=== PATIENT | male | born 1960 | race Caucasian/White ===

== ENCOUNTER 2019-03-12 14:16 | Emergency (ER) | payer OTHER ==
[2019-03-12 14:54] LABS: Absolute Lymphocytes (CBC) 1.3 K/uL (0.7-4.9); Basophils % 0.9 % (0-1.3); Hematocrit 41.1 % (39.6-49.0); Lymphocytes % 24.6 % (15.3-44.8); MPV 9.6 fL (7.6-11.3); RBC Red Blood Cell Count 4.04 M/uL (4.33-5.43)
[2019-03-12 14:55] LABS: Protime INR 0.93
[2019-03-12] MEDS ORDERED: NA CHLORIDE 0.9% 2,000 ML ONE (15:13)
[2019-03-12 15:14] LABS: ALT/SGPT 95 U/L (12-78); AST/SGOT 155 U/L (15-37); Albumin 3.5 g/dL (3.4-5.0); Alkaline Phosphatase 119 U/L (45-117); BUN Blood Urea Nitrogen 7 mg/dL (7-18); Bicarbonate 27 mmol/L (21-32); Bilirubin Direct 0.4 mg/dL (0-0.2); Bilirubin Total 0.8 mg/dL (0.2-1.0); Glucose Level 144 mg/dL (74-106); Magnesium 2.1 mg/dL (1.8-2.4); NT PRO-BNP 13 pg/mL (<125); Potassium 4.1 mmol/L (3.5-5.1); Protein, Total 6.7 g/dL (6.4-8.2); Sodium Level 138 mmol/L (136-145); Troponin (Emerg Dept Use Only) < 0.02 ng/mL (0.0-0.045)
--- NOTE | 2019-03-12 15:19 | RAD REPORT ---
EXAM DESCRIPTION: RAD - Chest Single View - 03/12/2019 2:57 pm CLINICAL HISTORY: PALPITATIONS Chest pain. COMPARISON: No comparisons FINDINGS: Portable technique limits examination quality. The lungs are grossly clear. The heart is normal in size. No displaced fractures. IMPRESSION: No acute intrathoracic process suspected.
[2019-03-12] MEDS ORDERED: NA CHLORIDE 0.9% 1,000 ML ONE (16:35)
--- NOTE | 2019-03-12 16:46 | EDPHYS ---
Physician Documentation [facility] Name: Adi Bennett Age: 58 yrs Sex: Male : 1960 Arrival Date: 03/12/2019 Time: 14:17 Bed 24 Private MD: ED Physician Jose Cormier HPI: 03/12 15:05 This 58 yrs old Male presents to ER via Wheelchair with complaints of jmm Palpitations. 15:05 The patient presents with a history of heart racing. Onset: The symptoms/episode jmm began/occurred gradually, 2 day(s) ago. Duration: The patient or guardian reports multiple episodes. Modifying factors: The symptoms are aggravated by nothing. The symptoms are alleviated by nothing. This is a 58 year old male with no known chronic medical conditions that presents to the ED with complaints of palpitations and elevated heart rate over the past 2 days. Patient recently recovered from flu b 3 days ago. Denies vomiting, denies abdominal pain, denies chest pain. . Historical: - Allergies: 14:31 No Known Allergies; iw - PMHx: 14:31 None; iw - PSHx: 14:31 None; iw - Immunization history:: Adult Immunizations up to date. - Social history:: Smoking status: . - Ebola Screening: : Patient negative for fever greater than or equal to 101.5 degrees Fahrenheit, and additional compatible Ebola Virus Disease symptoms Patient denies exposure to infectious person Patient denies travel to an Ebola-affected area in the 21 days before illness onset No symptoms or risks identified at this time. ROS: 15:05 Constitutional: Negative for fever, chills, and weight loss. jmm 15:05 Abdomen/GI: Negative for abdominal pain, nausea, vomiting, diarrhea, and constipation, Back: Negative for injury and pain. 15:05 Cardiovascular: Positive for palpitations. 15:05 Neuro: Positive for headache. 15:05 All other systems are negative. Exam: 15:05 Constitutional: This is a well developed, well nourished patient who is awake, alert, jmm and in no acute distress. Head/Face: atraumatic. Eyes: EOMI, no conjunctival erythema appreciated ENT: Moist Mucus Membranes Neck: Trachea midline, Supple Chest/axilla: Normal chest wall appearance and motion. 15:05 Abdomen/GI: Non distended, soft Back: Normal ROM Skin: General appearance color normal MS/ Extremity: Moves all extremities, no obvious deformities appreciated, no edema noted to the lower extremities Neuro: Awake and alert, normal gait Psych: Behavior is normal, Mood is normal, Patient is cooperative and pleasant 15:05 Cardiovascular: Rate: tachycardic, Rhythm: regular, Pulses: no pulse deficits are appreciated. 15:05 Respiratory: the patient does not display signs of respiratory distress, Respirations: normal, Breath sounds: are clear throughout. Vital Signs: 14:30 BP 140 / 90 LA (auto/reg); Pulse 130; Resp 14; Temp 98.4; Pulse Ox 98% on R/A; Weight iw 65.77 kg; Height 5 ft. 7 in. (170.18 cm); 14:46 BP 137 / 88; Pulse 118; Resp 19; Pulse Ox 96% on R/A; ca1 15:36 BP 148 / 89; Pulse 107; Resp 19 S; Pulse Ox 98% on R/A; ca1 16:54 BP 149 / 83; Pulse 115; Resp 18 S; Pulse Ox 99% on R/A; ca1 14:30 Body Mass Index 22.71 (65.77 kg, 170.18 cm) iw MDM: 15:05 Patient medically screened. thania 16:44 Data reviewed: vital signs, nurses notes. Counseling: I had a detailed discussion with darell the patient and/or guardian regarding: the historical points, exam findings, and any diagnostic results supporting the discharge/admit diagnosis, lab results, radiology results, the need for outpatient follow up, to return to the emergency department if symptoms worsen or persist or if there are any questions or concerns that arise at home. ED course: Patient states that he feels much better. tachycardia most likely due to viral illness. patient is advised to follow up with pcp for reevaluation and otherwise given strict return precautions. . 03/12 14:39 Order name: Basic Metabolic Panel; Complete Time: 15:15 ca1 03/12 14:39 Order name: CBC with Diff; Complete Time: 14:56 03/12 14:39 Order name: LFT's; Complete Time: 15:15 ca1 03/12 14:39 Order name: Magnesium; Complete Time: 15:15 03/12 14:39 Order name: NT PRO-BNP; Complete Time: 15:15 03/12 14:39 Order name: PT-INR; Complete Time: 15:15 ca1 03/12 14:39 Order name: Troponin (emerg Dept Use Only); Complete Time: 15:15 ca1 03/12 14:39 Order name: XRAY Chest (1 view); Complete Time: 15:41 03/12 14:39 Order name: EKG; Complete Time: 14:40 03/12 14:39 Order name: Cardiac monitoring; Complete Time: 14:39 03/12 14:39 Order name: EKG - Nurse/Tech; Complete Time: 14:40 03/12 14:39 Order name: IV Saline Lock; Complete Time: 14:40 ca1 03/12 14:39 Order name: Labs collected and sent; Complete Time: 14:40 ca1 03/12 14:39 Order name: O2 Per Protocol; Complete Time: 14:40 03/12 14:39 Order name: O2 Sat Monitoring; Complete Time: 14:40 ca1 Administered Medications: 15:12 Drug: NS 0.9% 1000 ml Route: IV; Rate: 1000 ml; Site: right antecubital; ca1 16:00 Follow up: Urine output 600 ml; Response: No adverse reaction; IV Status: Completed ca1 infusion 16:01 Drug: NS 0.9% 1000 ml Route: IV; Rate: 1000 ml; Site: right antecubital; ca1 17:00 Follow up: Response: No adverse reaction; IV Status: Completed infusion ca1 16:40 Not Given (Patient Refused): NS 0.9% 1000 ml IV at 1 bolus Per protocol; 1000 mL bolus ca1 Disposition: 03/12/19 16:45 Discharged to Home. Impression: Tachycardia, unspecified. - Condition is Stable. - Discharge Instructions: Sinus Tachycardia. - Medication Reconciliation Form, Thank You Letter, Antibiotic Education, Prescription Opioid Use form. - Follow up: Private Physician; When: 2 - 3 days; Reason: Recheck today's complaints, Continuance of care, Re-evaluation by your physician. Addendum: 03/14/2019 19:42 Co-signature as Attending Physician, Jose Cormier MD. r n Signatures: Dispatcher [employer] EDTiti Morse PA PA jmm Williams, Irene, RN RN iw Nieto, Roman, MD MD rn AcobPam RN RN ca1 Corrections: (The following items were deleted from the chart) 03/12 16:56 16:45 03/12/2019 16:45 Discharged to Home. Impression: Tachycardia, unspecified. ca1 Condition is Stable. Forms are Medication Reconciliation Form, Thank You Letter, Antibiotic Education, Prescription Opioid Use. Follow up: Private Physician; When: 2 - 3 days; Reason: Recheck today's complaints, Continuance of care, Re-evaluation by your physician. darell
--- NOTE | 2019-03-12 16:46 | ER ---
Nurse's Notes [facility] Name: Adi Bennett Age: 58 yrs Sex: Male : 1960 Arrival Date: 03/12/2019 Time: 14:17 Bed 24 Private MD: Diagnosis: Tachycardia, unspecified Presentation: 03/12 14:27 Presenting complaint: Patient states: palpitations X 5 days , recently recovered from iw Flu B 2 days ago. Transition of care: patient was not received from another setting of care. Onset of symptoms was March 08, 2019. Risk Assessment: Do you want to hurt yourself or someone else? Patient reports no desire to harm self or others. Initial Sepsis Screen: Does the patient meet any 2 criteria? No. Patient's initial sepsis screen is negative. Does the patient have a suspected source of infection? No. Patient's initial sepsis screen is negative. Care prior to arrival: None. 14:27 Method Of Arrival: Wheelchair iw 14:27 Acuity: RODERICK 2 iw Historical: - Allergies: 14:31 No Known Allergies; iw - PMHx: 14:31 None; iw - PSHx: 14:31 None; iw - Immunization history:: Adult Immunizations up to date. - Social history:: Smoking status: . - Ebola Screening: : Patient negative for fever greater than or equal to 101.5 degrees Fahrenheit, and additional compatible Ebola Virus Disease symptoms Patient denies exposure to infectious person Patient denies travel to an Ebola-affected area in the 21 days before illness onset No symptoms or risks identified at this time. Screenin:40 Abuse screen: Denies threats or abuse. Denies injuries from another. Nutritional ca1 screening: No deficits noted. Tuberculosis screening: No symptoms or risk factors identified. Fall Risk IV access (20 points). Assessment: 14:40 General: Appears in no apparent distress. comfortable, Behavior is cooperative, ca1 appropriate for age, anxious. Pain: Denies pain. Neuro: Level of Consciousness is awake, alert, obeys commands, Oriented to person, place, time, situation, Appropriate for age. Cardiovascular: Heart tones S1 S2 present Capillary refill < 3 seconds Patient's skin is warm and dry. Rhythm is sinus tachycardia. Respiratory: Airway is patent Respiratory effort is even, unlabored, Respiratory pattern is regular, symmetrical, Breath sounds are clear bilaterally. GI: Abdomen is flat, non-distended, Bowel sounds present X 4 quads. Abd is soft and non tender X 4 quads. : No deficits noted. No signs and/or symptoms were reported regarding the genitourinary system. EENT: No deficits noted. No signs and/or symptoms were reported regarding the EENT system. Derm: Skin is intact, is healthy with good turgor, Skin is pink, warm \T\ dry. Musculoskeletal: Circulation, motion, and sensation intact. Capillary refill < 3 seconds. 15:36 Reassessment: Patient appears in no apparent distress at this time. Patient and/or ca1 family updated on plan of care and expected duration. Pain level reassessed. Patient is alert, oriented x 3, equal unlabored respirations, skin warm/dry/pink. 16:54 Reassessment: Patient appears in no apparent distress at this time. Patient is alert, ca1 oriented x 3, equal unlabored respirations, skin warm/dry/pink. Vital Signs: 14:30 BP 140 / 90 LA (auto/reg); Pulse 130; Resp 14; Temp 98.4; Pulse Ox 98% on R/A; Weight iw 65.77 kg; Height 5 ft. 7 in. (170.18 cm); 14:46 BP 137 / 88; Pulse 118; Resp 19; Pulse Ox 96% on R/A; ca1 15:36 BP 148 / 89; Pulse 107; Resp 19 S; Pulse Ox 98% on R/A; ca1 16:54 BP 149 / 83; Pulse 115; Resp 18 S; Pulse Ox 99% on R/A; ca1 14:30 Body Mass Index 22.71 (65.77 kg, 170.18 cm) iw ED Course: 14:17 Patient arrived in ED. rg4 14:25 Pam Kaiser, RN is Primary Nurse. ca1 14:30 Patient has correct armband on for positive identification. Placed in gown. Bed in low jp3 position. Call light in reach. Side rails up X 1. Warm blanket given. Verbal reassurance given. playground monitor on. Pulse ox on. NIBP on. 14:30 Patient maintains SpO2 saturation greater than 95% on room air. jp3 14:30 EKG done, by microwave technician. jp3 14:31 Triage completed. iw 14:38 No provider procedures requiring assistance completed. Initial lab(s) drawn, by ar, ca1 sent to lab. Inserted saline lock: 20 gauge in right antecubital area, using aseptic technique. Blood collected. 14:46 Arm band placed on. ca1 14:50 Titi Stevenson PA is PHCP. [facility] 14:50 Jose Cormier MD is Attending Physician. m 14:57 XRAY Chest (1 view) In Process Unspecified. EDMS 16:54 IV discontinued, intact, bleeding controlled, No redness/swelling at site. Pressure ca1 dressing applied. Administered Medications: 15:12 Drug: NS 0.9% 1000 ml Route: IV; Rate: 1000 ml; Site: right antecubital; ca1 16:00 Follow up: Urine output 600 ml; Response: No adverse reaction; IV Status: Completed ca1 infusion 16:01 Drug: NS 0.9% 1000 ml Route: IV; Rate: 1000 ml; Site: right antecubital; ca1 17:00 Follow up: Response: No adverse reaction; IV Status: Completed infusion ca1 16:40 Not Given (Patient Refused): NS 0.9% 1000 ml IV at 1 bolus Per protocol; 1000 mL bolus ca1 Output: 16:00 Urine: 600ml; Total: 600ml. ca1 Outcome: 16:45 Discharge ordered by MD. [facility] 16:54 Discharged to home ambulatory. ca1 16:54 Condition: stable 16:54 Discharge instructions given to patient, Instructed on discharge instructions, follow up and referral plans. Demonstrated understanding of instructions, follow-up care. 16:56 Patient left the ED. ca1 Signatures: Dispatcher [employer] EDMS Titi Stevenson PA PA jmm Williams, Irene, ADEEL RN Lois Kramer rg4 Rafael Hilton jp3 Pam Kaiser RN RN ca1 Corrections: (The following items were deleted from the chart) 14:32 14:30 BP 140 / 90 Auto L Arm Regular; Pulse 130bpm; Resp 14bpm; Pulse Ox 98% RA; Temp iw 98.4F; jp3 14:32 14:27 Presenting complaint: Patient states: palpitations X 5 days iw iw
[2019-03-12 17:02] VITALS: TEMP 98.4
[2019-03-12 17:06] VITALS: BP 149/83; O2SAT 99
--- NOTE | 2019-03-13 08:36 | EKG ---
Test Date: 2019-03-12 Test Time: 14:33:10 Juice Scaleman: [facility]MI MEASUREMENT RESULTS: Intervals: Rate: 121 AL: 130 QRSD: 82 QT: 312 QTc: 443 Leland: P: 68 AL: 130 QRS: 78 T: 67 INTERPRETIVE STATEMENTS: Sinus tachycardia Otherwise normal ECG No previous ECG available for comparison Electronically Signed On 03-13-19 08:35:22 [employer]IVING TEACHER by Cisco Escobar
== END 2019-03-12 16:56 | disposition home or self-care (01) ==
LOC: ER 14:16
DX: R00.0 Tachycardia, unspecified (principal)
CPT/HCPCS: 96361; 93005; 85025; 80048; 36415; 83735; 85610; 80076; 84484; 83880; 71045; 96360; 99285; J7030 ×2

== ENCOUNTER 2019-08-02 13:25 | Inpatient (IN) | payer OTHER, SELFPAY ==
--- OUTSIDE RECORDS SUMMARY | 2019-08-02 13:27 | XMS REPORT | Continuity of Care Document ---
:1960 Author Organization [facility] t Address [address] [place] [address] Care Team Providers Name Role Phone Unavailable Unavailable Unavailable Payers Payer Name Policy Type Policy Number Effective Date Expiration Date S ource Problems Condition Condition Condition Status Onset Resolution Last Treating Co mments Source Name Details Category Date Date Treatment Clinician Date Irritable Irritable Diagnosis Active [facility] bowel bowel [facility] - syndrome, syndrome, Gideon rajwinder unspecifie unspecifie l d type [facility] Alcoholism Alcoholism Problem Active [facility] Alcoholic Alcoholic Problem Active [facility] hepatitis hepatitis [facility] - without without Memoria ascites ascites l [facility] Alcoholism Alcoholism Problem Active [facility] in in [facility] - remission remission Gideon rajwinder l [facility] Allergies, Adverse Reactions, Alerts Allergy Allergy Status Severity Reaction(s) Onset Inactive Treating Comm ents Source Name Type Date Date Clinician No Known DA Active U 2017-02 [facility] Allergie 2-10 Clear s 00:00: [facility] 00 [facility] Medications Ordered Filled Start Stop Current Ordering Indication Dosage Frequency Signature Comments Components Source Medication Medication Date Date Medication? Clinician (SIG) Name Name PredniSONE PredniSONE 0 2020- Yes Janina [address] [facility] 3-18 03-23 [place] [facility] - 00:00: 00:00 Memoria 00 :00 l [facility] Procedures This patient has no known procedures. Encounters Start End Encounter Admission Attending Care Care Encounter Source Date/Time Date/Time Type Type Clinicians Facility Department ID 2019-05-06 2019-05-06 [facility] [id number] [facility] 15:20:00 15:20:00 [facility] Medicine Outpati ent Clinics 2018-08-19 2018-08-19 [facility] [id number] [facility] 09:15:00 09:15:00 [facility] Outpat[facility] ent Clinics 2018-02-20 2018-02-20 [facility] [id number] [facility] 08:30:00 08:30:00 [facility] Outpat[facility] Clinics 2017-09-12 2017-09-12 [facility] [id number] [facility] 08:45:00 08:45:00 [facility] Outpati ent Clinics 2017-08-23 2017-08-23 [facility] [id number] [facility] 08:15:00 08:15:00 [facility] Outpat[facility] Clinics 2017-08-22 2017-08-22 [facility] [id number] [facility] 15:15:00 15:15:00 [facility] Outpat[facility] ent Clinics Results This patient has no known results.
--- OUTSIDE RECORDS SUMMARY | 2019-08-02 13:27 | XMS REPORT ---
:1960 Author Organization [employer] Care Team Providers Name Role Phone Janina Gabriel Provider Role Unavailable Allergies, Adverse Reactions, Alerts Substance Reaction Event Type N.K.D.A. 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
[2019-08-02] MEDS ORDERED: NA CHLORIDE 0.9% 1,000 ML ONE ×2 (14:32→14:49)
[2019-08-02] MEDS ORDERED: ONDANSETRON 4 MG/2 ML VIAL ONE ×2 (14:32→16:18)
[2019-08-02] MEDS ORDERED: MORPHINE 2 MG/ML SYR ONE ×2 (14:32→16:18)
[2019-08-02] MEDS ORDERED: FAMOTIDINE 20 MG/2 ML VIAL IV ONE (14:49)
[2019-08-02 15:08] LABS: Absolute Lymphocytes (CBC) 0.2 K/uL (0.7-4.9); Basophils % 0.1 % (0-1.3); Hematocrit 45.1 % (39.6-49.0); Lymphocytes % 1.7 % (15.3-44.8); MPV 10.4 fL (7.6-11.3); RBC Red Blood Cell Count 4.35 M/uL (4.33-5.43)
[2019-08-02 15:30] LABS: ALT/SGPT 156 U/L (12-78); AST/SGOT 223 U/L (15-37); Albumin 4.1 g/dL (3.4-5.0); Alkaline Phosphatase 160 U/L (45-117); BUN Blood Urea Nitrogen 9 mg/dL (7-18); Bicarbonate 23 mmol/L (21-32); Bilirubin Direct 0.9 mg/dL (0-0.2); Bilirubin Total 3.4 mg/dL (0.2-1.0); Glucose Level 199 mg/dL (74-106); Lipase 662 U/L (73-393); Magnesium 2.3 mg/dL (1.8-2.4); NT PRO-BNP 454 pg/mL (<125); Potassium 3.5 mmol/L (3.5-5.1); Sodium Level 137 mmol/L (136-145); Troponin (Emerg Dept Use Only) < 0.02 ng/mL (0.0-0.045)
--- NOTE | 2019-08-02 15:35 | RAD REPORT ---
EXAM DESCRIPTION: RAD - Chest Single View - 08/02/2019 2:40 pm CLINICAL HISTORY: Chest pain;Abdominal distention COMPARISON: February 2019 TECHNIQUE: AP portable chest image was obtained 08/02/2019 2:40 pm . FINDINGS: Lungs are clear. Heart and vasculature are normal. No measurable pleural effusion and no p neumothorax. No acute bony abnormality seen. No acute aortic findings suspected. IMPRESSION: No acute cardiopulmonary process. No significant interval change
--- NOTE | 2019-08-02 16:03 | RAD REPORT ---
EXAM DESCRIPTION: CT - Abdomen Pelvis W Contrast - 08/02/2019 3:49 pm CLINICAL HISTORY: ABD PAIN COMPARISON: No comparisons TECHNIQUE: Biphasic, helical CT imaging of the abdomen and pelvis was performed following 100 ml non -ionic IV contrast. No oral contrast administered. All CT scans are performed using dose optimization technique as appropriate and may include automated exposure control or mA/KV adjustment according to patient size. FINDINGS: No suspicious findings in the lung bases. Liver shows a very pronounced fatty infiltration pattern. No focal liver lesion. No portal vein abnor mality. Spleen shows no suspicious finding. Gallbladder and biliary tree are also without suspicious finding. No focal mass seen in the pancreatic parenchyma. There is mild congestion or edema in the peripancrea tic fat. A few punctate centimeter sized reactive lymph nodes are seen. No suspicious lymphadenopathy . Symmetric renal function is seen with no hydronephrosis or suspicious renal mass. No pyelonephritis o r acute parenchymal process. No bladder abnormalities. No adrenal abnormalities. No dilated bowel loops or bowel wall thickening. Very minimal hiatal hernia present. No free air or p neumatosis. No abnormal free fluid collection. No hernia, mass or bulky lymphadenopathy. No suspicious bony findings. IMPRESSION: Mild pancreatitis. No abscess, pseudocyst or emergent complicating factor. Very pronounced fatty infiltration of the liver.
--- NOTE | 2019-08-02 16:11 | EDPHYS ---
Physician Documentation [facility] Name: Adi Bennett Age: 58 yrs Sex: Male : 1960 Arrival Date: 08/02/2019 Time: 13:29 Bed 4 Private MD: WILLIS Physician Mohan Arnold HPI: 08/01 14:25 This 58 yrs old Male presents to ER via Ambulatory with complaints of angel Abdominal Pain, Nausea/Vomiting. 14:25 The patient presents to the emergency department with nausea, vomiting, abdominal pain, angel of the epigastric area, right upper quadrant and left upper quadrant. Onset: The symptoms/episode began/occurred 3 day(s) ago. Possible causes: unknown. The symptoms are aggravated by nothing. food , The symptoms are alleviated by nothing. remaining still. Associated signs and symptoms: Pertinent positives: abdominal pain. Severity of symptoms: At their worst the symptoms were moderate in the emergency department the symptoms are unchanged. The patient has experienced similar episodes in the past, multiple times. Historical: - Allergies: 14:00 No Known Allergies; iw - Home Meds: 14:00 dicyclomine 10 mg Oral cap daily [Active]; buspirone 10 mg Oral tab 1 tab daily iw [Active]; - PMHx: 14:00 Pancreatitis; IBS; iw - PSHx: 14:00 None; iw - Immunization history:: Adult Immunizations up to date. - Social history:: Smoking status: Patient reports the use of cigarette tobacco products, 3 packs per week. ROS: 14:26 Constitutional: Negative for fever, chills, and weight loss, Eyes: Negative for injury, angel pain, redness, and discharge, ENT: Negative for injury, pain, and discharge, Neck: Negative for injury, pain, and swelling, Cardiovascular: Negative for chest pain, palpitations, and edema, Respiratory: Negative for shortness of breath, cough, wheezing, and pleuritic chest pain, Back: Negative for injury and pain, : Negative for injury, bleeding, discharge, and swelling, MS/Extremity: Negative for injury and deformity, Skin: Negative for injury, rash, and discoloration, Neuro: Negative for headache, weakness, numbness, tingling, and seizure, Psych: Negative for depression, anxiety, suicide ideation, homicidal ideation, and hallucinations, Allergy/Immunology: Negative for hives, rash, and allergies, Endocrine: Negative for neck swelling, polydipsia, polyuria, polyphagia, and marked weight changes, Hematologic/Lymphatic: Negative for swollen nodes, abnormal bleeding, and unusual bruising. 14:26 Abdomen/GI: Positive for abdominal pain, nausea and vomiting. Exam: 14:26 Constitutional: This is a well developed, well nourished patient who is awake, alert, angel and in no acute distress. Head/Face: Normocephalic, atraumatic. Eyes: Pupils equal round and reactive to light, extra-ocular motions intact. Lids and lashes normal. Conjunctiva and sclera are non-icteric and not injected. Cornea within normal limits. Periorbital areas with no swelling, redness, or edema. ENT: Nares patent. No nasal discharge, no septal abnormalities noted. Tympanic membranes are normal and external auditory canals are clear. Oropharynx with no redness, swelling, or masses, exudates, or evidence of obstruction, uvula midline. Mucous membranes moist. Neck: Trachea midline, no thyromegaly or masses palpated, and no cervical lymphadenopathy. Supple, full range of motion without nuchal rigidity, or vertebral point tenderness. No Meningismus. Chest/axilla: Normal chest wall appearance and motion. Nontender with no deformity. No lesions are appreciated. Respiratory: Lungs have equal breath sounds bilaterally, clear to auscultation and percussion. No rales, rhonchi or wheezes noted. No increased work of breathing, no retractions or nasal flaring. Back: No spinal tenderness. No costovertebral tenderness. Full range of motion. Male : Normal genitalia with no discharge or lesions. Skin: Warm, dry with normal turgor. Normal color with no rashes, no lesions, and no evidence of cellulitis. MS/ Extremity: Pulses equal, no cyanosis. Neurovascular intact. Full, normal range of motion. Neuro: Awake and alert, GCS 15, oriented to person, place, time, and situation. Cranial nerves II-XII grossly intact. Motor strength 5/5 in all extremities. Sensory grossly intact. Cerebellar exam normal. Normal gait. Psych: Awake, alert, with orientation to person, place and time. Behavior, mood, and affect are within normal limits. 14:26 Cardiovascular: Rate: normal, Rhythm: regular, Pulses: Pulses are 4+ in bilateral radial, brachial, femoral, popliteal, posterior tibial and and dorsalis pedis arteries.. Heart sounds: normal, Edema: is not appreciated, JVD: is not appreciated. 14:26 Abdomen/GI: Inspection: abdomen appears normal, Bowel sounds: normal, Palpation: mild abdominal tenderness, in the epigastric area, right upper quadrant and left upper quadrant, Liver: no appreciated palpable abnormalities, Hernia: not appreciated. 15:06 ECG was reviewed by the Attending Physician. [facility] Vital Signs: 13:56 BP 173 / 95; Pulse 102; Resp 16; Pulse Ox 100% on R/A; Weight 54.43 kg; Height 5 ft. 7 iw in. (170.18 cm); Pain 10/10; 14:54 BP 153 / 86; Pulse 90; Resp 16; Pulse Ox 100% ; bp 16:05 BP 154 / 84; Pulse 90; Resp 20; Pulse Ox 100% ; bp 17:00 BP 153 / 86; Pulse 89; Resp 16; Pulse Ox 100% ; bp 18:08 BP 151 / 84; Pulse 84; Resp 18; Pulse Ox 98% ; jl7 13:56 Body Mass Index 18.79 (54.43 kg, 170.18 cm) iw MDM: 13:47 Patient medically screened. [facility] 14:28 Data reviewed: vital signs, nurses notes, lab test result(s), EKG, radiologic studies, [facility] CT scan, plain films. 14:29 Differential diagnosis: Nonspecific abd pain, gastritis, cholecystitis, pancreatitis, angel viral gastroenteritis, gastroenteritis, acute coronary syndrome, bowel obstruction, cholecystitis, Cholelithiasis, gastritis, gastroesophageal reflux disease, GI Bleed, Irritable bowel syndrome, non-specific abd pain, Peptic Ulcer Disease, Perf. Duodenal Ulcer, Perf. Gastric Ulcer. 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 Test interpretation: by ED physician or midlevel provider: ECG, plain radiologic studies. Counseling: I had a detailed discussion with the patient and/or guardian regarding: the historical points, exam findings, and any diagnostic results supporting the discharge/admit diagnosis, lab results, radiology results. Medication response: Zofran partially relieved the patient's nausea. 08/01 14:25 Order name: Basic Metabolic Panel; Complete Time: 15:50 [facility] 08/01 14:25 Order name: CBC with Diff; Complete Time: 15:20 [facility] 08/01 14:25 Order name: LFT's; Complete Time: 15:50 [facility] 08/01 14:25 Order name: Magnesium; Complete Time: 15:50 [facility] 08/01 14:25 Order name: NT PRO-BNP; Complete Time: 15:50 [facility] 08/01 14:25 Order name: Troponin (emerg Dept Use Only); Complete Time: 15:50 [facility] 08/01 14:25 Order name: XRAY Chest (1 view); Complete Time: 15:50 [facility] 08/01 14:25 Order name: Lipase; Complete Time: 15:50 [facility] 08/01 14:25 Order name: CT Abd/Pelvis - PO and IV Contrast [facility] 08/01 15:37 Order name: CREATININE WHOLE BLOOD; Complete Time: 15:50 EDA[facility] 08/01 16:07 Order name: AMMONIA [facility] 08/01 16:07 Order name: PT-INR [facility] 08/01 16:08 Order name: Urine Dipstick--Ancillary (enter results) 08/01 16:15 Order name: Abdomen Exam Complete EDAZ 08/01 14:25 Order name: EKG; Complete Time: 14:26 [facility] 08/01 14:25 Order name: Cardiac monitoring; Complete Time: 14:37 [facility] 08/01 14:25 Order name: EKG - Nurse/Tech; Complete Time: 14:55 [facility] 08/01 14:25 Order name: IV Saline Lock; Complete Time: 14:37 [facility] 08/01 14:25 Order name: Labs collected and sent; Complete Time: 14:37 [facility] 08/01 14:25 Order name: O2 Per Protocol; Complete Time: 14:36 [facility] 08/01 14:25 Order name: O2 Sat Monitoring; Complete Time: 14:36 [facility] 08/01 14:25 Order name: Urine Dipstick-Ancillary (obtain specimen); Complete Time: 16:13 [facility] EC:06 Rate is 92 beats/min. Rhythm is regular. QRS [place] is Normal. OR interval is normal. QRS angel interval is normal. QT interval is prolonged at 390 msec. T waves are Normal. No ST changes noted. Clinical impression: Abnormal EKG without significant change and No evidence of ischemia. Interpreted by me. Reviewed by me. Administered Medications: 14:35 Drug: NS 0.9% 1000 ml Route: IV; Rate: 1 bolus; Site: right forearm; bp 15:35 Follow up: IV Status: Completed infusion; IV Intake: 1000ml jl7 14:35 Drug: NS 0.9% 1000 ml Route: IV; Rate: 1 bolus; Site: right forearm; bp 16:00 Follow up: Response: No adverse reaction; IV Status: Completed infusion; IV Intake: jl7 1000ml 14:35 Drug: Pepcid 20 mg Route: IVP; Site: right forearm; bp 18:10 Follow up: Response: No adverse reaction jl7 14:35 Drug: morphine 2 mg Route: IVP; Site: right forearm; bp 14:35 Drug: Zofran (Ondansetron) 4 mg Route: IVP; Site: right forearm; bp 17:47 Follow up: Response: Nausea is decreased bp 16:10 Drug: Zofran (Ondansetron) 4 mg Route: IVP; Site: right forearm; bp 17:47 Follow up: Response: Nausea is decreased bp 16:13 Drug: morphine 2 mg Route: IVP; Site: right forearm; bp 17:47 Follow up: Response: Pain is decreased bp 16:15 Not Given (Duplicate Order): Zofran (Ondansetron) 4 mg IVP once; over 2 minutes bp Disposition: 08/02/19 16:11 Hospitalization ordered by Flaco Moya for Inpatient Admission. Preliminary diagnosis are Abdominal tenderness, Acute pancreatitis, Vomiting, Volume depletion. - Bed requested for Telemetry/MedSurg (Inpatient). - Status is Inpatient Admission. bp - Condition is Fair. - Problem is new. - Symptoms have improved. Signatures: Dispatcher [employer] EDAZ Mohan Arnold MD MD cha Williams, Irene, RN ADEEL Pavel Castillo RN RN Margaret Vogel Jahala RN jl7 Corrections: (The following items were deleted from the chart) 17:21 16:11 Hospitalization Ordered by Flaco Moya MD for Inpatient Admission. Preliminary eb diagnosis is Abdominal tenderness; Acute pancreatitis; Vomiting; Volume depletion. Bed requested for Telemetry/MedSurg (Inpatient). Status is Inpatient Admission. Condition is Fair. Problem is new. Symptoms have improved. angel 18:21 17:21 08/02/2019 16:11 Hospitalization Ordered by Flaco Moya MD for Inpatient bp Admission. Preliminary diagnosis is Abdominal tenderness; Acute pancreatitis; Vomiting; Volume depletion. Bed requested for Telemetry/MedSurg (Inpatient). Status is Inpatient Admission. Condition is Fair. Problem is new. Symptoms have improved. eb
--- NOTE | 2019-08-02 16:11 | ER ---
Nurse's Notes [facility] Name: Adi Bennett Age: 58 yrs Sex: Male : 1960 Arrival Date: 08/02/2019 Time: 13:29 Bed 4 Private MD: Diagnosis: Abdominal tenderness;Acute pancreatitis;Vomiting;Volume depletion Presentation: 08/01 13:56 Chief complaint: Patient states: hx of pancreatitis and IBS, started having upper abd iw pain X 3 days ago, vomiting X 2 days, now not tolerating fluids. Coronavirus screen: Proceed with normal triage. Patient denies a cough. Patient denies shortness of breath or difficulty breathing. Patient denies measured and/or subjective temperature greater than 100.4F prior to today's visit. Patient denies travel on a cruise ship or to a country the [facility] currently lists as an affected area. Patient denies contact with known and/or suspected case of COVID-19. Ebola Screen: Patient negative for fever greater than or equal to 101.5 degrees Fahrenheit, and additional compatible Ebola Virus Disease symptoms Patient denies exposure to infectious person. Patient denies travel to an Ebola-affected area in the 21 days before illness onset. No symptoms or risks identified at this time. Initial Sepsis Screen: Does the patient meet any 2 criteria? No. Patient's initial sepsis screen is negative. Does the patient have a suspected source of infection? No. Patient's initial sepsis screen is negative. Risk Assessment: Do you want to hurt yourself or someone else? Patient reports no desire to harm self or others. Onset of symptoms was July 30, 2019. 13:56 Method Of Arrival: Ambulatory iw 13:56 Acuity: RODERICK 3 iw Triage Assessment: 14:00 General: Appears in no apparent distress. uncomfortable, slender, Behavior is bp cooperative, appropriate for age, anxious. Pain: Complains of pain in abdomen. EENT: No deficits noted. Neuro: No deficits noted. Cardiovascular: Rhythm is sinus tachycardia. Respiratory: No deficits noted. GI: Reports intolerance of fluids, nausea, vomiting. : No signs and/or symptoms were reported regarding the genitourinary system. Derm: No deficits noted. Musculoskeletal: No deficits noted. Historical: - Allergies: 14:00 No Known Allergies; iw - Home Meds: 14:00 dicyclomine 10 mg Oral cap daily [Active]; buspirone 10 mg Oral tab 1 tab daily iw [Active]; - PMHx: 14:00 Pancreatitis; IBS; iw - PSHx: 14:00 None; iw - Immunization history:: Adult Immunizations up to date. - Social history:: Smoking status: Patient reports the use of cigarette tobacco products, 3 packs per week. Screenin:05 Abuse screen: Denies threats or abuse. Denies injuries from another. Nutritional bp screening: No deficits noted. Tuberculosis screening: No symptoms or risk factors identified. Fall Risk None identified. Assessment: 14:00 General: SEE TRIAGE NOTE. bp 14:55 Reassessment: PT NOT TOLERATING PO CONTRAST, NOTIFIED. bp 16:06 Reassessment: PT RETURNED FROM CT. ALL CURRENT ORDERS COMPLETED. bp 17:00 Reassessment: ADMIT IN PROCESS. NO FURTHER NAUSEA/VOMITING, IVF INFUSING. bp 18:10 Reassessment: ADMIT COMPLETE, PT JOHANNA WITH PCT. bp Vital Signs: 13:56 BP 173 / 95; Pulse 102; Resp 16; Pulse Ox 100% on R/A; Weight 54.43 kg; Height 5 ft. 7 iw in. (170.18 cm); Pain 10/10; 14:54 BP 153 / 86; Pulse 90; Resp 16; Pulse Ox 100% ; bp 16:05 BP 154 / 84; Pulse 90; Resp 20; Pulse Ox 100% ; bp 17:00 BP 153 / 86; Pulse 89; Resp 16; Pulse Ox 100% ; bp 18:08 BP 151 / 84; Pulse 84; Resp 18; Pulse Ox 98% ; jl7 13:56 Body Mass Index 18.79 (54.43 kg, 170.18 cm) iw ED Course: 13:29 Patient arrived in ED. ag5 13:47 Mohan Arnold MD is Attending Physician. angel 13:50 Pavel Castillo, ADEEL is Primary Nurse. bp 13:59 Triage completed. iw 14:00 Arm band placed on. iw 14:05 Patient has correct armband on for positive identification. Bed in low position. Call bp light in reach. Side rails up X2. 14:35 Inserted saline lock: 20 gauge in right forearm, using aseptic technique. Blood bp collected. 14:40 XRAY Chest (1 view) In Process Unspecified. EDMS 15:22 EKG done, by ED staff, reviewed by Mohan Arnold MD. mh5 15:50 CT Abd/Pelvis - PO and IV Contrast In Process Unspecified. EDMS 15:51 CT completed. Patient tolerated procedure well. Patient moved back from CT. bq 16:10 Flaco Moya MD is Hospitalizing Provider. angel 18:08 No provider procedures requiring assistance completed. Patient admitted, IV remains in jl7 place. intact, No redness/swelling at site. Administered Medications: 14:35 Drug: NS 0.9% 1000 ml Route: IV; Rate: 1 bolus; Site: right forearm; bp 15:35 Follow up: IV Status: Completed infusion; IV Intake: 1000ml jl7 14:35 Drug: NS 0.9% 1000 ml Route: IV; Rate: 1 bolus; Site: right forearm; bp 16:00 Follow up: Response: No adverse reaction; IV Status: Completed infusion; IV Intake: jl7 1000ml 14:35 Drug: Pepcid 20 mg Route: IVP; Site: right forearm; bp 18:10 Follow up: Response: No adverse reaction jl7 14:35 Drug: morphine 2 mg Route: IVP; Site: right forearm; bp 14:35 Drug: Zofran (Ondansetron) 4 mg Route: IVP; Site: right forearm; bp 17:47 Follow up: Response: Nausea is decreased bp 16:10 Drug: Zofran (Ondansetron) 4 mg Route: IVP; Site: right forearm; bp 17:47 Follow up: Response: Nausea is decreased bp 16:13 Drug: morphine 2 mg Route: IVP; Site: right forearm; bp 17:47 Follow up: Response: Pain is decreased bp 16:15 Not Given (Duplicate Order): Zofran (Ondansetron) 4 mg IVP once; over 2 minutes bp Intake: 15:35 IV: 1000ml; Total: 1000ml. jl7 16:00 IV: 1000ml; Total: 2000ml. jl7 Outcome: 16:11 Decision to Hospitalize by Provider. angel 18:08 Admitted to Med/surg accompanied by tech, via wheelchair, room 222, with chart, Report jl7 called to ADEEL Sierra 18:08 Condition: stable 18:08 Discharge instructions given to patient, family, Instructed on the need for admit, Demonstrated understanding of instructions. 18:21 Patient left the ED. bp Signatures: Dispatcher [employer] Mohan Cantor MD MD cha Quilty, Betty bq Williams, Irene, RN Virginia Couch [facility] Ani Ni RN RN jl7 Pavel Castillo RN RN Jose Esteves 5
[2019-08-02 16:36] LABS: Protime INR 1.01
[2019-08-02 16:37] LABS: Urine Blood 1+ (NEG); Urine Glucose NEGATIVE (NEG); Urine Protein 2+ (NEG)
[2019-08-02] MEDS ORDERED: ACETAMINOPHEN 500 MG TAB PO PRN (18:26)
[2019-08-02] MEDS: HYDROMORPHONE HCL 1 MG/ML INJ IV PRN ×2 (18:51→23:13)
[2019-08-02] MEDS: ONDANSETRON 4 MG/2 ML VIAL IV PRN ×2 (18:51→23:14)
[2019-08-02] MEDS: D5.45NS W/KCL 20MEQ 1,000 ML IV SCH (18:51)
--- NOTE | 2019-08-02 18:55 | RAD REPORT ---
EXAM DESCRIPTION: US - Abdomen Exam Complete - 08/02/2019 5:32 pm CLINICAL HISTORY: pancreatitis, high T-Bili, r/o CBD dilatation COMPARISON: Abdomen Pelvis W Contrast dated 08/02/2019 FINDINGS: Gallbladder size is normal. Small echogenic nonshadowing foci are present along the gallbl adder wall. These could be small polyps or adherent stones. No gallbladder wall thickening or edema. No pericholecystic fluid. No worrisome mass. Common bile duct is normal with no common duct stone gita ntified. Diffuse fatty infiltration pattern seen in the liver. No focal liver lesion. No splenic abnormality i dentified. The pancreas is too obscured by bowel gas for assessment. CT study of same date showed pancreatitis f indings. No hydronephrosis or suspicious mass in either kidney. Aorta and IVC show no significant finding. No ascites or bulky lymphadenopathy. IMPRESSION: Small polyps versus adherent gallstones within a normal-sized gallbladder. No acute gall bladder finding evident. Pancreas is too obscured by bowel gas for assessment. No biliary tree dilatation. Diffuse fatty infiltration of the liver.
[2019-08-02 20:07] VITALS: BMI 18.8
--- NOTE | 2019-08-02 22:03 | HP ---
Date of Admission: 08/02/2019 Chief Complaint: Abdominal pain, nausea, and vomiting. Primary Care Physician: None. History Of Present Illness: Patient is a 58-year-old male with past medical history of irritable bowel syndrome and previous history of pancreatitis, who was in his usual state of health until 3 days prior to admission when the patient had sudden onset of abdominal pain which is epigastric, nausea, vomiting which was nonbloody and inability to keep down any p.o. intake. Patient denies any fevers or chills. His pain is constant, moderate, progressively worsening, radiates towards the back in between his shoulder blades, worse with any food. No alleviating factors. Patient has had symptoms such as these previously with his last bout of pancreatitis. Patient came into the ER for further evaluation of his symptoms. In the ER, he was found to be hypertensive, tachycardic, and multiple episodes of emesis in the ER. Workup revealed normal WBC count. His lipase level was 662. Liver enzymes are elevated. Direct bilirubin was only 0.9, however, total bilirubin is elevated. CT scan showed mild pancreatitis. There is no abscess, pseudocyst, or emergent complicating factors. There was fatty infiltration of the liver. The gallbladder and biliary tree did not show any suspicious findings. Ultrasound of the abdomen is pending at this time. Chest x-ray was clear. Patient was then referred for admission. When seen in the ER, he was awake, alert, and oriented x3, in some moderate distress. Past Medical History: Irritable bowel syndrome, history of previous pancreatitis. Surgical History: None. Allergies: NO KNOWN DRUG ALLERGIES. Medications: The patient takes prednisone as needed for his IBS and dicyclomine. Patient was on Chantix, but no longer taking it. Social History: Patient smokes about 3 packs per week. Has been smoking since the 80s. Denies any significant alcohol use. Last drink was November of 2017. Family History: Positive for irritable bowel syndrome in both parents. Review of Systems: Ten-point system reviewed, negative except as per HPI. Physical Examination: Vital Signs: Blood pressure 173/95, pulse 102, respirations 16, O2 100% on room air. BMI 18. General: Awake, alert, oriented x3, in some mild distress due to pain, ill- appearing male, cachectic. BMI 18. HEENT: Normocephalic, atraumatic. PERRLA, EOMI. Dry mucous membranes. Oropharynx is clear. Normal dentition. Neck: Supple. No JVD. Trachea midline. CV: S1, S2. Sinus tachycardia. Peripheral pulses present. Respiratory: Moving air well bilaterally. No wheezing or stridor. No use of accessory muscles. Gastrointestinal: Abdomen is soft. Tenderness to palpation in the epigastric region. No rebound or guarding. Positive bowel sounds. Extremities: No clubbing, cyanosis, or edema. No calf tenderness. Neuro: Cranial nerves 2 through 12 intact grossly. No focal neurological deficits. Speech is normal. Strength is symmetric, bilateral upper and lower extremities. Skin: No rashes. Normal skin turgor. Psych: Mood is okay. Affect is full. Insight and judgment are good. Laboratory Data: Sodium 137, potassium 3.5, chloride 97, CO2 of 23, BUN 9, creatinine 1.16, glucose 199, calcium 9.5, magnesium 2.3, total bilirubin 3.4, direct bilirubin 0.9, AST 223, ALT 156, alkaline phosphatase 160, ammonia 23. Troponin less than 0.02. Lipase is 662. INR 1.101. WBC 10.2, H and H 15.2 and 45.1, platelets 101, neutrophils 87%. UA; 4+ ketones, 1+ blood, negative nitrite, negative leukocyte esterase, 2+ protein. Imaging Studies: Chest x-ray shows no acute cardiopulmonary process. CT scan shows mild pancreatitis. No abscess, pseudocyst, or emergent complicating factor, very pronounced fatty infiltration of the liver. Gallbladder and biliary tree are also without suspicious finding. Assessment/plan: A 58-year-old male with: 1. Acute pancreatitis, unclear etiology. Patient does not drink alcohol. Direct bilirubin is only 0.9. No gallstones seen on CT scan. Biliary tree is normal. Ultrasound of the abdomen is pending. No GI on-call today. Patient has followed up with Dr. Taylor and Dr. Perez in the past. Dr. Taylor is on- call in a.m. We will consult GI at that time. We will start on IV fluids with D5 half NS with 20 of K. Pain control. The patient states morphine did not work for him, requesting Dilaudid. Has had previous bout of pancreatitis and Dilaudid work for him best. Continue with antiemetics. We will keep n.p.o. for now. We will start on early re-feeding with clear liquids in a.m. We will trend lipase levels. 2. Diffuse fatty infiltration of the liver, likely explains the elevated LFTs and elevated indirect bilirubin. The patient will need to follow up with GI and to continue serial imaging studies of the liver. Patient has risk for progression to cirrhosis due to nonalcoholic fatty liver disease. 3. Irritable bowel syndrome, stable. 4. Nicotine dependence with cigarette smoking. Counseled for less than 3 minutes. Patient not receptive at this time to quit. He recently got off [employer], did not work for him. Plan: Admit patient to Med-Surg, place as inpatient. Length of stay greater than 2 midnights. YANNA Voice ID: [id number] MTDD
[2019-08-03] MEDS: D5.45NS W/KCL 20MEQ 1,000 ML IV SCH ×4 (01:06→22:23)
[2019-08-03] MEDS: ONDANSETRON 4 MG/2 ML VIAL IV PRN ×5 (04:03→20:21)
[2019-08-03] MEDS: HYDROMORPHONE HCL 1 MG/ML INJ IV PRN ×5 (04:05→20:21)
[2019-08-03 05:28] LABS: Absolute Lymphocytes (CBC) 0.7 K/uL (0.7-4.9); Basophils % 0.2 % (0-1.3); Hematocrit 38.9 % (39.6-49.0); Lymphocytes % 7.1 % (15.3-44.8); MPV 10.2 fL (7.6-11.3); RBC Red Blood Cell Count 3.69 M/uL (4.33-5.43)
[2019-08-03 05:49] LABS: Albumin 3.3 g/dL (3.4-5.0); Bilirubin Total 1.8 mg/dL (0.2-1.0); Phosphorus 1.8 mg/dL (2.5-4.9); Potassium 3.9 mmol/L (3.5-5.1); Protein, Total 6.4 g/dL (6.4-8.2)
[2019-08-03 07:39] LABS: Anisocytosis 1+; Blood Morphology Comment NOTED (NOT SEEN); Macrocytosis 1+; Platelet Estimate DECR; Toxic Granulation 1+; Urine White Blood Cell Casts OK
[2019-08-03] MEDS ORDERED: POTASSIUM CL SA 10 MEQ TAB PO ONE (07:48)
[2019-08-03] MEDS: ENOXAPARIN 40 MG/0.4 ML SQ SCH (08:16)
[2019-08-03 08:32] LABS: Protime INR 0.92
--- NOTE | 2019-08-03 17:11 | P.PN ---
Subjective Date of Service: 08/03/19 Primary Care Provider: Dr. Echols Chief Complaint: abdominal pain Subjective: Improving, Doing well Physical Examination - Vital Signs Temperature: 98.3 F Blood Pressure: 131/67 Pulse: 93 Respirations: 18 Pulse Ox (%): 96 - Physical Exam General: Alert, In no apparent distress, Oriented x3, Cooperative HEENT: Atraumatic Neck: Supple Respiratory: Clear to auscultation bilaterally Cardiovascular: Normal pulses, Regular rate/rhythm Gastrointestinal: Normal bowel sounds, Non-distended, No tenderness Neurological: Normal speech, Normal strength at 5/5 x4 extr, Normal tone, Normal affect - Studies Medications List Reviewed: Yes Assessment & Plan Discharge Plan: Home Plan to discharge in: 24 Hours Physician Review Additional Text: Impression: Abdominal pain secondary to Acute pancreatitis, etiology is unknown Cholelithiasis without cholecystitis vs gallbladder polyp Irritable bowel syndrome Fatty liver with elevated liver function Thrombocytopenia Plan: Patient is doing better. Continue with ambulation. Will monitor closely. Will trial with clear liquids. If better will advance diet. Will monitor platelet count. Anticipate improvement over the next 24 hours. Will discuss further with his GI specialist. Time Spent Managing Pts Care (In Minutes): 55
[2019-08-03] MEDS: ENSURE HIGH PROTEIN 237 ML CAN PO SCH (20:25)
[2019-08-04] MEDS: ONDANSETRON 4 MG/2 ML VIAL IV PRN ×6 (00:17→21:30)
[2019-08-04] MEDS: HYDROMORPHONE HCL 1 MG/ML INJ IV PRN ×6 (00:18→21:29)
[2019-08-04] MEDS ORDERED: METOPROLOL TARTRATE 5 MG/5 ML INJ IV STA ×2 (02:03→03:24)
[2019-08-04] MEDS ORDERED: METHYLPREDNISOLONE 125 MG INJ IV ONE (03:27)
[2019-08-04] MEDS: D5.45NS W/KCL 20MEQ 1,000 ML IV SCH ×2 (05:36→10:26)
[2019-08-04 05:37] LABS: Potassium 4.5 mmol/L (3.5-5.1)
[2019-08-04] MEDS: chlordiazePOXIDE HCl 5 MG CAP PO SCH ×4 (06:18→23:42)
[2019-08-04] MEDS ORDERED: METOPROLOL TAR 25 MG TAB PO ONE (06:26)
[2019-08-04] MEDS: ENSURE HIGH PROTEIN 237 ML CAN PO SCH ×2 (08:44→21:16)
[2019-08-04] MEDS: ENOXAPARIN 40 MG/0.4 ML SQ SCH (08:44)
[2019-08-04] MEDS: predniSONE 10 MG TAB PO SCH ×2 (08:54→21:14)
[2019-08-04] MEDS: DICYCLOMINE HCL 10 MG CAP PO SCH ×2 (08:54→21:14)
[2019-08-04] MEDS ORDERED: BUSPIRONE HCL 5 MG TABLET PO SCH (09:00)
[2019-08-04] MEDS ORDERED: DICYCLOMINE HCL 10 MG CAP PO SCH (09:00)
[2019-08-04] MEDS ORDERED: MORPHINE 2 MG/ML SYR IV PRN (12:52)
[2019-08-04] MEDS ORDERED: HYDROCODONE/APAP 7.5/325 MG TAB PO PRN (14:23)
[2019-08-04] MEDS ORDERED: TRAMADOL HCL 50 MG TAB PO PRN (14:23)
--- NOTE | 2019-08-04 14:27 | P.PN ---
Subjective Date of Service: 08/04/19 Primary Care Provider: Dr. Echols Chief Complaint: abdominal pain Subjective: Other (Patient reported cramping to the abdomen last night. Patient Portal Concierge gave patient Solu-Medrol as the patient has a history of irritable bowel. Some nausea this morning.) Physical Examination - Vital Signs Temperature: 98.1 F Blood Pressure: 107/55 Pulse: 87 Respirations: 18 Pulse Ox (%): 96 - Physical Exam General: Alert, Oriented x3, Cooperative HEENT: Atraumatic Neck: Supple Respiratory: Clear to auscultation bilaterally, Normal air movement Cardiovascular: Normal pulses, Regular rate/rhythm Gastrointestinal: Normal bowel sounds, Soft and benign, Non-distended, Tenderness (Mild pain to the lower quadrant) Integumentary: No tenderness/swelling, No erythema, No warmth, No cyanosis Neurological: Normal speech, Normal strength at 5/5 x4 extr, Normal tone, Normal affect, Other (Mild agitation suspect from alcohol withdrawal.) - Studies Medications List Reviewed: Yes Assessment & Plan Discharge Plan: Home Plan to discharge in: 24 Hours Physician Review Additional Text: Impression: Abdominal pain secondary to Acute pancreatitis, likely alcoholic related Cholelithiasis without cholecystitis vs gallbladder polyp Irritable bowel syndrome Fatty liver with elevated liver function Thrombocytopenia Alcohol abuse with suspected Alcohol withdrawal Plan: Patient continues to do slightly better. Some agitation noted Overnite. Patient Portal Concierge started Librium scheduled. Patient with history of alcohol abuse. Will monitor for alcohol withdrawal. Patient also given IV Solu-Medrol for possible irritable bowel syndrome. Will continue with prednisone. Will start Bentyl. Will check platelet count. Patient with noted fatty liver and elevated liver function. Will send lab for hepatitis panel and HIV. Continue to advance diet. Once ambulating and tolerating diet will consider discharge. Patient will need close follow up with GI as an outpatient. Patient will also need to be further evaluated by surgery in the future due to gallbladder polyp. Continue to reassess. Anticipate improvement over the next 24 hr. Time Spent Managing Pts Care (In Minutes): 55
[2019-08-04 14:47] LABS: RBC Red Blood Cell Count 3.59 M/uL (4.33-5.43)
[2019-08-04 14:48] LABS: Absolute Lymphocytes (CBC) 0.1 K/uL (0.7-4.9); Basophils % 0.1 % (0-1.3); Hematocrit 38.2 % (39.6-49.0); Lymphocytes % 4.4 % (15.3-44.8); MPV 11.7 fL (7.6-11.3)
[2019-08-04] MEDS: NA CHLORIDE 0.9% 1,000 ML IV SCH (15:14)
[2019-08-04 15:34] LABS: Blood Morphology Comment NOTED (NOT SEEN); Platelet Estimate DECR; Platelets, Giant PRESENT; Urine White Blood Cell Casts OK
[2019-08-04 15:35] LABS: Macrocytosis 1+
[2019-08-04] MEDS: METOPROLOL TAR 25 MG TAB PO SCH (16:52)
[2019-08-04] MEDS ORDERED: METOPROLOL TAR 25 MG TAB PO SCH (18:00)
[2019-08-05] MEDS: NA CHLORIDE 0.9% 1,000 ML IV SCH (01:26)
[2019-08-05] MEDS: ONDANSETRON 4 MG/2 ML VIAL IV PRN ×2 (01:27→05:23)
[2019-08-05] MEDS: HYDROMORPHONE HCL 1 MG/ML INJ IV PRN ×2 (01:27→05:23)
[2019-08-05] MEDS: METOPROLOL TAR 25 MG TAB PO SCH (05:05)
[2019-08-05] MEDS: chlordiazePOXIDE HCl 5 MG CAP PO SCH (05:22)
[2019-08-05 05:44] LABS: Absolute Lymphocytes (CBC) 0.5 K/uL (0.7-4.9); Basophils % 0.2 % (0-1.3); MPV 11.3 fL (7.6-11.3); RBC Red Blood Cell Count 3.69 M/uL (4.33-5.43)
[2019-08-05 05:47] LABS: BUN Blood Urea Nitrogen 14 mg/dL (7-18); Bicarbonate 27 mmol/L (21-32); Glucose Level 96 mg/dL (74-106); Magnesium 2.2 mg/dL (1.8-2.4); Potassium 4.1 mmol/L (3.5-5.1); Sodium Level 134 mmol/L (136-145)
[2019-08-05 06:42] LABS: Blood Morphology Comment NOTED (NOT SEEN); Platelet Estimate DECR; Platelets, Giant PRESENT
[2019-08-05 06:43] LABS: Macrocytosis 1+
[2019-08-05 08:58] VITALS: O2SAT 98
[2019-08-05] MEDS ORDERED: LACTOBACILLUS/ACIDOPHILUS TAB PO SCH (09:00)
[2019-08-05] MEDS: ENSURE HIGH PROTEIN 237 ML CAN PO SCH (09:00)
[2019-08-05] MEDS: ENOXAPARIN 40 MG/0.4 ML SQ SCH (09:00)
[2019-08-05] MEDS: predniSONE 10 MG TAB PO SCH (09:02)
[2019-08-05 09:03] VITALS: BP 98/54; TEMP 97.1
--- NOTE | 2019-08-05 09:17 | P.DS ---
Admission Date: 08/02/19 Discharge Date: 08/05/19 Primary Care Provider: Dr. Echols Disposition: ROUTINE DISCHARGE Discharge Condition: GOOD Reason for Admission: abdominal pain Consultations: None Procedures: CT Scan: FINDINGS: No suspicious findings in the lung bases. Liver shows a very pronounced fatty infiltration pattern. No focal liver lesion. No portal vein abnormality. Spleen shows no suspicious finding. Gallbladder and biliary tree are also without suspicious finding. No focal mass seen in the pancreatic parenchyma. There is mild congestion or edema in the peripancreatic fat. A few punctate centimeter sized reactive lymph nodes are seen. No suspicious lymphadenopathy. Symmetric renal function is seen with no hydronephrosis or suspicious renal mass. No pyelonephritis or acute parenchymal process. No bladder abnormalities. No adrenal abnormalities. No dilated bowel loops or bowel wall thickening. Very minimal hiatal hernia present. No free air or pneumatosis. No abnormal free fluid collection. No hernia, mass or bulky lymphadenopathy. No suspicious bony findings. IMPRESSION: Mild pancreatitis. No abscess, pseudocyst or emergent complicating factor. Very pronounced fatty infiltration of the liver. ABUS: FINDINGS: Gallbladder size is normal. Small echogenic nonshadowing foci are present along the gallbladder wall. These could be small polyps or adherent stones. No gallbladder wall thickening or edema. No pericholecystic fluid. No worrisome mass. Common bile duct is normal with no common duct stone identified. Diffuse fatty infiltration pattern seen in the liver. No focal liver lesion. No splenic abnormality identified. The pancreas is too obscured by bowel gas for assessment. CT study of same date showed pancreatitis findings. No hydronephrosis or suspicious mass in either kidney. Aorta and IVC show no significant finding. No ascites or bulky lymphadenopathy. IMPRESSION: Small polyps versus adherent gallstones within a normal-sized gallbladder. No acute gallbladder finding evident. Pancreas is too obscured by bowel gas for assessment. No biliary tree dilatation. Diffuse fatty infiltration of the liver. Peripheral blood smear: Thrombocytopenia, mild macrocytic anemia Medical problem list: Abdominal pain secondary to Acute mild pancreatitis, likely alcoholic related complicated with irritable bowel syndrome flare Cholelithiasis without cholecystitis vs gallbladder polyp Fatty liver with elevated liver function Thrombocytopenia likely related to above Alcohol abuse with suspected Alcohol withdrawal Tobacco abuse Brief History of Present Illness: 58-year-old male with history of irritable bowel and prior alcoholic pancreatitis. Patient reported increasing epigastric abdominal pain with nausea and vomiting. Patient was evaluated the emergency room. CT scan showed mild pancreatitis. Fatty liver also identified. Patient admitted for further evaluation and treatment. Hospital Course: Patient presented with abdominal pain, nausea and vomiting. CT scan revealed acute mild pancreatitis. Patient was admitted for further evaluation and treatment. His condition improved. When his pancreatitis resolved patient had symptoms of irritable bowel flareup. Patient with history of irritable bowel. Patient was given prednisone with improvement. At discharge he is without significant abdominal pain, nausea vomiting. Patient able the tolerate diet. Pancreatitis related to alcohol. At discharge recommend to discontinue alcohol. This was discussed in detail. Patient plans to quit. Patient understands the risks of continued alcohol use. At discharge patient will continue with prednisone 10 mg once daily for 5 more days for his irritable bowel. Patient will be provided a limited supply of tramadol 50 mg 1 pill 3 times a day as needed for pain. Recommend to continue with lactobacillus 3 times a day. Recommend follow up with GI as an outpatient to further monitor and address. Patient will require EGD/colonoscopy to further evaluate in the future. Education on pancreatitis and irritable bowel will be provided. CT scan also revealed cholelithiasis without cholecystitis. There was also some question of a gallbladder polyp. Recommendation is for the patient to follow up with surgery as an outpatient to further evaluate and address. Patient will likely require laparoscopic outpatient cholecystectomy in the future. Patient with noted fatty liver with elevated liver function. Liver function improved with IV fluid hydration. At discharge hepatitis panel in HIV panel pending. Recommend follow up with GI as an outpatient to further monitor and address. Recommend to recheck-CMP in 2-4 weeks to monitor resolution. education on fatty liver provided. Patient also had thrombocytopenia likely related to above. This improved. Recommendation is to recheck CBC in 2 weeks to monitor resolution. If this persists will recommend Hematology evaluation as an outpatient to further address. As mentioned above patient with history of alcohol abuse and tobacco abuse. Patient did have some agitation and required Librium. Education on alcohol withdrawal addressed in detail. Patient plans to quit. Patient understands the risks of continued alcohol use including severe pancreatitis. Patient will be provided a limited supply of Librium 5 mg 3 times a day as needed for agitation. Patient will also be provided Nicoderm patch for tobacco cessation. Vital Signs/Physical Exam: Temp Pulse Resp BP Pulse Ox 97.1 F 83 18 98/54 L 96 08/05/19 08:00 08/05/19 08:00 08/05/19 08:00 08/05/19 08:00 08/05/19 08:00 General: Alert, In no apparent distress, Oriented x3, Cooperative HEENT: Atraumatic Neck: Supple Respiratory: Clear to auscultation bilaterally, Normal air movement Cardiovascular: Normal pulses, Regular rate/rhythm Gastrointestinal: Normal bowel sounds, Soft and benign, Non-distended, No tenderness, No masses, No rebound, No guarding Musculoskeletal: No erythema, No tenderness, No warmth Integumentary: No tenderness/swelling, No erythema, No warmth, No cyanosis Neurological: Normal speech, Normal strength at 5/5 x4 extr, Normal tone, Normal affect Laboratory Data at Discharge: WBC 3.0 K/uL (4.3-10.9) L 08/05/19 05:17 Hgb 12.9 g/dL (13.6-17.9) L 08/05/19 05:17 Hct 39.0 % (39.6-49.0) L 08/05/19 05:17 Plt Count 85 K/uL (152-406) L 08/05/19 05:17 PT 10.9 SECONDS (9.5-12.5) 08/03/19 08:14 INR 0.92 08/03/19 08:14 APTT 28.2 SECONDS (24.3-36.9) 08/03/19 08:14 Sodium 134 mmol/L (136-145) L 08/05/19 05:17 Potassium 4.1 mmol/L (3.5-5.1) 08/05/19 05:17 BUN 14 mg/dL (7-18) 08/05/19 05:17 Creatinine 0.77 mg/dL (0.55-1.3) 08/05/19 05:17 Glucose 96 mg/dL (74-106) 08/05/19 05:17 Phosphorus 1.8 mg/dL (2.5-4.9) L 08/03/19 05:01 Magnesium 2.2 mg/dL (1.8-2.4) 08/05/19 05:17 Total Bilirubin 1.8 mg/dL (0.2-1.0) H 08/03/19 05:01 AST 109 U/L (15-37) H D 08/03/19 05:01 ALT 102 U/L (12-78) H 08/03/19 05:01 Alkaline Phosphatase 122 U/L (45-117) H 08/03/19 05:01 Triglycerides 84 mg/dL (<150) 08/03/19 08:14 Lipase 270 U/L (73-393) 08/03/19 05:01 Home Medications: Lactobacillus Acidophilus [Acidophilus Lactobacilli] 1 each PO TID #90 capsule 08/05/19 Nicotine [Nicoderm] 1 patch TD DAILY #30 patch.td24 08/05/19 chlordiazePOXIDE HCl [Librium] 5 mg PO TID PRN #15 cap 08/05/19 predniSONE [Deltasone*] 10 mg PO DAILY #5 tab 08/05/19 traMADol HCL [Ultram*] 50 mg PO TID PRN #15 tab 08/05/19 New Medications: Lactobacillus Acidophilus [Acidophilus Lactobacilli] 1 each PO TID #90 capsule predniSONE [Deltasone*] 10 mg PO DAILY #5 tab chlordiazePOXIDE HCl [Librium] 5 mg PO TID PRN #15 cap PRN Reason: Agitation Nicotine [Nicoderm] 1 patch TD DAILY #30 patch.td24 traMADol HCL [Ultram*] 50 mg PO TID PRN #15 tab PRN Reason: Pain Patient Discharge Instructions: 1. Recommend follow up with PCP in 1 week to follow up this hospitalization. 2. Patient presented with abdominal pain, nausea and vomiting. CT scan revealed acute mild pancreatitis. Patient was admitted for further evaluation and treatment. His condition improved. When his pancreatitis resolved patient had symptoms of irritable bowel flareup. Patient with history of irritable bowel. Patient was given prednisone with improvement. At discharge he is without significant abdominal pain, nausea vomiting. Patient able the tolerate diet. Pancreatitis related to alcohol. At discharge recommend to discontinue alcohol. This was discussed in detail. Patient plans to quit. Patient understands the risks of continued alcohol use. At discharge patient will continue with prednisone 10 mg once daily for 5 more days for his irritable bowel. Patient will be provided a limited supply of tramadol 50 mg 1 pill 3 times a day as needed for pain. Recommend to continue with lactobacillus 3 times a day. Recommend follow up with GI as an outpatient to further monitor and address. Patient will require EGD/colonoscopy to further evaluate in the future. Education on pancreatitis and irritable bowel will be provided. 3. CT scan also revealed cholelithiasis without cholecystitis. There was also some question of a gallbladder polyp. Recommendation is for the patient to follow up with surgery as an outpatient to further evaluate and address. Patient will likely require laparoscopic outpatient cholecystectomy in the future. 4. Patient with noted fatty liver with elevated liver function. Liver function improved with IV fluid hydration. At discharge hepatitis panel in HIV panel pending. Recommend follow up with GI as an outpatient to further monitor and address. Recommend to recheck-CMP in 2-4 weeks to monitor resolution. education on fatty liver provided. 5. Patient also had thrombocytopenia likely related to above. This improved. Recommendation is to recheck CBC in 2 weeks to monitor resolution. If this persists will recommend Hematology evaluation as an outpatient to further address. 6. As mentioned above patient with history of alcohol abuse and tobacco abuse. Patient did have some agitation and required Librium. Education on alcohol withdrawal addressed in detail. Patient plans to quit. Patient understands the risks of continued alcohol use including severe pancreatitis. Patient will be provided a limited supply of Librium 5 mg 3 times a day as needed for agitation. Patient will also be provided Nicoderm patch for tobacco cessation. Diet: GI soft diet then advance to regular Activity: Ad renan Time spent managing pt's care (in minutes): 55
[2019-08-06 15:10] LABS: HIV AG/AB 4TH GEN Non-reactive (Non-reactive)
[2019-08-06 18:28] LABS: HBsAG Nonreactive (Nonreactive)
== END 2019-08-05 10:15 | disposition home or self-care (01) | DRG 439 ==
LOC: ER 13:25 → ERHOLD 16:50 → 2ND 18:08
PROVIDERS: ADMIT Family Medicine; ATTEND Family Medicine
DX: K85.20 Alcohol induced acute pancreatitis without necrosis or infection (principal); R64 Cachexia; Z68.1 Body mass index [BMI] 19.9 or less, adult; F10.239 Alcohol dependence with withdrawal, unspecified; K80.20 Calculus of gallbladder without cholecystitis without obstruction; K58.9 Irritable bowel syndrome, unspecified; K70.0 Alcoholic fatty liver; R79.89 Other specified abnormal findings of blood chemistry; F17.210 Nicotine dependence, cigarettes, uncomplicated; D69.6 Thrombocytopenia, unspecified; Z79.52 Long term (current) use of systemic steroids; Z79.899 Other long term (current) drug therapy; Z20.828 Contact with and (suspected) exposure to other viral communicable diseases
CPT/HCPCS: 36415; 71045; 74177; 76700; 80048; 80053; 80074; 80076; 81003; 82140; 82565; 83010; 83615; 83690; 83735; 83880; 84100; 84478; 84484; 85025; 85610; 85730; 87389; 93005; 94760; 96361; 96374; 96375; 99285; J1170; J1650; J2270; J2405; J2930; J7030; J7512; Q9967; U0002

== ENCOUNTER 2021-03-31 08:24 | Emergency (ER) | payer OTHER ==
--- OUTSIDE RECORDS SUMMARY | 2021-03-31 08:29 | XMS REPORT | Continuity of Care Document ---
:1960 Author Organization [facility] t Address [address] [place] [address] Care Team Providers Name Role Phone Harvey Attending Clinician Unavailable ASHTYN MENDOZA Attending Clinician Unavailable Payers Payer Name Policy Type Policy Number Effective Date Expiration Date S ource [employer] [id number] 2019 00:00:00 OPTIONS RIZO RULE OPEN [id number] 2019 00:00:00 CHOICE Problems This patient has no known problems. Allergies, Adverse Reactions, Alerts Allergy Allergy Status Severity Reaction(s) Onset Inactive Treating Comm ents Source Name Type Date Date Clinician No Known DA Active U 2017-02 [facility]10 Clear s 00:00: Lopez [address] [place] [address] NO KNOWN Allergy Active [facility] Medications Ordered Filled Start Stop Current Ordering Indication Dosage Frequency Signature Comments Components Source Medication Medication Date Date Medication? Clinician (SIG) Name Name PredniSONE PredniSONE 2019- No Janina [address] [facility] 3-18 05-[address] [facility] - 00:00: 00:00 [facility] Vital Signs Vital Name Observation Time Observation Value Comments Source HEIGHT 2019-12-09 13:28:00 170.2 cm WEIGHT 2019-12-09 13:28:00 54.658 kg HEIGHT 2019-12-09 13:28:00 170.2 cm WEIGHT 2019-12-09 13:28:00 54.658 kg Procedures This patient has no known procedures. Encounters Start End Encounter Admission Attending Care Care Encounter Source Date/Time Date/Time Type Type Clinicians Facility Department ID 2021-03-[address] [facility] [id number] [facility] 11:51:14 Janina [id number] [facility] 2021-03-15 Outpatient [facility] [id number] [facility] 11:14:35 Janina [id number] [facility] 2020-03-16 2020-03-16 Outpatient [facility] [id number] 00:[facility]:00 PRASUN 2019-12-18 2019-12-18 Outpatient [facility] [id number] [facility] 2019-12-09 2019-12-09 Outpatient [facility]END[facility] [id number] [facility] 00:00:00 00:00:00 PRASUN 2019-11-24 2019-11-24 Outpatient [facility] [id number] [facility] 2019-11-19 2019-11-19 Out[facility] [id number] [facility] 2019-05-06 2019-05-06 [facility] [id number] [facility] 15:20:00 15:20:00 [facility] 2018-08-19 2018-08-19 [facility] [id number] [facility] 09:15:00 09:15:00 [facility] 2018-02-20 2018-02-20 Outpatient Marline Potts [id number] [facility] 08:30:00 08:30:00 [facility] 2017-09-12 2017-09-12 Outpatient Marline Potts [id number] 08:45:00 08:45:00 [facility] 2017-08-23 2017-08-23 Outpatient Marline Potts [id number] 08:15:00 08:15:00 [facility] 2017-08-22 2017-08-22 Outpatient Marline Potts [id number] 15:15:00 15:15:00 [facility] Results Test Description Test Time Test Comments Results Result Comments Source ANTI-NUCLEAR ANTIBODY (JAIME) 2019-12-10 10:07:00 Test Item Value Reference Range Interpretation Comme nts ANTI-NUCLEAR ANTIBODY (JAIME) (BEAKER) (test code = 418) Negative Negative Test performed by IFA method.Test performed by IFA method.ALPHA FETOPROTEIN (AFP), TUMOR [id number] 20:44:00 Test Item Value Reference Range Interpretation Comments ALPHA-FETOPROTEIN (BEAKER) (test code < ng/mL <10.0 = 1094) Offender Employment Specialist ID - BSHEPATITIS A ANTIBODY, [id number] 20:42:00 Test Item Value Reference Range Interpretation Comments HEPATITIS A IGM ANTIBODY (BEAKER) Nonreactive Nonreactive (test code = 498) Offender Employment Specialist ID - BSHEPATITIS B CORE ANTIBODY, [id number] 20:42:00 Test Item Value Reference Range Interpretation Comments HEPATITIS B CORE TOTAL ANTIBODY Nonreactive Nonreactive (BEAKER) (test code = 497) Offender Employment Specialist ID - BSHEPATITIS A ANTIBODY, [id number] 20:42:00 Test Item Value Reference Range Interpretation Comments HEPATITIS A IGG ANTIBODY (BEAKER) Nonreactive Nonreactive (test code = 2797) Offender Employment Specialist ID - BSHEPATITIS B SURFACE [id number] 17:52:00 Test Item Value Reference Range Interpretation Comments HEPATITIS B SURFACE ANTIBODY 8.8 mIU/mL <8.0 H (BEAKER) (test code = 647) Offender Employment Specialist ID - BSHEPATITIS B SURFACE [id number] 17:47:00 Test Item Value Reference Range Interpretation Comments HEPATITIS B SURFACE ANTIGEN (2) Nonreactive Nonreactive (BEAKER) (test code = 2585) Specimen is considered negative for HBsAg.HEPATITIS C [id number] 17:47:00 Test Item Value Reference Range Interpretation Comments HEPATITIS C ANTIBODY (BEAKER) Nonreactive Nonreactive (test code = 367) Offender Employment Specialist ID - BSIRON, TIBC, % SAT. (WITHOUT FERRITIN)2019-12-09 17:19:00 Test Item Value Reference Range Interpretation Comments IRON (BEAKER) (test code = 547) 131.0 ug/dL 40.0-160.0 TOTAL IRON BINDING CAPACITY 440 ug/dL 250-450 (BEAKER) (test code = 769) IRON % SATURATION (2) (BEAKER) 30 % 20-55 (test code = 2590) Offender Employment Specialist ID - [id number] 16:55:00 Test Item Value Reference Range Interpretation Comments ALPHA-1 ANTITRYPSIN (BEAKER) 150.60 mg/dL 90.00-200.00 (test code = 502) Offender Employment Specialist ID - [id number] 16:47:00 Test Item Value Reference Range Interpretation Comments FERRITIN (BEAKER) (test code = 187.10 ng/mL 5.00-275.00 361) Offender Employment Specialist ID - BSCOMPREHENSIVE METABOLIC [id number] 16:36:00 Test Item Value Reference Range Interpretation Comments TOTAL PROTEIN 7.6 gm/dL 6.0-8.3 (BEAKER) (test code = 770) ALBUMIN (BEAKER) 4.3 g/dL 3.5-5.0 (test code = 1145) ALKALINE PHOSPHATASE 63 U/L 40-150 (BEAKER) (test code = 346) BILIRUBIN TOTAL 0.8 mg/dL 0.2-1.2 (BEAKER) (test code = 377) SODIUM (BEAKER) (test 143 meq/L 136-145 code = 381) POTASSIUM (BEAKER) 3.6 meq/L 3.5-5.1 (test code = 379) CHLORIDE (BEAKER) 105 meq/L 98-107 (test code = 382) CO2 (BEAKER) (test 30 meq/L 22-29 H code = 355) BLOOD UREA NITROGEN 8 mg/dL 7-21 (BEAKER) (test code = 354) CREATININE (BEAKER) 0.83 mg/dL 0.57-1.25 (test code = 358) GLUCOSE RANDOM 109 mg/dL 70-105 H (BEAKER) (test code = 652) CALCIUM (BEAKER) 9.3 mg/dL 8.4-10.2 (test code = 697) AST (SGOT) (BEAKER) 18 U/L 5-34 (test code = 353) ALT (SGPT) (BEAKER) 18 U/L 6-55 (test code = 347) EGFR (BEAKER) (test 95 mL/min/1.73 ESTIMA JOSIAH GFR IS code = 1092) sq m NOT ACCURATE CREATININE CLEARANCE IN PREDICTING GLOMERULAR FILTRATION RATE . ESTIMATED GFR I S NOT APPLICABLE FOR DIALYSIS PATIEN TS. Offender Employment Specialist ID - BSBILIRUBIN, [id number] 16:36:00 Test Item Value Reference Range Interpretation Comments BILIRUBIN DIRECT (BEAKER) (test 0.4 mg/dL 0.1-0.5 code = 706) Offender Employment Specialist ID - BSPROTHROMBIN [id number] 16:16:00 Test Item Value Reference Range Interpretation Comments PROTIME (BEAKER) (test code = 13.6 seconds 11.9-14.2 759) INR (BEAKER) (test code = 370) 1.07 <=5.90 Effective 07/16/2018: PT Reference Range ChangeNew: 11.9-14.2 Previous: 11.7- 14.7RECOMMENDED COUMADIN/WARFARIN INR THERAPY RANGESSTANDARD DOSE: 2.0-3.0 Includes: PROPHYLAXIS for venous thrombosis, systemic embolization; TREATMENT for venous thrombosis and/or pulmonary embolus.HIGH RISK: Target INR is2.5-3.5 for patients wiht mechanical heart valves.CBC W/PLT COUNT & AUTO [id number] 16:15:00 Test Item Value Reference Range Interpretation Comments WHITE BLOOD CELL COUNT (BEAKER) 9.7 K/ L 3.5-10.5 (test code = 775) RED BLOOD CELL COUNT (BEAKER) 4.48 M/ L 4.63-6.08 L (test code = 761) HEMOGLOBIN (BEAKER) (test code = 14.9 GM/DL 13.7-17.5 410) HEMATOCRIT (BEAKER) (test code = 45.2 % 40.1-51.0 411) MEAN CORPUSCULAR VOLUME (BEAKER) 100.9 fL 79.0-92.2 H (test code = 753) MEAN CORPUSCULAR HEMOGLOBIN 33.3 pg 25.7-32.2 H (BEAKER) (test code = 751) MEAN CORPUSCULAR HEMOGLOBIN CONC 33.0 GM/DL 32.3-36.5 (BEAKER) (test code = 752) RED CELL DISTRIBUTION WIDTH 14.6 % 11.6-14.4 H (BEAKER) (test code = 412) PLATELET COUNT (BEAKER) (test 223 K/CU MM 150-450 code = 756) MEAN PLATELET VOLUME (BEAKER) 11.3 fL 9.4-12.4 (test code = 754) NUCLEATED RED BLOOD CELLS 0 /100 WBC 0-0 (BEAKER) (test code = 413) NEUTROPHILS RELATIVE PERCENT 66 % (BEAKER) (test code = 429) LYMPHOCYTES RELATIVE PERCENT 23 % (BEAKER) (test code = 430) MONOCYTES RELATIVE PERCENT 8 % (BEAKER) (test code = 431) EOSINOPHILS RELATIVE PERCENT 2 % (BEAKER) (test code = 432) BASOPHILS RELATIVE PERCENT 0 % (BEAKER) (test code = 437) NEUTROPHILS ABSOLUTE COUNT 6.45 K/ L 1.78-5.38 H (BEAKER) (test code = 670) LYMPHOCYTES ABSOLUTE COUNT 2.25 K/ L 1.32-3.57 (BEAKER) (test code = 414) MONOCYTES ABSOLUTE COUNT (BEAKER) 0.73 K/ L 0.30-0.82 (test code = 415) EOSINOPHILS ABSOLUTE COUNT 0.22 K/ L 0.04-0.54 (BEAKER) (test code = 416) BASOPHILS ABSOLUTE COUNT (BEAKER) 0.04 K/ L 0.01-0.08 (test code = 417) IMMATURE GRANULOCYTES-RELATIVE 1 % 0-1 PERCENT (BEAKER) (test code = 4733)
[2021-03-31] MEDS ORDERED: FENTANYL CITR 100 MCG/2 ML ONE (10:03)
--- NOTE | 2021-03-31 10:14 | RAD REPORT ---
EXAM DESCRIPTION: US - Extremity Venous Uni Ltd - 03/31/2021 9:59 am CLINICAL HISTORY: Pain;Swelling Leg swelling and edema. COMPARISON: No comparisons FINDINGS: Left lower extremity venous system was interrogated with Doppler technique. The left commo n femoral vein, upper greater saphenous vein and femoral vein shows no thrombus. There is a large obl mary popliteal lesion present containing cystic and solid components. The left popliteal vein is not w ell seen. Distal venous structures in the leg also not seen well. IMPRESSION: No DVT is seen in the left proximal the venous system. Popliteal vein is not visualized and there is an unusual large oblong lesion present in the popliteal fossa with solid and cystic comp onents. Advise correlation with clinical exam findings in this region. Additional imaging could be pe rformed with CT or MR imaging of the knee if clinically indicated.
--- NOTE | 2021-03-31 10:56 | RAD REPORT ---
EXAM DESCRIPTION: CT - Knee Left Wo Con - 03/31/2021 10:43 am CLINICAL HISTORY: leg swelling Pain and swelling COMPARISON: No comparisons FINDINGS: There is a complex fluid density collection seen in the upper calf musculature this measur es approximately 12 cm in length, 4.5 cm in transverse dimension and 3 cm in anterior-posterior dimen alex. Fluid fluid level is noted within the collection. This is a nonspecific intramuscular collectio n may represent a hematoma or myositis/ infection. No fracture is seen. No aggressive marrow lesion. A small joint effusion is present in the knee. IMPRESSION: Large oblong intramuscular fluid collection within the posterior calf musculature superi jacque. This may represent a hematoma or less likely a related to myositis/ infection. All CT scans are performed using dose optimization technique as appropriate and may include automated exposure control or mA/KV adjustment according to patient size.
[2021-03-31 12:09] LABS: Absolute Lymphocytes (CBC) 0.9 K/uL (0.7-4.9); Hematocrit 30.6 % (39.6-49.0); Lymphocytes % 9.2 % (15.3-44.8); MPV 10.8 fL (7.6-11.3); RBC Red Blood Cell Count 2.67 M/uL (4.33-5.43)
[2021-03-31 12:16] LABS: Protime INR 1.8
--- NOTE | 2021-03-31 12:44 | EDPHYS ---
Physician Documentation [facility] Name: Adi Bennett Age: 60 yrs Sex: Male : 1960 Arrival Date: 03/31/2021 Time: 08:30 Bed 24 Private MD: ED Physician Mohan Arnold HPI: 03/31 09:26 This 60 yrs old Male presents to ER via Ambulatory with complaints of Leg Swelling, Leg kb Pain. 09:26 The patient has not experienced similar symptoms in the past. The patient has not kb recently seen a physician. "I came to rule out a blood clot." Jaundice noted, but pt reports that is normal for him. Denies any abd pain, fever, n/v/d or any other symptoms. 09:26 The patient presents with pain, swelling, tenderness. The complaints affect the left kb calf and posterior aspect of left knee. Context: The problem was sustained at home, resulted from an unknown cause, the patient can fully bear weight, the patient is able to ambulate, Problem is a result from a previous injury: Yes. Onset: The symptoms/episode began/occurred 4 day(s) ago. Modifying factors: The symptoms are alleviated by nothing. the symptoms are aggravated by nothing. Associated signs and symptoms: Pertinent positives: calf tenderness, swelling, Pertinent negatives fever, nausea, numbness, rash, tingling, vomiting, warmth, weakness. Treatment prior to arrival includes: no previous treatment. Severity of symptoms: At their worst the symptoms were moderate, in the emergency department the symptoms are unchanged. Historical: - Allergies: 08:41 Morphine; ll1 08:41 Phenergan; ll1 - Home Meds: 09:22 buspirone 10 mg Oral tab 1 tab daily [Active]; dicyclomine 10 mg Oral cap daily eo2 [Active]; - PMHx: 08:41 ibs; Pancreatitis; liver issues; ll1 - Immunization history:: Client reports receiving the 2nd dose of the Covid vaccine. - Social history:: Smoking status: Patient reports the use of cigarette tobacco products, smokes one-half pack cigarettes per day. ROS: 09:25 Constitutional: Negative for fever, chills, and weight loss. kb 09:25 MS/extremity: Positive for pain, swelling, tenderness, of the left calf and posterior aspect of left knee. 09:25 All other systems are negative. Exam: 09:24 Constitutional: This is a well developed, well nourished patient who is awake, alert, kb and in no acute distress. Head/Face: Normocephalic, atraumatic. ENT: Moist Mucous membranes Respiratory: Respirations even and unlabored. No increased work of breathing. Talking in full sentences Skin: Warm, dry with normal turgor. Normal color. Neuro: Awake and alert, GCS 15, oriented to person, place, time, and situation. Moves all extremities. Normal gait. Psych: Awake, alert, with orientation to person, place and time. Behavior, mood, and affect are within normal limits. 09:24 Musculoskeletal/extremity: Extremities: grossly normal except: noted in the posterior aspect of left knee and left calf: pain, swelling, tenderness, ROM: intact in all extremities, Circulation is intact in all extremities. Sensation intact. Weight bearing: able to fully bear weight, DVT Exam: negative Homans' sign noted on exam, no appreciated bluish discoloration, no erythema, no increased warmth, pain, swelling, tenderness. Vital Signs: 08:41 BP 114 / 68; Pulse 88; Resp 18; Temp 98.2; Pulse Ox 100% ; Weight 56.7 kg; Height 5 ft. ll1 7 in. (170.18 cm); Pain 10/10; 09:00 BP 115 / 64; Pulse 79; Resp 15; Pulse Ox 100% ; Pain 3/10; eo2 10:09 BP 106 / 62; Pulse 78; Resp 15; Pulse Ox 97% ; Pain 10/10; eo2 11:00 BP 106 / 60; Pulse 77; Resp 15; Pulse Ox 99% ; Pain 9/10; eo2 11:09 Pain 9/10; eo2 12:00 BP 103 / 56; Pulse 78; Resp 15; Pulse Ox 99% ; Pain 8/10; eo2 13:00 BP 113 / 67; Pulse 93; Resp 15; Pulse Ox 100% ; Pain 8/10; eo2 08:41 Body Mass Index 19.58 (56.70 kg, 170.18 cm) ll1 09:00 pain is 10/10 with movement eo2 MDM: 08:49 Patient medically screened. kb 09:24 Data reviewed: vital signs, nurses notes. Data interpreted: Pulse oximetry: on room air kb is 100 %. Interpretation: normal. 12:36 Counseling: I had a detailed discussion with the patient and/or guardian regarding: the kb historical points, exam findings, and any diagnostic results supporting the discharge/admit diagnosis, lab results, radiology results, the need for outpatient follow up, a family practitioner, to return to the emergency department if symptoms worsen or persist or if there are any questions or concerns that arise at home. 03/31 11:25 Order name: CBC with Diff kb 03/31 11:25 Order name: Basic Metabolic Panel; Complete Time: 12:29 kb 03/31 09:01 Order name: US Extremity Venous Unilateral Ltd; Complete Time: 10:25 kb 03/31 11:25 Order name: CPK; Complete Time: 12:29 kb 03/31 11:25 Order name: PT-INR; Complete Time: 12:28 kb 03/31 11:25 Order name: Ptt, Activated; Complete Time: 12:28 kb 03/31 10:30 Order name: Knee Left Wo Con; Complete Time: 10:57 EDMS 03/31 11:25 Order name: IV Start; Complete Time: 12:00 kb Administered Medications: 10:09 Drug: fentaNYL (PF) 50 mcg Route: IM; Site: right ventrogluteal; eo2 11:09 Follow up: Pain 9/10 Adult; Response: No adverse reaction; Pain is decreased eo2 13:00 Drug: Potassium Chloride 40 mEq Route: PO; eo2 13:14 Follow up: Response: No adverse reaction eo2 Disposition: 13:19 Co-signature as Attending Physician, Mohan Arnold MD I agree with the assessment and angel plan of care. Disposition Summary: 03/31/21 12:43 Discharge Ordered Location: Home kb Condition: Stable kb Diagnosis - Hematoma left calf kb Followup: kb - With: Emergency Department - When: As needed - Reason: Worsening of condition Followup: kb - With: Private Physician - When: 2 - 3 days - Reason: Recheck today's complaints, Continuance of care, Re-evaluation by your physician Discharge Instructions: - Discharge Summary Sheet kb - Hematoma, [id number] kb Forms: - Medication Reconciliation Form kb - Thank You Letter kb - Antibiotic Education kb - Prescription Opioid Use kb Prescriptions: - Tramadol 50 mg Oral Tablet - take 1 tablet by ORAL route every 8 hours as needed; 12 tablet; Refills: 0, kb Product Selection Permitted Signatures: Dispatcher [employer] EDMS Estela Peterson, KOSHER INSPECTOR-C KOSHER INSPECTOR-CkMohan Reyna MD MD cha Lewis, Lynsay RN RN ll1 Trista Sandhu RN RN eo2 Corrections: (The following items were deleted from the chart) : 09:26 "I came to rule out a blood clot.". kb kb :26 "I came to rule out a blood clot." Jaundice noted, but pt reports that is normal kb for him. kb
--- NOTE | 2021-03-31 12:44 | ER ---
Nurse's Notes [facility] Name: Adi Bennett Age: 60 yrs Sex: Male : 1960 Arrival Date: 03/31/2021 Time: 08:30 Bed 24 Private MD: Diagnosis: Hematoma left calf Presentation: 03/31 08:41 Chief complaint: Patient states: LLE pain and swelling for 4 days. Coronavirus screen: ll1 Vaccine status: Patient reports receiving the 2nd dose of the covid vaccine. Client denies travel out of the [place] in the last 14 days. At this time, the client does not indicate any symptoms associated with coronavirus-19. Ebola Screen: Patient denies travel to an Ebola-affected area in the 21 days before illness onset. Initial Sepsis Screen: Does the patient meet any 2 criteria? No. Patient's initial sepsis screen is negative. Does the patient have a suspected source of infection? No. Patient's initial sepsis screen is negative. Risk Assessment: Do you want to hurt yourself or someone else? Patient reports no desire to harm self or others. Onset of symptoms was March 28, 2021. 08:41 Method Of Arrival: Ambulatory ll1 08:41 Acuity: RODERICK 3 ll1 Triage Assessment: 08:42 General: Appears uncomfortable, Behavior is calm, cooperative, appropriate for age. ll1 Pain: Complains of pain in LLE Quality of pain is described as aching. Musculoskeletal: Range of motion: intact in all extremities, Reports pain in left leg. Historical: - Allergies: 08:41 Morphine; ll1 08:41 Phenergan; ll1 - Home Meds: 09:22 buspirone 10 mg Oral tab 1 tab daily [Active]; dicyclomine 10 mg Oral cap daily eo2 [Active]; - PMHx: 08:41 ibs; Pancreatitis; liver issues; ll1 - Immunization history:: Client reports receiving the 2nd dose of the Covid vaccine. - Social history:: Smoking status: Patient reports the use of cigarette tobacco products, smokes one-half pack cigarettes per day. Screenin:00 Abuse screen: Denies threats or abuse. Denies injuries from another. Nutritional eo2 screening: No deficits noted. Tuberculosis screening: No symptoms or risk factors identified. Fall Risk Ambulatory Aid- Crutches/Cane/Walker (15 pts). Assessment: 09:16 General: Appears in no apparent distress. comfortable. Pain: Complains of pain in left eo2 leg. Neuro: No deficits noted. Level of Consciousness is awake, alert, obeys commands, Oriented to person, place, time, situation, Denies dizziness, headache. Cardiovascular: Denies chest pain, shortness of breath, Capillary refill < 3 seconds. Respiratory: Airway is patent Breath sounds are clear bilaterally. Denies cough, shortness of breath. Derm: Skin is jaundiced, baseline per pt. Musculoskeletal: Reports pain in left leg for 4 days, denies any fall/injury, states "I want to rule out blood clot" pain at rest 3/10, with movement 10/10. Vital Signs: 08:41 BP 114 / 68; Pulse 88; Resp 18; Temp 98.2; Pulse Ox 100% ; Weight 56.7 kg; Height 5 ft. ll1 7 in. (170.18 cm); Pain 10/10; 09:00 BP 115 / 64; Pulse 79; Resp 15; Pulse Ox 100% ; Pain 3/10; eo2 10:09 BP 106 / 62; Pulse 78; Resp 15; Pulse Ox 97% ; Pain 10/10; eo2 11:00 BP 106 / 60; Pulse 77; Resp 15; Pulse Ox 99% ; Pain 9/10; eo2 11:09 Pain 9/10; eo2 12:00 BP 103 / 56; Pulse 78; Resp 15; Pulse Ox 99% ; Pain 8/10; eo2 13:00 BP 113 / 67; Pulse 93; Resp 15; Pulse Ox 100% ; Pain 8/10; eo2 08:41 Body Mass Index 19.58 (56.70 kg, 170.18 cm) ll1 09:00 pain is 10/10 with movement eo2 ED Course: 08:30 Patient arrived in ED. mr 08:36 Trista Sandhu, RN is Primary Nurse. eo2 08:41 Arm band placed on Patient placed in an exam room, on a stretcher. ll1 08:42 Triage completed. ll1 08:49 Estela Peterson FNP-C is PHCP. kb 08:49 Mohan Arnold MD is Attending Physician. kb 09:00 Patient has correct armband on for positive identification. Pulse ox on. NIBP on. Door eo2 closed. Noise minimized. Warm blanket given. 09:00 No provider procedures requiring assistance completed. eo2 09:59 US Extremity Venous Unilateral Ltd In Process Unspecified. EDMS 10:43 Knee Left Wo Con In Process Unspecified. EDMS 11:50 Inserted saline lock: 22 gauge in right antecubital area, using aseptic technique. eo2 Blood collected. 12:00 PT-INR Sent. eo2 12:00 Ptt, Activated Sent. eo2 12:00 CPK Sent. eo2 12:00 Basic Metabolic Panel Sent. eo2 12:00 CBC with Diff Sent. eo2 13:14 IV discontinued, intact. eo2 Administered Medications: 10:09 Drug: fentaNYL (PF) 50 mcg Route: IM; Site: right ventrogluteal; eo2 11:09 Follow up: Pain 10/28 Adult; Response: No adverse reaction; Pain is decreased eo2 13:00 Drug: Potassium Chloride 40 mEq Route: PO; eo2 13:14 Follow up: Response: No adverse reaction eo2 Outcome: 12:43 Discharge ordered by . kb 13:14 Discharged to home ambulatory, with family. eo2 13:14 Condition: stable 13:14 Discharge instructions given to patient, Instructed on discharge instructions, follow up and referral plans. medication usage, Demonstrated understanding of instructions, follow-up care, medications, Prescriptions given X 1. 13:15 Patient left the ED. eo2 Signatures: Dispatcher [employer] Estela Serrano, MEERA CHATTERJEEP-Sofia Baer Humble Humphrey RN RN ll1 Trista Sandhu RN RN eo2
[2021-03-31] MEDS ORDERED: POTASSIUM CL SA 10 MEQ TAB PO ONE (13:00)
[2021-03-31 13:22] VITALS: TEMP 98.2
[2021-03-31 13:29] VITALS: BP 113/67; O2SAT 100
[2021-03-31 14:09] LABS: Blood Morphology Comment NOTED (NOT SEEN); Macrocytosis 2+; Platelet Estimate DECR; White Blood Cell Scan OK (OK)
== END 2021-03-31 13:15 | disposition home or self-care (01) ==
LOC: ER 08:24
DX: S80.12XA Contusion of left lower leg, initial encounter (principal); F17.210 Nicotine dependence, cigarettes, uncomplicated
CPT/HCPCS: 85025; 80048; 36415; 82550; 85610; 85730; 73700; 93971; 96372; 99284; J3010

== ENCOUNTER 2021-12-28 15:59 | Emergency (ER) | payer OTHER ==
--- OUTSIDE RECORDS SUMMARY | 2021-12-28 16:05 | XMS REPORT | Continuity of Care Document ---
:1960 Author Organization [facility] t Address [address] [place] [address] Care Team Providers Name Role Phone No, Pcp [facility] Primary Care Physician Unavailable Janina Gabriel Attending Clinician Unavailable CHRISTINE MENDOZA Attending Clinician Unavailable Payers Payer Name Policy Type Policy Number Effective Date Expiration Date S [facility] [id number] 2019 00:00:00 OPTIONS RIZO RULE OPEN [id number] 2019 00:00:00 CHOICE Problems Condition Condition Condition Status Onset Resolution Last Treating Co mments Source Name Details Category Date Date Treatment Clinician Date Alcoholic Alcoholic Disease Active 2019-[address] [facility] hepatitis hepatitis 0-21 Assessmen L ukes without without 00:00: t & Plan: Medic al ascites ascites 00 Formattin Henry gillespie of this note might be different from the original. He had alcoholic hepatitis and pancreati tis in July 2019. Improved since then and has remained abstinent . He has portal hypertens ion with IGV1. Unclear if he has cirrhosis . We will defer liver biopsy for now.Recom mend total abstinenc e from alcohol.W e will send labs to exclude other causes of liver disease and do MRI liver protocol to see liver morpholog y. Portal Portal Disease Active 2019-02 [facility] & Plan[facility] of this note might be different from the original. Alcoholic hepatitis with portal hypertens ion. Need repeat EGD after 1 year. Screening Screening Disease Active 2019-02 [facility] endocrine, endocrine, 00:00: t & Plan: Medical metabolic metabolic 00 Formattin C enter and and g of this immunity immunity note disorder disorder might be different from the original. Serologic al tests will be completed to determine the presence of immunity to hepatitis A and B. If found susceptib le she will be referred to her primary care provider to consider the administr ation of the appropria te vaccines. [id number] H. pylori Problem Active Com mon infection [facility] [id number] Gastritis, Problem Active Com mon unspecifie Spirit d, without - 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, - [facility] unspecifie St d [facility] [id number] Chronic Problem Active Common alcoholism [facility] [id number] Alcoholism Problem Active Co mmon in Spirit remission [facility] Allergies, Adverse Reactions, Alerts Allergy Allergy Status Severity Reaction(s) Onset Inactive Treating Comm ents Source Name Type Date Date Clinician No Known DA Active U 2017-02 [facility] Allergie 2-10 Clear s 00:00: Lopez [address] [place] [address] NO KNOWN Allergy Active [facility] Family History Family Member Diagnosis Comments Start Date Stop Date Source Natural father Diabetes [facility] Natural father Irritable bowel [facility] Natural father Liver disease [facility] Natural mother Hypertension [facility] Natural mother Irritable bowel [facility] Natural mother Osteoporosis [facility] Social History Social Habit Start Date Stop Date Quantity Comments Source History of Tobacco Current Smoker Co mmon Spirit - Use [facility] History SDOH [facility] Alcohol Binge Medical [address] [facility] History SDOH [facility] Alcohol Comment Medical C enter Alcohol intake 2019-12-09 2019-12-09 [facility]00 alcohol (finding) Medical Center History [facility] 2019-12-09 2019-12-[address] [facility] Alcohol Frequency 00:00:00 00:00:00 Medical Center History [facility] 2019-12-09 2019-12-[address] [facility] Alcohol Std Drinks 00:00:00 00:00:00 Medica l Center Tobacco Comment 2019-12-09 2019-12-09 8-[address] [facility] 00:00:00 00:00:00 PER DAY Medical Center Sex Assigned At [address] [facility] Elena kes 00:00:00 00:00:00 Medical Center Smoking Status Start Date Stop Date Source Current Smoker 2021-06-12 00:00:00 Common Spiri t - [facility] Medications Ordered Filled Start Stop Current Ordering Indication Dosage Frequency Signature Comments Components Source Medication Medication Date Date Medication? Clinician (SIG) Name Name amoxicillin 2019-02 Yes TK [address] (AMOXIL) 0-06 BID FOR 14 [facility] 500 MG 00:00: DAYS Medical capsule 00 Center clarithromy 2019-02 Yes TK [address] natalie 0-06 BID FOR 14 [facility] (BIAXIN) 00:00: DAYS Medical 500 MG 00 Center tablet lansoprazol 2019-02 Yes TK ONE C [facility] e 0-06 PO BID FOR [facility] (PREVACID) 00:00: 14 DAYS Medi louise 30 MG 00 Center capsule traMADoL 2019-02 Yes TK [address] (ULTRAM) 50 0-01 BID FOR 12 Rosa Elena kes mg tablet 00:00: DAYS PRN Medi louise 00 Center predniSONE 2019-02 Yes TK [address] (DELTASONE) 0-01 QD PRF ABD Rosa Elena kes 20 MG 00:00: PAIN Medical tablet 00 [place] pantoprazol Yes TK [address] [facility] 9-27 D 1/2 HOUR [facility] (PROTONIX) 00:00: BEFORE Medic al 40 MG 00 BREAKFAST Center tablet OR FIRST MEAL PredniSONE PredniSONE 2020- No Janina 1 tablet Common 3-18 03-23 [facility] 00:00: 00:00 - [facility] 00 [facility]00 [facility] Omeprazole Omeprazole No QD Omeprazole Magnesium Magnesium Magnesium 20 MG 20 MG 20 MG Protonix 40 Protonix 40 No 1{table QD Protonix MG MG t} 40 MG oxyCODONE oxyCODONE No 1{table QID oxyCODONE HCl 5 MG HCl 5 MG t_as_ne HCl 5 MG eded} Omeprazole Omeprazole No QD Omeprazole Magnesium Magnesium Magnesium 20 MG 20 MG 20 MG Protonix 40 Protonix 40 No 1{table QD Protonix MG MG t} 40 MG oxyCODONE oxyCODONE No 1{table QID oxyCODONE HCl 5 MG HCl 5 MG t_as_ne HCl 5 MG eded} Omeprazole Omeprazole No QD Omeprazole Magnesium Magnesium Magnesium 20 MG 20 MG 20 MG Protonix 40 Protonix 40 No 1{table QD Protonix MG MG t} 40 MG oxyCODONE oxyCODONE No 1{table QID oxyCODONE HCl 5 MG HCl 5 MG t_as_ne HCl 5 MG eded} Vital Signs Vital Name Observation Time Observation Value Comments Source temperature 2021-06-13 09:00:00 97.2 [degF] [facility] bmi 2021-06-13 09:00:00 19.21 kg/m2 [facility] oximetry 2021-06-13 09:00:00 100 % [facility] respiratory rate 2021-06-13 09:00:00 18 /min Comm on [facility] blood pressure 2021-06-13 09:00:00 116 mm[Hg] [facility] - systolic [facility] blood pressure 2021-06-13 09:00:00 58 mm[Hg] [facility] - diastolic [facility] height 2021-06-13 09:00:00 66 [in_i] [facility] weight 2021-06-13 09:00:00 119 [lb_av] [facility] HEIGHT 2019-12-09 13:28:00 170.2 cm WEIGHT 2019-12-09 13:28:00 54.658 kg HEIGHT 2019-12-09 13:28:00 170.2 cm WEIGHT 2019-12-09 13:28:00 54.658 kg Procedures This patient has no known procedures. Plan of Care Planned Activity Planned Date Details Comments Source Future Scheduled 2021-10-19 INFLUENZA VACCINE (#1) [facility] 00:00:00 [code = INFLUENZA Medical Ce nter VACCINE (#1)] Future Scheduled 2021-02-[address] [facility] Test 00:00:00 (12+) [code = Medical Center DEPRESSION SCREENING (12+)] Future Scheduled 2012 SHINGLES VACCINES ([address] [facility] Test 00:00:00 2) [code = SHINGLES Medical Center VACCINES (1 of 2)] Future Scheduled 1997 Lipid panel (procedure) [facility] Test 00:00:00 [code = 53471901] Medical Ce nter Future Scheduled 1981 DTAP/TDAP/TD VACCINES [facility] Test 00:00:00 (1 - Tdap) [code = Medical C enter DTAP/TDAP/TD VACCINES (1 - Tdap)] Future Scheduled [address] [facility] Test 00:00:00 0-64 YRS (1 - PCV) Medical C enter [code = PNEUMOCOCCAL VACCINE 0-64 YRS (1 - PCV)] Future Scheduled 1963-02-06 COVID-19 VACCINE (#1) [facility] Test 00:00:00 [code = COVID-[address] VACCINE (#1)] Future Scheduled 1962 CT Colonography (combo) [facility] Test 00:00:00 [code = CT Colonography [facility] (combo)] Future Scheduled 1962 Screening for malignant [facility] Test 00:00:00 neoplasm of colon Medical Ce nter (procedure) [code = 067700449] Future Scheduled 1962 Screening for malignant [facility] Test 00:00:00 neoplasm of colon Medical Ce nter (procedure) [code = 120413752] Future Scheduled 1962 Screening for malignant [facility] Test 00:00:00 neoplasm of colon Medical Ce nter (procedure) [code = 708363610] Future Scheduled 1962 Screening for malignant [facility] Test 00:00:00 neoplasm of colon Medical Ce nter (procedure) [code = 247894269] Future Scheduled 1960 Sigmoidoscopy [code = [facility] I [facility] Test 00:00:00 Sigmoidoscopy] Medical Cente r Encounters Start End Encounter Admission Attending Care Care Encounter Source Date/Time Date/Time Type Type Clinicians Facility Department ID 2021-03-15 Outpatient Harvey STALIS STLMLC [id number] Common 11:51:14 Janina [id number] [facility] 2021-03-15 Outpatient Harvey STALIS STLC [id number] Common 11:14:35 Janina [id number] [facility] 2021-06-23 2021-06-23 (TEL) STLMLC STLMLC [id number] Co mmon 00:00:00 00:00:00 [facility] 2021-06-13 2021-06-13 OFFICE STLMLC STLMLC [id number] Co mmon 00:00:00 00:00:00 VISIT [facility] [address] [facility] 2021-06-13 2021-06-13 (TEL) STLMLC STLMLC [id number] Co mmon 00:00:00 00:00:00 [facility] 2020-03-16 2020-03-16 Outpatient J[facility]ANITA [facility] [id number] [facility] 00:00:00 00:00:00 PRASUN 2019-12-18 2019-12-18 Outpatient STLMLC STLMLC [id number] Common 00:00:00 00:00:00 [facility] 2019-12-09 2019-12-09 Outpatient JUANITA [facility] [id number] [facility] 00:00:00 00:00:00 PRASUN 2019-11-24 2019-11-24 Outpatient STLMLC STLMLC [id number] Common 00:00:00 00:00:00 [facility] 2019-11-19 2019-11-19 Outpatient STLMLC STLMLC [id number] Common 00:00:00 00:00:00 [facility] 2019-05-06 2019-05-06 [id number] Common 15:20:00 15:20:[address] [facility] 2018-08-19 2018-08-19 Outpatient [place] [facility] [id number] Common 09:15:00 09:15:[address] [facility] 2018-02-20 2018-02-20 Outpatient Marline [facility]and[facility] [id number] Common 08:30:00 08:30:[address] [facility] 2017-09-12 2017-09-12 Outpatient [place] [facility] [id number] Common 08:45:00 08:45:[address] [facility] [address] [facility] 2017-08-23 2017-08-23 Outpatient Marline Mirandarafiat [id number] Common 08:15:00 08:15:[address] [facility] [address] [facility] 2017-08-22 2017-08-22 Outpatient Marline Marlinet [id number] Common 15:15:00 15:15:[address] [facility] [address] [facility] Results Test Description Test Time Test Comments Results Result Comments Source ANTI-NUCLEAR ANTIBODY (JAIME) 2019-12-10 10:07:00 Test Item Value Reference Range Interpretation Comme nts ANTI-NUCLEAR ANTIBODY (JAIME) (BEAKER) (test code = 418) Negative Negative Test performed by IFA method.Test performed by IFA method.ALPHA FETOPROTEIN (AFP), TUMOR [id number] 20:44:00 Test Item Value Reference Range Interpretation Comments ALPHA-FETOPROTEIN (BEAKER) (test code < ng/mL <10.0 = 1094) Metal Bonder ID - BSHEPATITIS A ANTIBODY, [id number] 20:42:00 Test Item Value Reference Range Interpretation Comments HEPATITIS A IGM ANTIBODY (BEAKER) Nonreactive Nonreactive (test code = 498) Metal Bonder ID - BSHEPATITIS B CORE ANTIBODY, [id number] 20:42:00 Test Item Value Reference Range Interpretation Comments HEPATITIS B CORE TOTAL ANTIBODY Nonreactive Nonreactive (BEAKER) (test code = 497) Metal Bonder ID - BSHEPATITIS A ANTIBODY, [id number] 20:42:00 Test Item Value Reference Range Interpretation Comments HEPATITIS A IGG ANTIBODY (BEAKER) Nonreactive Nonreactive (test code = 2797) Metal Bonder ID - BSHEPATITIS B SURFACE [id number] 17:52:00 Test Item Value Reference Range Interpretation Comments HEPATITIS B SURFACE ANTIBODY 8.8 mIU/mL <8.0 H (BEAKER) (test code = 647) Metal Bonder ID - BSHEPATITIS B SURFACE [id number] 17:47:00 Test Item Value Reference Range Interpretation Comments HEPATITIS B SURFACE ANTIGEN (2) Nonreactive Nonreactive (BEAKER) (test code = 2585) Specimen is considered negative for HBsAg.HEPATITIS C [id number] 17:47:00 Test Item Value Reference Range Interpretation Comments HEPATITIS C ANTIBODY (BEAKER) Nonreactive Nonreactive (test code = 367) Metal Bonder ID - BSIRON, TIBC, % SAT. (WITHOUT FERRITIN)2019-12-09 17:19:00 Test Item Value Reference Range Interpretation Comments IRON (BEAKER) (test code = 547) 131.0 ug/dL 40.0-160.0 TOTAL IRON BINDING CAPACITY 440 ug/dL 250-450 (BEAKER) (test code = 769) IRON % SATURATION (2) (BEAKER) 30 % 20-55 (test code = 2590) Metal Bonder ID - [id number] 16:55:00 Test Item Value Reference Range Interpretation Comments ALPHA-1 ANTITRYPSIN (BEAKER) 150.60 mg/dL 90.00-200.00 (test code = 502) Metal Bonder ID - [id number] 16:47:00 Test Item Value Reference Range Interpretation Comments FERRITIN (BEAKER) (test code = 187.10 ng/mL 5.00-275.00 361) Metal Bonder ID - BSCOMPREHENSIVE METABOLIC [id number] 16:36:00 Test Item Value Reference Range Interpretation [...] S NOT APPLICABLE FOR DIALYSIS PATIEN TS. Metal Bonder ID - BSBILIRUBIN, [id number] 16:36:00 Test Item Value Reference Range Interpretation Comments BILIRUBIN DIRECT (BEAKER) (test 0.4 mg/dL 0.1-0.5 code = 706) Metal Bonder ID - BSPROTHROMBIN [id number] 16:16:00 Test Item Value Reference Range Interpretation Comments PROTIME (BEAKER) (test code = 13.6 seconds 11.9-14.2 759) INR (BEAKER) (test code = 370) 1.07 <=5.90 Effective 07/16/2018: PT Reference Range ChangeNew: 11.9-14.2 Previous: 11.7- 14.7RECOMMENDED COUMADIN/WARFARIN INR THERAPY RANGESSTANDARD DOSE: 2.0-3.0 Includes: PROPHYLAXIS for venous thrombosis, systemic embolization; TREATMENT for venous thrombosis and/or pulmonary embolus.HIGH RISK: Target INR is 2.5-3.5 for patients wiht mechanical heart valves.CBC W/PLT COUNT & AUTO [id number] 16:15:00 Test Item Value Reference Range Interpretation [...] 417) IMMATURE GRANULOCYTES-RELATIVE 1 % 0-1 PERCENT (KIEL) (test code = 2801)
[2021-12-28 17:00] LABS: Absolute Lymphocytes (CBC) 1.3 K/uL (0.7-4.9); Hematocrit 32.4 % (39.6-49.0); Lymphocytes % 13.1 % (15.3-44.8); MCV 86.1 fL (80-100); RBC Red Blood Cell Count 3.76 M/uL (4.33-5.43)
[2021-12-28 17:13] LABS: Protime INR 1.18
[2021-12-28 17:27] LABS: ALT/SGPT 36 U/L (12-78); AST/SGOT 25 U/L (15-37); Albumin 3.6 g/dL (3.4-5.0); Alkaline Phosphatase 238 U/L (45-117); BUN Blood Urea Nitrogen 9 mg/dL (7-18); Bicarbonate 25 mmol/L (21-32); Bilirubin Total 1.9 mg/dL (0.2-1.0); Glomerular Filtration Rate 60 ml/min (=/>90); Lipase 972 U/L (73-393); Potassium 3.9 mmol/L (3.5-5.1); Protein, Total 8.1 g/dL (6.4-8.2); Sodium Level 128 mmol/L (136-145)
[2021-12-28 17:28] LABS: Glucose Level 579 mg/dL (74-106)
[2021-12-28] MEDS ORDERED: INSULIN -REGULAR HUMAN 50 UNIT/0.5 ML ML ONE ×3 (17:56→21:32)
[2021-12-28] MEDS ORDERED: NA CHLORIDE 0.9% 1,000 ML ONE ×2 (17:57→19:19)
[2021-12-28 18:21] LABS: SARS-CoV-2 Antigen Rapid Res Negative (Negative)
[2021-12-28 18:54] LABS: Urine Crystals Unidentified Few /HPF (None Seen)
[2021-12-28 19:04] LABS: Urine Blood 2+ (Negative); Urine Glucose 3+ (Negative); Urine Protein Trace (Negative); Urine pH 5.5 (5.0-7.0)
--- NOTE | 2021-12-28 19:09 | RAD REPORT ---
EXAM DESCRIPTION: CTAbdomen W Contrast - 12/28/2021 6:57 pm CLINICAL HISTORY: pancreatitis COMPARISON: Abdomen Pelvis W Contrast dated 08/02/2019 TECHNIQUE: CT of the abdomen was performed with IV contrast. All CT scans are performed using dose optimization technique as appropriate and may include automated exposure control or mA/KV adjustment according to patient size. FINDINGS: Lower chest: No acute abnormality. Paraesophageal varices. Liver: Mildly nodular liver contour. Biliary: Cholelithiasis. Possible choledocholithiasis versus downstream pancreatic duct calcification s. Stomach: No significant focal abnormality. Duodenum: No significant focal abnormality. Pancreas: Diffuse peripancreatic stranding. Pancreatic atrophy at the body and tail. Pancreatic ducta l dilatation is noted. Small cystic collection at the pancreatic neck measuring 15 millimeters may re present a small pseudocyst. Spleen: No significant abnormality. Adrenal: No suspicious lesions. Kidney/ureter: No hydronephrosis. No renal calculi. Retroperitoneum: No retroperitoneal adenopathy. Vascular: No aneurysm. Atherosclerosis. Bowel: No significant focal abnormality. Peritoneum: No ascites or free air. Bones: No acute fracture. Other: n/a IMPRESSION: Findings consistent with acute pancreatitis. Calcifications of the pancreatic head may b e within the downstream pancreatic duct as would be seen with chronic pancreatitis versus in the dist al common bile duct (choledocholithiasis).
[2021-12-28] MEDS ORDERED: Ringers Lactate 1,000 ML IV ONE (19:18)
[2021-12-28 21:12] LABS: Potassium 3.6 mmol/L (3.5-5.1)
--- NOTE | 2021-12-28 21:28 | ER ---
Nurse's Notes [facility] Name: Adi Bennett Age: 61 yrs Sex: Male : 1960 Arrival Date: 12/28/2021 Time: 16:04 Bed 26 Private MD: Diagnosis: Calculus of gallbladder and bile duct with acute cholecystitis with obstruction;Biliary acute pancreatitis;Epigastric abdominal tenderness Presentation: 12/28 16:09 Chief complaint: Patient states: for the past 4 weeks; things dont seem right but now jh5 the last 4 days yonny been super super thirsty and cant get enough water. 2 hours ago my glucometer it showed 519 and then 560 and i started throwing up today. Coronavirus screen: Vaccine status: Patient reports receiving the 2nd dose of the covid vaccine. Client denies travel out of the [place] in the last 14 days. Ebola Screen: Patient negative for fever greater than or equal to 101.5 degrees Fahrenheit, and additional compatible Ebola Virus Disease symptoms Patient denies exposure to infectious person. Patient denies travel to an Ebola-affected area in the 21 days before illness onset. Initial Sepsis Screen: Does the patient meet any 2 criteria? No. Patient's initial sepsis screen is negative. Does the patient have a suspected source of infection? No. Patient's initial sepsis screen is negative. Risk Assessment: Do you want to hurt yourself or someone else? Patient reports no desire to harm self or others. 16:09 Method Of Arrival: Ambulatory [facility] 16:09 Acuity: RODERICK 3 jh5 23:18 Onset of symptoms was December 28, 2021. 3 Triage Assessment: 16:12 General: Appears uncomfortable, slender, Behavior is calm, cooperative, appropriate for [facility] age. Pain: Complains of pain in abdomen. Historical: - Allergies: 16:12 Morphine; 5 16:12 Phenergan; jh5 - PMHx: 16:12 ibs; Liver Issues; Pancreatitis; jh5 - Immunization history:: Adult Immunizations up to date. - Social history:: Smoking status: Patient reports the use of cigarette tobacco products, smokes one-half pack cigarettes per day. Screenin:30 Abuse screen: Denies threats or abuse. Denies injuries from another. Nutritional 3 screening: No deficits noted. Tuberculosis screening: No symptoms or risk factors identified. Fall Risk None identified. Assessment: 16:30 General: Appears in no apparent distress. uncomfortable, Behavior is calm, cooperative, eh3 appropriate for age. Pain: Denies pain. Neuro: Level of Consciousness is awake, alert, obeys commands, Oriented to person, place, time, situation. Cardiovascular: Capillary refill < 3 seconds Patient's skin is warm and dry. Respiratory: Airway is patent Respiratory effort is even, unlabored, Respiratory pattern is regular, symmetrical. GI: Abdomen is flat, non-distended, Reports nausea, vomiting. : No signs and/or symptoms were reported regarding the genitourinary system. EENT: No signs and/or symptoms were reported regarding the EENT system. Derm: No signs and/or symptoms reported regarding the dermatologic system. Musculoskeletal: No signs and/or symptoms reported regarding the musculoskeletal system. 17:30 Reassessment: Patient and/or family updated on plan of care and expected duration. Pain kb3 level reassessed. Patient is alert, oriented x 3, equal unlabored respirations, skin warm/dry/pink. 18:30 Reassessment: Patient and/or family updated on plan of care and expected duration. Pain kb3 level reassessed. Patient is alert, oriented x 3, equal unlabored respirations, skin warm/dry/pink. 19:30 Reassessment: Patient and/or family updated on plan of care and expected duration. Pain eh3 level reassessed. Patient is alert, oriented x 3, equal unlabored respirations, skin warm/dry/pink. 20:30 Reassessment: Patient and/or family updated on plan of care and expected duration. Pain eh3 level reassessed. Patient is alert, oriented x 3, equal unlabored respirations, skin warm/dry/pink. 21:30 Reassessment: Patient and/or family updated on plan of care and expected duration. Pain eh3 level reassessed. Patient is alert, oriented x 3, equal unlabored respirations, skin warm/dry/pink. 22:30 Reassessment: Patient and/or family updated on plan of care and expected duration. Pain eh3 level reassessed. Patient is alert, oriented x 3, equal unlabored respirations, skin warm/dry/pink. Vital Signs: 16:12 BP 138 / 70; Pulse 92; Resp 18; Temp 98.6; Pulse Ox 100% ; Weight 54.43 kg; Height 5 [facility] ft. 7 in. (170.18 cm); 16:54 BP 147 / 97; Pulse 82; Resp 18; Temp 98.6(O); Pulse Ox 100% on R/A; kb3 17:30 BP 134 / 74; Pulse 87; Resp 18; Temp 99.1(O); Pulse Ox 100% on R/A; kb3 18:30 BP 139 / 62; Pulse 93; Resp 18; Pulse Ox 100% on R/A; kb3 19:30 BP 136 / 72; Pulse 96; Resp 18; Pulse Ox 100% on R/A; eh3 20:30 BP 128 / 74; Pulse 95; Resp 18; Pulse Ox 100% on R/A; eh3 21:30 BP 126 / 68; Pulse 97; Resp 18; Pulse Ox 100% on R/A; eh3 21:43 BP 126 / 68; Pulse 96; Resp 18; Temp 98.9; Pulse Ox 100% on R/A; mw2 22:30 BP 115 / 63; Pulse 104; Resp 18; Pulse Ox 100% on R/A; eh3 16:12 Body Mass Index 18.79 (54.43 kg, 170.18 cm) [facility] ED Course: 16:04 Patient arrived in ED. rg4 16:12 Angelica Pompa FNP-C is [facility]. snw 16:12 Jose Cormier MD is Attending Physician. snw 16:12 Triage completed. [facility] 16:12 Arm band placed on right wrist. [facility] 16:30 Patient has correct armband on for positive identification. Bed in low position. Call 3 light in reach. Side rails up X2. Adult w/ patient. Client placed on continuous cardiac and pulse oximetry monitoring. NIBP monitoring applied. Door closed. Noise minimized. Warm blanket given. Pillow given. 16:54 Aziza Burgos, RN is Primary Nurse. kb3 18:58 CT Abdomen - IV Contrast Only In Process Unspecified. EDMS 19:31 initiated a transfer with Aria from [facility]. mw2 19:38 Chem 7 Sent. eh3 20:08 connected Angelica Pompa CONTACT AGENT with the Doctor from [facility]. mw2 21:25 Attending Physician role handed off by Jose Cormier MD [facility] 21:25 Mohan Arnold MD is Attending Physician. [facility] 21:29 contacted [facility] spoke to Tadeo to give him update lab results. [facility] 21:[address] Arnold with Dr. Aragon from [facility]. 2 22:09 administrative approval given by Aria Zacarias /patient has been accepted to [address] bed 6CB 23/ Dr. Aragon accepted the patient in transfer/report to be called to [phone]. 23:18 No provider procedures requiring assistance completed. Patient transferred, IV remains [facility] in place. Administered Medications: 18:19 Drug: NS 0.9% 1000 ml Route: IV; Rate: 1 bolus; Site: left antecubital; [facility] 19:30 Follow up: IV Status: Completed infusion; IV Intake: 1000ml [facility] 18:19 Drug: Insulin Regular Human 5 units {Co-Signature: ph (Hamida Quinones RN).} Route: IVP; [facility] Site: right antecubital; 19:37 Follow up: Response: Blood sugar is lowered [facility] 19:30 Drug: NS 0.9% 1000 ml Route: IV; Rate: 1000 ml; Site: left antecubital; [facility] 21:00 Follow up: IV Status: Completed infusion; IV Intake: 1000ml [facility] 19:30 Drug: Lactated Ringers Solution 1000 ml Route: IV; Rate: 150 ml/hr; Site: left [facility] antecubital; 12/29 00:22 Follow up: IV Status: Infusion continued upon transfer; IV Intake: 525ml [facility] 12/28 19:58 Drug: Insulin Regular Human 5 units {Co-Signature: ld1 (Courtney Medrano RN).} Route: [facility] IVP; Site: left antecubital; 22:00 Follow up: Response: Blood sugar is lowered [facility] 21:30 Drug: Insulin Regular Human 5 units {Co-Signature: tw5 (Maia Landon).} Route: IVP; [facility] Site: left antecubital; 12/29 00:40 Follow up: Response: No adverse reaction [facility] 12/28 21:30 Drug: Zosyn (piperacillin-tazobactam) 3.375 grams Route: IVPB; Infused Over: 60 mins; eh3 Site: left antecubital; 22:00 Follow up: IV Status: Completed infusion; IV Intake: 100ml [facility] 21:40 CANCELLED (Duplicate Order): NS 0.9% 1000 ml IV at 1 bolus Per protocol; 1000 mL bolus [facility] 12/29 00:41 Not Given (Pt transferred before givenn): NS 0.9% 1000 ml IV at 125 ml/hr continuous [facility] Medication: 12/28 23:18 VIS not applicable for this client. 3 Intake: 19:30 IV: 1000ml; Total: 1000ml. 3 21:00 IV: 1000ml; Total: 2000ml. eh3 22:00 IV: 100ml; Total: 2100ml. 3 12/29 00:22 IV: 525ml; Total: 2625ml. [facility] Outcome: 12/28 21:28 ER care complete, transfer ordered by . [facility] 23:18 Transferred by ground EMS to [facility], Transfer form completed. [facility] 23:18 Condition: stable 23:18 Instructed on the need for transfer. 23:19 Patient left the ED. [facility] Signatures: Dispatcher [employer] EDMS Mohan Arnold MD MD cha Waters, Shelly, CAFETERIA WORKER-C CAFETERIA WORKER-CsnLois Guo rg4 Kacey Joe mw2 Isabel Diallo, RN RN jh5 Sara Quinones, RN RN 3 Aziza Burgos, RN RN kb3 Hamida Quinones RN ph Courtney Medrano RN ld1 Maia Landon tw5 Corrections: (The following items were deleted from the chart) 21:01 19:38 LACTATE+C.LAB.BRZ drawn and sent. [facility] EDIA 22:35 19:31 initiated a transfer with Amy from [facility] Transfer Center mw2 mw2
--- NOTE | 2021-12-28 21:29 | EDPHYS ---
Physician Documentation [facility] Name: Adi Bennett Age: 61 yrs Sex: Male : 1960 Arrival Date: 12/28/2021 Time: 16:04 Bed 26 Private MD: ED Physician Mohan Arnold HPI: 12/28 18:43 This 61 yrs old Male presents to ER via Ambulatory with complaints of Blood Sugar snw Problem. 18:43 Pt states he has felt weak and tired x one month. Worse over the last 4 days with snw polydipsia, polyuria. Pt began vomiting today and checked his blood sugar and it was over 500. Onset: The symptoms/episode began/occurred acutely. Severity of symptoms: At their worst the symptoms were moderate severe in the emergency department the symptoms are unchanged. The patient has not experienced similar symptoms in the past. It is unknown whether or not the patient has recently seen a physician. hx of pancreatitis. Historical: - Allergies: 16:12 Morphine; jh5 16:12 Phenergan; jh5 - PMHx: 16:12 ibs; Liver Issues; Pancreatitis; [facility] - Immunization history:: Adult Immunizations up to date. - Social history:: Smoking status: Patient reports the use of cigarette tobacco products, smokes one-half pack cigarettes per day. ROS: 18:41 Eyes: Negative for injury, pain, redness, and discharge, ENT: Negative for injury, snw pain, and discharge, Neck: Negative for injury, pain, and swelling, Cardiovascular: Negative for chest pain, palpitations, and edema. 18:41 Respiratory: Negative for shortness of breath, cough, wheezing, and pleuritic chest pain. 18:41 Back: Negative for injury and pain, : Negative for injury, bleeding, discharge, and swelling, MS/Extremity: Negative for injury and deformity, Skin: Negative for injury, rash, and discoloration. 18:41 Constitutional: Positive for body aches, fatigue, malaise, poor PO intake. 18:41 Abdomen/GI: Positive for nausea and vomiting. 18:41 Neuro: Positive for weakness. Exam: 18:40 Head/Face: Normocephalic, atraumatic. Eyes: Pupils equal round and reactive to light, snw extra-ocular motions intact. Lids and lashes normal. Conjunctiva and sclera are non-icteric and not injected. Cornea within normal limits. Periorbital areas with no swelling, redness, or edema. ENT: Nares patent. No nasal discharge, no septal abnormalities noted. Tympanic membranes are normal and external auditory canals are clear. Oropharynx with no redness, swelling, or masses, exudates, or evidence of obstruction, uvula midline. Mucous membranes moist. Neck: Trachea midline, no thyromegaly or masses palpated, and no cervical lymphadenopathy. Supple, full range of motion without nuchal rigidity, or vertebral point tenderness. No Meningismus. Chest/axilla: Normal chest wall appearance and motion. Nontender with no deformity. No lesions are appreciated. 18:40 Respiratory: Lungs have equal breath sounds bilaterally, clear to auscultation and percussion. No rales, rhonchi or wheezes noted. No increased work of breathing, no retractions or nasal flaring. Back: No spinal tenderness. No costovertebral tenderness. Full range of motion. 18:40 MS/ Extremity: Pulses equal, no cyanosis. Neurovascular intact. Full, normal range of motion. Neuro: Awake and alert, GCS 15, oriented to person, place, time, and situation. Cranial nerves II-XII grossly intact. Motor strength 5/5 in all extremities. Sensory grossly intact. Cerebellar exam normal. Normal gait. 18:40 Constitutional: The patient appears alert, awake, frail, unkempt. 18:40 Cardiovascular: Rate: 18:40 Skin: Appearance: Color: dusky, Temperature: warm, Moisture: dry. Vital Signs: 16:12 BP 138 / 70; Pulse 92; Resp 18; Temp 98.6; Pulse Ox 100% ; Weight 54.43 kg; Height 5 jh5 ft. 7 in. (170.18 cm); 16:54 BP 147 / 97; Pulse 82; Resp 18; Temp 98.6(O); Pulse Ox 100% on R/A; kb3 17:30 BP 134 / 74; Pulse 87; Resp 18; Temp 99.1(O); Pulse Ox 100% on R/A; kb3 18:30 BP 139 / 62; Pulse 93; Resp 18; Pulse Ox 100% on R/A; kb3 19:30 BP 136 / 72; Pulse 96; Resp 18; Pulse Ox 100% on R/A; eh3 20:30 BP 128 / 74; Pulse 95; Resp 18; Pulse Ox 100% on R/A; eh3 21:30 BP 126 / 68; Pulse 97; Resp 18; Pulse Ox 100% on R/A; eh3 21:43 BP 126 / 68; Pulse 96; Resp 18; Temp 98.9; Pulse Ox 100% on R/A; mw2 22:30 BP 115 / 63; Pulse 104; Resp 18; Pulse Ox 100% on R/A; eh3 16:12 Body Mass Index 18.79 (54.43 kg, 170.18 cm) [facility] MDM: 16:16 Patient medically screened. snw 19:29 Data reviewed: vital signs, nurses notes. Data interpreted: Pulse oximetry: on room air snw is 100 %. Interpretation: normal. Counseling: I had a detailed discussion with the patient and/or guardian regarding: the historical points, exam findings, and any diagnostic results supporting the discharge/admit diagnosis, lab results, radiology results, the need to transfer to another facility, for higher level of care, [facility] does not immediately have the required specialist. Physician consultation: Jose Taylor MD was called at 19:00, regarding consult, Dr. Taylor recommends transfer of pt to [facility]. 20:25 Physician consultation: Dr Aragon was contacted at 20:20, would like further tests snw performed, Results of repeat C7 and Lactate. 12/28 16:18 Order name: Blood Culture Adult (2) snw 12/28 16:18 Order name: CBC with Diff; Complete Time: 17:14 snw 12/28 16:18 Order name: CMP; Complete Time: 17:35 snw 12/28 16:18 Order name: Lactate; Complete Time: 17:22 snw 12/28 16:18 Order name: Protime (+inr); Complete Time: 17:14 snw 12/28 16:18 Order name: Ptt, Activated; Complete Time: 17:14 snw 12/28 16:18 Order name: Urine Culture; Complete Time: 08:24 snw 12/28 16:18 Order name: Urine Microscopic Only; Complete Time: 18:55 snw 12/28 16:18 Order name: Hemoglobin A1c snw 12/28 16:18 Order name: Lipase; Complete Time: 17:35 snw 12/28 16:18 Order name: Acetone, Serum; Complete Time: 17:35 snw 12/28 16:18 Order name: TSH; Complete Time: 17:35 snw 12/28 16:21 Order name: SARS RAPID; Complete Time: 18:24 kj1 12/28 16:28 Order name: Glucose, Ancillary Testing; Complete Time: 16:28 EDMS 12/28 17:37 Order name: CT Abdomen - IV Contrast Only; Complete Time: 19:11 snw 12/28 18:28 Order name: Glucose, Ancillary Testing; Complete Time: 18:30 EDMS 12/28 18:48 Order name: Lipid Profile; Complete Time: 19:35 la1 12/28 19:04 Order name: Urine Dipstick-Ancillary; Complete Time: 19:04 EDMS 12/28 19:35 Order name: Chem 7; Complete Time: 21:25 snw 12/28 19:42 Order name: Glucose, Ancillary Testing; Complete Time: 19:44 EDMS 12/28 21:21 Order name: Lactate Sepsis 2 HR Follow-up; Complete Time: 21:25 EDMS 12/28 21:34 Order name: ABG Arterial Blood Gas; Complete Time: 21:37 EDMS 12/28 22:08 Order name: Glucose, Ancillary Testing; Complete Time: 08:24 EDMS 12/28 16:18 Order name: Accucheck; Complete Time: 18:19 snw 12/28 16:18 Order name: Cardiac monitoring; Complete Time: 17:48 snw 12/28 16:18 Order name: EKG - Nurse/Tech; Complete Time: 17:48 snw 12/28 16:18 Order name: IV Saline Lock - Large Bore; Complete Time: 16:54 snw 12/28 16:18 Order name: Labs collected and sent; Complete Time: 16:54 snw 12/28 16:18 Order name: O2 Per Protocol; Complete Time: 16:54 snw 12/28 16:18 Order name: O2 Sat Monitoring; Complete Time: 16:54 snw 12/28 16:18 Order name: Vital Signs; Complete Time: 16:55 snw 12/28 21:41 Order name: Vital Signs; Complete Time: 22:00 angel 12/28 21:43 Order name: Blood Glucose Level; Complete Time: 21:57 [facility] EC:40 Rate is 88 beats/min. Rhythm is regular. MO interval is shortened. Clinical impression: snw NSR w/ Non-specific ST/T Changes. Administered Medications: 18:19 Drug: NS 0.9% 1000 ml Route: IV; Rate: 1 bolus; Site: left antecubital; [facility] 19:30 Follow up: IV Status: Completed infusion; IV Intake: 1000ml [facility] 18:19 Drug: Insulin Regular Human 5 units {Co-Signature: ph (Hamida Quinones RN).} Route: IVP; [facility] Site: right antecubital; 19:37 Follow up: Response: Blood sugar is lowered [facility] 19:30 Drug: NS 0.9% 1000 ml Route: IV; Rate: 1000 ml; Site: left antecubital; [facility] 21:00 Follow up: IV Status: Completed infusion; IV Intake: 1000ml [facility] 19:30 Drug: Lactated Ringers Solution 1000 ml Route: IV; Rate: 150 ml/hr; Site: left [facility]; 12/29 00:22 Follow up: IV Status: Infusion continued upon transfer; IV Intake: 525ml [facility] 12/28 19:58 Drug: Insulin Regular Human 5 units {Co-Signature: ld1 (Courtney Medrano RN).} Route: [facility] IVP; Site: left antecubital; 22:00 Follow up: Response: Blood sugar is lowered [facility] 21:30 Drug: Insulin Regular Human 5 units {Co-Signature: tw5 (Maia Landon).} Route: IVP; [facility] Site: left antecubital; 12/29 00:40 Follow up: Response: No adverse reaction [facility] 12/28 21:30 Drug: Zosyn (piperacillin-tazobactam) 3.375 grams Route: IVPB; Infused Over: 60 mins; [facility]; 22:00 Follow up: IV Status: Completed infusion; IV Intake: 100ml [facility] 21:40 CANCELLED (Duplicate Order): NS 0.9% 1000 ml IV at 1 bolus Per protocol; 1000 mL bolus [facility] 12/29 00:41 Not Given (Pt transferred before givenn): NS 0.9% 1000 ml IV at 125 ml/hr continuous [facility] Disposition Summary: 12/28/21 21:28 Transfer Ordered Transfer Location: [facility] angel Reason: Higher level of care angel Condition: Fair angel Problem: new angel Symptoms: have improved angel Accepting Physician: to belinda aragon(12/28/21 23:19) eh3 Diagnosis - Calculus of gallbladder and bile duct with acute cholecystitis with obstruction angel - Biliary acute pancreatitis angel - Epigastric abdominal tenderness angel Forms: - Medication Reconciliation Form angel - SBAR form angel Addendum: 01/01/2022 09:02 Co-signature as Attending Physician, Jose Cormier MD. r n Signatures: Dispatcher [employer] EDMS Mohan Arnold MD MD cha Waters, Shelly, GUM REMOVER-C GUM REMOVER-Csnw Jose Cormier MD MD rn Donnie Diaz, GUM REMOVER-C GUM REMOVER-Cla1 Isabel Diallo RN RN jh5 Sara Quinones RN RN eh3 Aziza Burgos RN RN kb3 Hamida Quinones RN ph Cuortney Medrano RN ld1 Maia Landon tw5 Corrections: (The following items were deleted from the chart) 12/28 21:01 19:35 LACTATE+C.LAB.BRZ ordered. EDMS EDMS 21:40 21:39 NS 0.9% 1000 ml IV at 1 bolus Per protocol; 1000 mL bolus ordered. angel angel 23:19 21:28 to belinda aragon angel eh3
[2021-12-28 21:34] LABS: Arterial Blood Carboxyhemoglob 1.3 % (0-1.5); Blood Gas Oxyhemoglobin 34.9 % (94-97); Blood O2 Saturation 35.8 % (92-98.5)
[2021-12-28 23:43] VITALS: O2SAT 100
[2021-12-28 23:51] VITALS: TEMP 98.9
[2021-12-28 23:53] VITALS: BP 115/63
--- NOTE | 2021-12-29 15:57 | EKG ---
Test Date: 2021-12-28 Test Time: 17:39:16 Gum Mixer: LUIS MEASUREMENT RESULTS: Intervals: Rate: 88 NM: 84 QRSD: 84 QT: 398 QTc: 481 [place]: P: 54 NM: 84 QRS: 75 T: 64 INTERPRETIVE STATEMENTS: Sinus rhythm with short NM Prolonged QT Abnormal ECG Compared to ECG 08/02/2019 14:55:31 Short NM interval now present Atrial abnormality no longer present Electronically Signed On 12-29-21 15:57:07 BASKETBALL COMMENTATOR by Jose Gilbert
== END 2021-12-28 23:19 | disposition short-term general hospital (02) ==
LOC: ER 15:59
DX: K80.63 Calculus of gallbladder and bile duct with acute cholecystitis with obstruction (principal); K85.10 Biliary acute pancreatitis without necrosis or infection; R10.816 Epigastric abdominal tenderness; F17.210 Nicotine dependence, cigarettes, uncomplicated; Z20.822 Contact with and (suspected) exposure to COVID-19; Z88.5 Allergy status to narcotic agent; Z88.8 Allergy status to other drugs, medicaments and biological substances
CPT/HCPCS: 93005; 87040 ×2; 87088; 85025; 87086; 80048; 36415; 82010; 85610; 80061; 82947 ×4; 83605 ×2; 85730; 84443; 83690; 80053; 74160; 82805; 99285; 87811; Q9967; J1815 ×3; J7120; J7030 ×2; 81003; 81015

== ENCOUNTER 2022-01-03 10:15 | Emergency (ER) | payer OTHER ==
--- OUTSIDE RECORDS SUMMARY | 2022-01-03 10:20 | XMS REPORT | Continuity of Care Document ---
:1960 Author Organization [facility] t Address [address] [place] [address] Care Team Providers Name Role Phone No, Pcp [facility] Primary Care Physician Unavailable Janina Gabriel Attending Clinician Unavailable MARY ELLEN COTTO Attending Clinician Unavailable Ann Marie Aragon MD Attending Clinician [phone] Aman PETERS, Tito Collado Attending Clinician Oscar PETERS, Lazaro Juarez Attending Clinician Corey Funez MD Attending Clinician COREY FUNEZ Attending Clinician Unavailable Nora PETERS, Donald Rodrigez Attending Clinician [phone] Edda PETERS, Luis M Walden Attending Clinician Kirstie Luis Attending Clinician CHRISTINE MENDOZA Attending Clinician Unavailable TITO LOMBARDI Admitting Clinician Unavailable Payers Payer Name Policy Type Policy Number Effective Date Expiration Date Luz [employer] [id number] 2019 INS - MANAGE 00:00:00 HEALTHCARE CHOICE/CHOICE [id number] 2019 PLUS/OPTIONS PPO - 00:00:00 [facility] Problems Condition Condition Condition Status Onset Resolution Last Treating Co mments Source Name Details Category Date Date Treatment Clinician Date Pancreatit Pancreatit Disease Active 2021-[address] is, acute is, acute -11 Luke s 00:00: Medical 00 Center Alcoholic Alcoholic Disease Active 2019-[address] [facility] hepatitis hepatitis 0-21 Assessmen L ukes without without 00:00: t & Plan: Medic al ascites ascites 00 Formattin Cente r g of this note might be different [...] morpholog y. Portal Portal Disease Active 2019-02 [facility] hypertensi hypertensi 0-21 Assessmen Koki on on 00:00: t & Plan: Medical 00 Formattin Center g of this note might be different from the original. Alcoholic hepatitis with portal hypertens ion. Need repeat EGD after 1 year. Screening Screening Disease Active 2019-02 [facility] for for 0-[address] [facility] endocrine, endocrine, 00:00: t & Plan: Medical [...] administr ation of the appropria te vaccines. [id number] H. 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, - [facility] unspecifie [facility] d [facility] [id number] Chronic Problem Active Common alcoholism [facility] - [facility] [id number] Alcoholism Problem Active Co mmon in Spirit remission [facility] Allergies, Adverse Reactions, Alerts Allergy Allergy Status Severity Reaction(s) Onset Inactive Treating Comm ents Source Name Type Date Date Clinician Morphine Propensi Active Nausea And 2021-[address] [facility] to Vomiting 02-28 [facility] adverse 00:00: Medical reaction 00 Center s MORPHINE Allergy Active N\\T\\V 2021-[address] 02-28 [facility] 00:00: Medical 00 Center No Known DA Active U 2017-02 [facility] Allergie 03-30 Clear s 00:00: Lopez 00 [facility] NO KNOWN Allergy Active [facility] S Family History Family Member Diagnosis Comments Start Date Stop Date Source Natural father Diabetes [facility] Natural father Irritable bowel [facility] syndrome [facility] Natural father Liver disease [facility] Natural mother Hypertension [facility] Natural mother Irritable bowel [facility] syndrome [facility] Natural mother Osteoporosis [facility] Social History Social Habit Start Date Stop Date Quantity Comments Source History SDOH [facility] Alcohol Binge Medical [facility] History [facility] Alcohol Comment Medical C enter History of Tobacco Current Smoker Co mmon Spirit - Use [facility] Alcohol intake 2022-01-01 2022-01-01 Current drink[facility] of [facility] 00:00:00 00:00:00 alcohol (finding) Medical Center Exposure to 2021-12-19 2021-12-[address] [facility] SARS-CoV-2 (event) 00:00:00 01:49:00 Medica l Center History [facility] 2021-12-29 2021-12-[address] [facility] Housing Unable to 00:00:00 00:00:00 Medical Center Pay History [facility] 2021-12-29 2021-12-[address] [facility] Housing Places 00:00:00 00:00:00 Medical Ce nter Lived History [facility] 2021-12-29 2021-12-[address] [facility] Housing Homeless 00:00:00 00:00:00 Medical Center Last Year History [facility] 2019-12-09 2019-12-[address] [facility] Alcohol Frequency 00:00:00 00:00:00 Medical Center History [facility] 2019-12-09 2019-12-[address] [facility] Alcohol Std Drinks 00:00:00 00:00:00 Medica l Center Tobacco Comment 2019-12-09 2019-12-09 8-[address] [facility] 00:00:00 00:00:00 PER DAY Medical Center Sex Assigned At [address] [facility] Rosa Elena kes 00:00:00 00:00:00 Medical Center Smoking Status Start Date Stop Date Source Current Smoker 2021-06-12 00:00:00 Common Spiri t - [facility] Medications Ordered Filled Start Stop Current Ordering Indication Dosage Frequency Signature Comments Components Source Medication Medication Date Date Medication? Clinician (SIG) Name Name insulin 2021-[address] syringes, 1-16 [facility] disposable, 00:00: Medica l 1 mL Syrg 00 Center esomeprazol 2021-02 Yes 20mg QD Take [address] e (NexIUM) 1-14 by mouth [facility] 20 MG 09:44: daily. Medical capsule 54 [facility] dicyclomine 2021-02 Yes 10mg Take [address] (BENTYL) 10 1-14 by mouth 2 Rosa Elena kes MG capsule 09:44: (two) Medica l 54 times Center daily before meals. esomeprazol 2021-02 Yes 20mg QD Take [address] e (NexIUM) 1-14 by mouth [facility]ukes 20 MG 09:44: daily. Medical capsule 54 [facility] dicyclomine 2021-02 Yes 10mg Take [address] (BENTYL) 10 1-14 by mouth 2 Rosa Elena kes MG capsule 09:44: (two) Medica l 54 times Center daily before meals. insulin 2021-02 Yes 4 u TID AC [facility] lispro 1-13 plus If BS [facility] (HumaLOG) 00:00: > 150 take Me dical 100 unit/mL 00 1 unit. > Aure[address] ter InPn 200 - 2 units. > 250 - 4 units. > 300 - 6 units. > 350 - 8 units. > 400 take 10 units, and call your PCP. insulin 2021-02 Yes 6U QD Inject [facility] detemir 1-13 0.06 mLs [facility]ukes U-100 00:00: (6 Units Medical (LEVEMIR) 00 total) Center 100 unit/mL subcutaneo (3 mL) InPn usly injection nightly. insulin 2021-02 Yes 4 u TID AC [facility] lispro 1-13 plus If BS [facility] (HumaLOG) 00:00: > 150 take Me dical 100 unit/mL 00 1 unit. > [address] ter InPn 200 - 2 units. > 250 - 4 units. > 300 - 6 units. > 350 - 8 units. > 400 take 10 units, and call your PCP. insulin 2021-02 Yes 6U QD Inject [facility] detemir 1-13 0.06 mLs [facility]ukes U-100 00:00: (6 Units Medical (LEVEMIR) 00 total) Center 100 unit/mL subcutaneo (3 mL) InPn usly injection nightly. blood-gluco 2021-02- Yes Use as [facility] se meter -12-31 instructed Luke s kit 00:00: 23:59 . Medical 00 :00 Center blood-gluco 2021-02- Yes Use as [facility] se meter 03-02 instructed Luke s kit 00:00: 23:59 . Medical 00 :00 Center nystatin 2021-02- Yes [id number] Q.25D Take [address] (MYCOSTATIN 1-13 11-18 (500,000 Connie es ) 100,000 00:00: 23:59 Units Medica l unit/mL 00 :00 total) by Center suspension mouth 4 (four) times daily for 5 days. nystatin 2021-02- Yes [id number] Q.25D Take [address] (MYCOSTATIN 1-13 11-18 (500,000 Connie es ) 100,000 00:00: 23:59 Units Medica l unit/mL 00 :00 total) by Center suspension mouth 4 (four) times daily for 5 days. amoxicillin 2019-02 Yes TK 2 CS PO [...] Medi louise 30 MG 00 Center capsule amoxicillin 2019-02 Yes TK 2 CS PO [...] Medi louise 30 MG 00 Center capsule amoxicillin 2019-02 Yes TK 2 CS PO [...] tablet 00:00: DAYS PRN Medi louise 00 Chapman predniSONE 2019-02 Yes TK [address] (DELTASONE) 0-01 QD PRF ABD Rosa Elena kes 20 MG 00:00: PAIN Medical tablet 00 Center traMADoL 2019-02 Yes TK [address] (ULTRAM) 50 0-01 BID FOR 12 Rosa Elena kes mg tablet 00:00: DAYS PRN Medi louise 00 [facility] predniSONE 2019-02 Yes TK [address] [facility] (DELTASONE) 0-01 QD PRF ABD Rosa Elena kes 20 MG 00:00: PAIN Medical tablet 00 Center traMADoL 2019-02 Yes TK [address] (ULTRAM) 50 0-01 BID FOR 12 Rosa Elena kes mg tablet 00:00: DAYS PRN Medi louise 00 Center predniSONE 2019-02 Yes TK [address] [facility] (DELTASONE) 0-01 QD PRF ABD Rosa Elena kes 20 MG 00:00: PAIN Medical tablet 00 Center pantoprazol 0 Yes TK [address] [facility] 9-27 D 1/2 HOUR [facility] (PROTONIX) 00:00: BEFORE Medic al 40 MG 00 BREAKFAST Center tablet OR FIRST MEAL pantoprazol 2020-0 Yes TK [address] [facility] 9-27 D 1/2 HOUR [facility] (PROTONIX) 00:00: BEFORE Medic al 40 MG 00 BREAKFAST Center tablet OR FIRST MEAL pantoprazol 2020-0 Yes TK [address] [facility] e 9-27 D 1/2 HOUR [facility] (PROTONIX) 00:00: BEFORE Medic al 40 MG 00 BREAKFAST Center tablet OR FIRST MEAL PredniSONE PredniSONE 2020-0 2020- No Janina 1 tablet Common 05-05 [facility] 00:00: 00:00 - [facility]I 00 :00 [facility] Omeprazole Omeprazole No QD Omeprazole Magnesium Magnesium [...] Name Observation Time Observation Value Comments Source WEIGHT 2021-12-29 05:00:00 54.1 kg HEIGHT 2021-12-29 00:07:00 170.2 cm WEIGHT 2021-12-29 00:07:00 53.3 kg WEIGHT 2021-12-29 05:00:00 54.1 kg HEIGHT 2021-12-29 00:07:00 170.2 cm WEIGHT 2021-12-29 00:07:00 53.3 kg WEIGHT 2021-12-29 05:00:00 54.1 kg HEIGHT 2021-12-29 00:07:00 170.2 cm WEIGHT 2021-12-29 00:07:00 53.3 kg height 2021-06-13 09:00:00 66 [in_i] [facility] weight 2021-06-13 09:00:00 119 [lb_av] [facility] temperature 2021-06-13 09:00:00 97.2 [degF] [facility] bmi 2021-06-13 09:00:00 19.21 kg/m2 [facility] oximetry 2021-06-13 09:00:00 100 % [facility] respiratory rate 2021-06-13 09:00:00 18 /min Comm on [facility] blood pressure 2021-06-13 09:00:00 116 mm[Hg] [facility] - systolic [facility] blood pressure 2021-06-13 09:00:00 58 mm[Hg] [facility] - diastolic [facility] HEIGHT 2019-12-09 13:28:00 170.2 cm WEIGHT 2019-12-09 13:28:00 54.658 kg HEIGHT 2019-12-09 13:28:00 170.2 cm WEIGHT 2019-12-09 13:28:00 54.658 kg Systolic blood 2021-12-31 08:31:00 82 mm[Hg] [facility] Diastolic blood 2021-12-31 08:31:00 51 mm[Hg] [facility] Heart rate 2021-12-31 08:31:00 74 /min [facility] Body temperature 2021-12-31 08:31:00 36.56 Bella [facility] Respiratory rate 2021-12-31 08:31:00 17 /min [facility] Oxygen saturation in 2021-12-31 08:31:00 94 /min [facility] Arterial blood by Medical Ce nter Pulse oximetry Body height 2021-12-29 21:22:00 170 cm [facility] Body weight 2021-12-29 21:22:00 56.9 kg [facility] BMI 2021-12-29 21:22:00 19.69 kg/m2 [facility] Procedures Procedure Date / Time Performing Clinician Source Performed HEMOGLOBIN AND HEMATOCRIT 2021-12-31 10:32:00 Terrence Funez [facility] POCT-GLUCOSE METER 2021-12-31 06:48:00 Corey Funez [facility] COMPREHENSIVE METABOLIC 2021-12-31 03:56:[address] [facility] CBC W/PLT COUNT & AUTO 2021-12-31 03:56:00 Corey Funez [facility] CBC W/PLT COUNT & AUTO 2021-12-31 03:56:00 Corey Funez [facility] POCT-GLUCOSE METER 2021-12-30 23:06:00 Corey Funez [facility] POCT-GLUCOSE METER 2021-12-30 18:41:00 Corey Funez [facility] POCT-GLUCOSE METER 2021-12-30 16:40:00 Corey Funez [facility] POCT-GLUCOSE METER 2021-12-30 11:33:00 Corey Funez [facility] BASIC METABOLIC PANEL 2021-12-30 09:13:00 Tito Lombardi [facility] HEPATIC FUNCTION PANEL 2021-12-30 09:13:00 Tito Lombardi [facility] CBC W/PLT COUNT & AUTO 2021-12-30 09:13:00 Tito Lombardi [facility] MAGNESIUM 2021-12-30 09:13:00 Corey Funez [facility] CBC W/PLT COUNT & AUTO 2021-12-30 09:13:00 Tito Lombardi [facility] POCT-GLUCOSE METER 2021-12-30 07:01:00 Lazaro Moore [facility] POCT-GLUCOSE METER 2021-12-29 23:52:00 Oscar [facility] REPORT OF PROCEDURE - 2021-12-29 21:12:32 [facility] REPORT OF PROCEDURE - 2021-12-29 20:55:47 [facility] [place] ERCP 2021-12-29 17:16:00 [facility] TISSUE EXAM 2021-12-29 16:49:00 [facility] ENDOSCOPIC RETROGRADE 2021-12-29 16:00:00 [facility]ANGIOPANCREATOMONTEFIORE [facility], [facility] WITH SPHINCTEROTOMY ULTRASOUND, ENDOSCOPIC, 2021-12-29 16:00:00 [facility] WITH FINE NEEDLE [facility] Center ASPIRATION ENDOSCOPIC RETROGRADE 2021-12-29 16:00:00 [facility] CHOLANGIOPANCREATOMONTEFIORE [facility], [facility] WITH BALLOON SWEEP OF BILE DUCTS PROCEDURE W/ C-ARM 2021-12-29 16:00:00 [facility] POCT-GLUCOSE METER 2021-12-29 11:11:00 [facility] SARS-COV2/RT-PCR ([facility] & 2021-12-29 09:58:00 Jacinta Cowart [facility] REF LABS) [facility] KETONE, BLOOD 2021-12-29 08:01:00 Tito Lombardi [facility] BASIC METABOLIC PANEL 2021-12-29 06:58:00 Tito Lombardi [facility] BLOOD GAS, VENOUS 2021-12-29 06:58:00 Tito Lombardi [facility] POCT-GLUCOSE METER 2021-12-29 04:55:00 Ann Marie Aragon [facility] ABORH, MANUAL 2021-12-29 01:31:00 Mary Nobles [facility] BASIC METABOLIC PANEL 2021-12-29 00:54:00 Tito Lombardi [facility] HEPATIC FUNCTION PANEL 2021-12-29 00:54:00 Tito Lombardi [facility] LACTIC ACID, VENOUS 2021-12-29 00:54:00 Tito Lombardi [facility] CBC W/PLT COUNT & AUTO 2021-12-29 00:54:00 Tito Lombardi [facility] PT/APTT 2021-12-29 00:54:00 [facility], BLOOD 2021-12-29 00:54:00 Tito Lombardi [facility] BLOOD GAS, VENOUS 2021-12-29 00:54:00 Tito Lombardi [facility] HEMOGLOBIN A1C 2021-12-29 00:54:00 [facility] TYPE AND SCREEN, AUTOMATED 2021-12-29 00:54:00 Tito Lombardi [facility] CBC W/PLT COUNT & AUTO 2021-12-29 00:54:00 Tito Lombardi [facility] POCT-GLUCOSE METER 2021-12-29 00:09:00 Ann Marie Aragon [facility] Plan of Care Planned Activity Planned Date Details Comments Source Future Scheduled 2021-10-19 INFLUENZA VACCINE (#1) [facility] 00:00:00 [code = INFLUENZA Medical Ce nter VACCINE (#1)] Future Scheduled 2021-10-19 INFLUENZA VACCINE (#1) [facility] 00:00:00 [code = INFLUENZA Medical Ce nter VACCINE (#1)] Future Scheduled 2021-10-19 INFLUENZA VACCINE (#1) [facility] 00:00:00 [code = INFLUENZA Medical Ce nter VACCINE (#1)] Future Scheduled 2021-02-[address] [facility] Test 00:00:00 (12+) [code = [facility] Center DEPRESSION SCREENING (12+)] Future Scheduled 2021-02-[address] [facility] Test 00:00:00 (12+) [code = Medical Center DEPRESSION SCREENING (12+)] Future Scheduled 2021-02-[address] [facility] Test 00:00:00 (12+) [code = [facility] Center DEPRESSION SCREENING (12+)] Future Scheduled 2012 SHINGLES VACCINES ([address] [facility] Test 00:00:00 2) [code = [facility] VACCINES (1 of 2)] Future Scheduled 2012 SHINGLES VACCINES ([address] [facility] Test 00:00:00 2) [code = [facility] VACCINES (1 of 2)] Future Scheduled 2012 SHINGLES VACCINES ([address] [facility] Test 00:00:00 2) [code = [facility] VACCINES (1 of 2)] Future Scheduled 1997 Lipid panel (procedure) [facility] Test 00:00:00 [code = 58805828] Medical Ce nter Future Scheduled 1997 Lipid panel (procedure) [facility] Test 00:00:00 [code = 66564194] Medical Ce nter Future Scheduled 1997 Lipid panel (procedure) [facility] Test 00:00:00 [code = 23094768] Medical Ce nter Future Scheduled 1981 DTAP/TDAP/TD VACCINES [facility] 00:00:00 (1 - Tdap) [code = Medical C enter DTAP/TDAP/TD VACCINES (1 - Tdap)] Future Scheduled 1981 DTAP/TDAP/TD VACCINES [facility] 00:00:00 (1 - Tdap) [code = Medical C enter DTAP/TDAP/TD VACCINES (1 - Tdap)] Future Scheduled 1981 DTAP/TDAP/TD VACCINES [facility] 00:00:00 (1 - Tdap) [code = Medical C enter DTAP/TDAP/TD VACCINES (1 - Tdap)] Future Scheduled [address] [facility] Test 00:00:00 Counseling and Medical Cente r Screening (12+) [code = Tobacco Cessation Counseling and Screening (12+)] Future Scheduled [address] [facility] Test 00:00:00 Counseling and Medical Cente r Screening (12+) [code = Tobacco Cessation Counseling and Screening (12+)] Future Scheduled [address] [facility] Test 00:00:00 0-64 YRS (1 - PCV) Medical C enter [code = PNEUMOCOCCAL VACCINE 0-64 YRS (1 - PCV)] Future Scheduled [address] [facility] Test 00:00:00 0-64 YRS (1 - PCV) Medical C enter [code = PNEUMOCOCCAL VACCINE 0-64 YRS (1 - PCV)] Future Scheduled [address] [facility] Test 00:00:00 0-64 YRS (1 - PCV) Medical C enter [code = PNEUMOCOCCAL VACCINE 0-64 YRS (1 - PCV)] Future Scheduled 1963-02-06 COVID-19 VACCINE (#1) [facility] 00:00:00 [code = COVID-[address] VACCINE (#1)] Future Scheduled 1961-02-06 COVID-19 VACCINE (#1) [facility] 00:00:00 [code = COVID-[address] VACCINE (#1)] Future Scheduled 1961-02-06 COVID-19 VACCINE (#1) [facility] 00:00:00 [code = COVID-[address] VACCINE (#1)] Future Scheduled 1962 CT Colonography (combo) [facility] 00:00:00 [code = CT Colonography [facility] (combo)] Future Scheduled 1962 Screening for malignant [facility] 00:00:00 neoplasm of colon Medical Ce nter (procedure) [code = 325175878] Future Scheduled 1962 Screening for malignant [facility] Test 00:00:00 neoplasm of colon Medical Ce nter (procedure) [code = 904652085] Future Scheduled 1962 Screening for malignant [facility] Test 00:00:00 neoplasm of colon Medical Ce nter (procedure) [code = 786975653] Future Scheduled 1962 Screening for malignant [facility] Test 00:00:00 neoplasm of colon Medical Ce nter (procedure) [code = 231741882] Future Scheduled 1960 Sigmoidoscopy [code = [facility] 00:00:00 Sigmoidoscopy] Medical Cente r Future Scheduled 1962 CT Colonography (combo) [facility] Test 00:00:00 [code = CT Colonography Medi louise Center (combo)] Future Scheduled 1962 Screening for malignant [facility] Test 00:00:00 neoplasm of colon Medical Ce nter (procedure) [code = 313608307] Future Scheduled 1962 Screening for malignant [facility] Test 00:00:00 neoplasm of colon Medical Ce nter (procedure) [code = 670775427] Future Scheduled 1962 Screening for malignant [facility] Test 00:00:00 neoplasm of colon Medical Ce nter (procedure) [code = 795761588] Future Scheduled 1962 Screening for malignant [facility] Test 00:00:00 neoplasm of colon Medical Ce nter (procedure) [code = 967403539] Future Scheduled 1960 Sigmoidoscopy [code = [facility] 00:00:00 Sigmoidoscopy] Medical Cente r Future Scheduled 1962 CT Colonography (combo) [facility] Test 00:00:00 [code = CT Colonography [facility] (combo)] Future Scheduled 1962 Screening for malignant [facility] Test 00:00:00 neoplasm of colon Medical Ce nter (procedure) [code = 071038973] Future Scheduled 1962 Screening for malignant [facility] Test 00:00:00 neoplasm of colon Medical Ce nter (procedure) [code = 357749941] Future Scheduled 1962 Screening for malignant [facility] Test 00:00:00 neoplasm of colon Medical Ce nter (procedure) [code = 763375849] Future Scheduled 1962 Screening for malignant [facility] Test 00:00:00 neoplasm of colon Medical Ce nter (procedure) [code = 407325265] Future Scheduled 1960 Sigmoidoscopy [code = [facility] 00:00:00 Sigmoidoscopy] Medical Henry r Encounters Start End Encounter Admission Attending Care Care Encounter Source Date/Time Date/Time Type Type Clinicians Facility Department ID 2021-03-15 Outpatient [facility] [id number] Common 11:51:14 Janina [id number] [facility] 2021-03-15 Outpatient Harvey, [facility] [id number] Common 11:14:35 Janina [id number] [facility] 2022-01-17 2022-01-17 Outpatient MARY ELLEN COTTO [facility] [id number] [facility] 00:00:00 00:00:00 Armani Medicin e 2021-12-28 2021-12-31 [facility] [id number] [facility] 23:49:00 12:18:00 Encounter Tito Lombardi Oscar, [facility] 2021-12-28 2021-12-31 [facility] [id number] [facility] 23:49:00 12:18:00 Encounter Tito Lombardi, [facility] 2021-12-28 2021-12-31 Inpatient ER [facility] G[facility] [id number] [facility] 23:49:00 12:18:00 , COREY 2021-12-29 2021-12-29 Anesthesia Donald Melendez [facility] [id number] [facility] 16:10:00 18:17:00 Event Luis M Bañuelos [facility] 2021-12-29 2021-12-29 Anesthesia Donald Melendez [facility] [id number] [facility] 16:10:00 18:17:00 Event AniLuis M [facility] 2021-12-29 2021-12-29 Surgery Toby [facility] [id number] 13:26:00 14:56:00 [facility] 2021-12-29 2021-12-29 Surgery Toby [facility] [id number] 13:26:00 14:56:00 [facility] 2021-12-29 2021-12-[address] [facility] [id number] [facility] 00:[facility]00 00:00:00 [facility] 2021-12-29 2021-12-[address] [facility] [id number] [facility] 00:[facility] 00:00:00 [facility] 2021-06-23 2021-06-23 (TEL) STLMLC STLMLC [id number] Co mmon 00:00:00 00:00:00 [facility] 2021-06-13 2021-06-13 OFFICE STLMLC STLMLC [id number] Co mmon 00:00:00 00:00:00 VISIT [facility] 4 [facility] 2021-06-13 2021-06-13 (TEL) STLMLC STLMLC [id number] Co mmon 00:00:00 00:00:00 [facility] 2020-03-16 2020-03-16 Outpatient JUANITA GALLEGOS [facility] [id number] [facility] 00:00:00 00:00:00 [facility] 2019-12-18 2019-12-18 Outpatient STLMLC STLMLC [id number] Common 00:00:00 00:00:00 [facility] 2019-12-09 2019-12-09 Outpatient JUANITA GALLEGOS [facility] [id number] [facility] 00:00:00 00:00:00 [facility] 2019-11-24 2019-11-24 Outpatient STLMLC STLMLC [id number] Common 00:00:00 00:00:00 [facility] 2019-11-19 2019-11-19 Outpatient STLMLC STLMLC [id number] Common 00:00:00 00:00:00 [facility] 2019-05-06 2019-05-06 [facility] [id number] Common 15:20:00 15:20:00 [facility] 2018-08-19 2018-08-19 [facility] [id number] Common 09:15:00 09:15:00 [facility] 2018-02-20 2018-02-20 [facility] [id number] Common 08:30:00 08:30:00 t [facility] [address] ContinueCare [facility] 2017-09-12 2017-09-12 Outpatient [facility] 14 [id number] Common 08:45:00 08:45:00 t [facility] [address] [facility] 2017-08-23 2017-08-23 Outpatient [facility] 14 [id number] Common 08:15:00 08:15:00 t [facility] [address] [facility] 2017-08-22 2017-08-22 Outpatient [facility] 14 [id number] Common 15:15:00 15:15:00 t [facility] [address] [facility] Results Test Description Test Time Test Comments Results Result Comments Source Tissue Exam 2022-01-02 10:24:23 Test Item Value Reference Range Interpretation Comme nts Case Report (test code = 104) Surgical Pathology Report Case: [id number] Authorizing Provider: Kirstie Luis Collected: 12/29/2021 04:49 PM Ordering Location: [address] Received: 01/01/2022 08:03 AM Cardiovascular Pathologist: Gaby Nation MD Specimen: Pancreas, unicate process mass bx by FNB DIAGNOSIS (test code = 3220) t0supWRjZJZaz4jeDSXinBBwQuFhLbOtKbPvNs pcd [file] hcn19 COMMENT (test code = 3359) d9gwsUCeEGJgxDL3HuMdPKKbf8cwj0EinBOduTVq X KmyhVKuaePint24xZJ3dH88NY6lGQIoLbL4MGEbzc Z8Irk6AGLxLATmbTIuK157u8xxk8pfcfHhfEP3sAt bLWMvfbncPmM5LJqiRLKnoigkOBb6NSkkDQBgyLG0 ESIcpWPaD5NzXWRoZX4uihl5MLH4QXqdVAGwPbY0O IGvmJJxTTSqvArlZUbpk911DJW2RmFkNDMxgxKcuO qytT2oNpItZQOGkZAjNeziePH1WA3mdJMnb5MfWzY kmzLwtgIpWE39LKHywtStf7IkpCzmEWivt8sbql0d qTlfKRDGyXmmcHBfjQTfe7CgLGyxiNnihmQjweQzF ONepG1monHwNH4omOOdqW== CPT Code(s) (test code = 3357) h6riiZXeFUDacUY8YuXyNGCgv5fxd0XrnFRd cGFyX GhhkIEswsLjts64uKS8aK01TV5rAURqIeR6UHQxll B7Nug2PJLwHFZigVFdW179x2raf4pbrkHweMC1vLm dUGQnqtiuVlB1EOxjRJPqkzxbXJd4KOtkMAXwnLY1 SUUxwWIiE9ErQKOfBD7rvmq6HRT2YVqfGWVaUgN8R HKxtFQsAGZwnEdkQWtpu493DSO4PbHgXZNszaCspW uofL2yKzFbLBD7WWJsB0gvZWG9 CLINICAL HISTORY (test code = 3356) r2xfpZAhSOXgoNV0RcBpNVAly6kdu1E sdHBncGFyX NenxWComfWkzf07gKF5jA59RR9sEZVvQpL0JQHuaq P4Uml3NPOmSLPrkGXzK742k1vhr9awyiAghEW8wIe nHMHkdpdsWbL8RLrtKROclyhmNDy1KDdeIBUbsMA6 BZBmqXSgS9AdFBYwCC2xwev4WPI4EZagPZMyEyN4D FXlnDQhBNBjqJdjRLipa317KXR7JdPeCIGurvZzuK kojR4iLcNoUBKBdH1sCADvF6tysLh0dUual0zbNOW 1gcLrfrB9RZYjnf3iLOVhTF9lw6UrtTHbcN== GROSS DESCRIPTION (test code = p5qinXXpUEZbbREGZNKlU2xvwrWwGELqmZRp [facility] [id number]) [file] uAZY8KN5egI6FiM== SPECIAL STUDIES (test code = 3376) q0imgHPhGKMjj1glOFFysTRnHoLjXiJi ZnRuYmpcd [file] 7UzwK9jWieqsYUhwsczLEiggkQjHJztfataWOVgMY wiR9laDaZjXHOlzSnfVMcuz1JkCZYuNSSrLkxktfY rDMe4tcZrENOyglncOIAzrRgdxL9qDjKnVsHnHeda CO5jYDVmZ8bwaJObMAPoOSFaX9kjJuWbpY4xjXkaN ZagQcBiJqXvWyDHr812up4fKIFejOBcgpYQzPHhkJ 0hQZdoEExqYXdcyHSfFHtiv1umAJFtn5p3oXWlHBB ityUyd3kjZIlcnsYdTDKeaEWxhBWmHBIxo22eSLpv pZtblGosUPJxi8SxxVexc9TaTrDbHAgfm8MmP85za SNoqEOnzJgtJAYtvjJgKRNyx71uz0egUDZlFqX1mO QvhLT2cPWpfUSvv2TjtDfbVXJxf4cnCNXdwv2jwtd kvOXax7LdgM5phjesPWooiCOexiJhBUTzj3e4uBVr CBQoOZMiIFpmyGq8RWUwe740ml1eawT3zMJyTSD5O WlsYWJsZSBhcmUgZXZhbHVhdGVkXHBsYWluXGYxXG ZzMjJcbGFuZzEwMzNcaGljaFxmMVxkYmNoXGYxXGx iV8vmGpVeM0FaGJBdRlFfaYAfP0utpSZlAVGlMRlk XGYxXGZzMjJcbGFuZzEwMzNcaGljaFxmMVxkYmNoX NFfKHmlN0pwYuHwT2MkHOKvGlAmTXfcjUSwquikYD iqgeCqWPlpiatpNVZwURuvJ1hkVuHzRFItnHcaUCg un1GrTPTkJTNjVwgyvnZyKMt6szXcFXEvltoyrNFx fvauDLltefUrLTgsfpdhRBKhGRiwD2exMkQgTMZos ZmkAOqpw4TfIEQdJFGqRgadgkYnILvkhGAjm7iyf6 FhN2lfgEuxhGA5YNWeN5dfcHJdwBF8XBT2oV6mAZv ubhIuIYKtu7FsKQIhBZBjDhG9gM5zJSY1BsIPyRuw XHBsYWluXGYxXGZzMjJcbGFuZzEwMzNcaGljaFxmM TgkJxWzHBPhMOvsP5smBuMhS2DeGZNrEeRssPraJJ riTRt1GnknoMQqnfscSNuldbHgITaajklzSRFyNOn uV7yzOgFeISXpjYmiTUztp4SrWOZnSEZpFrykooXn GSDjECByaYOxaTLEZM30XOXwKFKefShqjU7hfFHQP GTkpuP3w5I6WBkeCMQhUOs8SBpbdwBrYIBbyN7aKF FgVO1pBKg6wfYqXUInu8MyJX8rMNChwWRpLDG8ZDF xz0QkS7Eyq7SsQPTcNZRoij8ewdGsOaRCtXZsOPEi sz24XBTqJE5lH8kfMCRpWKJterRczGAwi4SbAPHmo BP5xTMrRO2DIdJRt79hKUUyRJXMwrOwGPIalVfbmL O9cbL0aW2mQgIQjTJfGgZXULgjmtWvMTZjgv5jwrD lPRNnPSMjz8KwvEQafAHureTdQ1Tsq9GuDYKicn04 UAuoqCKbwy15OF7pR2Sws1FyeA1rDArmUPQke2Hxt EAvxDKuTSHha0OkC9aqkoshMZpggPXyxP8fULQvVG g3OCTuc8XtRYDup6OqKxQfxxBeDICoJLZiOYGsxI1 8KGD4oRtlgCdaisMhOJ2xRAGtpwZhKZEwWBGtrD2x PKgzcuSiKYCcloG1t8Q4FCjjNZHfkmAtRheoQFS1l qIbomM9dLQfX2dtddtsAXagQXLjk2BfoX9smYQIwE Kkg6QzpILluIQGbOVkOZ6qifSbBD5nEZD4TEmzENB HOVGpUTxfRRFmIAH4KOccHzvyYKB6bwRvAPXyb4Kw SEahW3vkY10uoFclmIz8mBGavFebnGDbbGQbLBTiz kE5d3R3LCJcw2MikaksILNrDAnuQGSjRYPaTeBuoR JtJeYoUtVytFxxoVfcSfndWfIdDOWdYOqzT8whZmN lPoJyBbguSTO2jC== [id number] 10:24:23 Test Item Value Reference Range Interpretation Comments Case Report (test Surgical Pathology code = 104) Report Case: [id number] Authorizing Provider: Kirstie Luis Collected: 12/29/2021 04:49 PM Ordering Location: [address] Received: 01/01/2022 08:03 AM Cardiovascular Pathologist: Gaby Nation MD Specimen: Pancreas, unicate process mass bx by FNB DIAGNOSIS (test code u4iodNJqGDJhu6jiQOBknWJk = 3220) ZzEwMzNcZnRuYmpcdWMxIHtc cnRmMVxlcGljOTYwMlxhbnNp OYNqnRJmU0XlhyvcGTudGV0d VS8tjXtbkZWcuBZfJHKdWbEq s2pzl434xHQcw5liMWZRwbmg sSq2cYyzO61uh0B1TcrvM95r sFCeEBU9AZIpBQPlyHEaGJVx AES0DKBpjWGaA1joZJXyUC5k ptnhTXvoHSyzVQEjuTU0KCUt uGQuW0MrOZYvXSqrOJNhxof1 GvQcFl3bpLGrqOjlUYwiPFBm FMYoMIkvNFHkQpOdZRFOS2OO QVMsIEZJTkUtTkVFRExFIEJJ M4GYAZesrNrdZBbvnV7sXN3Z miAnhVAoiPGpp9JkEvrhud57 nqU7pJTywGPwID7xSVGmumuy whHaJF8nnxRqwOgzKZMhshWs E6z5wKOynPumLJYzWx5tNAKy OTTkT1Dem3WccMVgnYcgNW3t iFCzneBlHY2nrDIbBMPrjf07 IXW6TxLfu9V0ISC4DPDuMFIe q0myEUJwdFKtBeTzNdPdVgXe RhqutFBrRHNhHuClh4cgm992 rJMtk5huNFZrObS8yRLlDTIf xCCoU289NJXxJJnrf5hji5Ol VSZnjNMdj0N9CAFFhyuvhDk2 wSfyR66hb4U4OlbdM5zpRWUs HBHbG3WkWT0kVXNvWfw7FBW4 NOB1EDEdGVYpZ7AxUD0uEBRk hYZnJMn1u8lgpBpmRQEpCNX9 j7ciYEskqqFwPZ9kcu6fhRl4 b2fflrNmYDKnBUKdyGOEJRAq O1YlnRsgWe2pdHh8qIeeNdfi TDW4Nto8OF9ohe32mhh6mJtc YOFatwjrQtL5BSbqLOMfhydj VIl1KWzhAXCohKY1DUNgySOt T9UzFKDmBT3kpod3SRW3GKtk ICWdArC3IACgdUSrATOxcWul TSmkm895OQC6HaHmBS7qB4Fo r3B1yA0vcOIoKWGbsUByHsOo ACGmrd8psLTzDKjyz5EnLML7 evB1oSJeuCJqRZEhErN7GWne PL0riw85XPFzFXN8zt8ttBEy tVqgqmOhcTYhKHuhR4SpCFIr o123HXMbN2ChFIBob4H6tiMk DeLfQRQhjTH7mhL1TFNxNF1e anhsr1wyVYxaHSweJLFjjrE5 lsU2HNNyqZSyR9ClpN2gHNDz DQ2qaenur8azAMO6UJuiUSUk GSZ6OrIjHOGoc0Riksp7NbXb k1VhxXHkNZzlI71ed028GPAn lnRjF5xhqKNfvgggwTJwggkf DMqsaxW6QXCjPHpxvieqTHGa IRxcA0fnDiYqEUPocJbqBYgb c2MtFETjYEOsEjQgbCOuEBCh Fov9FDQgdKZfPCIbLdHxI2hh ismlNfYWISHcz4bvJ1rllHBD jYAqL8GbKMosukYaUNtuOJii EgAwTJl7AR45FgCeGEQzjo86 COMMENT (test code = v1dkxJVwKCKjeUX6UzHiIFEc 3359) c6srs3EovIEqiCGvGBcczJUg znVora60bJJ3aW76GH7uOXKo EpT8LULsfyK9Kxk6CEJeRJYt rNBpV683t8hsb1evoxMayTH8 wBixIMZrondlXdX0EXulOZXn whobRQz3NYajCWFkeDC3FDDb kUCrV8UjVXLxJV6qybe4OHB2 XJbtJGGyPkF2NSOzhYWwNEQd eLjnGZjta844JQK3DvMzCNKs wgGibTnqdP2aTvUsSJVIsNCn NauxfVF8WZ1bqZQda3MnUxXe mdOchiNaXJ76QGNualYob5Kc yHxgBFagr6fxnn2jdZvvQJZN iEcrbSIwjSFnm4BpHPiqyJdj ejJbpnSdJRJcvT8ofkWsBZ2x cGFyfQ== CPT Code(s) (test s0mtoUJrCEAfqXW8FpXzPBTj code = 3357) i5orw6TqcIMdeULhIEvkqBIv rnUsoo26fXV1gF82VV3aCSJz HsE6IDZnmqV5Tbc6UOBaQDZw lWTyO702o6mwq9qkhdHpiSP5 lVzyKAPvrfnnWbD5YCaqNXBu hczcRNy5AKwiYRSqaJC9LDIs rMDkU3FmPAUfHA0bsln3ZHG4 NUvyTWZrEaZ5PZLhqIMeCKVn kWwpYKsuu542PAE2IzEaRYPj saXwfVfryK4fXcRqJWH8YXBv R1guISY8 CLINICAL HISTORY q4jxpNEjRZCbrNH9PjObNQGp (test code = 3356) k1dic0KssRLstYJnTEbfpFAs cfNyhh41gPC6cU11ZK3lROPs GxW0GMVrhmP6Ibb4VTKyMWLp eVYkC124o2hym8aaciQtvPL8 vIzwCKHozosuIlA8GRmuBTYm cvynCLw0FMbcLRVrnLN9OOXz jAUrI1HgYCTpMT9xkbk2ATC2 ROmhHUCgOfX3CNDtkBGuNNFi vMkeJOqpa990ALI2IzUiHJMf xpZnvMthlA8iZkXuOWNJsV0q TJInW7lblDx4yHogj1skHUU6 ygZgykB4RRFgov2mZGMrZR8l u6OzmYJqvV== GROSS DESCRIPTION a6msoRUsTGLyuZQFBNSqH2xs (test code = igEaRLEzyFErJ7OeqvrcCEhp [id number]) HZ5dKM9vwDgzoICnlVBhYZ1J XGRlZmYxXHBhcGVydzEyMjQw ILAyzGJdwSF8QFMhLE4hxani FJoqPFckSLYyesE9MVIjpFMx Z0HgEISpOS6jzbcwNET5MNge uB3aatDIGzjuMt3qhNYsdGpq ZjFcZmNoYXJzZXQwXGZuaWwg TSAbEAq2vO9SRyzcR80mw0P8 Dkq8GOPkVVFnJ1SuBZ8sSOCd iBAnO31FJmodHPI2LMRXAasf KVEfYA6Cx6erRPMrzMBpXZH2 CXbutNZuVSWhKLYkFSc2GWYo GIbkmYQuIU0fsYqjNezsjDee v9BzdPLtBOowFSUgGQWjTEny QKPkUK4XAoHqQKH2AIJ8UZJu JLo2MLs6TW9GTnYhCXLwENp2 PnRxWTIzDOg6LItfTP4QJKWr IaYqLpwmAkJ5KJUkALLgRNHi MiBcXGYgQXJpYWwgXFxmbCBc VC7oiNzkvQSmruCOHvBQGF8t kfTjhp9etSNaYZ2HLMDknJKJ QWW8QL1nDPRZAmbpbIBaPQAn iNnsPVhwnD9kLR4NFWf1nbYt RZMgZHmxawVfUQDwJ1QsymKa MZuvMGAxcf8yuFbsDBisHgKp LXQox0l2yRG3uXWxcIZ3vDSf sGfiTtSzLV8ebAJyZP7xVAox BDiwatRss8HaDM79fEIufhPa ubMtWHH9VfAqBWfmNKZaUE0a cmVhcyIgaXMgYSAxLjUgeCAx PeGjmJXxQiKgL39oGMbnwdEg MMErNM6vPR60uWBpzLfbQLjs ZGlzw40ljTB8qWBreWJaR67n FRTdMLAxcDnmTCU7pNZgBRWd n62eXGL2Mc0cjIDrEYGimfU7 x3InIEbbWKRvNBDkCnOneQJb PB0FYFBtkwDIUzWbLOrpGDNm C1OouI2nNW8TNungJZDkAJUI M6JtK02WIwjvdFStiwvdoMmi JiTcbXSfGcEzeVkmsY08MCVz oIVqDDO6BE2bEIVzouttOPRq MPJvDVV2GWogsP93fLQuUFTw KVLhwNXpiI1KTZUpCSC6MCoo zP09fJHeTU1TKSVsNMJ1VGAm wHIkQUW9PT1uwK2XnK== SPECIAL STUDIES (test r1iguOWmECIhw1nmASOfxCYe code = 3376) ZzEwMzNcZnRuYmpcdWMxIHtc frJoERdma3YbO8ShOyEhLKvh bnNpXGRlZmxhbmcxMDMzXGZ0 joHpKXRhITloYGPcBKmnHx4f hGBztFjcZqVtGUYnd7bdnsFB pdpvmNc7w1leZYAoBzQ8lQUy IHakY3qdhaOhpZMeD6WgoPCu cZn7n4doMuUxXnJ6eUEfJJvo C2grbvSeuMOgJRBnJBb3cM75 GLCtvZ6wyVIbKYvtizYdQuX2 QNdaYAHaAvX8DYIvdBNtRHVe I2cuIEHwNKubOVFgILrnwBJu XUY7oByjx1B3mKKokRYshUxu XaKqQqFqMpVKg4MtDCh9hFde J1QkSHFnMkB7xWVePFVsWRtx NQJjPOWrxiP0cIlbcyCed67s eHQyXGYwXGZzMjBcbGkwXHJp XTKBu8UlmEbgLBC3jWk2cSwi FlheJDN0Fwc1WY8jei96xbb6 vLenOFVtsdglHnZ6GDfvZXZo ivkyTLq1LXggMKQbbDF0DTYd sTQaX9CpGQEyWJ8vdhk6OLZ0 YOgbHQCkQyV6ULBfzNAjWRMt iUbaYOalh395VCU1XtTsRU3b P3Ehi4F0uM9ouMLmQLQmgMLa BiWoWZKqgt3vqPJvJVske6Wq PMG5xlF7zPPmlMRrQBKjJN22 Akdrg3ByLwjfv2ZxT73rqRW5 ZSjih1spGI3hGtX5hcBuMSbc z8dhrM1qWxW8BTooSS4qQA7t POBkeW2kqzsjNGSoAmBigwhn QARixNwpatOtIy7zlNvcFRP2 TIdjB5mlbL8kBeF5USdaE5de nE9yCDk6PChsqXX3WNIatY2c GV1gbrxju3vnUPakPMwuVFMt rsY5uhO9TMSepWYhD5YtmU0g QQWyPP2rmsign7xlVST3YWcu PUXrAYP4DkZyCOXhr0Xirpu6 HjDsk3WwvECnVInbN86nw923 EIHajsKeU8grfRSqxbcfrRUu hlazMWahpyY0YCGdLWYiHXqb XGYxXGZzMjJcbGFuZzEwMzNc aGljaFxmMVxkYmNoXGYxXGxv O7vlSmVzU2EkGJBqDaCcXPow ZTltwPWshERnyTL9hC7fNT8m NNBulHGaD0YoVCMkwyWkhTWt KOG1sCEhpAUfBN2uSYelcFEa o5ghr2ZeO0btqFumjBO0AQ3o PFYqJPNtZUpom0OroW7zHomv bGFpblxmMVxmczIyXGxhbmcx WDHvOHidR7oiTtPzVXCrzEdh IAwom5ZgQAAtZKNmTozyvuHe SSs5thDsDLVdzrnsURWcdGlx iZ1vInUmHrTbAgltYR4gLEXl A6pptBVsSMDvFTVhG9qbSvCi jF5uwVrxEYfvByXdOcJlRwEK b784bh1eEVLroAOudoDOoXSs vY3nQQacIJfaXSyjdTMlNMvn l9rxYWVib6a3aFLfSGHsfnMb i7xyMEuuyiQwCCRbbQCvuVBl VFEfo94zQMwfrUlzxEtwFHRs y1WlrVwik1SbLoFnAJfvm0Ar S88syAExwBJiyYjyCGBpgfEh BULil10mg1ipAEQqGhH0pGAo wNS8aLGdnZGkp7RrnDowFHBf x9knJMFdin5tgtvbnSHwg9Ls hG7rdeyeVHtqqYIxyfDgBBPj z3q8bTJnGZBgFSDgTGzmsXc9 AUEsq427wg4hqoI7sYQiXNI0 YWlsYWJsZSBhcmUgZXZhbHVh dGVkXHBsYWluXGYxXGZzMjJc bGFuZzEwMzNcaGljaFxmMVxk NnFiSBDlMVyoU7acCmRbQ1Gf ROFaNyApeKOiP0oceMBhIBCm YWluXGYxXGZzMjJcbGFuZzEw MzNcaGljaFxmMVxkYmNoXGYx JQunO1lbKoItM1IbDJNgEtAn IFxwbGFpblxmMVxmczIyXGxh qjxlZQYfQIvyZ1mfFeUsTGAc cReqFJnpx4VqSMQzTCXyKbte anEaATu8qpHtMCUndtuogXRz blxmMVxmczIyXGxhbmcxMDMz ZFcdM8umYjYnBFKppNjeJKtr p2WtIGIvJXSbSrvvtyVrPMgg fSTpo6slp1IiX8vswIuhbQK7 IEGiR6winUMzfSI3DVG2aU2h NYkbjnHiZWPug5CsTCDpRWSb SuR7xN0nXAD1MjAFcGgpDAGq YWluXGYxXGZzMjJcbGFuZzEw MzNcaGljaFxmMVxkYmNoXGYx SSovN2maLjZlM3HzUPPoKoXh vTiyMWhfMKn1FryqqOAmlozy MVxmczIyXGxhbmcxMDMzXGhp X1qaZmIpJDGgxXceYSuze1Lr XGYxXGNmMlxmczIyIHMgTWVk aXImlQJEPP93CXDfDSEmlNzd xT5rzZIAZLYcchI2f4D3RLoz QLKeAKd7ANoeccJkYFJieN4l XAKnYA5cWDk3uaCjZFPgq2Up AE2jBVGawRTwHLL4AKGnl5Dm I2Awn4QfMPVkTDJldn0smyKv LyBRcPLuCZZceb74IJIcGH1a H3ldCYGsOPOeayTamECso0Kh XBHjiAS6aDDiGJ4LBvEFu08n IGFuZCBEcnVnIEFkbWluaXN0 gxY2uZ7qJvCMqPCeMtOFACjv ajOmBGElta4ztgEtMMYgNTMh a5BsnARntDQqipQkU2Iwj7Xa UOSolr54XZzopUUyzb52VH3f N7Gtj5UhxQ9aEDdkOLMhw7Or zWGbfFDcXCYom1IsQ0qtlaio SDhilXMvlV9fRLLsUKh8NDKm y3CaFKCsq1DaGrMhuvGpQTLp YOPoHDWaoG22HKP3hYbezXqt fmNaJG2uCYNnpuEvWIXzRHCw wT8nEXmfphXsPRVrsnH6l0A3 VKwuNQEswtQuYlebLBD2lxCb syT1vAYzK9uinlnfNMmrRTWg q8JcpV2ahRBClTEsq4SamBLv cLNMbYHtMV2tytVzSS0xKNZ7 ODggKENMSUEtODgpIGFzIHF1 CUtnBfgiRVF6gpKsKLWvj2Hg PPycM7ztA90jsXjtbBc4lCUr zQafwGUozNSxLOAsepT6c4K6 TRFyc2SkmigrYFMlPEglWTSq XGZzMjJcbGFuZzEwMzNcaGlj lAffKgalVaSaKXHqWQsiP4nn UmCnVwToHwqyHFD1sW== [facility] [id number] 10:24:23 Test Item Value Reference Range Interpretation Comments Case Report (test Surgical Pathology code = 104) Report Case: [id number] Authorizing Provider: Kirstie Luis Collected: 12/29/2021 04:49 PM Ordering Location: [address] Received: 01/01/2022 08:03 AM Cardiovascular Pathologist: Gaby Nation MD Specimen: Pancreas, unicate process mass bx by FNB DIAGNOSIS (test code n6fnaZUeXWLoa8vjZTZonDAa = 3220) ZzEwMzNcZnRuYmpcdWMxIHtc cnRmMVxlcGljOTYwMlxhbnNp YYKauOBpC6YdfyucZXuxSJ9u US5mdObgwZHlsXQnEVUdIcAq u1rem724eRHck6auIDNYnvxd kZl4nHktS70va2A1DgtzW19v rUSuDNT7RQIfLSDitHBfBKAy KNF7YQApuJYfF5chENFiGT0i hwpjNQrvRBsuGGDhkAR9NXNz zQLjK6XkWJIxNTozBZMguih0 HbEeCk1neCKprTeiUMrwNDBf NVChMOmfCYVbGbMuNWBUA5KQ QVMsIEZJTkUtTkVFRExFIEJJ E3BOVTmsdRzlKZvgnL5nEZ2C rsNyaYGmoRPmb5VgVtcyas08 rrW7oXNbiLDwBD7dMZYomywq zzUlOB4ufjRrfDbeEPYulmCk V6a5dAWkoLtfFQEuQr3aGZYg XCGaF3Apf7GczUKliLtwII2v aUHigcJoHW2cvNBuMMUdwu80 UWO5XjXjk9L6UTZ3CWMrBVWv w7moYSUvpPCkKpFdIuIbXhWm UzqmxLBjSUPcQwWtz2hfg792 gHHmw9bdJNFfGjG3qSJyLZMh yROqQ422GMGrRYtyj8bzy1Tq VGMbhZNjs5E6VTEPoftfjZf3 iHtqB35wz4N2VnjdY1ouNTZn QCLkY7IdFO4uOWHiSds1WKE1 JDY5XPGkHLOkO5MzVT6tEFWn kTWhPAw9m0btzUfrHEWyBOW7 u5xmESmpfkWrUX4pzs7ioJe0 o9qtpwZaMEWoNCGbiWKQFHVf U3EtcWlgEq0ihSn5gRexYjjx BDT2Koe3HF7otn25rdx1iPrv NIJqurzqElE4UWmcWJUrvuxp YUl0KMlsXIOcsYD1CPDedEXx W3JmGURhZO2zvdv3XQV5OZpj VPBqSkG8WWZzkQXpXLMudKjn OMkvj587UDJ7TsAsAA9iE3Uj x8D4xA6pyBQiZDDfeHAfPsZe RVWutt5sqVDlZEoue1PwLUV4 raT1oTVbyKUmWEYkAcG1SCsf ML2xke59KDIiOJR8cf9nmXKe lVvwxlWwhXGyMFbxV3SoNZTr z291WRNlO1GvTFLae8W9ncPr ZxQqAJHrvVD0sdZ8RDNuFC1j xabmq8zmPFffRUfkCQZoonH5 faE3MBXghNAbI6DvtD1yCCDp RC0rkxnxb1hsVCR1PRayGJNa ECL0GjOpBIPtg8Uoqrb5PkBj w8OfnEIsMUciQ94uj379GMIg kiSuW7pkcUKonaojfXIjqbxn NLcaxpO6WAMeJKnyghzuBYQp EJhoP1ziVbDtXROrgVfbNPwp r3OgPKHrBQJrFfWfiWSzVPPc Uhf3QWRoqLAbJPTxGmUlB8jd vfdqMrEAYQIbh3mjY0wsiCVF dSGbL4ErCGuigyMfLDwfQNea GpPjTYs2XS44RnKvKCHrge97 COMMENT (test code = v6ccsSKzJSZlfRJ2CzZlGAOy 3359) u7lay0LgqTNouLHaQJaknRPe zkEnnj82cMP2dN45MQ1mBGTn FgD6BKKocwK8Uft1QTEeJGCq mAZlZ034n6api6mrzaYnbYV6 jPzxVEXirfpwUpE1VWnxJAEo kgsyUCj2DTdqDNInbEP7AVZf jGJgF2WyNWXdNP0oaru7EWL9 BIxnLJPwSbM9VBCpwRSpTKTl eUwbYNspa807PFS3YtTjQATv nhLgbTgsbO6eZcVmZEXMtIFw VbzlwGX8JN9hyBOfl9YyQdAs ctPgkeJfWM47UHRxfaUir4Em mOlmFUlle5paop3mgSvaYXZZ yGanwYDvyQJbw4ZmSReiuBnh xhAsggBpYERdfU4vnbLsDV7e cGFyfQ== CPT Code(s) (test m5utsMKaDTRdsZA2YbCrGSZe code = 3357) h3xlp7HefZGsoIUlCMjmzEUq vyQcqf62qYZ2rC56FI8aRJAw AsR2WKAkldS4Att8JEBlKFMf uIHiN963c8yaa9vfygTdsVH7 rZwvTJQgaagtQyA8FXqfIFTc acqgMXp9AAfkIBXenMP0GAGk fOVnN3UyDGVyIH4gxhm6KJQ7 KRhqKWQlHvP1IUOafMPyQLFw oTniQZtec764QVR5IiCbKMHl doOjxIzkeS8oVtIoIZW6KOAk O3hsZTQ0 CLINICAL HISTORY z9bayRBnPLLkeKE7JaRyFTRv (test code = 3356) v7bqb6TcpKYsjYJbIFqieTOl yjIqdp10hDR1fW30CE2kOTBr RxO0YHDehdK3Lse9ROSvUWKn gBJkP417v7dmt9vhobEwmON4 sSwuPQXrizafFwE7VVmhUPDh oldqPBc9KOjyQRClkHL8MSGa pHCxU7FfGFWqKZ6hqjh7EDR5 LFwoGPTiCtS0AIQgzNBnXCNz qYzdHIzvt980CNP7NgQwEMZr viCsdSuiyF8bBzYjIBTJxQ9y LPQaK9fgbLd6qUezr4jbBAN5 iqKnyzG4BIRxtd9lNLQoOM0w j5HywSAufJ== GROSS DESCRIPTION c8iahNRuROIhrAJQSVAiG4lq (test code = daNqSBJxeKNaB4CtlpaeUVbo [id number]) TS9bTF5maOlybIQqrLXpTK9H XGRlZmYxXHBhcGVydzEyMjQw XEOzlLGubFQ2YIPzYS1qcngu TOyyGGzkHCBgodH4NLMqxQMs T5UiUIAsFX5wzrhnHDW3URbo nA9pzkDGGdmvPa3iqGKamXle ZjFcZmNoYXJzZXQwXGZuaWwg HCSrGWm1yY2LOqkuV72tf5N9 Iax8LWAbINHzF5XlSB5yNXYf sKYiW37ZBedhDOM4SOREUufm CHMsPR2Tw2nhYYUkfECzFSA1 CLovlIIeSVEhAZBeJVr3QNMv IVjedBJzQH4zdVflZnlguMwe s9EmbTLhODvwUGNhKHLdNIvt NYKwLK8XLfXlPQD4DXL6QVVm MYl5WRn9NC9JFvYcQCRyTJa6 NvFdUYDpLFh1MUgeHG0PJJEv PlQuMmhzAbE0EBQsQVVvRUFk MiBcXGYgQXJpYWwgXFxmbCBc ML0baRjvxPCjivFLAvPVEM2x fjBkib8cdFIqWP7NYUIbbVQV VMQ9HL0uTTAERgukbLWkYOOy xOkyZKqafT0jNH8OFLf6tkPt EWBoCCysgdRbQBSpM5KaxfYx KSlfWPBfpz2olAhhAHrcXhBn HELnj1s1lQV1hPSgjIZ9cWGo rGxfPqUlQA0gzMQiWQ6tQYez BSixboOtt3DfFK22qJLgciFp itVpEEH8LfHpTTweVCFeLO4p cmVhcyIgaXMgYSAxLjUgeCAx KtKwqRFsGyOvO59kVMhtrnTg PRWbGX2eMZ45oANctKelYKlz OVsda90fgEP6rOCkkEOmA70o LANjJGZyrQjoDCZ1pCUlBVKl i49pFUS9Wo0trBVzZIRgcnB2 p9OtBCjqBAIvHPNiEtObwKMv AH5XMWTcntETSvXkPNhbKFMd O3PrjF7aMH6KMhpgOSZjGKZY J5JrC15VZxplvLHlqergzPyk QcQffZVuPfLwvOtgrN95EEWc zPOfTVD1NG7nMNXxzxmcLPZt MIJvGXB1SFoizH18xLVnORZz MAAzuVBfeI7SPOFtJPQ6TWmf pL60bVUyVN6JKXGrUBG0LZBz rLFzXLY4XU7smY9QoL== SPECIAL STUDIES (test e8dqpPPvLQPmv2eaIVXwoWWu code = 3376) ZzEwMzNcZnRuYmpcdWMxIHtc ikTvLPvol4UuG5KjBbHmNShw bnNpXGRlZmxhbmcxMDMzXGZ0 qfPmDAPoKNibRSBoZYciIf8b dACpsXknVyOuCXXme6kmgcHJ wosgiCj2l7cdWFFpQwP1dIPq OWtoL8qghpItkUPhM2SknUBg pDd7j8xyBdJvRuV1yAKcSDci E1cgkeFkdPInTDLzWEm2dA87 IUOhpK4ysVTjCPrhjmGsSgE3 BWgaEUZtTaG3WFYaaWViQIAt H6ogVXIkXHwvZCSdGNtdvAYh SKF6lOwkz9N5uRZxxQZzqUpd FyIdYhAxPpPRl1LlKLb2mKbi L0NsVJLxHkI6uFUgZPTbDGdp EYFfTIAyqqE3eLnixpUsn77j eHQyXGYwXGZzMjBcbGkwXHJp DEMTy8BmdMlzTXJ3aMp1oWjq KqwiCZH8Vgv5VX4crq74cde3 nIqhJJQcypyuSsK4ZPmmZVZn ckkvKKu4TXzuKRQqaDZ6MSCp aEWjB7BaYYMqMF5qpgh2FJP4 VZogUEJoVgU2JUEupZLcIRWi wJajSIjus041IPC0ZvWiRS8t G6Cfd4N5sA3myUUdKVMcoZPn ZfLkTGDisj4uwZNsZMjxa3Pd VWO1nwL4kXAyoRJuIEXwTT10 Xlvjp1MnLycjz9LvU58yaKW9 ORvrr7hpQQ1dOcB5tpBsRJlk t6wwbD5fOyC0NZlzHX5eAK7x QWLgaN6uhsokFDCkVfSfqdai TGNjcWfsrcZdZr7rnMomPOU2 OBmrO4srmA6oOzM6RYvyO5qq fO6gSXn6LGrrvGU0PYTplC9f BP6jytybc3ioJEqtOYkpEQMl hnS9ykK5HTXglFVrZ7PwaS0i VGMsOJ4rqfpyi1enOIE5HKxv YMQwTJU8JfJfDXJwk4Kvwnd0 KxJmr1RcyKFgCBoyG95xp655 OLMwgtWnH2gesZJryagmlWSb nchaICjxeqX2DSMiJYGbAUgq XGYxXGZzMjJcbGFuZzEwMzNc aGljaFxmMVxkYmNoXGYxXGxv O4qiHkKvN8XmTVHlVyJtWWtb CQpawKIhcHBnoRI6lA6rSM9i BNAfxRVxS4PzCHYgggEjmFTx QYR0cJZvmUGjDK5rJZgwcPUe f5aeu3EjC7wziMeeqHB1RV5p XJCzLXEkDQasm1NsrP9bOqjf bGFpblxmMVxmczIyXGxhbmcx AWLsEHttA7xiXjQaGYUtqNxn KLtvm6GyEHLqXZKiMktvplHa XDx4jqZoPNKcmkzlKKYsfTkz pZ1bQiShKfOwZuzyJE8yQBJn A1uwsJRkYNAuIDEzY5kpEmJz jV7sbStsAXwsLxGiAcNxZfHX b307li1xTOAmfZFeshDUnMBf pX0bLEoeHXhlJYoxcEYfFWlf v8wnTRTso1l1sWFpMCCjgqGn a1ccAMgjdaHqPJTadNPryYAx CQIei83dVNcikKnpaCjgKBPp d7WqaFatj2AvFlBpCZkbn7Rm U25ofENuqQSheCztZGYpdgOy FHEtm15es3agHBYhZjW0oIAx pDZ9bVRqfMYws1ApePnfTWMn x3lyYLYhvk0suweiqSTzz5Il lD5dzodxMZbpuOIizqKgSNFy f8g8lXAjDPXtFCCnAKwmyVc1 ZCDwr325km2efbZ2uPVkTRH5 YWlsYWJsZSBhcmUgZXZhbHVh dGVkXHBsYWluXGYxXGZzMjJc bGFuZzEwMzNcaGljaFxmMVxk NbSzWSObMMjkN2piOfPbI1Nj DHFtVgZmaOUkG5mvdJYcORYm YWluXGYxXGZzMjJcbGFuZzEw MzNcaGljaFxmMVxkYmNoXGYx NUspW7mfNdOsM9MrEISgHwFw IFxwbGFpblxmMVxmczIyXGxh bnnsCDMiTDyjQ9iaYrYuWHWp vVdwKTnyx9KqHYSeXXGkKglx vnBgIVs2uvPyQQZnxfksqTHf blxmMVxmczIyXGxhbmcxMDMz MGbiV9seYoVqFKNpnPapRBoo e4YxNYGvCFWeKntbjyOcKHzi kJNek8rrh8WfW8gwoNwgeNW8 HLIdR0oxxPElvMZ9XXZ0fC3t RUyoysGdWSLte4JpEMLkRBUv BjC1cZ8pQVO7PzXGbQzbWRSp YWluXGYxXGZzMjJcbGFuZzEw MzNcaGljaFxmMVxkYmNoXGYx GOmkG0pdNeKoN4VbWJAqMfBh tDysUPnrWVj6JwjqtPDdazdl MVxmczIyXGxhbmcxMDMzXGhp R3bxJaScZYXinOubIOmep5Bt XGYxXGNmMlxmczIyIHMgTWVk iMSydJWOIC26HJJaNNPasXyq rY3wiGCPMPCxzxM0t1F0GOis GJTxFFt9ALgtlaJbVOZlzA9r UBDtOM7sEGq5keCiULAys0Bo ZR2zMYGtvGXnSCV6CBVzw2Wc L3Vxl8EqXGBcTSXbyv4qdhCu KpHDoFKeTWYqey33LFRiLD2t J1xfIVMtJVIgnuYbfHOek9Ex KOShvXR0zIAoWL5COjDAx21n IGFuZCBEcnVnIEFkbWluaXN0 kyV3oH8pMmVKfUBwAyRWXAui bmTbQMVnqu4jxrNvUBWeATWf r5QrhSUztJImpjJqI8Toz1Mh YRDurj99HQnshEYkho63RT6i H7Fqy6UgkV3tIDimFZObw2Qt vLVmjASmKPPmo4RiW2xqzhsa PIclpNLfxJ2vFHVdTWb6DKPs m6LiWELqn8GlArBkvaJlZEDv JLYlJRIcrA61OGT8sJwzhGai vmZmJC3rWDIbarLvQLEaUUTs bW6oYAkflrDkEFAffhD9j6O8 QGjnIPNogwUfRtbuBCB8nnLc tiB2nFQjL8blagssSTogVQAy u2HvoN6qyMDNzEJkp0GsfWBr uNQLlKUfUU9bwqEyCI9yOHT2 ODggKENMSUEtODgpIGFzIHF1 DIyvFcfbFZU0kiByOABmw2Qx EBbjW1qjZ84ldGqgoNu2zOUk sEgbdBInrOFsKLSkciL4h7C7 JTYow0TnjeqhATSbVAzuZCTw XGZzMjJcbGFuZzEwMzNcaGlj fKenUfzbXiStFQKjPApmF2dd XeKfMfGsApdrSIT1cH== [id number] 10:24:23Surgical Pathology Report Case: [id number] Authorizing Provider: Kirstie Luis Collected: 12/29/2021 04:49 PM Ordering Location: [address] Received: 01/01/2022 08:03 AM Cardiovascular Pathologist: Gaby Nation MD Specimen: Pancreas, unicate process mass bx by FNB PANCREAS, FINE-NEEDLE BIOPSY:-Fragments of fibrous tissue and benign pancreatic parenchyma-No evidence of malignancyas sampled Signing Pathologist Direct Phone Line: [phone] signed by Gaby Nation MD on 01/02/2022 at 10:24 AMThe biopsy may not be rental sales representative of the lesion.Clinicalcorrelation is recommended.[id number], uncinate process massA. Pancreas.Received in formalin labeled with the patient's name, medical record number and "pancreas" is a 1.5 x 1.0 x 0.1 cm aggregate of multiple moore soft tissue cores admixed with blood submitted in toto in A1-A2. SHAY Teran, ROBIN (ASCP)cmThe interpretation of this case included the use of immunohistochemistry or special stains.Control Slides Examined: In-house known positive controls were evaluated along with the test tissue. These control slides run alongside of the patients sample show appropriate staining. Internal positive and negative controls when available are evaluated Immunohistochemistry technical testing was performed at [facility], Pathology Laboratory where it was developed andits performance characteristics were determined. It has not been cleared or approved by the U.S. Food and Drug Administration. The FDA has determined that such clearance or approval is not necessary. The test is used for clinical purposes. It should not be regarded as investigational or for research. This laboratory is certified under the Clinical Laboratory Improvement Amendments of 1988 (CLIA-88) as qualified to perform high complexity clinical laboratory testing.HEMOGLOBIN AND [id number] 11:17:18 Test Item Value Reference Range Interpretation Comments HEMOGLOBIN (BEAKER) (test code = 7.5 GM/DL 13.7-17.5 L 410) HEMATOCRIT (BEAKER) (test code = 24.6 % 40.1-51.0 L 411) House Admin ID - [id number] [id number] 07:01:20 Test Item Value Reference Range Interpretation Comments POC-Glucose Meter (test 118 mg/dL 70-110 H : TE STED AT [facility] code = 1538) [address] [facility], [address]: House Admin/Techni gus ID = [id number] for Wall, Aure Lab Interpretation (test Abnormal code = 00113-0) [facility] [id number] [facility]:01:20 Test Item Value Reference Range Interpretation Comments POC-Glucose Meter (test 118 mg/dL 70-110 H : TE STED AT [facility] code = 1538) [address] [facility], 770 30: House Admin/Techni gus ID = [id number] for Wall, Aure Lab Interpretation (test Abnormal code = 62963-8) [facility] [id number] 07:01:20 Test Item Value Reference Range Interpretation Comments POC-Glucose Meter (test 118 mg/dL 70-110 H : TE STED AT [facility] code = 1538) [address] [facility], 770 30: House Admin/Techni gus ID = [id number] for Wall, Aure Lab Interpretation (test Abnormal code = 54608-2) [facility] [id number] 07:01:20 Test Item Value Reference Range Interpretation Comments POC-GLUCOSE METER 118 mg/dL 70-110 H : TESTED A T [facility] [address] (BEAKER) (test code = [place], 1538) [address]: House Admin/Techni gus ID = [id number] for Aure [place] COMPREHENSIVE METABOLIC [id number] 05:15:44 Test Item Value Reference Range Interpretation Comments TOTAL PROTEIN 4.7 gm/dL 6.0-8.3 L (BEAKER) (test code = 770) ALBUMIN (BEAKER) 2.3 g/dL 3.5-5.0 L (test code = 1145) ALKALINE 146 U/L 40-150 PHOSPHATASE (BEAKER) (test code = 346) BILIRUBIN TOTAL 1.8 mg/dL 0.2-1.2 H (BEAKER) (test code = 377) SODIUM (BEAKER) 135 meq/L 136-145 L (test code = 381) POTASSIUM (BEAKER) 3.2 meq/L 3.5-5.1 L (test code = 379) CHLORIDE (BEAKER) 109 meq/L 98-107 H (test code = 382) CO2 (BEAKER) (test 21 meq/L 22-29 L code = 355) BLOOD UREA 7 mg/dL 7-21 NITROGEN (BEAKER) (test code = 354) CREATININE 0.77 mg/dL 0.57-1.25 (BEAKER) (test code = 358) GLUCOSE RANDOM 123 mg/dL 70-105 H (BEAKER) (test code = 652) CALCIUM (BEAKER) 7.9 mg/dL 8.4-10.2 L (test code = 697) AST (SGOT) 39 U/L 5-34 H (BEAKER) (test code = 353) ALT (SGPT) 22 U/L 6-55 (BEAKER) (test code = 347) EGFR (BEAKER) 103 Interpretatio n of eGFR (test code = 1092) mL/min/1.[address] age Description sq m Result G1 Karen l or high >=90 G2 Mildly decreased 60-89 G3a Mildl y to moderately 45-5 9 G3b Moderately to s everely 30-44 G4 Severl y decreased 15-29 G5 Kidney failure <15Reported eGF R is based on the CKD-EPI 2020 equation that d oes not use a race coefficientEsti mated GFR is not as accur ate as Creatinine Lisa holland in predicting glom erular filtration rate . Estimated GFR is not appl icable for dialysis patien ts House Admin ID - PIAYA LCBC W/PLT COUNT & AUTO [id number] 04:34:31 Test Item Value Reference Range Interpretation Comments WHITE BLOOD CELL COUNT (BEAKER) 5.4 K/ L 3.5-10.5 (test code = 775) RED BLOOD CELL COUNT (BEAKER) 2.66 M/ L 4.63-6.08 L (test code = 761) HEMOGLOBIN (BEAKER) (test code = 7.0 GM/DL 13.7-17.5 L 410) HEMATOCRIT (BEAKER) (test code = 23.3 % 40.1-51.0 L 411) MEAN CORPUSCULAR VOLUME (BEAKER) 88 fL 79-92 (test code = 753) MEAN CORPUSCULAR HEMOGLOBIN 26.3 pg 25.7-32.2 (BEAKER) (test code = 751) MEAN CORPUSCULAR HEMOGLOBIN CONC 30.0 GM/DL 32.3-36.5 L (BEAKER) (test code = 752) RED CELL DISTRIBUTION WIDTH 16.1 % 11.6-14.4 H (BEAKER) (test code = 412) PLATELET COUNT (BEAKER) (test code 75 K/CU MM 150-450 L = 756) MEAN PLATELET VOLUME (BEAKER) 12.9 fL 9.4-12.4 H (test code = 754) NUCLEATED RED BLOOD CELLS (BEAKER) 0 /100 WBC 0-0 (test code = 413) NEUTROPHILS RELATIVE PERCENT 68 % (BEAKER) (test code = 429) LYMPHOCYTES RELATIVE PERCENT 22 % (BEAKER) (test code = 430) MONOCYTES RELATIVE PERCENT 6 % (BEAKER) (test code = 431) EOSINOPHILS RELATIVE PERCENT 3 % (BEAKER) (test code = 432) BASOPHILS RELATIVE PERCENT 0 % (BEAKER) (test code = 437) NEUTROPHILS ABSOLUTE COUNT 3.63 K/ L 1.78-5.38 (BEAKER) (test code = 670) LYMPHOCYTES ABSOLUTE COUNT 1.20 K/ L 1.32-3.57 L (BEAKER) (test code = 414) MONOCYTES ABSOLUTE COUNT (BEAKER) 0.34 K/ L 0.30-0.82 (test code = 415) EOSINOPHILS ABSOLUTE COUNT 0.14 K/ L 0.04-0.54 (BEAKER) (test code = 416) BASOPHILS ABSOLUTE COUNT (BEAKER) 0.02 K/ L 0.01-0.08 (test code = 417) IMMATURE GRANULOCYTES-RELATIVE 0.40 % 0.00-1.00 PERCENT (BEAKER) (test code = 2801) POCT-GLUCOSE [id number] 23:18:11 Test Item Value Reference Range Interpretation Comments POC-GLUCOSE METER 197 mg/dL 70-110 H : TESTED A T [facility] 6720 (BEAKER) (test code = TALI Lanier [facility], 1538) [address]: House Admin/Techni gus ID = [id number] for Aure Galicia POCT-GLUCOSE [id number] 18:53:07 Test Item Value Reference Range Interpretation Comments POC-GLUCOSE METER 242 mg/dL 70-110 H : Notified RN/MD: TESTED (BEAKER) (test code AT [place] [address] [address] = 1538) [facility], 770 30: House Admin/Techni gus ID = [id number] for Gilb reath (contract), Chad huangika POCT-GLUCOSE [id number] 16:53:02 Test Item Value Reference Range Interpretation Comments POC-GLUCOSE METER 330 mg/dL 70-110 H : Notified RN/MD: TESTED (BEAKER) (test code AT [place] [address] [address] = 1538) [facility], 770 30: House Admin/Techni gus ID = [id number] for Gilb reath (contract), Sha ntika POCT-GLUCOSE [id number] 11:46:10 Test Item Value Reference Range Interpretation Comments POC-GLUCOSE METER 262 mg/dL 70-110 H : Notified RN/MD: TESTED (BEAKER) (test code AT [place] [address] [address] = 1538) [facility], [facility] 30: House Admin/Techni gus ID = [id number] for Gilb reath (contract), Sha ntika BASIC METABOLIC [id number] 09:40:28 Test Item Value Reference Range Interpretation Comments SODIUM (BEAKER) 135 meq/L 136-145 L (test code = 381) POTASSIUM 3.9 meq/L 3.5-5.1 (BEAKER) (test code = 379) CHLORIDE (BEAKER) 105 meq/L 98-107 (test code = 382) CO2 (BEAKER) 19 meq/L 22-29 L (test code = 355) BLOOD UREA 11 mg/dL 7-21 NITROGEN (BEAKER) (test code = 354) CREATININE 0.84 mg/dL 0.57-1.25 (BEAKER) (test code = 358) GLUCOSE RANDOM 253 mg/dL 70-105 H (BEAKER) (test code = 652) CALCIUM (BEAKER) 8.5 mg/dL 8.4-10.2 (test code = 697) EGFR (BEAKER) 101 Interpretatio n of eGFR (test code = mL/min/1.73 values Stage De scription 1092) sq m Result G1 Karen l or high >=90 G2 Mildly decreased 60-89 G3a Mildl y to moderately 45-5 9 G3b Moderately to s everely 30-44 G4 Severl y decreased 15-29 G5 Kidney failure <15Reported eGF R is based on the CKD-EPI 2020 equation that d oes not use a race coefficientEsti mated GFR is not as accur ate as Creatinine Lisa skyler in predicting glom erular filtration rate . Estimated GFR is not appl icable for dialysis patien ts House Admin ID - MITCHHEPATIC FUNCTION [id number] 09:40:28 Test Item Value Reference Range Interpretation Comments TOTAL PROTEIN (BEAKER) (test code = 5.7 gm/dL 6.0-8.3 L 770) ALBUMIN (BEAKER) (test code = 1145) 2.8 g/dL 3.5-5.0 L BILIRUBIN TOTAL (BEAKER) (test code 2.6 mg/dL 0.2-1.2 H = 377) BILIRUBIN DIRECT (BEAKER) (test 1.7 mg/dL 0.1-0.5 H code = 706) ALKALINE PHOSPHATASE (BEAKER) (test 167 U/L 40-150 H code = 346) AST (SGOT) (BEAKER) (test code = 57 U/L 5-34 H 353) ALT (SGPT) (BEAKER) (test code = 28 U/L 6-55 347) House Admin ID - [id number] 09:39:46 Test Item Value Reference Range Interpretation Comments MAGNESIUM (BEAKER) (test code = 1.5 mg/dL 1.6-2.6 L 627) House Admin ID - MITCHCBC W/PLT COUNT & AUTO [id number] 09:31:23 Test Item Value Reference Range Interpretation Comments WHITE BLOOD CELL COUNT (BEAKER) 13.2 K/ L 3.5-10.5 H (test code = 775) RED BLOOD CELL COUNT (BEAKER) 3.24 M/ L 4.63-6.08 L (test code = 761) HEMOGLOBIN (BEAKER) (test code = 8.7 GM/DL 13.7-17.5 L 410) HEMATOCRIT (BEAKER) (test code = 27.9 % 40.1-51.0 L 411) MEAN CORPUSCULAR VOLUME (BEAKER) 86 fL 79-92 (test code = 753) MEAN CORPUSCULAR HEMOGLOBIN 26.9 pg 25.7-32.2 (BEAKER) (test code = 751) MEAN CORPUSCULAR HEMOGLOBIN CONC 31.2 GM/DL 32.3-36.5 L (BEAKER) (test code = 752) RED CELL DISTRIBUTION WIDTH 15.9 % 11.6-14.4 H (BEAKER) (test code = 412) PLATELET COUNT (BEAKER) (test 103 K/CU MM 150-450 L code = 756) MEAN PLATELET VOLUME (BEAKER) 12.2 fL 9.4-12.4 (test code = 754) NUCLEATED RED BLOOD CELLS 0 /100 WBC 0-0 (BEAKER) (test code = 413) NEUTROPHILS RELATIVE PERCENT 92 % (BEAKER) (test code = 429) LYMPHOCYTES RELATIVE PERCENT 4 % (BEAKER) (test code = 430) MONOCYTES RELATIVE PERCENT 4 % (BEAKER) (test code = 431) EOSINOPHILS RELATIVE PERCENT 0 % (BEAKER) (test code = 432) BASOPHILS RELATIVE PERCENT 0 % (BEAKER) (test code = 437) NEUTROPHILS ABSOLUTE COUNT 12.13 K/ L 1.78-5.38 H (BEAKER) (test code = 670) LYMPHOCYTES ABSOLUTE COUNT 0.54 K/ L 1.32-3.57 L (BEAKER) (test code = 414) MONOCYTES ABSOLUTE COUNT (BEAKER) 0.48 K/ L 0.30-0.82 (test code = 415) EOSINOPHILS ABSOLUTE COUNT 0.00 K/ L 0.04-0.54 L (BEAKER) (test code = 416) BASOPHILS ABSOLUTE COUNT (BEAKER) 0.02 K/ L 0.01-0.08 (test code = 417) IMMATURE GRANULOCYTES-RELATIVE 0.50 % 0.00-1.00 PERCENT (BEAKER) (test code = 2801) POCT-GLUCOSE [id number] 07:18:40 Test Item Value Reference Range Interpretation Comments POC-GLUCOSE METER 271 mg/dL 70-110 H : Notified RN/MD: TESTED ([facility]) (test code AT [facility] 67[address] = 1538) [facility], 770 30: House Admin/Techni gsu ID = [id number] for Jennifer loyola (contract)Chad POCT-GLUCOSE [id number] 00:04:16 Test Item Value Reference Range Interpretation Comments POC-GLUCOSE METER 225 mg/dL 70-110 H : TESTED A T [facility] 6720 ([facility]) (test code = NINAAMBREEN R [facility], 1538) [address]: House Admin/Techni gus ID = [id number] for Fabio [place], [id number] 17:16:00Reason for exam:->biliary and pancreatic ductal dilatationWO[facility] : 1960 Sex: MAn imaging unit was utilized for this procedure. No radiologist interpretation was requested. Refer to the EMR for findings. Refer to PACS for any patient radiation dose information.SARS-CoV2/RT-PCR (Asymptomatic ONLY)2021-12-29 11:27:33 Test Item Value Reference Interpretation Comments Range SARS-COV2/RT-PCR Negative Negative The SARS-Co V-2 (test code = target nucleic 96310-1) acids are not detected in thi s specimen. Negat yonny results do not preclude SARS-C oV-2 infection and should not be u sed as the sole bas is for patient management decisions. Nega tive results must be combined with clinical observations, patient history , and epidemiolog ical information. A false negative result may occu r if a specimen is improperly collected, transported or handled. This S ARS CoV-2 test is a rapid, real-pavan e RT-PCR test intended for e qualitative detection of nucleic acid fr om SARS-CoV-2 in a nasopharyngeal swab specimen colle josiah from individual s suspected of COVID-19 by the ir healthcare provider. DEEPTI (test code = This test has been DEEPTI) authorized by FDA under an EUA for use by authorized laboratories. This test is only authorized for the duration of the declaration that circumstances exist justifying the authorization of emergency use of in vitro diagnostic tests for detection and/or diagnosis of COVID-19 under Section 564(b)(1) of the Federal Food, Drug and Cosmetic Act, 21 U.S.C. 360bbb-3(b)(1), unless the authorization is terminated or revoked sooner. Fact Sheet for Healthcare Providers: https://www.[employer]/Documents/Xp ert%20Xpress%20SAR S%20CoV-2/Fact%20S heets/302-3802%20S ARS-COV-2%20HEALTH CARE%20PROVIDERS%2 0FACT%20SHEET.pdf Fact Sheet for Healthcare Patients: https://www.[employer]/Documents/Xp ert%20Xpress%20SAR S%20CoV-2/Fact%20S heets/302-3801%20S ARS-COV-2%20PATIEN T%20FACT%20SHEET.p df Lab Interpretation Normal (test code = 26015-6) [facility]21-[facility]-29 11:27:33 Test Item Value Reference Interpretation Comments Range SARS-COV2/RT-PCR Negative Negative The SARS-Co V-2 (test code = target nucleic 94944-4) acids are not detected in thi s specimen. Negat yonny results do not preclude SARS-C oV-2 infection and should not be u sed as the sole bas is for patient management decisions. Nega tive results must be combined with clinical observations, patient history , and epidemiolog ical information. A false negative result may occu r if a specimen is improperly collected, transported or handled. This S ARS CoV-2 test is a rapid, real-pavan e RT-PCR test intended for th e qualitative detection of nucleic acid fr om SARS-CoV-2 in a nasopharyngeal swab specimen colle josiah from individual s suspected of COVID-19 by the ir healthcare provider. DEEPTI (test code = This test has been DEEPTI) authorized by FDA under an EUA for use by authorized laboratories. This test is only authorized for the duration of the declaration that circumstances exist justifying the authorization of emergency use of in vitro diagnostic tests for detection and/or diagnosis of COVID-19 under Section 564(b)(1) of the Federal Food, Drug and Cosmetic Act, 21 U.S.C. 360bbb-3(b)(1), unless the authorization is terminated or revoked sooner. Fact Sheet for Healthcare Providers: https://www.[employer]/Documents/Xp ert%20Xpress%20SAR S%20CoV-2/Fact%20S heets/302-3802%20S ARS-COV-2%20HEALTH CARE%20PROVIDERS%2 0FACT%20SHEET.pdf Fact Sheet for Healthcare Patients: https://www.[employer]/Documents/Xp ert%20Xpress%20SAR S%20CoV-2/Fact%20S heets/302-3801%20S ARS-COV-2%20PATIEN T%20FACT%20SHEET.p df Lab Interpretation Normal (test code = 38485-8) [facility]2021-12-29 11:27:33 Test Item Value Reference Interpretation Comments Range SARS-COV2/RT-PCR Negative Negative The SARS-Co V-2 (test code = target nucleic 70667-5) acids are not detected in thi s specimen. Negat yonny results do not preclude SARS-C oV-2 infection and should not be u sed as the sole bas is for patient management decisions. Nega tive results must be combined with clinical observations, patient history , and epidemiolog ical information. A false negative result may occu r if a specimen is improperly collected, transported or handled. This S ARS CoV-2 test is a rapid, real-pavan e RT-PCR test intended for th e qualitative detection of nucleic acid fr om SARS-CoV-2 in a nasopharyngeal swab specimen collec josiah from individual s suspected of COVID-19 by the ir healthcare provider. DEEPTI (test code = This test has been DEEPTI) authorized by FDA under an EUA for use by authorized laboratories. This test is only authorized for the duration of the declaration that circumstances exist justifying the authorization of emergency use of in vitro diagnostic tests for detection and/or diagnosis of COVID-19 under Section 564(b)(1) of the Federal Food, Drug and Cosmetic Act, 21 U.S.C. 360bbb-3(b)(1), unless the authorization is terminated or revoked sooner. Fact Sheet for Healthcare Providers: https://www.[employer]/Documents/Xp ert%20Xpress%20SAR S%20CoV-2/Fact%20S heets/302-3802%20S ARS-COV-2%20HEALTH CARE%20PROVIDERS%2 0FACT%20SHEET.pdf Fact Sheet for Healthcare Patients: https://www.[employer]/Documents/Xp ert%20Xpress%20SAR S%20CoV-2/Fact%20S heets/302-3801%20S ARS-COV-2%20PATIEN T%20FACT%20SHEET.p df Lab Interpretation Normal (test code = 65782-7) [facility])2021-12-29 11:27:33 Test Item Value Reference Range Interpretation Comments SARS-COV2/RT-PCR Negative Negative The SARS-Co V-2 target (test code = nucleic acids a re not 8701613) detected in thi s specimen. Negative result s do not preclude SARS-C oV-2 infection and s hould not be used as the connie e basis for patient managem ent decisions. Nega tive results must be combine d with clinical observ ations, patient history , and epidemiological information. A false negativ e result may occur if a spec imen is improperly teresa ected, transported or handled. This SARS CoV-2 test is a rapid, real-time RT-PC R test intended for th e qualitative detection of nu cleic acid from SARS-CoV-2 in a nasopharyngeal swab specimen collected from individuals suspected of CO VID-19 by their healthcar e provider. This test has been authorized by FDA under an EUA for use by authorized laboratories. This test is only authorized for the duration of the declaration that circumstances exist justifying the authorization of emergency use of in vitro diagnostic tests for detection and/or diagnosis of COVID-19 under Section 564(b)(1) of the Federal Food, Drug and Cosmetic Act, 21 U.S.C. 360bbb-3(b)(1), unless the authorization is terminated or revoked sooner. Fact Sheet for Healthcare Providers: https://www.[employer]/Documents/Xpert%20Xpress%20SARS%20CoV-2/Fact%20Sheets/302-3802%94YRLK-NIM-2%20 HEALTHCARE%20PROVIDERS%20FACT%20SHEET.pdf Fact Sheet for Healthcare Patients: https://www.[employer]/Documents/Xpert%20Xp ress%20SARS%20CoV-2/Fact%20Sheets/3023801%86GNGO-UJR-4%20PATIENT%20FACT%20SHEET .pdfPOCT-GLUCOSE [id number] 11:23:38 Test Item Value Reference Range Interpretation Comments POC-GLUCOSE METER 180 mg/dL 70-110 H : TESTED A T [facility] 6720 (Zentric) (test code = TALI Lanier [facility], 1538) [address]: House Admin/Techni gus ID = [id number] for OR JEFF AGUILARA HEMOGLOBIN [id number] 10:59:31 Test Item Value Reference Range Interpretation Comments HEMOGLOBIN A1C 12.4 % See_Comment H [Automated m essage] ELECTROPHORESIS (Zentric) The system which (test code = 3811) generated this result transmitted ref erence range: <=5.6%. The reference range was not used to int erpret this result as normal/abnormal . "The A1c is measured using a NGSP-certified method. HbA1c value equal to or greater than 6.5% as thediagnosis cutoff for diabetes. An HbA1c value of 5.7- 6.4% indicates increased risk for diabetes (prediabetes)."House Admin ID - ADMOperator ID - ADMKETONE, [id number] 08:46:23 Test Item Value Reference Range Interpretation Comments KETONES, BLOOD (BEAKER) (test code 1.9 mmol/L <0.4 H = 1103) BASIC METABOLIC [id number] 08:32:05 Test Item Value Reference Range Interpretation Comments SODIUM (BEAKER) 137 meq/L 136-145 (test code = 381) POTASSIUM 3.4 meq/L 3.5-5.1 L (BEAKER) (test code = 379) CHLORIDE (BEAKER) 105 meq/L 98-107 (test code = 382) CO2 (BEAKER) 22 meq/L 22-29 (test code = 355) BLOOD UREA 7 mg/dL 7-21 NITROGEN (BEAKER) (test code = 354) CREATININE 0.82 mg/dL 0.57-1.25 (BEAKER) (test code = 358) GLUCOSE RANDOM 199 mg/dL 70-105 H (BEAKER) (test code = 652) CALCIUM (BEAKER) 8.2 mg/dL 8.4-10.2 L (test code = 697) EGFR (BEAKER) 102 Interpretatio n of eGFR (test code = mL/min/1.73 values Stage De scription 1092) sq m Result G1 Norm al or high >=90 G2 Mildly decreased 60-89 G3a Mildl y to moderately 45-5 9 G3b Moderately to s everely 30-44 G4 Severl y decreased 15-29 G5 Kidney failure <15Reported eGF R is based on the CKD-EPI 2021 equation that d oes not use a race coefficientEsti mated GFR is not as accur ate as Creatinine Lisa skyler in predicting glom erular filtration rate . Estimated GFR is not appl icable for dialysis patien ts House Admin ID - CHIN LBLOOD GAS, [id number] 08:28:41 Test Item Value Reference Range Interpretation Comments PH VENOUS (BEAKER) (test code = 7.41 7.32-7.42 701) PCO2 VENOUS (BEAKER) (test code = 40 mm Hg 41-51 L 755) PO2 VENOUS (BEAKER) (test code = 128 mm Hg 25-40 H 702) O2 SATURATION VENOUS (BEAKER) 98.6 % 40.0-70.0 H (test code = 703) HCO3 VENOUS (BEAKER) (test code = 25 mmol/L 21-29 705) BASE EXCESS VENOUS (BEAKER) (test 0.0 mmol/L -2.0-3.0 code = 704) PATIENT TEMPERATURE (BEAKER) (test 37.0 code = 1818) FIO2 (BEAKER) (test code = 1819) 21.0 POCT-GLUCOSE [id number] 05:06:43 Test Item Value Reference Range Interpretation Comments POC-GLUCOSE METER 184 mg/dL 70-110 H : TESTED A T [facility] 6720 (BEAKER) (test code = TALI GABRIEL [place], 1538) [address]: House Admin/Techni gus ID = [id number] for ANGEL BISHOP KETONE, [id number] 03:38:18 Test Item Value Reference Range Interpretation Comments KETONES, BLOOD (BEAKER) (test code 3.3 mmol/L <0.4 H = 1103) LACTIC ACID, [id number] 02:33:59 Test Item Value Reference Range Interpretation Comments LACTATE BLOOD VENOUS (2) (BEAKER) 1.31 mmol/L 0.50-2.20 (test code = 2872) House Admin ID - BSHEPATIC FUNCTION [id number] 02:32:23 Test Item Value Reference Range Interpretation Comments TOTAL PROTEIN (BEAKER) 6.8 gm/dL 6.0-8.3 Speci men markedly (test code = 770) hemolyzed ALBUMIN (BEAKER) (test 3.1 g/dL 3.5-5.0 L Speci men markedly code = 1145) hemolyzed BILIRUBIN TOTAL 1.9 mg/dL 0.2-1.2 H Specimen mar kedly (BEAKER) (test code = hemoly zed 377) BILIRUBIN DIRECT 0.7 mg/dL 0.1-0.5 H Specimen ma rkedly (BEAKER) (test code = hemoly zed 706) ALKALINE PHOSPHATASE 184 U/L 40-150 H (BEAKER) (test code = 346) AST (SGOT) (BEAKER) 83 U/L 5-34 H Specimen markedly (test code = 353) hemolyzed ALT (SGPT) (BEAKER) 27 U/L 6-55 Specimen markedly (test code = 347) hemolyzed House Admin ID - BSBASIC METABOLIC [id number] 02:32:22 Test Item Value Reference Range Interpretation Comments SODIUM (BEAKER) 137 meq/L 136-145 (test code = 381) POTASSIUM 3.9 meq/L 3.5-5.1 Specimen marked ly (BEAKER) (test hemolyzed code = 379) CHLORIDE (BEAKER) 105 meq/L 98-107 (test code = 382) CO2 (BEAKER) 17 meq/L 22-29 L (test code = 355) BLOOD UREA 6 mg/dL 7-21 L NITROGEN (BEAKER) (test code = 354) CREATININE 0.85 mg/dL 0.57-1.25 Specimen marked ly (BEAKER) (test hemolyzed code = 358) GLUCOSE RANDOM 133 mg/dL 70-105 H (BEAKER) (test code = 652) CALCIUM (BEAKER) 8.5 mg/dL 8.4-10.2 (test code = 697) EGFR (BEAKER) 101 Interpretatio n of eGFR (test code = mL/min/1.73 values Stage De scription 1092) sq m Result G1 Karen l or high >=90 G2 Mildly decreased 60-89 G3a Mildl y to moderately 45-5 9 G3b Moderately to s everely 30-44 G4 Severl y decreased 15-29 G5 Kidney failure <15Reported eGF R is based on the CKD-EPI 2020 equation that d oes not use a race coefficientEsti mated GFR is not as accur ate as Creatinine Lisa skyler in predicting glom erular filtration rate . Estimated GFR is not appl icable for dialysis patien ts House Admin ID - [id number] 01:55:53 Test Item Value Reference Range Interpretation Comments PROTIME (BEAKER) (test 16.6 seconds 11.9-14.2 H code = 759) INR (BEAKER) (test 1.44 See_Comment [Automat ed code = 370) message] The sy stem which generated this result transmitted reference range : <=5.90. The reference range was not used to interpret this result as normal/abnormal . PARTIAL THROMBOPLASTIN 40.5 seconds 22.5-36.0 H TIME (BEAKER) (test code = 760) RECOMMENDED COUMADIN/WARFARIN INR THERAPY RANGESSTANDARD DOSE: 2.0 - 3.0 Includes: PROPHYLAXIS for venous thrombosis, systemic embolization; TREATMENT for venous thrombosis and/or pulmonary embolus.HIGH RISK: Target INR is 2.5-3.5 for patients with mechanical heart valves.CBC W/PLT COUNT & AUTO [id number] 01:34:47 Test Item Value Reference Range Interpretation Comments WHITE BLOOD CELL COUNT (BEAKER) 8.1 K/ L 3.5-10.5 (test code = 775) RED BLOOD CELL COUNT (BEAKER) 3.17 M/ L 4.63-6.08 L (test code = 761) HEMOGLOBIN (BEAKER) (test code = 8.4 GM/DL 13.7-17.5 L 410) HEMATOCRIT (BEAKER) (test code = 26.7 % 40.1-51.0 L 411) MEAN CORPUSCULAR VOLUME (BEAKER) 84 fL 79-92 (test code = 753) MEAN CORPUSCULAR HEMOGLOBIN 26.5 pg 25.7-32.2 (BEAKER) (test code = 751) MEAN CORPUSCULAR HEMOGLOBIN CONC 31.5 GM/DL 32.3-36.5 L (BEAKER) (test code = 752) RED CELL DISTRIBUTION WIDTH 15.7 % 11.6-14.4 H (BEAKER) (test code = 412) PLATELET COUNT (BEAKER) (test 102 K/CU MM 150-450 L code = 756) MEAN PLATELET VOLUME (BEAKER) 12.9 fL 9.4-12.4 H (test code = 754) NUCLEATED RED BLOOD CELLS 0 /100 WBC 0-0 (BEAKER) (test code = 413) NEUTROPHILS RELATIVE PERCENT 71 % (BEAKER) (test code = 429) LYMPHOCYTES RELATIVE PERCENT 20 % (BEAKER) (test code = 430) MONOCYTES RELATIVE PERCENT 7 % (BEAKER) (test code = 431) EOSINOPHILS RELATIVE PERCENT 1 % (BEAKER) (test code = 432) BASOPHILS RELATIVE PERCENT 0 % (BEAKER) (test code = 437) NEUTROPHILS ABSOLUTE COUNT 5.73 K/ L 1.78-5.38 H (BEAKER) (test code = 670) LYMPHOCYTES ABSOLUTE COUNT 1.61 K/ L 1.32-3.57 (BEAKER) (test code = 414) MONOCYTES ABSOLUTE COUNT (BEAKER) 0.59 K/ L 0.30-0.82 (test code = 415) EOSINOPHILS ABSOLUTE COUNT 0.09 K/ L 0.04-0.54 (BEAKER) (test code = 416) BASOPHILS ABSOLUTE COUNT (BEAKER) 0.01 K/ L 0.01-0.08 (test code = 417) IMMATURE GRANULOCYTES-RELATIVE 0.20 % 0.00-1.00 PERCENT (BEAKER) (test code = 2801) BLOOD GAS, [id number] 01:32:44 Test Item Value Reference Range Interpretation Comments PH VENOUS (BEAKER) (test code = 7.46 7.32-7.42 H 701) PCO2 VENOUS (BEAKER) (test code = 33 mm Hg 41-51 L 755) PO2 VENOUS (BEAKER) (test code = 36 mm Hg 25-40 702) O2 SATURATION VENOUS (BEAKER) 73.2 % 40.0-70.0 H (test code = 703) HCO3 VENOUS (BEAKER) (test code = 23 mmol/L 21-29 705) BASE EXCESS VENOUS (BEAKER) (test -0.4 mmol/L -2.0-3.0 code = 704) PATIENT TEMPERATURE (BEAKER) 37.0 (test code = 1818) FIO2 (BEAKER) (test code = 1819) 21.0 POCT-GLUCOSE [id number] 00:21:33 Test Item Value Reference Range Interpretation Comments POC-GLUCOSE METER 139 mg/dL 70-110 H : TESTED A T [facility] 6720 (BEAKER) (test code = TALI GABRIEL ND, 1538) [id number]: House Admin/Techni gus ID = [id number] for Lula Gay ANTI-NUCLEAR ANTIBODY (JAIME)2019-12-10 10:07:00 Test Item Value Reference Range Interpretation Comments ANTI-NUCLEAR ANTIBODY (JAIME) (BEAKER) Negative Negative (test code = 418) Test performed by IFA method.Test performed by IFA method.ALPHA FETOPROTEIN (AFP), TUMOR [id number] 20:44:00 Test Item Value Reference Range Interpretation Comments ALPHA-FETOPROTEIN (BEAKER) (test code < ng/mL <10.0 = 1094) House Admin ID - BSHEPATITIS A ANTIBODY, [id number] 20:42:00 Test Item Value Reference Range Interpretation Comments HEPATITIS A IGM ANTIBODY (BEAKER) Nonreactive Nonreactive (test code = 498) House Admin ID - BSHEPATITIS B CORE ANTIBODY, [id number] 20:42:00 Test Item Value Reference Range Interpretation Comments HEPATITIS B CORE TOTAL ANTIBODY Nonreactive Nonreactive (BEAKER) (test code = 497) House Admin ID - BSHEPATITIS A ANTIBODY, [id number] 20:42:00 Test Item Value Reference Range Interpretation Comments HEPATITIS A IGG ANTIBODY (BEAKER) Nonreactive Nonreactive (test code = 2797) House Admin ID - BSHEPATITIS B SURFACE [id number] 17:52:00 Test Item Value Reference Range Interpretation Comments HEPATITIS B SURFACE ANTIBODY 8.8 mIU/mL <8.0 H (BEAKER) (test code = 647) House Admin ID - BSHEPATITIS B SURFACE [id number] 17:47:00 Test Item Value Reference Range Interpretation Comments HEPATITIS B SURFACE ANTIGEN (2) Nonreactive Nonreactive (BEAKER) (test code = 2585) Specimen is considered negative for HBsAg.HEPATITIS C [id number] 17:47:00 Test Item Value Reference Range Interpretation Comments HEPATITIS C ANTIBODY (BEAKER) Nonreactive Nonreactive (test code = 367) House Admin ID - BSIRON, TIBC, % SAT. (WITHOUT FERRITIN)2019-12-09 17:19:00 Test Item Value Reference Range Interpretation Comments IRON (BEAKER) (test code = 547) 131.0 ug/dL 40.0-160.0 TOTAL IRON BINDING CAPACITY 440 ug/dL 250-450 (BEAKER) (test code = 769) IRON % SATURATION (2) (BEAKER) 30 % 20-55 (test code = 2590) House Admin ID - [id number] 16:55:00 Test Item Value Reference Range Interpretation Comments ALPHA-1 ANTITRYPSIN (BEAKER) 150.60 mg/dL 90.00-200.00 (test code = 502) House Admin ID - [id number] 16:47:00 Test Item Value Reference Range Interpretation Comments FERRITIN (BEAKER) (test code = 187.10 ng/mL 5.00-275.00 361) House Admin ID - BSCOMPREHENSIVE METABOLIC [id number] 16:36:00 Test Item Value Reference Range Interpretation [...] S NOT APPLICABLE FOR DIALYSIS PATIEN TS. House Admin ID - BSBILIRUBIN, [id number] 16:36:00 Test Item Value Reference Range Interpretation Comments BILIRUBIN DIRECT (BEAKER) (test 0.4 mg/dL 0.1-0.5 code = 706) House Admin ID - BSPROTHROMBIN [id number] 16:16:00 Test Item Value Reference Range Interpretation [...] mechanical heart valves.CBC W/PLT COUNT & AUTO [id number] 16:15:00 Test Item Value Reference Range Interpretation [...] % 0-1 PERCENT (BEAKER) (test code = 2801)
[2022-01-03 10:53] LABS: Absolute Lymphocytes (CBC) 0.9 K/uL (0.7-4.9); Hematocrit 28.4 % (39.6-49.0); Lymphocytes % 16.5 % (15.3-44.8); MCV 83.9 fL (80-100); MPV 8.8 fL (7.6-11.3); RBC Red Blood Cell Count 3.39 M/uL (4.33-5.43)
[2022-01-03 10:55] LABS: Protime INR 1.38
[2022-01-03] MEDS ORDERED: HYDROMORPHONE HCL 0.5 MG/0.5 ML INJ ONE (11:04)
[2022-01-03 11:15] LABS: Albumin 2.7 g/dL (3.4-5.0); Bilirubin Direct 1.1 mg/dL (0-0.2); Bilirubin Total 1.9 mg/dL (0.2-1.0); Potassium 3.5 mmol/L (3.5-5.1); Protein, Total 6.6 g/dL (6.4-8.2); Troponin High Sensitivity 5.8 pg/mL (<58.9)
[2022-01-03 11:42] LABS: Magnesium 1.6 mg/dL (1.8-2.4)
[2022-01-03 12:02] LABS: SARS-CoV-2 Antigen Rapid Res Negative (Negative)
--- NOTE | 2022-01-03 12:04 | RAD REPORT ---
EXAM DESCRIPTION: CT - Chest For Pe Angio - 01/03/2022 11:45 am CLINICAL HISTORY: Chest pain COMPARISON: None. TECHNIQUE: Dynamically enhanced axial 3 mm thick images of the chest were obtained during administra tion of <100> mL Isovue 370 IV contrast. Coronal and oblique reconstruction images were generated and reviewed. Exam utilizes a protocol for optimal evaluation of pulmonary arterial tree. Maximum intensity projections 3D imaging was utilized All CT scans are performed using dose optimization technique as appropriate and may include automated exposure control or mA/KV adjustment according to patient size. FINDINGS: A pulmonary embolus is not seen. A thoracic aortic aneurysm is not noted. A pleural effusion is not seen. A pericardial effusion is not seen. A lung consolidation is not present. IMPRESSION: Negative for a pulmonary embolism.
--- NOTE | 2022-01-03 12:11 | RAD REPORT ---
EXAM DESCRIPTION: CT - Abdomen Pelvis W Contrast - 01/03/2022 11:46 am CLINICAL HISTORY: Abdominal pain COMPARISON: none. TECHNIQUE: Computed axial tomography of the abdomen pelvis was obtained. 100 cc Isovue-300 was admin istered intravenously. Oral contrast was not requested which limits evaluation of bowel and appendix All CT scans are performed using dose optimization technique as appropriate and may include automated exposure control or mA/KV adjustment according to patient size. FINDINGS: Mild cirrhotic liver. Portal vein is patent. Mild splenomegaly Pancreatic duct is dilated. Several calcifications in the region of pancreatic head. Cholelithiasis. Adrenals and kidneys are unremarkable Small amount of ascites within the abdomen and pelvis. Wall of the colon appears thickened perhaps related to hypoalbuminemia. There is no evidence of diverticulitis. Thickening of the wall of the distal stomach IMPRESSION: Cholelithiasis. Dilatation of the pancreatic duct likely related to chronic pancreatitis. Several calcifications within the pancreatic head. It is unsure if 1 lies within the common bile duct . MRCP may be helpful for further evaluation Thickening of the wall of the distal stomach may be secondary to hypoalbuminemia or inflammation
--- NOTE | 2022-01-03 12:32 | RAD REPORT ---
EXAM DESCRIPTION: [facility] Single View01/03/2022 10:48 am CLINICAL HISTORY: Shortness of breath COMPARISON: 2019 FINDINGS: The lungs appear clear of acute infiltrate. The heart is normal size IMPRESSION: No acute abnormalities displayed
[2022-01-03] MEDS ORDERED: ONDANSETRON 4 MG/2 ML VIAL ONE ×2 (12:34→14:59)
[2022-01-03] MEDS ORDERED: Magnesium Sulfate 2gm IVPB 2 G/50 ML BAG IV ONE (12:34)
[2022-01-03] MEDS ORDERED: NA CHLORIDE 0.9% 1,000 ML ONE (12:34)
[2022-01-03 12:51] LABS: Urine Blood 2+ (Negative); Urine Glucose Negative (Negative); Urine Protein Negative (Negative); Urine Specific Gravity 1.015 (1.005-1.030)
--- NOTE | 2022-01-03 14:27 | ER ---
Nurse's Notes [facility] Name: Adi Bennett Age: 61 yrs Sex: Male : 1960 Arrival Date: 01/03/2022 Time: 10:16 Bed 11 Private MD: Diagnosis: Epigastric abdominal tenderness;Anemia, unspecified;Hypomagnesemia;Unspecified cirrhosis of liver;Other chronic pancreatitis;Gastritis, unspecified;Other cholelithiasis without obstruction Presentation: 01/03 10:34 Chief complaint: Patient states: chest pain after endoscopy. Coronavirus screen: 3 Vaccine status: Patient reports receiving the 2nd dose of the covid vaccine. Ebola Screen: No symptoms or risks identified at this time. Initial Sepsis Screen: Does the patient meet any 2 criteria?. Risk Assessment: Do you want to hurt yourself or someone else?. Onset of symptoms was December 31, 2021. 10:34 Method Of Arrival: Ambulatory [facility] 10:34 Acuity: RODERICK 3 eh3 10:34 Initial Sepsis Screen: Does the patient meet any 2 criteria? No. Patient's initial 3 sepsis screen is negative. Does the patient have a suspected source of infection? No. Patient's initial sepsis screen is negative. Triage Assessment: 10:36 General: Appears in no apparent distress. uncomfortable, Behavior is calm, cooperative, eh3 appropriate for age. Pain: Complains of pain in epigastric area Pain radiates to back and chest Pain currently is 7 out of 10 on a pain scale. Quality of pain is described as burning, dull, sharp. EENT: No signs and/or symptoms were reported regarding the EENT system. Neuro: Level of Consciousness is awake, alert, obeys commands, Oriented to person, place, time, situation. Cardiovascular: Capillary refill < 3 seconds Patient's skin is warm and dry. Respiratory: Airway is patent Respiratory effort is even, unlabored, Respiratory pattern is regular, symmetrical. GI: Abdomen is round noted to have ascites, Reports nausea. : No signs and/or symptoms were reported regarding the genitourinary system. Derm: No signs and/or symptoms reported regarding the dermatologic system. Musculoskeletal: No signs and/or symptoms reported regarding the musculoskeletal system. Historical: - Allergies: 10:36 Morphine; eh3 10:36 Phenergan; eh3 - Home Meds: 10:36 Insulin: Novolog Sub-Q [Active]; Levemir [Active]; Omeprazole Oral [Active]; Bentyl eh3 Oral [Active]; Nystatin Oral [Active]; - PMHx: 10:36 ibs; Liver Issues; Pancreatitis; eh3 10:36 Diabetes mellitus; eh3 - Immunization history:: Adult Immunizations up to date. - Social history:: Smoking status: Patient reports the use of cigarette tobacco products, 3 cigs/day. - Family history:: not pertinent. Screenin:41 Abuse screen: Denies threats or abuse. Denies injuries from another. Nutritional eh3 screening: No deficits noted. Tuberculosis screening: No symptoms or risk factors identified. Fall Risk None identified. Assessment: 10:41 Reassessment: No changes from previously documented assessment. See triage assessment. eh3 10:41 GI: Bowel sounds present X 4 quads. Abdomen is tender to palpation X 4 quads. eh3 11:30 Reassessment: Patient and/or family updated on plan of care and expected duration. Pain eh3 level reassessed. Patient is alert, oriented x 3, equal unlabored respirations, skin warm/dry/pink. 12:30 Reassessment: Patient and/or family updated on plan of care and expected duration. Pain eh3 level reassessed. Patient is alert, oriented x 3, equal unlabored respirations, skin warm/dry/pink. 13:30 Reassessment: Patient and/or family updated on plan of care and expected duration. Pain eh3 level reassessed. Patient is alert, oriented x 3, equal unlabored respirations, skin warm/dry/pink. 14:30 Reassessment: Patient and/or family updated on plan of care and expected duration. Pain eh3 level reassessed. Patient is alert, oriented x 3, equal unlabored respirations, skin warm/dry/pink. Vital Signs: 10:34 BP 129 / 75; Pulse 103; Resp 18; Pulse Ox 100% on R/A; Weight 55.34 kg; Height 5 ft. 7 eh3 in. (170.18 cm); Pain 7/10; 11:30 BP 111 / 62; Pulse 77; Resp 18; Pulse Ox 100% on R/A; eh3 12:30 BP 109 / 62; Pulse 78; Resp 20; Pulse Ox 99% on R/A; Pain 1/; eh3 13:30 BP 109 / 62; Pulse 77; Resp 18; Pulse Ox 99% on R/A; eh3 14:30 BP 112 / 64; Pulse 80; Resp 12; Pulse Ox 99% on R/A; eh3 10:34 Body Mass Index 19.11 (55.34 kg, 170.18 cm) eh3 ED Course: 10:16 Patient arrived in ED. as 10:23 Sara Quinones, ADEEL is Primary Nurse. eh3 10:29 Mohan Arnold MD is Attending Physician. angel 10:30 EKG done, by ED staff, reviewed by Mohan Arnold MD. em1 10:36 Triage completed. eh3 10:36 Arm band placed on right wrist. eh3 10:41 Patient has correct armband on for positive identification. Bed in low position. Call eh3 light in reach. Side rails up X2. Adult w/ patient. Client placed on continuous cardiac and pulse oximetry monitoring. NIBP monitoring applied. Door closed. Noise minimized. Warm blanket given. 10:44 Initial lab(s) drawn, by mt, sent to lab. Inserted saline lock: 20 gauge in right jw7 forearm, using aseptic technique. Blood collected. 10:49 XRAY Chest (1 view) In Process Unspecified. EDMS 11:19 SARS RAPID Sent. eh3 11:47 CT Chest For PE Angio In Process Unspecified. EDMS 11:48 CT Abd/Pelvis - IV Contrast Only In Process Unspecified. EDMS 14:25 Jazmín Perez MD is Referral Physician. angel 14:39 No provider procedures requiring assistance completed. eh3 15:21 IV discontinued, intact, bleeding controlled, No redness/swelling at site. Pressure eh3 dressing applied. Administered Medications: 11:00 Drug: NS 0.9% 1000 ml Route: IV; Rate: 1 bolus; Site: right forearm; eh3 12:15 Follow up: IV Status: Completed infusion; IV Intake: 1000ml eh3 11:02 Drug: Zofran (Ondansetron) 4 mg Route: IVP; Site: right forearm; eh3 12:09 Follow up: Response: Pain is unchanged, physician notified eh3 11:06 Drug: Dilaudid (HYDROmorphone) 0.5 mg Route: IVP; Site: right forearm; eh3 12:10 Follow up: Response: Pain is unchanged, physician notified eh3 11:10 Drug: Pepcid (famotidine) 20 mg Route: IVP; Site: right antecubital; eh3 12:09 Follow up: Response: No adverse reaction eh3 11:18 Not Given (Allergyy): morphine 4 mg IVP once over 4 mins eh3 12:38 Drug: NS 0.9% 1000 ml Route: IV; Rate: 1 bolus; Site: right forearm; eh3 13:35 Follow up: IV Status: Completed infusion; IV Intake: 1000ml eh3 12:38 Drug: Magnesium Sulfate 2 grams Route: IVPB; Infused Over: 2 hrs; Site: right forearm; eh3 14:38 Follow up: Response: No adverse reaction; IV Status: Completed infusion; IV Intake: [id number] 12:38 Drug: Zofran (Ondansetron) 4 mg Route: IVP; Site: right forearm; eh3 13:35 Follow up: Response: No adverse reaction 3 14:38 Drug: Zosyn (piperacillin-tazobactam) 3.375 grams Route: IVPB; Infused Over: 60 mins; eh3 Site: right forearm; 15:19 Follow up: Response: No adverse reaction; IV Status: Completed infusion; IV Intake: eh3 100ml 14:55 Drug: Dilaudid (HYDROmorphone) 1 mg Route: IVP; Site: right forearm; eh3 15:20 Follow up: Response: No adverse reaction; Pain is decreased eh3 14:55 Drug: Zofran (Ondansetron) 4 mg Route: IVP; Site: right forearm; eh3 15:20 Follow up: Response: No adverse reaction 3 Medication: 14:41 VIS not applicable for this client. eh3 Intake: 12:15 IV: 1000ml; Total: 1000ml. eh3 13:35 IV: 1000ml; Total: 2000ml. eh3 14:38 IV: 50ml; Total: 2050ml. eh3 15:19 IV: 100ml; Total: 2150ml. 3 Outcome: 14:26 Discharge ordered by . angel 15:21 Discharged to home ambulatory, with family. 3 15:21 Condition: stable 15:21 Discharge instructions given to patient, Instructed on discharge instructions, follow up and referral plans. medication usage, Demonstrated understanding of instructions, follow-up care, medications, Prescriptions given X 4. 15:22 Patient left the ED. eh3 Signatures: Dispatcher [employer] Mohan Cantor MD MD cha Martinez, Trudi Ling, Domingo 1 Danica Cartagena 7 Sara Quinones, RN RN eh3 Corrections: (The following items were deleted from the chart) 13:37 10:36 GI: Abdomen is flat, non-distended, Reports nausea, eh3 eh3
--- NOTE | 2022-01-03 14:27 | EDPHYS ---
Physician Documentation [facility] Name: Adi Bennett Age: 61 yrs Sex: Male : 1960 Arrival Date: 01/03/2022 Time: 10:16 Bed 11 Private MD: ED Physician Mohan Arnold HPI: 01/03 14:16 This 61 yrs old Male presents to ER via Ambulatory with complaints of [facility] Abdominal Pain, Chest Pain, Back Pain. 14:16 The patient or guardian reports chest pain that is located primarily in the anterior [facility] chest wall, bilaterally. Onset: yesterday. The pain radiates to back. Associated signs and symptoms: The patient has no apparent associated signs or symptoms. The chest pain is described as sharp. Duration: The patient or guardian reports multiple episodes, with no pattern. Modifying factors: The symptoms are alleviated by nothing. the symptoms are aggravated by nothing. Severity of pain: At its worst the pain was mild moderate in the emergency department the pain has improved moderately. The patient has experienced similar episodes in the past, multiple times. Historical: - Allergies: 10:36 Morphine; eh3 10:36 Phenergan; eh3 - Home Meds: 10:36 Insulin: Novolog Sub-Q [Active]; Levemir [Active]; Omeprazole Oral [Active]; Bentyl eh3 Oral [Active]; Nystatin Oral [Active]; - PMHx: 10:36 ibs; Liver Issues; Pancreatitis; eh3 10:36 Diabetes mellitus; eh3 - Immunization history:: Adult Immunizations up to date. - Social history:: Smoking status: Patient reports the use of cigarette tobacco products, 3 cigs/day. - Family history:: not pertinent. ROS: 14:16 Constitutional: Negative for fever, chills, and weight loss, Eyes: Negative for injury, angel pain, redness, and discharge, ENT: Negative for injury, pain, and discharge, Neck: Negative for injury, pain, and swelling, Cardiovascular: Negative for chest pain, palpitations, and edema, Respiratory: Negative for shortness of breath, cough, wheezing, and pleuritic chest pain, Back: Negative for injury and pain, : Negative for injury, bleeding, discharge, and swelling, MS/Extremity: Negative for injury and deformity, Skin: Negative for injury, rash, and discoloration, Neuro: Negative for headache, weakness, numbness, tingling, and seizure, Psych: Negative for depression, anxiety, suicide ideation, homicidal ideation, and hallucinations, Allergy/Immunology: Negative for hives, rash, and allergies, Endocrine: Negative for neck swelling, polydipsia, polyuria, polyphagia, and marked weight changes, Hematologic/Lymphatic: Negative for swollen nodes, abnormal bleeding, and unusual bruising. 14:16 Abdomen/GI: Positive for abdominal pain, nausea and vomiting, of the epigastric area. Exam: 14:16 Constitutional: This is a well developed, well nourished patient who is awake, alert, angel and in no acute distress. Head/Face: Normocephalic, atraumatic. Eyes: Pupils equal round and reactive to light, extra-ocular motions intact. Lids and lashes normal. Conjunctiva and sclera are non-icteric and not injected. Cornea within normal limits. Periorbital areas with no swelling, redness, or edema. ENT: Nares patent. No nasal discharge, no septal abnormalities noted. Tympanic membranes are normal and external auditory canals are clear. Oropharynx with no redness, swelling, or masses, exudates, or evidence of obstruction, uvula midline. Mucous membranes moist. Neck: Trachea midline, no thyromegaly or masses palpated, and no cervical lymphadenopathy. Supple, full range of motion without nuchal rigidity, or vertebral point tenderness. No Meningismus. Chest/axilla: Normal chest wall appearance and motion. Nontender with no deformity. No lesions are appreciated. Cardiovascular: Regular rate and rhythm with a normal S1 and S2. No gallops, murmurs, or rubs. Normal PMI, no JVD. No pulse deficits. Respiratory: Lungs have equal breath sounds bilaterally, clear to auscultation and percussion. No rales, rhonchi or wheezes noted. No increased work of breathing, no retractions or nasal flaring. Back: No spinal tenderness. No costovertebral tenderness. Full range of motion. Male : Normal genitalia with no discharge or lesions. Skin: Warm, dry with normal turgor. Normal color with no rashes, no lesions, and no evidence of cellulitis. MS/ Extremity: Pulses equal, no cyanosis. Neurovascular intact. Full, normal range of motion. Neuro: Awake and alert, GCS 15, oriented to person, place, time, and situation. Cranial nerves II-XII grossly intact. Motor strength 5/5 in all extremities. Sensory grossly intact. Cerebellar exam normal. Normal gait. Psych: Awake, alert, with orientation to person, place and time. Behavior, mood, and affect are within normal limits. 14:16 ECG was reviewed by the Attending Physician. 14:16 Abdomen/GI: Inspection: abdomen appears normal, Bowel sounds: normal, Palpation: mild abdominal tenderness, in the epigastric area, Liver: no appreciated palpable abnormalities, Hernia: not appreciated. Vital Signs: 10:34 BP 129 / 75; Pulse 103; Resp 18; Pulse Ox 100% on R/A; Weight 55.34 kg; Height 5 ft. 7 eh3 in. (170.18 cm); Pain 7/10; 11:30 BP 111 / 62; Pulse 77; Resp 18; Pulse Ox 100% on R/A; eh3 12:30 BP 109 / 62; Pulse 78; Resp 20; Pulse Ox 99% on R/A; Pain 1/10; eh3 13:30 BP 109 / 62; Pulse 77; Resp 18; Pulse Ox 99% on R/A; eh3 14:30 BP 112 / 64; Pulse 80; Resp 12; Pulse Ox 99% on R/A; eh3 10:34 Body Mass Index 19.11 (55.34 kg, 170.18 cm) eh3 MDM: 10:29 Patient medically screened. angel 14:21 Differential diagnosis: abnormal EKG, anxiety, Cholelithiasis hiatal hernia, angel pancreatitis, pulmonary embolus, stable angina, unstable angina. HEART Score: History: Slightly Suspicious (0), ECG: Non specific repolarization disturbance / LBTB / PM (1), Age: > 45 and < 65 years (1), Risk Factors: 1 or 2 risk factors (1), [DM] [+ Family HX] Troponin: < or = 1 x Normal Limit (0). The patient was not given aspirin in the Emergency Department. The patient's deep vein thrombosis risk score was calculated as follows: Total Score: 0. This patient was found to be at low risk for a deep vein thrombosis by using the Well's assessment criteria. The patient's pulmonary embolism risk score was calculated as follows: Total Score: 0-2 points. This patient was found to be at low risk for a pulmonary embolism by using the Well's assessment criteria. KEN Risk Score: TOTAL SCORE = 0. Data reviewed: vital signs, nurses notes, lab test result(s), EKG, radiologic studies, CT scan, plain films. Data interpreted: cloth doffer: rate is 77 beats/min, rhythm is regular, Pulse oximetry: on room air is 99 %. Test interpretation: by ED physician or midlevel provider: ECG, plain radiologic studies. Counseling: I had a detailed discussion with the patient and/or guardian regarding: the historical points, exam findings, and any diagnostic results supporting the discharge/admit diagnosis, lab results, radiology results, the need for outpatient follow up, for definitive care, a family practitioner, a manager field services. 01/03 10:31 Order name: Basic Metabolic Panel; Complete Time: 12:01 [facility] 01/03 10:31 Order name: CBC with Diff; Complete Time: 12: [facility] 01/03 10:31 Order name: LFT's; Complete Time: 12:01 [facility] 01/03 10:31 Order name: Magnesium; Complete Time: 12:01 [facility] 01/03 10:31 Order name: NT PRO-BNP; Complete Time: 12:01 [facility] 01/03 10:31 Order name: PT-INR; Complete Time: 12:01 [facility] 01/03 10:31 Order name: Troponin HS; Complete Time: 12:01 [facility] 01/03 10:31 Order name: XRAY Chest (1 view); Complete Time: 14:03 [facility] 01/03 10:31 Order name: Lipase; Complete Time: 12:01 [facility] 01/03 10:31 Order name: CT Chest For PE Angio; Complete Time: 14:03 [facility] 01/03 10:31 Order name: CT Abd/Pelvis - IV Contrast Only; Complete Time: 14:03 [facility] 01/03 10:31 Order name: SARS RAPID; Complete Time: 14:03 [facility] 01/03 12:52 Order name: Urine Dipstick-Ancillary; Complete Time: 14:03 [facility] 01/03 10:31 Order name: EKG; Complete Time: 10:31 [facility] 01/03 10:31 Order name: Cardiac monitoring; Complete Time: 10:33 [facility] 01/03 10:31 Order name: EKG - Nurse/Tech; Complete Time: 10:33 [facility] 01/03 10:31 Order name: IV Saline Lock; Complete Time: 10:45 [facility] 01/03 10:31 Order name: Labs collected and sent; Complete Time: 10:45 [facility] 01/03 10:31 Order name: O2 Per Protocol; Complete Time: 10:33 [facility] 01/03 10:31 Order name: O2 Sat Monitoring; Complete Time: 10:33 [facility] 01/03 10:31 Order name: Urine Dipstick-Ancillary (obtain specimen); Complete Time: 12:58 [facility] EC: Rate is 94 beats/min. QRS [place] is Normal. SC interval is shortened at 104 msec. QRS angel interval is normal. QT interval is normal. No Q waves. T waves are Normal. Clinical impression: NSR w/ Non-specific ST/T Changes and No evidence of ischemia. Interpreted by me. Reviewed by me. Administered Medications: 11:00 Drug: NS 0.9% 1000 ml Route: IV; Rate: 1 bolus; Site: right forearm; 3 12:15 Follow up: IV Status: Completed infusion; IV Intake: 1000ml 3 11:02 Drug: Zofran (Ondansetron) 4 mg Route: IVP; Site: right forearm; eh3 12:09 Follow up: Response: Pain is unchanged, physician notified eh3 11:06 Drug: Dilaudid (HYDROmorphone) 0.5 mg Route: IVP; Site: right forearm; eh3 12:10 Follow up: Response: Pain is unchanged, physician notified eh3 11:10 Drug: Pepcid (famotidine) 20 mg Route: IVP; Site: right antecubital; eh3 12:09 Follow up: Response: No adverse reaction eh3 11:18 Not Given (Allergyy): morphine 4 mg IVP once over 4 mins eh3 12:38 Drug: NS 0.9% 1000 ml Route: IV; Rate: 1 bolus; Site: right forearm; eh3 13:35 Follow up: IV Status: Completed infusion; IV Intake: 1000ml eh3 12:38 Drug: Magnesium Sulfate 2 grams Route: IVPB; Infused Over: 2 hrs; Site: right forearm; eh3 14:38 Follow up: Response: No adverse reaction; IV Status: Completed infusion; IV Intake: [id number] 12:38 Drug: Zofran (Ondansetron) 4 mg Route: IVP; Site: right forearm; eh3 13:35 Follow up: Response: No adverse reaction eh3 14:38 Drug: Zosyn (piperacillin-tazobactam) 3.375 grams Route: IVPB; Infused Over: 60 mins; eh3 Site: right forearm; 15:19 Follow up: Response: No adverse reaction; IV Status: Completed infusion; IV Intake: eh3 100ml 14:55 Drug: Dilaudid (HYDROmorphone) 1 mg Route: IVP; Site: right forearm; eh3 15:20 Follow up: Response: No adverse reaction; Pain is decreased eh3 14:55 Drug: Zofran (Ondansetron) 4 mg Route: IVP; Site: right forearm; eh3 15:20 Follow up: Response: No adverse reaction eh3 Disposition Summary: 01/03/22 14:26 Discharge Ordered Location: Home angel Problem: new angel Symptoms: have improved angel Condition: Stable angel Diagnosis - Epigastric abdominal tenderness angel - Anemia, unspecified angel - Hypomagnesemia angel - Unspecified cirrhosis of liver angel - Other chronic pancreatitis angel - Gastritis, unspecified angel - Other cholelithiasis without obstruction angel Followup: angel - With: Private Physician - When: 2 - 3 days - Reason: Recheck today's complaints, Continuance of care, Re-evaluation by your physician Followup: angel - With: Jazmín Perez MD - When: 2 - 3 days - Reason: Recheck today's complaints, Re-evaluation by your physician Discharge Instructions: - Discharge Summary Sheet angel - Abdominal Pain, Adult angel - Anemia angel - Cirrhosis angel - Hypomagnesemia angel - Cholelithiasis angel - Cholelithiasis, [place] angel - Chronic Pancreatitis angel Forms: - Medication Reconciliation Form angel - Thank You Letter angel - Antibiotic Education angel - Prescription Opioid Use angel Prescriptions: - Protonix 40 mg Oral Tablet - take 1 tablet by ORAL route once daily; 30 tablet; Refills: 0, Product anegl Selection Permitted - dicyclomine 20 mg Oral Tablet - take 1 tablet by ORAL route 4 times per day; 28 tablet; Refills: 0, Product angel Selection Permitted - Zofran 4 mg Oral Tablet - take 1 tablet by ORAL route every 12 hours As needed; 20 tablet; Refills: 0, angel Product Selection Permitted - Augmentin 875-125 mg Oral Tablet - take 1 tablet by ORAL route every 12 hours for 7 days; 14 tablet; Refills: 0, angel Product Selection Permitted Signatures: Dispatcher [employer] Mohan Cantor MD MD cha Hall, Erin, RN RN eh3
[2022-01-03] MEDS ORDERED: HYDROMORPHONE HCL 1 MG/ML INJ ONE (14:59)
[2022-01-03 15:46] VITALS: O2SAT 99
[2022-01-03 15:49] VITALS: BP 112/64
--- NOTE | 2022-01-06 19:22 | EKG ---
Test Date: 2022-01-03 Test Time: 10:27:01 Offal Baler: CAPRICE MEASUREMENT RESULTS: Intervals: Rate: 94 NH: 104 QRSD: 80 QT: 364 QTc: 455 [place]: P: 53 NH: 104 QRS: 73 T: 72 INTERPRETIVE STATEMENTS: Sinus rhythm with short NH Otherwise normal ECG Compared to ECG 12/28/2021 17:39:16 Prolonged QT interval no longer present Electronically Signed On 01-06-22 19:11:29 FEDERAL APPELLATE CLERK by Sanjeev Cummings
== END 2022-01-03 15:22 | disposition home or self-care (01) ==
LOC: ER 10:15
DX: K80.80 Other cholelithiasis without obstruction (principal); D64.9 Anemia, unspecified; E83.42 Hypomagnesemia; R07.89 Other chest pain; K74.60 Unspecified cirrhosis of liver; K29.70 Gastritis, unspecified, without bleeding; K86.1 Other chronic pancreatitis; E11.9 Type 2 diabetes mellitus without complications; Z79.4 Long term (current) use of insulin; F17.210 Nicotine dependence, cigarettes, uncomplicated; Z20.822 Contact with and (suspected) exposure to COVID-19; Z88.5 Allergy status to narcotic agent; Z88.8 Allergy status to other drugs, medicaments and biological substances
CPT/HCPCS: 93005; 85025; 80048; 36415; 83735; 85610; 80076; 81003; 84484; 83690; 83880; 71275; 74177; 71045; 99284; 87811; Q9967; J3475; J1170 ×2; J7030; J2405 ×2

== ENCOUNTER 2022-01-06 08:38 | Emergency (ER) | payer OTHER ==
--- OUTSIDE RECORDS SUMMARY | 2022-01-06 08:44 | XMS REPORT | Continuity of Care Document ---
:1960 Author Organization [facility] t Address [address] [place] [address] [address] [place] [address] Care Team Providers Name Role Phone No, Pcp [facility] Primary Care Physician Unavailable Janina Gabriel Attending Clinician Unavailable MARY ELLEN COTTO Attending Clinician Unavailable COREY FUNEZ Attending Clinician Unavailable Mahesh PETERS, Ann Marie Yanez Attending Clinician [phone] Aman PETERS, Tito Collado Attending Clinician Oscar PETERS, Lazaro Juarez Attending Clinician Bret PETERS, Corey Attending Clinician Nora PETERS, Donald Rodrigez Attending Clinician [phone] Edda PETERS, Luis M Walden Attending Clinician Kirstie Luis Attending Clinician CHRISTINE MENDOZA Attending Clinician Unavailable TITO LOMBARDI Admitting Clinician Unavailable Payers Payer Name Policy Type Policy Number Effective Date Expiration Date uLz [employer] [id number] 2019 INS - MANAGE 00:00:00 HEALTHCARE CHOICE/CHOICE [id number] 2019 PLUS/OPTIONS PPO - 00:00:00 [facility] [id number] 2021 00:00:00 Problems Condition Condition Condition Status Onset Resolution Last Treating Co mments Source Name Details Category Date Date Treatment Clinician Date Pancreatit Pancreatit Disease Active 2021-[address] is, acute is, acute 1-11 Luke s 00:00: Medical 00 Center Alcoholic Alcoholic Disease Active 2019-[address] [facility] [address] hepatitis hepatitis 0-21 Assessmen L ukes [...] morpholog y. Portal Portal Disease Active 2019-[address] [facility] [address] hypertensi hypertensi 0-21 Assessmen [facility] on on 00:00: t & Plan: Medical 00 Formatt[facility] Center g of this note might be different from the original. Alcoholic hepatitis with portal hypertens ion. Need repeat EGD after 1 year. Screening Screening Disease Active 2019-[address] [facility] [address] [facility], 00:[facility]: t & Plan: [...] administr ation of the appropria te vaccines. [id number] H. pylori Problem Active Com mon infection Spirit - [facility] [id number] Gastritis, Problem Active Com mon unspecifie Spirit d, without - [facility] bleeding [facility] [id number] Irritable Problem Active Comm on bowel Spirit syndrome, - [facility] unspecifie [facility] [id number] Chronic Problem Active Common alcoholism Spirit [facility] [id number] Alcoholism Problem Active Co mmon in Spirit remission [facility] Allergies, Adverse Reactions, Alerts Allergy Allergy Status Severity Reaction(s) Onset Inactive Treating Comm ents Source Name Type Date Date Clinician MORPHINE Allergy Active N\\T\\V 2021-[address] 02-28 [facility] 00:00: Medical 00 Center Morphine Propensi Active Nausea And 2021-[address] ty to Vomiting 02-28 [facility] adverse 00:00: Medical reaction 00 Center s No Known DA Active U 2017-02 [facility] Allergie 03-30 Clear s 00:00: Lopez 00 [facility] NO KNOWN Allergy Active [facility] S Family History Family Member Diagnosis Comments Start Date Stop Date Source Natural father Diabetes [facility] Natural father Irritable bowel [facility] Natural father Liver disease [facility] Natural mother Hypertension [facility] Natural mother Irritable bowel [facility] Natural mother Osteoporosis [facility] Social History Social Habit Start Date Stop Date Quantity Comments Source History of Tobacco Current Smoker Co mmon Spirit - Use [facility] History [facility] Alcohol Binge Medical Aurelio ter History [facility] Alcohol Comment Medical C enter Alcohol intake 2022-01-01 2022-01-01 [facility]00 alcohol (finding) Medical Center Exposure to 2021-12-19 2021-12-29 Not sure [facility] SARS-CoV-2 (event) 00:00:00 01:49:00 Medica l Center History [facility] 2021-12-29 2021-12-[address] [facility] Housing Unable to 00:00:00 00:00:00 Medical Center Pay History [facility] 2021-12-29 2021-12-[address] [facility] Housing Places 00:00:00 00:00:00 Medical Ce nter Lived History [facility] 2021-12-29 2021-12-[address] [facility] Housing Homeless 00:00:00 00:00:00 Medical Center Last Year History [facility] 2019-12-09 2019-12-[address] [facility] Alcohol Frequency 00:00:00 00:00:00 Medical Center History SDOH 2019-12-09 2019-12-[address] [facility] Alcohol Std Drinks 00:00:00 00:00:00 Medica l Center Tobacco Comment 2019-12-09 2019-12-09 8-[address] [facility] 00:00:00 00:00:00 PER DAY Medical Center Sex Assigned At [address] [facility] [address] [facility] Elena kes 00:00:00 00:00:00 Medical Center Smoking Status Start Date Stop Date Source Current Smoker 2021-06-12 00:00:00 Common Spiri t - [facility] Medications Ordered Filled Start Stop Current Ordering Indication Dosage Frequency Signature Comments Components Source Medication Medication Date Date Medication? Clinician (SIG) Name Name insulin 2021-[address] syringes, 1-16 [facility] disposable, 00:00: Medica l 1 mL Syrg 00 [place] insulin 2021-[address] [facility] syringes, 1-16 [facility] disposable, 00:00: Medica l 1 mL Syrg 00 [place] esomeprazol 2021-02 Yes 20mg QD Take [address] e (NexIUM) 1-14 by mouth [facility]ukes 20 MG 09:44: daily. Medical capsule 54 [place] dicyclomine 2021-02 Yes 10mg Take [address] (BENTYL) 10 1-14 by mouth 2 Rosa Elena kes MG capsule 09:44: (two) Medica l 54 times Center daily before meals. esomeprazol 2021-02 Yes 20mg QD Take [address] e (NexIUM) 1-14 by mouth [facility]ukes 20 MG 09:44: daily. Medical capsule 54 [place] dicyclomine 2021-02 Yes 10mg Take [address] (BENTYL) 10 1-14 by mouth 2 Rosa Elena kes MG capsule 09:44: (two) Medica l 54 times Center daily before meals. esomeprazol 2021-02 Yes 20mg QD Take [address] e (NexIUM) 1-14 by mouth [facility]ukes 20 MG 09:44: daily. Medical capsule 54 [place] dicyclomine 2021-02 Yes 10mg Take 10 mg [...] kit 00:00: 23:59 . Medical 00 :00 [place] blood-gluco 2021-02- Yes Use as [facility] se meter -13 12-31 instructed Luke s kit 00:00: 23:59 . Medical 00 :00 [place] blood-gluco 2021-02- Yes Use as [facility] se meter 1-13 13 instructed Luke s kit 00:00: 23:59 . Medical 00 :00 Center nystatin 2021-02- Yes [id number] Q.25D Take [address] (MYCOSTATIN 1-13 11-18 (500,000 Connie es ) 100,000 00:00: 23:59 Units Medica l unit/mL 00 :00 total) by Center suspension mouth 4 (four) times daily for 5 days. nystatin 2021-02- Yes [id number] Q.25D Take [address] (MYCOSTATIN 1-13 11-18 (500,000 Connie es ) 100,000 00:00: 23:59 Units Medica l unit/mL 00 :00 total) by Center suspension mouth 4 (four) times daily for 5 days. nystatin 2021-02- No [id number] Q.25D Take [address] (MYCOSTATIN [...] tablet 00:00: DAYS PRN Medi louise 00 [place] predniSONE 2020- Yes TK [address] (DELTASONE) 0-01 QD PRF ABD Rosa Elena kes 20 MG 00:00: PAIN Medical tablet 00 Center traMADoL 2019-02 Yes TK [address] (ULTRAM) 50 0-01 BID FOR 12 Rosa Elena kes mg tablet 00:00: DAYS PRN Medi louise 00 Center predniSONE 2020 Yes TK [address] [facility] (DELTASONE) 0-01 QD PRF ABD Rosa Elena kes 20 MG 00:00: PAIN Medical tablet 00 Center traMADoL 2020- Yes TK [address] (ULTRAM) 50 0-01 BID FOR 12 Rosa Elena kes mg tablet 00:00: DAYS PRN Medi louise 00 Center predniSONE 2020-1 Yes TK [address] (DELTASONE) 0-01 QD PRF ABD Rosa Elena kes 20 MG 00:00: PAIN Medical tablet 00 Center pantoprazol 2020-0 Yes TK 1 T PO [...] 2020-0 2020- No Janina 1 tablet Common 3-18 03-23 [place] [facility] 00:00: 00:00 - [facility] 00 :00 [facility] Omeprazole Omeprazole No QD Omeprazole [...] 170.2 cm WEIGHT 2021-12-29 00:07:00 53.3 kg respiratory rate 2021-06-13 09:00:00 18 /min Comm [facility] blood pressure 2021-06-13 09:00:00 116 mm[Hg] Common [facility] systolic [facility] blood pressure 2021-06-13 09:00:00 58 mm[Hg] [facility] diastolic [facility] height 2021-06-13 09:00:00 66 [in_i] [facility] weight 2021-06-13 09:00:00 119 [lb_av] [facility] temperature 2021-06-13 09:00:00 97.2 [degF] [facility] bmi 2021-06-13 09:00:00 19.21 kg/m2 [facility] oximetry 2021-06-13 09:00:00 100 % [facility] HEIGHT 2019-12-09 13:28:00 170.2 cm WEIGHT 2019-12-09 13:28:00 54.658 kg HEIGHT 2019-12-09 13:28:00 170.2 cm WEIGHT 2019-12-09 13:28:00 54.658 kg Systolic blood 2021-12-31 08:31:00 82 mm[Hg] [facility] Diastolic blood 2021-12-31 08:31:00 51 mm[Hg] [facility] Heart rate 2021-12-31 08:31:00 74 /min [facility] Body temperature 2021-12-31 08:31:00 36.56 Bella [facility] Respiratory rate 2021-12-31 08:31:00 17 /min [facility] Oxygen saturation in 2021-12-31 08:31:00 94 /min [facility] Arterial blood by Medical Ce nter Pulse oximetry Body height 2021-12-29 21:22:00 170 cm [facility] Body weight 2021-12-29 21:22:00 56.9 kg [facility] BMI 2021-12-29 21:22:00 19.69 kg/m2 [facility] Procedures Procedure Date / Time Performing Clinician Source Performed HEMOGLOBIN AND HEMATOCRIT 2021-12-31 10:32:00 Terrence Funez [facility] POCT-GLUCOSE METER 2021-12-31 06:48:00 Corey Funez [facility] COMPREHENSIVE METABOLIC 2021-12-31 03:56:00 John Funez [facility] CBC W/PLT COUNT & AUTO 2021-12-31 03:56:00 Corey Funez [facility] CBC W/PLT COUNT & AUTO 2021-12-31 03:56:00 Corey Funez [facility] POCT-GLUCOSE METER 2021-12-30 23:06:00 Corey Funez [facility] POCT-GLUCOSE METER 2021-12-30 18:41:00 Corey Funez [facility] POCT-GLUCOSE METER 2021-12-30 16:40:00 Corey Funez [facility] POCT-GLUCOSE METER 2021-12-30 11:33:00 Corey Funez [facility] BASIC METABOLIC PANEL 2021-12-30 09:13:00 Tito Lombardi [facility] HEPATIC FUNCTION PANEL 2021-12-30 09:13:00 Tito Lombardi [facility] CBC W/PLT COUNT & AUTO 2021-12-30 09:13:00 Tito Lombardi [facility] MAGNESIUM 2021-12-30 09:13:00 AwaCorey de souza [facility] CBC W/PLT COUNT & AUTO 2021-12-30 09:13:00 Tito Lombardi [facility] POCT-GLUCOSE METER 2021-12-30 07:01:00 Oscar, [facility] POCT-GLUCOSE METER 2021-12-29 23:52:00 Oscar, [facility] REPORT OF PROCEDURE - 2021-12-29 21:12:32 [facility] REPORT OF PROCEDURE - 2021-12-29 20:55:[facility] [place] [facility] 2021-12-29 17:16:00 [facility] TISSUE EXAM 2021-12-29 16:49:00 [facility] ENDOSCOPIC RETROGRADE 2021-12-29 16:00:00 [facility] CHOLANGIOPANCREATOGRAPHY, [facility] WITH SPHINCTEROTOMY ULTRASOUND, ENDOSCOPIC, 2021-12-29 16:00:00 [facility] WITH FINE NEEDLE [facility] Center ASPIRATION ENDOSCOPIC RETROGRADE 2021-12-29 16:00:00 [facility] CH[facility]IOPANCRE[facility]OM[facility] WITH BALLOON SWEEP OF BILE DUCTS PROCEDURE W/ C-ARM 2021-12-29 16:00:00 [facility] POCT-GLUCOSE METER 2021-12-29 11:11:00 Oscar, [facility] SARS-COV2/RT-PCR ([facility] & 2021-12-29 09:58:00 Jacinta Cowart [facility] REF LABS) [facility] KETONE, BLOOD 2021-12-29 08:01:00 Tito Lombardi [facility] BASIC METABOLIC PANEL 2021-12-29 06:58:00 Tito Lombardi [facility] BLOOD GAS, VENOUS 2021-12-29 06:58:00 Tito Lombardi [facility] POCT-GLUCOSE METER 2021-12-29 04:55:00 Ann Marie Aragon [facility] ABORH, MANUAL 2021-12-29 01:31:00 Mary Nobles [facility] BASIC METABOLIC PANEL 2021-12-29 00:54:00 Tito Lombardi [facility] HEPATIC FUNCTION PANEL 2021-12-29 00:54[facility]00 [facility], [facility]EN[facility] 2021-12-29 00:54:00 Tito Lombardi [facility] CBC W/PLT COUNT & AUTO 2021-12-29 00:54:00 Tito Lombardi [facility] PT/APTT 2021-12-29 00:54:00 Aman Tito [facility] KETONE, BLOOD 2021-12-29 00:54:00 [facility] BLOOD [facility]AS, VENOUS 2021-12-29 00:54:00 Tito Lombardi [facility] HEMOGLOBIN A1C 2021-12-29 00:54:00 Tito Lombardi [facility] TYPE AND SCREEN, AUTOMATED 2021-12-29 00:54:00 Tito Lombardi [facility] CBC W/PLT COUNT & AUTO 2021-12-29 00:54:00 Tito Lombardi [facility] POCT-GLUCOSE METER 2021-12-29 00:09:00 [facility] Care Planned Activity Planned Date Details Comments Source Future Scheduled 2021-10-19 IN[facility]ENZA [facility]ACCINE [facility]00 [code = INFLUENZA Medical Ce [...] [facility]ukes Test 00:00:00 2) [code = SHINGLES [facility] Center VACCINES (1 of 2)] Future Scheduled 1997 Lipid panel (procedure) [facility] Test 00:00:00 [code = 99004993] Medical Ce nter Future Scheduled 1997 Lipid panel (procedure) [facility] Test 00:00:00 [code = 15610941] Medical Ce nter Future Scheduled 1997 Lipid panel (procedure) [facility] Test 00:00:00 [code = 80923074] Medical Ce nter Future Scheduled 1997 Lipid panel (procedure) [facility] Test 00:00:00 [code = 11588666] Medical Ce nter Future Scheduled 1981 DTAP/TDAP/TD [...] [facility]ukes Test 00:00:00 [code = CT Colonography [facility] (combo)] Future Scheduled 1960 Screening for malignant [facility] Test 00:00:00 neoplasm of colon Medical Ce nter (procedure) [code = 785256496] Future Scheduled 1962 Screening for malignant [facility] Test 00:00:00 neoplasm of colon Medical Ce nter (procedure) [code = 975710224] Future Scheduled 1962 Screening for malignant [facility] Test 00:00:00 neoplasm of colon Medical Ce nter (procedure) [code = 612984060] Future Scheduled 1962 Screening for malignant [facility] Test 00:00:00 neoplasm of colon Medical Ce nter (procedure) [code = 669659768] Future Scheduled 1960 Sigmoidoscopy [code = [facility] Test 00:00[facility]00 [facility] ([facility] Test 00:00:00 [code = CT Colonography [facility] (combo)] Future Scheduled 1962 Screening for malignant [facility] Test 00:00:00 neoplasm of colon Medical Ce nter (procedure) [code = 317566052] Future Scheduled 1962 Screening for malignant [facility] Test 00:00:00 neoplasm of colon Medical Ce nter (procedure) [code = 313208569] Future Scheduled 1962 Screening for malignant [facility] Test 00:00:00 neoplasm of colon Medical Ce nter (procedure) [code = 928689327] Future Scheduled 1962 Screening for malignant [facility] Test 00:00:00 neoplasm of colon Medical Ce nter (procedure) [code = 263218464] Future Scheduled 1960 Sigmoidoscopy [code = [facility] Test 00:00:00 S[facility]oidoscopy] [facility] ([facility]bo[facility] Test 00:00:00 [code = CT Colonography [facility] (combo)] Future Scheduled 1962 Screening for malignant [facility] Test 00:00:00 neoplasm of colon Medical Ce nter (procedure) [code = 287996163] Future Scheduled 1962 Screening for malignant [facility] Test 00:00:00 neoplasm of colon Medical Ce nter (procedure) [code = 334926769] Future Scheduled 1962 Screening for malignant [facility] Test 00:00:00 neoplasm of colon Medical Ce nter (procedure) [code = 545224428] Future Scheduled 1962 Screening for malignant [facility] Test 00:00:00 neoplasm of colon Medical Ce nter (procedure) [code = 972758756] Future Scheduled 1960 Sigmoidoscopy [code = [facility] Test 00:00:00 Sigmoidoscopy] Medical Cente r Future Scheduled 1962 CT Colonography (combo) [facility] Test 00:00:00 [code = CT Colonography [facility] (combo)] Future Scheduled 1962 Screening for malignant [facility] Test 00:00:00 neoplasm of colon Medical Ce nter (procedure) [code = 923049038] Future Scheduled 1962 Screening for malignant [facility] Test 00:00:00 neoplasm of colon Medical Ce nter (procedure) [code = 450266036] Future Scheduled 1962 Screening for malignant [facility] Test 00:00:00 neoplasm of colon Medical Ce nter (procedure) [code = 245608961] Future Scheduled 1962 Screening for malignant [facility] Test 00:00:00 neoplasm of colon Medical Ce nter (procedure) [code = 116427349] Future Scheduled 1960 Sigmoidoscopy [code = [facility] Test 00:00:00 Sigmoidoscopy] Medical Cente r Encounters Start End Encounter Admission Attending Care Care Encounter Source Date/Time Date/Time Type Type Clinicians Facility Department ID 2021-03-15 Outpatient SHEY Gabriel [facility] [id number] Common 11:51:14 Janina [id number] [facility] 2021-03-15 Outpatient SHEY Gabriel [facility] [id number] Common 11:14:35 Janina [id number] [facility] 2022-01-17 2022-01-17 Outpatient GONSALO COTTOIC [facility] [id number] [facility] 00:00:00 00:00:00 Valorie 2021-12-28 2021-12-31 [facility] [id number] SLE 23:49:00 12:18:00 , COREY 2021-12-28 2021[facility]-31 [facility] [id number] [facility] 23:49:00 12:18:00 Encounter Tito Lombardi, [facility] 2021-12-28 2021-12-31 [facility] [id number] [facility] 23:49:00 12:18:00 Encounter Tito Lombardi, [facility] 2021-12-29 2021-12-29 Anesthesia Donald Melendez [facility] [id number] [facility] 16:10:00 18:17:00 Event Luis M [facility] 2021-12-29 2021-12-29 Anesthesia HerbDonald floyd [facility] [id number] [facility] 16:10:00 18:17:00 Event Luis M [facility] 2021-12-29 2021-12-29 Surgery Toby [facility] [id number] 13:26:00 14:56:00 [facility] 2021-12-29 2021-12-29 Surgery Brianoneil [facility] [id number] 13:26:00 14:56:00 [facility] 2021-12-29 2021-12-29 Travel [facility] [id number] [facility] 00:[facility]:00 00:00:00 [facility] 2021-12-29 2021-12-29 Travel [facility] [id number] [facility] 00:[facility]00 00:00:00 [facility] 2021-06-23 2021-06-23 (TEL) STLC STLC [id number] Co mmon 00:00:00 00:00:00 [facility] 2021-06-13 2021-06-13 OFFICE STLMLC STLC [id number] Co mmon 00:00:00 00:00:00 VISIT [facility] LEVEL 4 [facility] 2021-06-13 2021-06-13 (TEL) STLMLC STLMLC [id number] Co mmon 00:00:00 00:00:00 [facility] 2020-03-16 2020-03-16 Outpatient JUANITA GALLEGOS SLE [id number] SLE 00:00:00 00:00:00 PRASUN 2019-12-18 2019-12-18 Outpatient STLMLC STLMLC [id number] Common 00:00:00 00:00:00 [facility] 2019-12-09 2019-12-09 Outpatient JUANITA GALLEGOS SLEH [id number] [facility]H 00:00:00 00:00:00 PRASUN 2019-11-24 2019-11-24 Outpatient STLMLC STLMLC [id number] Common 00:00:00 00:00:00 [facility] 2019-11-19 2019-11-19 Outpatient STLMLC STLMLC [id number] Common 00:00:00 00:00:00 [facility] 2019-05-06 2019-05-06 Out[facility] [id number] Common 15:20:00 15:20:[address] [facility] [address] [facility] 2018-08-19 2018-08-19 Out[facility] [id number] Common 09:15:00 09:15:00 [facility] [address] [facility] 2018-02-20 2018-02-20 [facility] [id number] Common 08:30:00 08:30:00 [facility] [address] [facility] 2017-09-12 2017-09-12 Out[facility] [id number] Common 08:45:00 08:45:00 [address] [facility] [address] [facility] 2017-08-23 2017-08-23 Out[facility] [id number] Common 08:15:00 08:15:[address] [facility] 2017-08-22 2017-08-22 Out[facility] [id number] Common 15:15:00 15:15:[address] [facility] [address] [facility] Results Test Description Test Time Test Comments Results Result Comments Source Tissue Exam 2022-01-02 10:24:23 Test Item Value Reference Range Interpretation Comme nts Case Report (test code = 104) Surgical Pathology Report Case: [id number] Authorizing Provider: Kirstie Luis Collected: 12/29/2021 04:49 PM Ordering Location: [address] Received: 01/01/2022 08:03 AM Cardiovascular Pathologist: Gaby Nation MD Specimen: Pancreas, unicate process mass bx by FNB DIAGNOSIS (test code = 3220) [id number]dCxBrJvPcEqBi pcd [file] hcn19 COMMENT (test code = 3359) a6zgdSKkTIVocDA7EgJhDBMuw5enz9JbnIYiwNDw X VwejCOkvbGhhe89sSB5kN34XT6uZCOfSwB5OHRnkb I4Gky9BEWbIQYukQNyD860v1bcs9uiioFysRZ5iDb iPFHjakgpPlH8UZwaRDVppfscFTp3VTzgRPWlpVA2 JLEtqWIcE8XhHCVxRK1aabv2XAM2MXcfEUFqBiA1F NTeaGYgSUIvtQqxBFxzl883PNK0QvCpSERnoaGifP afxN0tGfWdHFGHjBJvThmmtCP1ET5rkZHym8ZfQtC bxeLlhcHfHV47WTIygfTzm2PmhSliNUkdz2kqip5g gXcwZNISwUaetMJsbSAnu5IgEMmpzAcdprTiaxSlX GMbmK3oxuPsUQ5odIQhyN== CPT Code(s) (test code = 9716) j9aaiKHzQRXrxQG2ArHpQMYww3hnq4YxjCDu cGFyX BksoSWzxkAzps14bXX6qT81YR4lZWGbXxQ4QHPxra E1Obk3EYBsHJXnjZBkI530t7kfg2anxnVzwLR6fSc fDTVrpxleGoO0XMpgCFJdfjdsRSz3QUrtPWKvsCO2 NBLjfKRxX4PgEXEgKL4bhsf8VRX5LLyvKZPfJnO9X PTjwYZqMTAyfYrfFFfqs854PTQ7NiJmMTDjziIatR bgdJ2mXhTsLCS2VCPbB4wcSBJ6 CLINICAL HISTORY (test code = 6779) h7urcEObIFPaeAE5AtNfYOXvk4zjy7R sdHBncGFyX TjraXIvtmDfpd48nNN6mW09GR1iZUZdBaF3QSCdpb W8Rtv0MPRhFNSnjQZhT096b4gci0tpgzKriTX5vPn hHNTuqrhvMiU1VQvkFDNhbfmgRGb9VSjxQLXoqXP6 UJAxqYBkG5SgKLIwMQ4aivd6AJJ8CCaySXSmAmA5X KQdsXDeKKXkrAgtEQswm924ZUB7WcHaOXSbhbUixM srsP2bEgBwEXDFoE7uRELcH0nhgLn6vIhie0maNCR 3nxAephL8AYItzt1nWUIwPT5gd2HjkGRejL== GROSS DESCRIPTION (test code = i7tzhUDgYOQwcHCAAVGuB0czjaKtCQDknIJf [facility] [id number]) [file] zYGL6HI4idD0BdO== SPECIAL STUDIES (test code = 3376) f6oatNTeOKGxl4hoQFKksKNvWpLkUwZo ZnRuYmpcd [file] 8MbnD9kGyexiYQleeblNGluciGiYQmkrbqhVVFeFX qmA1poZnHcWOPzxJqkTJaqz3IxFDAuODJtOoftrtT vBIz2xhWiTOEjdbeiDQAtdDwdyD3fNeMmYpLyPjue EE2gMWRzG9aufTFlUYRlWKPkV7izYuShqE8nzIhiR JthFtNiIpMgSwZIs480wo1zIAQmzYYljdSZtUCwdN 6rEEvhUAsyACsruNPbRRdrh2daTJErq8c0cMWmCAX tnqLdb2awCGbjvtXuKVOifBYvzQGxPVUxp62vBOzo iUdkmKeoLPRmm2WiuBzre2NcDaIhCMshi4VzA98de ERowUIvaAveIPGobgQuXHOal21ql6oiQQGpBqL4uG YwzUW9hPQhuBHea6TzhFquSRVoo3pbEHOalk2pcqj gaHWdm2NwgL4eeookFUiqsOXxrqNjUSXud5r9mEOf JMXdDKWyFVgrzFz1KVYvq222dn4pthK6cOJoAPN3J WlsYWJsZSBhcmUgZXZhbHVhdGVkXHBsYWluXGYxXG ZzMjJcbGFuZzEwMzNcaGljaFxmMVxkYmNoXGYxXGx kR0iuHmXmT6QwJHPhNmZcgVXhK1ygrCZwCQMdRNjc XGYxXGZzMjJcbGFuZzEwMzNcaGljaFxmMVxkYmNoX BPsBYkkK0ubVhObN6GuHSIbYdEzTAputKFjeshrAW vlmfFrSPzgutrfYGIyLKckP7tqCmLjCTYxmQgaUCy fl3CwZWLlNEJbRlglvrAaWHy6ncAaYSVjdamvqCRo jcpsRWhtdeKnTOgkscknOXIbUPqhU5jtOpKbGMKpt SadILlkh1HfMBMcMUDhAvjgyeEoXVryxSWuy5juq8 QmL5ftoOxreFM7VFWbN0eosLMynOT6LTX8rG1wKIr zraBcWHKgv6OoUZOqBBFpVsK3rT4pUDT2YyNBvXzn XHBsYWluXGYxXGZzMjJcbGFuZzEwMzNcaGljaFxmM RecXaChGQSxTSbxL5ntBfAmQ2McKZSqUnBurNakWZ frLFx0MicjmSZhaxfiUHneviZbCCwsgnkeTTPoUXu aF7kbApQlTTHxzHiiSAiza8TuCFZmHXYbYlzlfkHb IRYwSJNszQYjsUWVQM55DXXpZFWweBkhtD8ckLHAH GGiwpA3m9Z2DLpeVINrMTe4JLukusKkJLCcgN3jEG EcKC8dKSh4wbYhEDHcy1ReWY6eJPOdqWYzCCB7DVJ fs2YjO4Oaf5IzSLYvMWQctf0zpyIdPmVEhCWvWYVx xk95YGClVI1wQ0dbEYGmOIUqqnPdhJNke2FlILRjd AI8dQUjWJ2ADoBCk67pRSRgPAMWirPgDKSeiAdmiT J2ynS3hV1oVqBUrCDsUiQEROtpfyZoMYXlnq4iibL oOOHoWKRdd3DxmOBhkBBddkIzA0Fil2RpPZIvqi95 XOvhoBCgug01JN0zJ5Sfk8OefN9sXWupRFLoa7Czs KPuxSKqARTpp0SnO4tdsgvfZMpumXMvbL7pZTRqTL v4XNOzk6GaLPJvv4ZbCbYipcPqAHSbKDMuFNTptJ6 3RXM8bWqyqPvilvXwFU3ePQItxuYbDZKzKWVqfU5r RDjfeaSzEBKuclO1k6S0CExrSARxfzJfBzpiUOC1f jZyftI3dIDnJ1gsciovKGktXQHay2LdxV8zzQSTzW Yhw9NcyIZfuKUAyTQqGU1csdAiMU3cGUB1IXpuPDD IGRKlQPvhVOFjYVJ7BRalDnluXPS8vlFxLQGek4Ow NLskL8qwU71htJqhdWf5pZDckVwwxUWrhTDxQTCur fZ7a8Y6OSQue5OvhpvwSPIoODsmLXVsDEEzYlAdpZ FzFgZxVqIdvZzsqCmmUboaYmPqPSWkXNttD6ttMgK bHuCrIdarJZS7aB== [facility] [id number] 10:24:23 Test Item Value Reference Range Interpretation Comments Case Report (test Surgical Pathology code = 104) Report Case: [id number] Authorizing Provider: Kirstie Luis Collected: 12/29/2021 04:49 PM Ordering Location: [address] Received: 01/01/2022 08:03 AM Cardiovascular Pathologist: Gaby Nation MD Specimen: Pancreas, unicate process mass bx by FNB DIAGNOSIS (test code c6lprWTuJWRyg9oqVRJugFLf = 3220) ZzEwMzNcZnRuYmpcdWMxIHtc cnRmMVxlcGljOTYwMlxhbnNp LEYbiOYmU7FepyivDLquUO1n GX5fyLoesWSgwPWoSKPsGeBg e9njl026sAUej9fqANLZoird zZy6qCudK20ee3F1XzlzX29v zOCuYNK9GTThCRTatZFrBWJt LIV3MWAdqPLlV1wkITYdRI4g bhfoEPbsDIebMLKrzRR8DNVg lCKmF5JsJKXeFYwhLIKlszk0 VqOgMd2vmRNavCypFNqzZDLt LKSnPMysKQNbLoIxGQIFJ3YI QVMsIEZJTkUtTkVFRExFIEJJ E9UBVTmzxEfrPLdcvJ0wGD3Z iaXprDAppGOai4UaCqcjsa54 wpT6nAZjpCHoBB0bMSCqrjku vkOvAZ2joeGsoUskNLRdjvSi W6h0vECggAolRDUcZy2tYTBx LJPyJ9Bun7NmvQJfoQkiJJ0u xBSebuMmOA6ppCAhFBGsdz36 QBR2EsEyj2F7TBZ3USNlBAZy v7oaTOUalFEaXlNjGgFjDxKj RoqynXOeSMDiGgEmt3aux383 hHJzs9hvUXQbBlC5jXFaKXIr pGJbZ495TNNdDOmej5spy7Ze VKAykEGfw1L1CZYXomtgzHr8 nZsgS63pn2F8MjhxA8ycTPMb QUQhC5QkYO2pVTHyRhb6CXI3 TXN2DZIpKHFgH2LoHA5yWNKi oTLrFYv3d9xjmMtmMKGfJSA4 s7ltRTpxxpThMK9rug2ztSh1 e5dzulSdSBFeSSQycKYMPWFx A7OtaKqtOz4hgXv9oGkbRjah YUP3Zxo0CT6qre49sga7pJko CHDgwvryScP2VZhjKUXbotuo DKw0GTxxZNPkmIB2QDEihXRu K7LiKVVbUL2ljip1WOR7IRjd AHZoVgM8PQDegYYsILVetDqs XNuyf993OGD4LtViUW8yD0Il y7Y6iX0huUXyWHExzFTcXiMe MZIqdz5byLPvSTdbv2OkTCW9 rrO0jTZydMPlCKBqUwM1JHuq VZ1xci91RZDsGKH8eo9vfGSa xFtpzhMysEXeGGrwA7MgQUKz k578TKPgR0EhTHYfk6B1wkBw WkShIPCntMD4hqI0TUBwDS0d jypcj4ibKIlxXTusSYFqdlS0 yrZ0MVRttUJcR3IylY2oGHWe KM5zliqtc8ljGLL4UElhCDPb HFW8TdMwSSGkc8Ycqfl0HcEh u8DtfZPoARcoP26iq800SQYt mtVsN9xbhXRtckqypVEddape YTwbrjI9FJQpECamvjwgQHSu GWamJ0itDiHeADCbaCihDEuw r1QvOGHyJZLwKxAdmGDjTYPn Hxn4ESSlwIRoWHJaSnFyA3mq oyklCsOBLZPnc6jpN9cdkJFM aQJsB8MwJLjlbbGhVXavFEoo UfRdSCi1QI54TrUyELVxxo92 COMMENT (test code = w9lanULxPCMxmWN5PtLeIIQs 3359) c9lde3CrpGHdjFBrKHcdgISv zySiby21vAR8yH57NX3dDGRx CgV2QPQamoL5Kka9AHJlEMUb oECfQ826e9pim4hoovUziPF3 zOvxMOEgliczPoA1HDzzQOJw vefxUYr7SKdnYUNyxPO8ERHd vQBtX6CkGSJwUS4jkry4LOV0 SVubRRIfVzC4JNQwmUFtMGQn gBdxFLsiq401CGX3LdDbWZOs vlNuzMzroK2hQrNpINVFmUJj JzckoRK7WM8wxVUue6MiViCh yiJvajXqRN76DQKtoyCew8Ts gXnwHUzvd1fjko1cnDbhEUZY dFztfVCvpUNpd6QtZDhkgYcf rvRakqIqQQCpfB8zqoLnGW8l cGFyfQ== CPT Code(s) (test j9dbwRRgOYZflKY2CeXyZOUl code = 7930) l3cbp9DeuCJntAQpGAtgmGSo muPsxw01mZK4sZ87ZZ3wICAo XdK7BXWebiP1Qse9FHXhIVNd dKTmK180y1gua1usxuGtrRT4 jKrvZCSnjjxsIqY9DLxpIGNg rktqTQj1GJtqMGRkwMS6OBQh kVRyV1LlRFVjLQ1hivv8VRJ2 HDxfOMCkKyD6OVFlcMMwBWLb jMobEUddf377GRS7UwWwLXXt dpGlpHuedE6pTaPhIJO5FJMr H2dwVUQ6 CLINICAL HISTORY h5uezFRwLOJjcHW1AfSnJOOx (test code = 3376) i6mei1JueDDfmIUtMUwemVLc ekUibm10mDQ5xR10IN2pONMm HtA2HVGtdoC5Abq1RUWmBZOb jHPnS296x9wus3svjyRxyHG3 vDpvVSTzhnooMlU6BDglBPKr jleyZGf5JHtdKFUrlLK4AUGk cHNdW7DgEPAtEV9wuke9BDH5 HZhiVUFtHzY4OZHtgNNnRMIw tPeoFTtpe014GTV9RmItNVUi svLurWvmwX5aLxCnIVYXzD1p HVVnV1hepBj3fImxr9uoMFE1 cuQfjoZ8QXDred3pUIHmQK0m v5ZpvOPyfZ== GROSS DESCRIPTION i8aczSXoEEAzyXDSQIAaL3yn (test code = tlPqSRXshOXmI7EnxpxtMDyd 3417079594) AW1jUT5abUbxzSTnuRBoFI8D XGRlZmYxXHBhcGVydzEyMjQw OTZioLNixEN5GTZjER9rejyw GOdnDQdaDXEhgcO1MJDwtJMn B6IiOXHwTB0icbrjNLO3DNyf pE8wmxLROlhuZc4voIHvbCtn ZjFcZmNoYXJzZXQwXGZuaWwg SCYoYJy0fB8JZzwuR39hw0L0 Ubs1OOWxPGXcB9FiKC4fCKBs lQXlQ14PQtykYXR2BRTKPzme XXLwEE0Ee1acYLOkfGRuRKZ7 BAaqlGSfBUIyFPUhMIj6GXXy SOnjuKBfZT5uvKojSsuwtBvb l2IsbTHpQQmqYKUlRDPcEVht DNGqRY7BMlUyIXD5IAQ8DCKk HLu4FXe9KH1XGlJoUXQrQEp1 FnFoPKSgQQo0LBdhIF6PRXPx SoPzHmzeZlN6IXAtWZWsJFPb MiBcXGYgQXJpYWwgXFxmbCBc DN4qlWzycBTggzOJMlNOBG4u stNtbg6onQWtUH2EEVPoqZPF ZGV3PB2cKMRQPaapmCEfYYPf gPhlFRyomN3pBM4UTZr1hjOk FRRqACrbnaZlUZGgP6HvfrKi BAdfHSTled2vcFbmKUqpBwQj LIWwh2b6qTY7nHProHI1jBOq rRndArPkGK2rkAYcDN0dAMxe VFuzvpYgo2ClTE30nORxdaVz fmSaHOS4CdQcBHnaKCWzXJ0z cmVhcyIgaXMgYSAxLjUgeCAx AmRerUQaAzLcE94iFEgltbMt TTNrQB0pTE64bJHwcWjlEDic TQphw05arQF0vVNjeQFiO40o CPOoOIXrvCpcPFD3oANhGVAe v15eUCI6Ia9zaEDpREQhkmE1 i1UuPMujVLXkSNOaUaLwtNPk DE3IRZGanvEOSbItNBivPOCn Q9ExzW3xFF3DVlfrDQNlTKQM C0BmJ85YPyomdUTaytbdoYix IbTalYHcOrYwtQtqkN83TJOu oJTiWOM1RT8tHHKyehxtDBJh QNQwJVS4PNbyeI62wBUtESCk RYTxtOByrH6OLQVcMHS5HGjm eO57oHWyQR7VJFDdDEI5JYBo pNXkOOL1LN8kpV2RyB== SPECIAL STUDIES (test f6wxeTCuHFLfc1pzGOHcdBPj code = 3376) ZzEwMzNcZnRuYmpcdWMxIHtc rwJuARaxk6DiO2QmKvNvMKkm bnNpXGRlZmxhbmcxMDMzXGZ0 lfVmIUUlMLlpJFKhIYwqQt1n qVRpjQtpNaGxTEEie6pphvQK xezkkNq0e9hqYZNnYtH0uTNz LYdwO9yfmjPlmGIpH9HtoALg fNj7z7cyIgEzDsT7qEKfKOgf E7ktvqJeoNQuOPViVIj8pE64 BRYrcZ9edNFlMQpwrxSvKvB8 ELhyACZiXgA3KBYqwGOmLXKt Z0wrTSXzCJuqITWcHAkczLQn CVC2bPkiu4M4jMQybCXdqJuw MrWlUzNkRdTIm4ZcRNc1yCzg E9PcTRWrTnR9vECkIAJvARqa IOElJRVvwkO5sThflzXgh53v eHQyXGYwXGZzMjBcbGkwXHJp ZFIAf8UozRqdDYY4oRa1lTdz VukiCUQ4Wkw9MS9eml86mro2 pIxqXUAowhvhPdB4XPilRFKt kergYAj0MTgbJBJusBR3DGXn fDOyI5ZjKZUwUA8gaqj1HZJ2 QMlsDEClFtP3LWGpbRCfNCIi pBhqKBljz096DGH3GtCcAX6f E9Irj4T9wY6wzLRuZXFzfLQz YtLzWDQhgq9lzBFgRFnco3Sv GLA0tlR3gJBopDAsMRYrFL53 Qasrj6UhYwzmz6HfS89ewDG2 CEfns2njSN4bMtQ0awIzAKen p2qtfT7bKvL0DOhvKP1zTH1i AUQbrB1vzvowYFMzZsAcnsot GFLxmOabbkGbMi6tuDcyUMZ0 AIjyL4uqpO5qWgA8GEmkT3on tJ5bOZy8QPvgiBI5QKJjwE2u VR7fcpxel0qpXGnpNCkrMJTv yaU5bkO3TNYxyZEiO0LkjQ0f BGIaNS7qmumbh2mnCGP5EQbs QYZqXJD2KuFxSOReq9Tmcvg9 GvOda9EsiCQpSFpaO44bu841 JIWvakSnK2obzCBujeyqcGKe gmnnNEblchT4KAKbNAOrXGhw XGYxXGZzMjJcbGFuZzEwMzNc aGljaFxmMVxkYmNoXGYxXGxv Y3zsQbHpT6RuSHPuDnBdHDqa CAihiPHlkEIjvZZ1vL2hIC3v WHPmlUFsU3SfVQInhmIimDRx PUR5gTBgvIUeHM2zVQmocUEy m8oks4QmM8xttYkvaVI4SZ7w GUHsOHAsHBsxx4CduN9aOmmm bGFpblxmMVxmczIyXGxhbmcx JHEkKElpK0zcCgVkOVFlfYqn YAjdr2YoJOOsHSLzXjsgwuBt WFz8aoZqIRRoisfkAYVqhCkd pA2nUfIlZsOkDiciRU8wVRPy K0fnaKKsNIRoCZXbH2ofHiCl iP0poVgrFFiaDcFkSxEyRmAU d948ym6cIDCklRBndjLIyJSn zS4bKApqLAkuCIdbzDYeMEbx x0eoSYGdy1t0wAOxSQCqyqNm g2ttOGtwspSeLBBodEAjeAPq NOOzi41tHQlboEfslYvzCOGw v0DfpHvvw2MbWzSkUVyjo1Ko Q83rtHOccIWrhXeyTHLvmbUg CGThw79sr4tqGNOqYnE8xOBn eJY6jAXdlQBlp8NraTgoFDWm b8icLFMfww2ufadshCUru6Wg rM1jsvtsKYjkmLOhncJvGZNi b4z6qAYoRJYgGTAaSFjbsXb7 ZPHmf853ds1yeoY4mUZjUVT0 YWlsYWJsZSBhcmUgZXZhbHVh dGVkXHBsYWluXGYxXGZzMjJc bGFuZzEwMzNcaGljaFxmMVxk CvAbAHSeUUyyX6wdEgIkH0Qy QJEdAmPvmJLrN8drdRRiFSIl YWluXGYxXGZzMjJcbGFuZzEw MzNcaGljaFxmMVxkYmNoXGYx VIxqA9foFkSvP0KuZBFtZfEe IFxwbGFpblxmMVxmczIyXGxh gsxeJGEhFUkvQ4xkLpLuDSSi rKfqLHtfi5HiJLTdTWYeAfgr rpKjJAp8scYiZWSbpyxvuXZy blxmMVxmczIyXGxhbmcxMDMz HIntK0khOxVfKRHlxKdqSLlg m8OvGFKgIHBbUdanniNhVXdp mHJra1zdc1UnO1eozZvfhYH3 BOAqG3pwvFGknWV1FDO1sO0x JRgadrXwRHRzo8VsHXZxPXSk IfH8zO3gXLA3WlGZgFxkPRLw YWluXGYxXGZzMjJcbGFuZzEw MzNcaGljaFxmMVxkYmNoXGYx NXegF5isDsIuQ4XqSCBzAaSi cPefKTtiJEn8DkoixCWuivbw MVxmczIyXGxhbmcxMDMzXGhp Q0nxAnFhNRDviUfcZJlmo9Hg XGYxXGNmMlxmczIyIHMgTWVk uNGajFUSOD39XNUwSLNzyYwg fH3fzLVMBHWdssK8p7L2CXvt CFLxDAi2HPgyxjReLPOxpJ6v WJDrQF2bFKa2kgVbMBVhd2Jn IM7xCTNqeCOtFPL5CQDir3Oj S5Igg6DrSTYjKVMkmh3njdKx FuGGeONdMEMgab97CUXaSK6q Y1egCXTbPCLwrtKyxSRmm3Ut ATEseDW3lOUuJZ2PZmVZz38e IGFuZCBEcnVnIEFkbWluaXN0 nxV4eW3oZjAOjXKjAzGXFPhm upUcXCEvum9kpjIsTMHqOXNh c2OxzLMrvYSracLcY7Ixf2Vq QXMrlz65RAetnUZpeh23HX7d G4Nzc9IntK3zHXclYEWuy3Qe gVIquHWaLPKox4IeN7jvgczl ZIsvyDFahR4nXOCtNIq0CVHg h7LrGXMyv6YkQpRphsEkYDVk IPDoWXLihG54MKC1rUzgqIgm cyLdYR8pFFPiohXwFDDjMEXx zB0yFOkajcZiCWTbgvT2q7H6 FRygLBSzjoAnYndlLUB7fjLx xrR6fGTkZ0tqiwjiOLfiPQFe o3ByjM3xjBRNdIUnz8CslHQq xNGZnOKgVQ8keaRtQI4jCCR0 ODggKENMSUEtODgpIGFzIHF1 NJnlCzqqKMC2elIcLECvh1Av MYhwF9vqE38urHdaeXs5eLDw pSeylEOjfOPbYOEkvmC1h7T3 DOXds3FkxjedFPRoBQnoOPQa XGZzMjJcbGFuZzEwMzNcaGlj hFxrQmveZdTaZGRzJCpeP8rs IyOvAlMvBoyeZFM1rX== [facility] [id number] 10:24:23 Test Item Value Reference Range Interpretation Comments Case Report (test Surgical Pathology code = 104) Report Case: [id number] Authorizing Provider: Kirstie Luis Collected: 12/29/2021 04:49 PM Ordering Location: [address] Received: 01/01/2022 08:03 AM Cardiovascular Pathologist: Gaby Nation MD Specimen: Pancreas, unicate process mass bx by FNB DIAGNOSIS (test code y6nejBMxICPbm5nvFNGuwIXr = 3220) ZzEwMzNcZnRuYmpcdWMxIHtc cnRmMVxlcGljOTYwMlxhbnNp FZGtnKHxY4NczhhcQPflHD5o IO5meZbqfQRryRLzRGCtLtKd v8adh479sVUiy6xtYHVMeywn tFy8sHrrM10av7J7KnspQ94u xRNtSDG5OLBlZHMlaGHzSPKt JKX5XSYjrABhS9lmGUBnFX0o gcxeJLymYOsaNPAaxXU5TMNf tORbA9SjTMGgVQilOYKayif1 HbMyJm2uxANepSruEVaiXJTm ICMeAAooDKHqBvBsUSACO1CW QVMsIEZJTkUtTkVFRExFIEJJ R8LLYScpoSzzUDgttG8nLG2R vuDvpCCkgWAge1IoRnkbet45 imX3gTKomRDiSP5yUKRfoqjb dfItDA2biaUgiHgeNQCgviGo E8j5yUXwtZkeCUAwXc1oWVZm NLCcH0Ndn9MziNYxsYsqAB4o gBUxxuZjDT1cyZJwBIHdbw04 FIP0LyAso6H6CYT2PXSyOBRr e8djNETbqHKsUuPcHrZwScSr LwgolBHeBAKrGvGdy7agv765 uTTqh6awVGWaXmR3pLWlFFIe jNPcO875UTXrJVrew5aba7Qk IJOseBRtk1E3YSVVmymctSh9 vNcsL93sr6W6KctyR4enNMVh BMCcJ0TiND5lZAAhSzn9RZL0 HMT6BGLgYKCqB6BrOY9tQSIp pYBgKIl7o0ansEvgMLIeMHF9 m5jrRPqmhyQcGN4sxq7ltKl7 o4lkivSnPHQtNHWbiSTCLULq U4OumFgpNg3zgKp2vQwqXbqq PCV6Okw9CL3ugi30sxv6hEss UFRwejbjZeE4DSznUYMwusur ODm7KZbaSPJsiXH0UMFxcWYx Z7ScIJTdWB9bonb8THF7WQtd VNGjSpP9YZNhfLZkAWNrcRmb UDbip611HGO9IfLzPF9gX0Xr v1X5mX6sgEMxXGYexCYfQyLv JBLpkf7mjBLjRJltc3IbQDI1 saG3fXWcbPXnMUTuPjT6OPmv AC2qsc40EIFwBVJ4vs2bgTYt tBndpyFqtCQtJCnuI8FeIYIk q028UUEcH9FlOTObv9X0xfFb CmHdZRSerDD2xdD7TMKtZS1u bodbq1fdXJabMNqpKLEcepU8 ywU4PKPjlWYvW2ZdbA6yXVDb CJ0qdwabr3giSZH2ZElpBHXl EMN2ZbYyYJHvx2Aidns2QyGv z4WkdBGzUZjxJ02il867AZUm qqNjC4fwlDQrvjcqrHGtpgug EEnqrcB9XZKkNHbobaltVHIs AClhZ7mkJiOrMMEmyJgfGRtn k1TjJKPhZUBuZbOteGXoCCVf Gkd9XJPszWOeWTJjApKbP2hl jrkbNbXLSPGpn7bpJ7kgcRBF wQArK9NwOPjogkQyTBmyYQbc MoYeBDt2CM65CuYiQUQtdq90 COMMENT (test code = t9agnUAhVJYxtSI4StYuCAYt 3359) u1ypl7EprMRrwVCfJIejiZMg vgRokr26xUW6tN35MA5yTNEk RrR1HYJeauF0Ile2FOLeMZMu vYJjJ446q0hnz6vhkuQzbZQ5 rLhcANGkpryiAcT6HWhxGMAm ieqzLYw5HGbcNEPpqKL0XQXk gGLrL3XnFLVqIV0eyyc4HPT5 FWbpVGYgDdD6XUYteNPyOTNd mFazCDrdl617RTN8JmXkTXJd qgDygFdtlW6zXhGhWPOYwWHh VfwyaXE4KY5hzTTup2GaEvPm byFttwHqEA31QWFxsmWth3Zr qJihRHruh3lqgu7tcHhmRAIE vDhkmFBlvMLzi9RyGKvpiIbo slOptcAdYIJgcJ3fmxGyWK9q cGFyfQ== CPT Code(s) (test y1jhiXYjSVLafTR7WdKgGOWt code = 3357) r0hhj9YssZUjeHVlWOyuiHAn rhGijb55uWX0mE80GG4mPCYm DbK4ZXEopnE2Ooi3PCMkYPVv nSHlF900i2pws0eaozUeqUV3 fUdaHRSidbqpHyF3CPoaYDIl quveQTv8LJixHYHleEE7ZSEc dHMlZ2XjJBMbCN6xdls8AHZ8 NJucJBQnYpZ5PGCleAMkJBRu uGfiJRckg794QGS2QtYeMPUn vsBzcPzzmC4iSzCnLZN3ORZt X4poOLO8 CLINICAL HISTORY f7oaqQHzQNShjQD7OqNdUGEc (test code = 3096) b4kft8UkoPPwjVAeCDtjdJKa zvErhe71kWI6xE30UD7dYMYs LoB7JSHvqiD5Vno3FSCiDRUu vEZnI565b1dwa2cltwAyjUM3 gBjeWFItqqdeTwZ3LOdsFTRm yrbqDGz1GNyqXULryVA3PBNy mZDnB7InLIHyMJ6nziw4FPY1 MMcfIZDeGeH8CDAmmSArVANm uIdeFUmoi765BJW3ExGtIQPm fnLcrYjgqG4nYpHaETJThJ1r GRNxW7oweSz8lLwwb4saWTL9 bhTscsG7KYWlfd4fHSMgVG8n x3AecNCxgJ== GROSS DESCRIPTION j7pkgSExHRWotWCBNDLcH7dv (test code = ohYgQGSfdLLbI5FfkajlZBku [id number]) QJ0yZX7beVyexJJjtWIsNQ7T XGRlZmYxXHBhcGVydzEyMjQw JGDjfGProAW6XIIsWP3srlgo CTjaMTbbZAFzfnR8CHRyiYCa J8CgVJUzYH1nctcvNPQ6KXnx uE8wqjMENckvHx4gtHEpxIxi ZjFcZmNoYXJzZXQwXGZuaWwg IFSsGUk5lI1URvjeD02pf1A9 Oay0YELtYFEdW0ZuYK7yUJNh rBFjU21GNpxbYZN7MNELRmyz RAItWG7Cb6gtBXGadTAeXQU4 JJitiTAaZWVwHTTpGPe9JNEp JIzjtFGfCK7wjErdWzjbaPnh r0NngUIvGCbuFWRxPCSyDGhr EYWuOO6KVyHxPDF8RZA2TBEa JRy5AGh2GA8VDyScWMFnPVn1 IiIuPGTvLUv2XVuePT6OFJDh EgVoKynnLfQ6JNMxSUGvOUWl MiBcXGYgQXJpYWwgXFxmbCBc WH5huXwfsQXkanAWStZVRL5x fkAyax0ieFFwSZ3EMWMkkRDP FXN5NT6lXNLTLnuytQFjFRAv tNofOBtugE4lZH4JGHc3bwKn YPMwQDadyxKsFYGwB6LybyEl UKwrWTIang0gyQuwOZmhGyGa TBBwv5a6vBN3fMOmhHX8kBJe oCdoUsIkEF0fxKEcJG9gDQkz KKmnnqCmo5AxZT82qBAhxvPx ynRwHPC2JeCmEWjcHTOeNR0d cmVhcyIgaXMgYSAxLjUgeCAx JgFvmDTdZzQmP89lVTlecvEp KOUaGI4xWU29aNCbsMsmTEua MQgqc50rbWH7qWZudZOkH30e BIDgCHUafTprHLH6fXXnKOKt l51aBWD3Wc3smGIrDCGfsrX6 c8ObIWdsHQDmXQYpXnZyyGGw IL6FLAQnvlRZHcUaDTcrKEKi H8VnbC5jAT4LHlabLXNaRKEF M7IiS70JVibalMCufvthaGfo NqVnlQWhAhGqvOtpcV12AYNr oFJqTGW6YS1nXYWuafygFPCi AQRrVQA9QGdqrU01lYFwQXWe MEYeyXNyhB5UUQHaLPX5NLas zO80iZHuJI9MYXHmWYK1RREb bGJcQZV2AF7ptZ3LvR== SPECIAL STUDIES (test a9bryZUwMWTwa5dkHCPhoPJi code = 3376) ZzEwMzNcZnRuYmpcdWMxIHtc tfKpRUaxl7FiL1VaUeSrDPhd bnNpXGRlZmxhbmcxMDMzXGZ0 tzDtSPJzBOsoTHKhPAqrHq5o kFThaJedYmXrMJRri6ruoxBR cvlptNa7j5foLCSbIxK4nRWt NBlzW1jcztVnkZWwM9TvyLZb lCu3x5sxEpJkYeT3nGOaXJoz L1ghqoFktOEnUAUdJMx4hN01 RQVllE3veXQmRBimwsUfKiS3 MHvyUHPmTiD6PIOwzGNkMVSg R9bfQEPrWByzFJQfSSajeBLs MUF5qCtlp7Y2vHLdcFRunNeu LzPpHyDgFkLPi2VdMGr2aKqy O7OtGIGcNyZ2tCBuXRSmYIvm OENmJXZvgnQ0mAtwttXnm85v eHQyXGYwXGZzMjBcbGkwXHJp WYEZp9EtxHusTTV4aPa1xAwe WyqqVHC8Ljp1TQ2tnk12esi3 aKbmTJCezdmeDpW3GHbiOYDv ripwMUd7OPoxSVIeaHS0PQTq jMYdB8MhICYcNQ3qclk5WLZ2 ZBqzPXPlCjN5NIFrcNHaBFSp iVcrKUjik045MEY1FkAtSA9f V3Zrq4F2rY6tfAAeXVDrwNDl CnWnUAUsqn1pmGFaBWqhd0Cy VVW3qvC2aFFaqYUnBQVoUL57 Mvbao3KyWfiee2HmD53gnSV8 QXtuc1qvFI5cEkN6rjGlTJud q5axxB2rSgQ3QGpkZB0oGZ3c RGOcjN9tfgdpROBxVyAroges CJCsuVkheqKmSe1lfRorYCT9 KMfgX0xswL8eAfM4XJowD3yo jG7dIYh1OHhavWV1TSJqiP1v IA2lovovm6exCLizINmrQNFi fpK4tuP3YICppNSwE5ZwmJ3d EAHqLN1goffsn7ceNBF3TYjy CVLdTEX0ViPyHJTap2Nokld5 JeNcn9KjzSTcGLqiB38kt130 NFXhuqMnC5iriBTpmneakCVi wjbbMXvvktY3TTHsMPNkTOxd XGYxXGZzMjJcbGFuZzEwMzNc aGljaFxmMVxkYmNoXGYxXGxv V7vyXnXsG9EhRCDfYvMrFZti ZJqhqURixDSviVP0wZ5sTV6u HYTnrHAuK7KzYOByajEpdAGb YQE8wTXwaTIcXQ6yVTyuaMTo u4hlh8HrF1vjaYtuvPP1ET7z WWPoWRGtWWiaz0MuzX6aHery bGFpblxmMVxmczIyXGxhbmcx UHIpQNvfK4xmDrMcWVPtlXjs LWhqd1GcWKYtVQUsMfivttCr HPe3bnRyZLUjxjocDMCrvDqw uN8yKeRqCbBePknwCL5nLVXh F4utaPSiNHNaUOQrA9vyMdJh kZ6evUotLOqnKrKaMpSlBqVI p282tq3cCYSrtGSbrdTRuYFh tK1jTBxeYQldOJykbQZwFKsu g8rsENGbv9x3hGDuNCGhybJy e2nbZSfgtjRoIBFfzIKlrIBe WEJwp83vZPmxkRiypHbbALSc i2MilAwam9MrDzSiPAhhb6Kv K51saPWhwITwtGnjOUPjkhUl UVJww25wh0djEPFsFiF9sJGc yZP1rFPtzJWxi0FlvUrbSACn t9rmLWNsgb6selzcpQCak6Sj hW6xfymjFCzhmEVkxkUfAAVg h5c0sHJwQANgEPPeAXbipTa5 PVAzr992wo6vlzJ7rAIbAES2 YWlsYWJsZSBhcmUgZXZhbHVh dGVkXHBsYWluXGYxXGZzMjJc bGFuZzEwMzNcaGljaFxmMVxk JwZrVAMyZSjgX0buKqNxJ8Ye PUTgIxFxfVJeS0xlnEKlAKCr YWluXGYxXGZzMjJcbGFuZzEw MzNcaGljaFxmMVxkYmNoXGYx DWuiH9waOxAxF3OuMPDgYaXs IFxwbGFpblxmMVxmczIyXGxh jdgzNLWaBCblY9vqIyPuDBLu vIctZKsao4HwAIHiBCXuZocm vtFsAPs6fdTkARJquyjjmYOl blxmMVxmczIyXGxhbmcxMDMz DFprN2bdTlClMZPubQsgZOlj o0NeSWUdJPLwEuphsoQpAYxx cGLav9nwp9EzJ6lgzAljcNU0 GNTdV7zvcIGwlRT9JUQ3rC7t IAzpjtPwUNDrg9HkKIZaTRDy QfM8pT6jEJY0FrDLsKijVXHt YWluXGYxXGZzMjJcbGFuZzEw MzNcaGljaFxmMVxkYmNoXGYx CAeaJ3fwHbDyJ3BgVEWfRwWz uVutAYdyAEg1LsegeDNmkjtm MVxmczIyXGxhbmcxMDMzXGhp J3tuMdUjENBryUgoQIojp5Jp XGYxXGNmMlxmczIyIHMgTWVk gCYvtMKRQD96OBCpEJLfbXta gO5pkKYHIKPyyaH1i4I6OUnx YSSjVDt2RXqizbJbHYSzrA9i JNFiFJ9wRAg4adZwRLGlh9Jw PV7zKPBziJOgMQH2IXZtp0Qi F9Ear4XmHYBrUDJyhc8nuoCj WkIYoKCrMFRoyq24CLGcTX6z P5ycOTOkXIDcjuYbgIBxg1Nj WSXqxCJ4yXIaYR4UAtONg66d IGFuZCBEcnVnIEFkbWluaXN0 rtH2tZ7eIdGJmMVxHkLALYvs qyPxGVBcbj7zjgIbCNRpIXBj u8LvzOIpsXFkmeKtJ6Gal4By MKIrxu91DJyfwWImiu87ZT9n A8Eke2NxmG6lSSejJJWsp0Sn bYTqpEDtVQEoy1UjX7nusrpz OMemxXKyuM9iYMYoNMs7JFDk x5FzQWYdv7XsXuVtudNcKITe WLHuVJRzdV59RSZ5zIqtsKqo fxUiHL1sDVTyeeDeUTCaTYUr zJ1hVClglpRjYEIhwrO8t4Y9 ZHquVMOuzeHlRtrxKVH9guZx uuI9xLStP6kkacgsUDwxBZMz z2CrfK4ouFTLdUYbp3FkcOYy jADGxXLnYG0ncpBpPR9wJFG4 ODggKENMSUEtODgpIGFzIHF1 LEoqJnwdDCB0lhZuJEDbw8Qg VWjmA0wqI11bsGfadGz1jWNj jEfneBJwaBSuZINietG0d7I8 FTVzh2KieclnANStPMdcUCDh XGZzMjJcbGFuZzEwMzNcaGlj wFsfLxqrHzHfLOJjPAznH0qv EjXtCvZjDrzcBJN4lK== [facility] [id number] 10:24:23Surgical Pathology Report Case: [id number] Authorizing Provider: Kirstie Lius Collected: 204:49 PM Ordering Location: [address] Received: 01/01/2022 08:03 AM Cardiovascular Pathologist: Gaby Nation MD Specimen: Pancreas, unicate process mass bx by FNB PANCREAS, FINE-NEEDLE BIOPSY:-Fragments of fibrous tissue and benign pancreatic parenchyma-No evidence of malignancy as sampled Signing Pathologist Direct Phone Line: [phone] signed by Gaby Nation MD on 01/02/2022 at 10:24 AMThe biopsy may not be automotive sales representative of the lesion.Clinical correlation is recommended.75266Bpxfhpdbphcwqlwnbmd, uncinate process massA. Pancreas.Received in formalin labeled with the patient's name, medical record number and "pancreas" is a 1.5 x 1.0 x 0.1 cm aggregate of multiple moore soft tissue cores admixed with blood submitted in toto in A1-A2. SHAY Teran, PA (ASCP)cmThe interpretation of this case included the use of immunohistochemistry or special stains.Control Slides Examined: In-house known positive controls were evaluated along with the test tissue. These control slides run alongside of the patients sample show appropriate staining. Internal positive and negative controls when available are evaluated Immunohistochemistry technical testing was performed at [facility], Pathology Laboratory where it was developed and its performance characteristics were determined. It has not been cleared or approved by the U.S. Foodand Drug Administration. The FDA has determined that such clearance or approval is not necessary. The test is used for clinical purposes. It should not be regarded as investigational or for research. This laboratory is certified under the Clinical Laboratory Improvement Amendments of 1988 (CLIA-88) asqualified to perform high complexity clinical laboratory testing.HEMOGLOBIN AND [id number] 11:17:18 Test Item Value Reference Range Interpretation Comments HEMOGLOBIN (BEAKER) (test code = 7.5 GM/DL 13.7-17.5 L 410) HEMATOCRIT (BEAKER) (test code = 24.6 % 40.1-51.0 L 411) Cavity Pump Operator ID - [id number]-Glucose [id number] 07:01:20 Test Item Value Reference Range Interpretation Comments POC-Glucose Meter (test 118 mg/dL 70-110 H : TE STED AT [facility] code = 1538) [address] [facility], [address]: Cavity Pump Operator/Techni gus ID = [id number] for [facility] Interpretation (test Abnormal code = 12012-6) [facility] [id number] 07:01:20 Test Item Value Reference Range Interpretation Comments POC-Glucose Meter (test 118 mg/dL 70-110 H : TE STED AT [facility] code = 1538) [address] [facility], 770 [address]: Cavity Pump Operator/Techni gus ID = [id number] for [facility] Interpretation (test Abnormal code = 58984-0) [facility]-Glucose [id number] 07:01:20 Test Item Value Reference Range Interpretation Comments POC-Glucose Meter (test 118 mg/dL 70-110 H : TE STED AT [facility] code = 1538) [address] [facility], [address]: Cavity Pump Operator/Techni gus ID = [id number] for [facility] Interpretation (test Abnormal code = 70122-0) [facility]-GLUCOSE [id number] 07:01:20 Test Item Value Reference Range Interpretation Comments POC-GLUCOSE METER 118 mg/dL 70-110 H : TESTED A T [facility] [address] (BEAKER) (test code = TALI Lanier [facility], 1538) [address]: Cavity Pump Operator/Techni gus ID = [id number] for [facility] [place] COMPREHENSIVE METABOLIC [id number] 05:15:44 Test Item Value Reference Range Interpretation [...] high >=90 G2 Mildly decreased 60-89 G3a Mild ly to moderately 45-5 9 G3b Moderately to [...] not appl icable for dialysis patien ts Cavity Pump Operator ID - PIAYA LCBC W/PLT COUNT & AUTO [id number] 04:34:31 Test Item Value Reference Range Interpretation [...] PERCENT (BEAKER) (test code = 2801) POCT-GLUCOSE [id number] 23:18:11 Test Item Value Reference Range Interpretation Comments POC-GLUCOSE METER 197 mg/dL 70-110 H : TESTED A T [facility] [address] ([facility]) (test code = TALI Lanier [facility], 153) [address]: Cavity Pump Operator/Techni gus ID = [id number] for [facility] [place] POCT-GLUCOSE [id number] 18:53:07 Test Item Value Reference Range Interpretation Comments POC-GLUCOSE METER 242 mg/dL 70-110 H : Notified RN/MD: TESTED (BEAKER) (test code AT [facility] [address] = 1538) [facility], 770 30: Cavity Pump Operator/Techni gus ID = [id number] for Jennifer loyola (contract)Chad POCT-GLUCOSE [id number] 16:53:02 Test Item Value Reference Range Interpretation Comments POC-GLUCOSE METER 330 mg/dL 70-110 H : Notified RN/MD: TESTED (BEAKER) (test code AT [facility] [address] = 1538) [facility], 770 30: Cavity Pump Operator/Techni gus ID = [id number] for Jennifer loyola (contract), Chad newsome POCT-GLUCOSE [id number] 11:46:10 Test Item Value Reference Range Interpretation Comments POC-GLUCOSE METER 262 mg/dL 70-110 H : Notified RN/MD: TESTED (BEAKER) (test code AT [facility] [address] = 1538) [facility], 770 30: Cavity Pump Operator/Techni gus ID = [id number] for Jennifer loyola (contract), Chad newsome BASIC METABOLIC [id number] 09:40:28 Test Item Value Reference Range Interpretation [...] eGFR (test code = mL/min/1.73 values Stage D escription 1092) sq m Result G1 Karen l [...] not appl icable for dialysis patien ts Cavity Pump Operator ID - MITCHHEPATIC FUNCTION [id number] 09:40:28 Test Item Value Reference Range Interpretation [...] (test code = 28 U/L 6-55 347) Cavity Pump Operator ID - [id number] 09:39:46 Test Item Value Reference Range Interpretation Comments MAGNESIUM (BEAKER) (test code = 1.5 mg/dL 1.6-2.6 L 627) Cavity Pump Operator ID - [id number] W/PLT COUNT & AUTO [id number] 09:31:23 Test Item Value Reference Range Interpretation [...] PERCENT (BEAKER) (test code = 2801) POCT-GLUCOSE [id number] 07:18:40 Test Item Value Reference Range Interpretation Comments POC-GLUCOSE METER 271 mg/dL 70-110 H : Notified RN/MD: TESTED (BEAKER) (test code AT [facility] [address] [facility] 1538) [facility], [address] 30: Cavity Pump Operator/Techni gus ID = [id number] for Jennifer loyola (contract)Chad POCT-GLUCOSE [id number] 00:04:16 Test Item Value Reference Range Interpretation Comments POC-GLUCOSE METER 225 mg/dL 70-110 H : TESTED A T [facility] [address] (BEAKER) (test code = TALI Lanier [facility], 1538) [address]: Cavity Pump Operator/Techni gus ID = [id number] for Fabio Vale, [id number] 17:16:00Reason for exam:->biliary and pancreatic ductal dilatationSHAHZAD [facility] : 1960 Sex: MAn imaging unit was utilized for this procedure. No radiologist interpretation was requested. Refer to the EMR for findings. Refer to PACS for any patient radiation dose information.SARS-CoV2/RT-PCR (Asymptomatic ONLY)2021-12-29 11:27:33 Test Item Value Reference Interpretation Comments Range SARS-COV2/RT-PCR Negative Negative The SARS-Co V-2 (test code = target nucleic 14391-0) acids are not detected in thi s [...] revoked sooner. Fact Sheet for Healthcare Providers: https://www.[employer].com/Documents/Xp ert%20Xpress%20SAR S%20CoV-2/Fact%20S heets/302-2952%20S ARS-COV-2%20HEALTH CARE%20PROVIDERS%2 0FACT%20SHEET.pdf Fact Sheet for Healthcare Patients: https://www.[employer]/Documents/Xp ert%20Xpress%20SAR S%20CoV-2/Fact%20S heets/302-3801%20S ARS-COV-2%20PATIEN T%20FACT%20SHEET.p df Lab Interpretation Normal (test code = 79976-7) [facility] (Asymptomatic ONLY)2021-12-29 11:27:33 Test Item Value Reference Interpretation Comments Range SARS-COV2/RT-PCR Negative Negative The SARS-Co V-2 (test code = target nucleic 11089-7) acids are not detected in thi s [...] revoked sooner. Fact Sheet for Healthcare Providers: https://www.[employer]/Documents/Xp ert%20Xpress%20SAR S%20CoV-2/Fact%20S heets/3023802%20S ARS-COV-2%20HEALTH CARE%20PROVIDERS%2 0FACT%20SHEET.pdf Fact Sheet for Healthcare Patients: https://www.[employer]/Documents/Xp ert%20Xpress%20SAR S%20CoV-2/Fact%20S heets/302-3801%20S ARS-COV-2%20PATIEN T%20FACT%20SHEET.p df Lab Interpretation Normal (test code = 34876-4) [facility]21-[facility]-29 11:27:33 Test Item Value Reference Interpretation Comments Range SARS-COV2/RT-PCR Negative Negative The SARS-Co V-2 (test code = target nucleic 21468-5) acids are not detected in thi s [...] revoked sooner. Fact Sheet for Healthcare Providers: https://www.[employer]/Documents/Xp ert%20Xpress%20SAR S%20CoV-2/Fact%20S heets/302-3802%20S ARS-COV-2%20HEALTH CARE%20PROVIDERS%2 0FACT%20SHEET.pdf Fact Sheet for Healthcare Patients: https://www.[employer]/Documents/Xp ert%20Xpress%20SAR S%20CoV-2/Fact%20S heets/302-3801%20S ARS-COV-2%20PATIEN T%20FACT%20SHEET.p df Lab Interpretation Normal (test code = 17690-3) [facility])2021-12-29 11:27:33 Test Item Value Reference Range Interpretation Comments SARS-COV2/RT-PCR Negative Negative The SARS-Co V-2 target (test code = nucleic acids a re not 8156546) detected in thi s specimen. Negative result [...] revoked sooner. Fact Sheet for Healthcare Providers: https://www.[employer] m/Documents/Xpert%20Xpress%20SARS%20CoV-2/Fact%20Sheets/302-3802%22DEOG-BYM-6%20 HEALTHCARE%20PROVIDERS%20FACT%20SHEET.pdf Fact Sheet for Healthcare Patients: https://www.[employer]/Documents/Xpert%20Xp ress%20SARS%20CoV-2/Fact%20Sheets/302-3801%31CUOJ-XNS-8%20PATIENT%20FACT%20SHEET .pdfPOCT-GLUCOSE [id number] 11:23:38 Test Item Value Reference Range Interpretation Comments POC-GLUCOSE METER 180 mg/dL 70-110 H : TESTED A T [facility] 6720 (BEAKER) (test code = TALI GABRIEL [place], 1538) [address]: Cavity Pump Operator/Techni gus ID = [id number] for OR BRIELLE AGUILAR HEMOGLOBIN [id number] 10:59:31 Test Item Value Reference Range Interpretation Comments HEMOGLOBIN A1C 12.4 % See_Comment H [Automated m essage] ELECTROPHORESIS (BEAKER) The system which (test code = 3811) generated this result transmitted ref erence range: <=5.6%. The reference range was not used to int erpret this result as normal/abnormal . "The A1c is measured using a [facility]-certified method. HbA1c value equal to or greater than 6.5% as thediagnosis cutoff for diabetes. An HbA1c value of 5.7- 6.4% indicates increased risk for diabetes (prediabetes)."Cavity Pump Operator ID - ADMOperator ID - ADMKETONE, [id number] 08:46:23 Test Item Value Reference Range Interpretation Comments KETONES, BLOOD (BEAKER) (test code 1.9 mmol/L <0.4 H = 1103) BASIC METABOLIC [id number] 08:32:05 Test Item Value Reference Range Interpretation [...] 30-44 G4 Severl y decreased 15-29 G5 Kidne y failure <15Reported eGF R is based on the CKD-EPI 2020 equation that d oes not use a race coefficientEsti mated GFR is not as accur ate as Creatinine Lisa skyler in predicting glom erular filtration rate . Estimated GFR is not appl icable for dialysis patien ts Cavity Pump Operator ID - CHIN LBLOOD GAS, [id number] 08:28:41 Test Item Value Reference Range Interpretation [...] (BEAKER) (test code = 1819) 21.0 POCT-GLUCOSE [id number] 05:06:43 Test Item Value Reference Range Interpretation Comments POC-GLUCOSE METER 184 mg/dL 70-110 H : TESTED A T [facility] (BEAKER) (test code = TALI Lanier [facility], 1538) [address]: Cavity Pump Operator/Techni gus ID = [id number] for ANGEL BISHOP KETONE, [id number] 03:38:18 Test Item Value Reference Range Interpretation Comments KETONES, BLOOD (BEAKER) (test code 3.3 mmol/L <0.4 H = 1103) LACTIC ACID, [id number] 02:33:59 Test Item Value Reference Range Interpretation Comments LACTATE BLOOD VENOUS (2) (BEAKER) 1.31 mmol/L 0.50-2.20 (test code = 2872) Cavity Pump Operator ID - BSHEPATIC FUNCTION [id number] 02:32:23 Test Item Value Reference Range Interpretation Comments TOTAL PROTEIN (BEAKER) 6.8 gm/dL 6.0-8.3 Speci men markedly (test code = 770) hemolyzed ALBUMIN (BEAKER) (test 3.1 g/dL 3.5-5.0 L Speci men markedly code = 1145) hemolyzed BILIRUBIN TOTAL 1.9 mg/dL 0.2-1.2 H Specimen sofia kedly (BEAKER) (test code = hemoly zed 377) BILIRUBIN DIRECT 0.7 mg/dL 0.1-0.5 H Specimen stacey knowles (BEAKER) (test code = hemoly zed 706) ALKALINE PHOSPHATASE 184 U/L 40-150 H (BEAKER) (test code = 346) AST (SGOT) (BEAKER) 83 U/L 5-34 H Specimen markedly (test code = 353) hemolyzed ALT (SGPT) (BEAKER) 27 U/L 6-55 Specimen markedly (test code = 347) hemolyzed Cavity Pump Operator ID - BSBASIC METABOLIC [id number] 02:32:22 Test Item Value Reference Range Interpretation [...] not appl icable for dialysis patien ts Cavity Pump Operator ID - [id number] 01:55:53 Test Item Value Reference Range Interpretation [...] mechanical heart valves.CBC W/PLT COUNT & AUTO [id number] 01:34:47 Test Item Value Reference Range Interpretation [...] (BEAKER) (test code = 2801) BLOOD GAS, [id number] 01:32:44 Test Item Value Reference Range Interpretation [...] (BEAKER) (test code = 1819) 21.0 POCT-GLUCOSE [id number] 00:21:33 Test Item Value Reference Range Interpretation Comments POC-GLUCOSE METER 139 mg/dL 70-110 H : [facility] ([facility]ER) (test code = TALI [place], 1538) [address]: Cavity Pump Operator/Techni gus ID = [id number] for Lula Gay ANTI-NUCLEAR ANTIBODY (JAIME)2019-12-10 10:07:00 Test Item Value Reference Range Interpretation Comments ANTI-NUCLEAR ANTIBODY (JAIME) (BEAKER) Negative Negative (test code = 418) Test performed by IFA method.Test performed by IFA method.ALPHA FETOPROTEIN (AFP), TUMOR [id number] 20:44:00 Test Item Value Reference Range Interpretation Comments ALPHA-FETOPROTEIN (BEAKER) (test code < ng/mL <10.0 = 1094) Cavity Pump Operator ID - BSHEPATITIS A ANTIBODY, [id number] 20:42:00 Test Item Value Reference Range Interpretation Comments HEPATITIS A IGM ANTIBODY (BEAKER) Nonreactive Nonreactive (test code = 498) Cavity Pump Operator ID - BSHEPATITIS B CORE ANTIBODY, [id number] 20:42:00 Test Item Value Reference Range Interpretation Comments HEPATITIS B CORE TOTAL ANTIBODY Nonreactive Nonreactive (BEAKER) (test code = 497) Cavity Pump Operator ID - BSHEPATITIS A ANTIBODY, [id number] 20:42:00 Test Item Value Reference Range Interpretation Comments HEPATITIS A IGG ANTIBODY (BEAKER) Nonreactive Nonreactive (test code = 2797) Cavity Pump Operator ID - BSHEPATITIS B SURFACE [id number] 17:52:00 Test Item Value Reference Range Interpretation Comments HEPATITIS B SURFACE ANTIBODY 8.8 mIU/mL <8.0 H (BEAKER) (test code = 647) Cavity Pump Operator ID - BSHEPATITIS B SURFACE [id number] 17:47:00 Test Item Value Reference Range Interpretation Comments HEPATITIS B SURFACE ANTIGEN (2) Nonreactive Nonreactive (BEAKER) (test code = 2585) Specimen is considered negative for HBsAg.HEPATITIS C [id number] 17:47:00 Test Item Value Reference Range Interpretation Comments HEPATITIS C ANTIBODY (BEAKER) Nonreactive Nonreactive (test code = 367) Cavity Pump Operator ID - BSIRON, TIBC, % SAT. (WITHOUT FERRITIN)2019-12-09 17:19:00 Test Item Value Reference Range Interpretation Comments IRON (BEAKER) (test code = 547) 131.0 ug/dL 40.0-160.0 TOTAL IRON BINDING CAPACITY 440 ug/dL 250-450 (BEAKER) (test code = 769) IRON % SATURATION (2) (BEAKER) 30 % 20-55 (test code = 2590) Cavity Pump Operator ID - [id number]-[id number] 16:55:00 Test Item Value Reference Range Interpretation Comments ALPHA-1 ANTITRYPSIN (BEAKER) 150.60 mg/dL 90.00-200.00 (test code = 502) Cavity Pump Operator ID - [id number] 16:47:00 Test Item Value Reference Range Interpretation Comments FERRITIN (BEAKER) (test code = 187.10 ng/mL 5.00-275.00 361) Cavity Pump Operator ID - BSCOMPREHENSIVE METABOLIC [id number] 16:36:00 Test Item Value Reference Range Interpretation [...] 347) EGFR (BEAKER) (test 95 mL/min/1.73 ESTIMA OJSIAH GFR IS code = 1092) sq m NOT ACCURATE CREATININE CLEARANCE IN PREDICTING GLOMERULAR FILTRATION RATE . ESTIMATED GFR I S NOT APPLICABLE FOR DIALYSIS PATIEN TS. Cavity Pump Operator ID - BSBILIRUBIN, [id number] 16:36:00 Test Item Value Reference Range Interpretation Comments BILIRUBIN DIRECT (BEAKER) (test 0.4 mg/dL 0.1-0.5 code = 706) Cavity Pump Operator ID - BSPROTHROMBIN [id number] 16:16:00 Test Item Value Reference Range Interpretation [...] mechanical heart valves.CBC W/PLT COUNT & AUTO [id number] 16:15:00 Test Item Value Reference Range Interpretation [...] % 0-1 PERCENT (BEAKER) (test code = 6715)
[2022-01-06] MEDS ORDERED: HYDROMORPHONE HCL 2 MG/ML inj ONE (09:20)
[2022-01-06] MEDS ORDERED: ONDANSETRON 4 MG/2 ML VIAL ONE (09:20)
[2022-01-06] MEDS ORDERED: NA CHLORIDE 0.9% 1,000 ML ONE (09:21)
[2022-01-06] MEDS ORDERED: FAMOTIDINE 20 MG/2 ML VIAL IV ONE (09:21)
[2022-01-06 09:34] LABS: Absolute Lymphocytes (CBC) 1.1 K/uL (0.7-4.9); Hematocrit 27.7 % (39.6-49.0); Lymphocytes % 23.1 % (15.3-44.8); MCV 82.1 fL (80-100); RBC Red Blood Cell Count 3.38 M/uL (4.33-5.43)
[2022-01-06 09:47] LABS: Albumin 2.6 g/dL (3.4-5.0); Bilirubin Total 1.4 mg/dL (0.2-1.0); Potassium 3.9 mmol/L (3.5-5.1); Protein, Total 6.8 g/dL (6.4-8.2)
--- NOTE | 2022-01-06 10:49 | RAD REPORT ---
EXAM DESCRIPTION: CT - Abdomen Pelvis W Contrast - 01/06/2022 10:18 am CLINICAL HISTORY: Abdominal pain COMPARISON: December 28, 2021 TECHNIQUE: Computed axial tomography of the abdomen pelvis was obtained. 100 cc Isovue-300 was admin istered intravenously. Oral contrast was not requested which limits evaluation of bowel and appendix All CT scans are performed using dose optimization technique as appropriate and may include automated exposure control or mA/KV adjustment according to patient size. FINDINGS: Mildly cirrhotic liver. Upper abdomen varices Spleen measures 13 centimeters. Cholelithiasis. 2 centimeter pseudocyst pancreatic neck. The pancreatic duct is dilated. Small pancreatic calcificati ons. Chronic pancreatitis Mild dilatation several loops of jejunum. This probably is a focal ileus No evidence of diverticulitis. The wall of the stomach and right colon is thickened. Small amount of ascites IMPRESSION: Cholelithiasis 2 centimeter pancreatic pseudocyst Thickening of the wall of the stomach and right colon could be secondary to hypoalbuminemia or inflam mation.
[2022-01-06] MEDS ORDERED: HYDROMORPHONE HCL 0.5 MG/0.5 ML INJ ONE (11:28)
--- NOTE | 2022-01-06 11:31 | EDPHYS ---
Physician Documentation [facility] Name: Adi Bennett Age: 61 yrs Sex: Male : 1960 Arrival Date: 01/06/2022 Time: 08:41 Bed 6 Private MD: ED Physician Tamir Gamble HPI: 01/06 09:22 This 61 yrs old Male presents to ER via Ambulatory with complaints of Abdominal Pain. rt 09:22 The patient presents with abdominal pain in the epigastric area. Onset: The rt symptoms/episode began/occurred last night. The symptoms radiate to chest. Associated signs and symptoms: Pertinent positives: nausea, vomiting, and diarrhea. The symptoms are described as sharp. Modifying factors: The symptoms are alleviated by nothing, the symptoms are aggravated by nothing. Severity of pain: At its worst the pain was severe. The patient has experienced similar episodes in the past, several times, but today's symptoms are worse, more painful. Patient with history of chronic pancreatitis with recent endoscopic procedure being performed at [facility] presents to the ED with worsening of the epigastric pain starting last night. It is sharp in nature, radiates to the chest. The patient said nausea, vomiting, diarrhea, nonbloody, nonbilious. The patient was recently sent to [facility] he had an endoscopic procedure performed. States that had a biopsy that was noncancerous.. Historical: - Allergies: 08:44 Morphine (Vomiting); aa5 - PMHx: 08:44 diabetes mellitus; ibs; Liver Issues; Pancreatitis; aa5 - Immunization history:: Client reports receiving the 2nd dose of the Covid vaccine. - Social history:: Smoking status: Patient reports the use of cigarette tobacco products, 2-3 cigarettes a day . - Family history:: not pertinent. ROS: 09:22 Constitutional: Negative for fever, chills, and weight loss, Eyes: Negative for injury, rt pain, redness, and discharge, ENT: Negative for injury, pain, and discharge, Cardiovascular: Negative for chest pain, palpitations, and edema, Respiratory: Negative for shortness of breath, cough, wheezing, and pleuritic chest pain, Back: Negative for injury and pain, MS/Extremity: Negative for injury and deformity, Skin: Negative for injury, rash, and discoloration, Neuro: Negative for headache, weakness, numbness, tingling, and seizure, Psych: Negative for depression, anxiety, suicide ideation, homicidal ideation, and hallucinations. 09:22 Abdomen/GI: Positive for abdominal pain, nausea, vomiting, and diarrhea. Exam: 09:22 Constitutional: This is a well developed, well nourished patient who is awake, alert, rt and in no acute distress. Head/Face: Normocephalic, atraumatic. Eyes: Pupils equal round and reactive to light, extra-ocular motions intact. Lids and lashes normal. Conjunctiva and sclera are non-icteric and not injected. Cornea within normal limits. Periorbital areas with no swelling, redness, or edema. Chest/axilla: Normal chest wall appearance and motion. Nontender with no deformity. No lesions are appreciated. Cardiovascular: Regular rate and rhythm with a normal S1 and S2. No gallops, murmurs, or rubs. Normal PMI, no JVD. No pulse deficits. Respiratory: Lungs have equal breath sounds bilaterally, clear to auscultation and percussion. No rales, rhonchi or wheezes noted. No increased work of breathing, no retractions or nasal flaring. Skin: Warm, dry with normal turgor. Normal color with no rashes, no lesions, and no evidence of cellulitis. MS/ Extremity: Pulses equal, no cyanosis. Neurovascular intact. Full, normal range of motion. Neuro: Awake and alert, GCS 15, oriented to person, place, time, and situation. Cranial nerves II-XII grossly intact. Motor strength 5/5 in all extremities. Sensory grossly intact. Cerebellar exam normal. Normal gait. Psych: Awake, alert, with orientation to person, place and time. Behavior, mood, and affect are within normal limits. 09:22 Abdomen/GI: Nondistended, tenderness diffusely, worse in the epigastrium with guarding, no rebound.. Vital Signs: 08:44 BP 126 / 74; Pulse 78; Resp 18 S; Temp 98.0(TE); Pulse Ox 97% on R/A; Weight 55.34 kg aa5 (R); Height 5 ft. 7 in. (170.18 cm) (R); Pain 10/10; 09:46 Pulse Ox 84% on R/A; jd3 09:46 BP 121 / 66; Pulse 79; Resp 18 S; Pulse Ox 100% on 2 lpm NC; jd3 10:59 BP 119 / 71; Pulse 86; Resp 18; Pulse Ox 100% on 2 lpm NC; mb9 11:33 BP 108 / 65; Pulse 69; Resp 16; Pulse Ox 99% on R/A; mb9 08:44 Body Mass Index 19.11 (55.34 kg, 170.18 cm) aa5 MDM: 08:55 Patient medically screened. rt 11:32 Differential diagnosis: cholecystitis, Cholelithiasis, diverticulitis, pancreatitis. rt Data reviewed: vital signs, nurses notes. 11:32 ED course: Presents to the ED with a worsening of epigastric pain. He is known chronic rt pancreatitis, was recently seen at [facility] for the same. Patient has significant symptomatic improvement of the symptoms with treatment in the ED. He is found to have a pseudocyst without other complications. His LFTs, lipase are improving. Symptoms have significantly improved with pain medications in the ED. Given exacerbation of the pain, I did offer the patient transfer to [facility] in the Medical Center for further care with his specialist, patient states that he wishes to go home and follow-up as an outpatient. Patient return for worsening symptoms or any concerning symptoms.. 01/06 09:15 Order name: CBC with Diff; Complete Time: 09:48 rt 01/06 09:15 Order name: CMP; Complete Time: 09:48 rt 01/06 09:15 Order name: Lipase; Complete Time: 09:48 rt 01/06 09:15 Order name: CT Abd/Pelvis - IV Contrast Only; Complete Time: 10:50 rt 01/06 09:15 Order name: IV Saline Lock; Complete Time: 09:16 rt 01/06 09:15 Order name: Labs collected and sent; Complete Time: 09:16 rt Administered Medications: 09:31 Drug: Dilaudid (HYDROmorphone) 1 mg Route: IVP; Site: left antecubital; mb9 11:23 Follow up: Response: No adverse reaction 09:32 Drug: NS 0.9% 1000 ml Route: IV; Rate: 1 bolus; Site: left antecubital; mb9 11:23 Follow up: Response: No adverse reaction; IV Status: Completed infusion 09:32 Drug: Pepcid (famotidine) 20 mg Route: IVP; Site: left antecubital; mb9 11:23 Follow up: Response: No adverse reaction mb9 09:32 Drug: Zofran (Ondansetron) 4 mg Route: IVP; Site: left antecubital; mb9 11:23 Follow up: Response: No adverse reaction mb9 11:32 Drug: Dilaudid (HYDROmorphone) 0.5 mg Route: IVP; Site: left antecubital; mb9 11:33 Follow up: Response: No adverse reaction mb9 Disposition Summary: 01/06/22 11:30 Discharge Ordered Location: Home rt Problem: an ongoing problem rt Symptoms: have improved rt Condition: Stable rt Diagnosis - Other chronic pancreatitis rt Followup: rt - With: Private Physician - When: 2 - 3 days - Reason: Discharge Instructions: - Discharge Summary Sheet rt Forms: - Medication Reconciliation Form rt - Thank You Letter rt - Antibiotic Education rt - Prescription Opioid Use rt Prescriptions: - Tylenol-Codeine #3 300 mg-30 mg Oral - take 1 tablet by ORAL route every 6 hours; 18 tablet; Refills: 0, Product rt Selection Permitted Signatures: Dispatcher [employer] Cris Will RN RN aa5 Sofia Carreno RN RN mb9 Tamir Gamble MD MD rt
--- NOTE | 2022-01-06 11:31 | ER ---
Nurse's Notes [facility] [place] Name: Adi Bennett Age: 61 yrs Sex: Male : 1960 Arrival Date: 01/06/2022 Time: 08:41 Bed 6 Private MD: Diagnosis: Other chronic pancreatitis Presentation: 01/06 08:44 Chief complaint: Patient states: "I was seen here last Joe and they sent me to [address] in [place] and they did an Endoscopy and cleared out my gallbladder sludge and pancreas, they got a biopsy but it was noncancerous". Pt states "I called the doctor that did the Endo but they said they couldn't do anything about the pain and that I needed an MRI". Pt c/o epigastric pain radiating to chest and around to shoulder blades". 08:44 Method Of Arrival: Ambulatory [facility] 08:44 Coronavirus screen: At this time, the client does not indicate any symptoms associated aa5 with coronavirus-19. Ebola Screen: Patient denies travel to an Ebola-affected area in the 21 days before illness onset. Initial Sepsis Screen: Does the patient meet any 2 criteria? No. Patient's initial sepsis screen is negative. Does the patient have a suspected source of infection? No. Patient's initial sepsis screen is negative. Risk Assessment: Do you want to hurt yourself or someone else? Patient reports no desire to harm self or others. Onset of symptoms was January 05, 2022. 08:44 Acuity: RODERICK 3 aa5 Historical: - Allergies: 08:44 Morphine (Vomiting); aa5 - PMHx: 08:44 diabetes mellitus; ibs; Liver Issues; Pancreatitis; aa5 - Immunization history:: Client reports receiving the 2nd dose of the Covid vaccine. - Social history:: Smoking status: Patient reports the use of cigarette tobacco products, 2-3 cigarettes a day . - Family history:: not pertinent. Screenin:57 Abuse screen: Denies threats or abuse. Nutritional screening: No deficits noted. mb9 Tuberculosis screening: No symptoms or risk factors identified. Fall Risk None identified. Assessment: 08:54 General: Appears uncomfortable, slender, Behavior is anxious. Pain: Complains of pain mb9 in abdomen Pain radiates to chest and lower back bilaterally Pain currently is 10 out of 10 on a pain scale. Neuro: Floyd Agitation-Sedation Scale (RASS): 0 - Alert and Calm Level of Consciousness is awake, alert, obeys commands, Oriented to person, place, time, situation, Appropriate for age. Cardiovascular: Heart tones S1 S2 present Rhythm is regular. Respiratory: Reports shortness of breath due to the pain Airway is patent Respiratory effort is even, unlabored, Respiratory pattern is regular, symmetrical, Breath sounds are clear bilaterally. GI: Abdomen is flat, Bowel sounds present X 4 quads. Abdomen is tender to palpation in left upper quadrant and left lower quadrant Guarding noted Reports nausea, vomiting. : No signs and/or symptoms were reported regarding the genitourinary system. EENT: No signs and/or symptoms were reported regarding the EENT system. Derm: Skin is intact, Skin is dry, Skin is pale, Skin temperature is cool. Musculoskeletal: Range of motion: intact in all extremities. 09:46 Reassessment: Patient and/or family updated on plan of care and expected duration. Pain jd3 level reassessed. Patient is alert, oriented x 3, equal unlabored respirations, skin warm/dry/pink. O2 saturation noted at 84 room air. pt placed on 2 L NC and O2 saturation increased to 100% Patient states feeling better. 09:46 Reassessment: pt states pain is 50% gone. mb9 10:11 Reassessment: pt taken to CT via wheelchair. mb9 11:09 General: Appears in no apparent distress. comfortable, Behavior is calm, cooperative, mb9 appropriate for age. Pain: Current management is partially effective. Neuro: Level of Consciousness is awake, alert, obeys commands, Oriented to person, place, time, situation, Appropriate for age. Cardiovascular: Rhythm is regular. Respiratory: Airway is patent Respiratory effort is even, unlabored, Respiratory pattern is regular, symmetrical. Derm: Skin is dry, Skin is pale, Skin temperature is warm. Vital Signs: 08:44 BP 126 / 74; Pulse 78; Resp 18 S; Temp 98.0(TE); Pulse Ox 97% on R/A; Weight 55.34 kg aa5 (R); Height 5 ft. 7 in. (170.18 cm) (R); Pain 10/10; 09:46 Pulse Ox 84% on R/A; jd3 09:46 BP 121 / 66; Pulse 79; Resp 18 S; Pulse Ox 100% on 2 lpm NC; jd3 10:59 BP 119 / 71; Pulse 86; Resp 18; Pulse Ox 100% on 2 lpm NC; mb9 11:33 BP 108 / 65; Pulse 69; Resp 16; Pulse Ox 99% on R/A; mb9 08:44 Body Mass Index 19.11 (55.34 kg, 170.18 cm) aa5 ED Course: 08:41 Patient arrived in ED. rg4 08:43 Tamir Gamble MD is Attending Physician. rt 08:44 Arm band placed on Patient placed in an exam room, on a stretcher. aa5 08:46 Sofia Carreno RN is Primary Nurse. mb9 08:57 Triage completed. aa5 08:58 Patient has correct armband on for positive identification. Placed in gown. Bed in low mb9 position. Call light in reach. Side rails up X 1. Client placed on continuous cardiac and pulse oximetry monitoring. NIBP monitoring applied. 09:01 Inserted saline lock: 20 gauge in left antecubital area, using aseptic technique. Blood jd3 collected. 10:20 CT Abd/Pelvis - IV Contrast Only In Process Unspecified. EDMS 11:34 No provider procedures requiring assistance completed. IV discontinued, intact, mb9 bleeding controlled, No redness/swelling at site. Pressure dressing applied. Administered Medications: 09:31 Drug: Dilaudid (HYDROmorphone) 1 mg Route: IVP; Site: left antecubital; mb9 11:23 Follow up: Response: No adverse reaction mb9 09:32 Drug: NS 0.9% 1000 ml Route: IV; Rate: 1 bolus; Site: left antecubital; mb9 11:23 Follow up: Response: No adverse reaction; IV Status: Completed infusion mb9 09:32 Drug: Pepcid (famotidine) 20 mg Route: IVP; Site: left antecubital; mb9 11:23 Follow up: Response: No adverse reaction mb9 09:32 Drug: Zofran (Ondansetron) 4 mg Route: IVP; Site: left antecubital; mb9 11:23 Follow up: Response: No adverse reaction mb9 11:32 Drug: Dilaudid (HYDROmorphone) 0.5 mg Route: IVP; Site: left antecubital; mb9 11:33 Follow up: Response: No adverse reaction mb9 Medication: 08:58 VIS not applicable for this client. mb9 Outcome: 11:30 Discharge ordered by . rt 12:00 Discharged to home ambulatory. mb9 12:00 Condition: stable 12:00 Discharge instructions given to patient, Instructed on discharge instructions, follow up and referral plans. Demonstrated understanding of instructions, follow-up care, medications, Prescriptions given X 1. 12:00 Patient left the ED. mb9 Signatures: Dispatcher [employer] EDMS Cris Cook, RN RN [id number] Lois Storm Jonathon, RN RN nikki Carreno, Sofia Trejo RN RN mb9 Tamir Gamble MD MD rt Corrections: (The following items were deleted from the chart) 08:44 Chief complaint: Patient states: "I was seen here last Saturday and they sent me to aa5 [facility] in [place] and they did an Endoscopy and cleaned out my gallbladder and pancreas, they got a biopsy but it was noncancerous". Pt states "I called the doctor that did the Endo but they said they couldn't do anything about the pain and that I needed an MRI". Pt c/o epigastric pain radiating to chest and around to shoulder blades" aa5 61 08:44 BP 126 / 74; Pulse 78bpm; Resp 18bpm; Spontaneous; Pulse Ox 97% RA; 55.34 kg aa5 Reported; Height 5 ft. 7 in. Reported; BMI: 19.1; Pain 10/10; aa5 :59 08:54 GI: Abdomen is flat, Bowel sounds present X 4 quads. Abdomen is tender to mb9 palpation in left upper quadrant and left lower quadrant Guarding noted mb9 09:47 09:46 Pulse Ox 100% 2 lpm Nasal Cannula; jd3 jd3 09:49 09:46 Pain: mb9 mb9
[2022-01-06 12:11] VITALS: TEMP 98
[2022-01-06 12:28] VITALS: BP 108/65; O2SAT 99
== END 2022-01-06 12:00 | disposition home or self-care (01) ==
LOC: ER 08:38
DX: K86.1 Other chronic pancreatitis (principal); Z88.5 Allergy status to narcotic agent; F17.210 Nicotine dependence, cigarettes, uncomplicated
CPT/HCPCS: 96361; 85025; 36415; 83690; 80053; 74177; 96375; 96374; 99284; Q9967; J1170 ×2; J7030; J2405

== ENCOUNTER 2022-08-07 19:37 | Emergency (ER) | payer OTHER ==
--- OUTSIDE RECORDS SUMMARY | 2022-08-07 19:44 | XMS REPORT | Continuity of Care Document ---
:1960 Author Organization [facility] t Address [address] [place] [address] [place] [id number] Care Team Providers Name Role Phone PCP, PATIENT DOES NOT HAVE A Primary Care Physician UnavailJanina Cagle Attending Clinician Unavailable ZUNILDA LUIS Attending Clinician Unavailable Rajeev Attending Clinician Unavailable Zunilda Luis Attending Clinician ZUNILDA LUIS Attending Clinician Unavailable RADIOLOGY Attending Clinician Unavailable Radiology Attending Clinician Unavailable MARY ELLEN EPPS Attending Clinician Unavailable Mahesh PETERS, Ann Marie Yanez Attending Clinician [phone] Aman PETERS, Tito Collado Attending Clinician Oscar PETERS, Lazaro Juarez Attending Clinician Corey Funez MD Attending Clinician COREY FUNEZ Attending Clinician Unavailable Nora PETERS, Donald Rodrigez Attending Clinician [phone] Luis M Bañuelos MD Attending Clinician CHRISTINE MENDOZA Attending Clinician Unavailable ZUNILDA LUIS Admitting Clinician Unavailable Rajeev Admitting Clinician Unavailable ZUNILDA LUIS Admitting Clinician Unavailable TITO LOMBARDI Admitting Clinician Unavailable Payers Payer Name Policy Type Policy Number Effective Date Expiration Date S doc COLTS NECK [id number] 2021 HEALTHCARE 00:00:00 COLTS NECK [id number] HEALTHCARE (O) COLTS NECK [id number] 2022 HEALTHCARE 00:00:00 INDIVIDUAL RIZO RULE LIFE [id number] 2019 INS - MANAGE 00:00:00 [place] [id number] [facility] RIZO RULE OPEN [id number] 2019 CHOICE 00:00:00 Problems Condition Condition Condition Status Onset Resolution Last Treating Co mments Source Name Details Category Date Date Treatment Clinician Date Cirrhosis Cirrhosis Problem Active [facility] Ascites Ascites Problem Active [facility] 6-15 [facility] History of History of Problem Active [facility] alcohol Alcohol 6-15 da abuse Abuse [facility]:00[facility] Diabetes Diabetes Problem Active [facility] mellitus Mellitus 6-15 da [facility] Blood Blood Problem Active [place] coagulatio Coagulatio 6-15 da n disorder n Disorder 00:00: [facility] Gastroesop Gastroesop Problem Active [facility] hageal hageal 6-15 da reflux Reflux 00:00: [facility] disease Disease 00 al without without Health esophagiti Esophagiti Ou treac s s h Program Irritable Irritable Problem Active [facility] bowel Bowel 6-15 da syndrome Syndrome 00:00: [facility] Pancreatit Pancreatit Disease Active 2021-[address] is, acute is, acute 02-28 [facility] 00:00: Medical 00 Center Portal Portal Disease Recurre 2019-02 [facility] hypertensi hypertensi nce 0-21 Assessmen Koki on on 00:00: t & Plan: Medical Formattin Center g of this note might be different from the original. Alcoholic hepatitis with portal hypertens ion. Need repeat EGD after 1 year. Alcoholic Alcoholic Disease Active 2019-02 [facility] hepatitis hepatitis 0-21 Assessmen L ukes without [...] liver protocol to see liver morpholog y. Screening Screening Disease Active 2019-02 [facility] for for 0- Assessmen [facility] endocrine, endocrine, 00:00: t & Plan: Medical [...] administr ation of the appropria te vaccines. [id number] H. pylori Problem Com mon infection [facility] [id number] Gastritis, Problem Com mon unspecifie Spirit d, without - [facility] bleeding [facility] [id number] Chronic Problem Common alcoholism [facility] [id number] Alcoholism Problem Co mmon in Spirit remission - [facility] [id number] Gallbladde Problem Co mmon r Spirit contractio - [facility] [id number] senior care Problem Com mon (current) Spirit use of - [facility] insulin [facility] [id number] Type 2 Problem Common diabetes Spirit mellitus - [facility] Chronic Chronic Problem Common pancreatit pancreatit Sp chandrakant is is - [facility] Allergies, Adverse Reactions, Alerts Allergy Allergy Status Severity Reaction(s) Onset Inactive Treating Comm ents Source Name Type Date Date Clinician Morphine Propensi Active Nausea And 2021-[address] [facility] to Vomiting 02-28 [facility] adverse 00:[facility]: Medical reaction 00 Center s MORPHINE Allergy Active Med N\\T\\V 2021-02 [facility] 02-28 00:00: 00 Morphine Propensi Active Nausea And 2021-02 [facility] ty to Vomiting 02-28 College adverse 00:00: of reaction 00 Medicin s to e drug No Known DA Active U 2017-02 [facility] Allergie 2-10 Clear s 00:00: Lopez 00 [facility] NO KNOWN Allergy Active [facility] ALLERGIE S NO KNOWN Drug Active Univers ALLERGIE Class ity of S [facility] Family History Family Member Diagnosis Comments Start Date Stop Date Source Natural father Diabetes [facility] Natural father Irritable bowel [facility] Natural father Liver disease [facility] Natural mother Hypertension [facility] Natural mother Irritable bowel [facility] syndrome [facility] Natural mother Osteoporosis [facility] Social History Social Habit Start Date Stop Date Quantity Comments Source History SDOH [facility] Alcohol Binge Medical [facility] History of Cigarette Smoker [facility] tobacco use Medical Cente r History SDMD [facility] Alcohol Comment Medical C enter Exposure to 2022-03-04 2022-03-[address] [facility] SARS-CoV-2 00:00:00 13:35:00 Medical Center (event) Alcohol intake 2022-03-14 2022-03-14 [facility]:00 of alcohol Medical Center (finding) Tobacco use and 2022-03-14 2022-03-14 Smokeless tobacco [facility] exposure 00:00:00 00:00:00 non-user Medical Center History [facility] 2021-12-29 2021-12-[address] [facility] Housing Unable to 00:00:00 00:00:00 Medical Center Pay History [facility] 2021-12-29 2021-12-[address] [facility] Housing Places 00:00:00 00:00:00 Medical Ce nter Lived History [facility] 2021-12-29 2021-12-[address] [facility] Housing Homeless 00:00:00 00:00:00 Medical Center Last Year History [facility] 2019-12-09 2019-12-[address] [facility] Alcohol Frequency 00:00:00 00:00:00 Medical Center History SDOH 2019-12-09 2019-12-[address] [facility] Alcohol Std 00:00:00 00:00:00 [facility] Dr[facility] Tobacco Comment 2019-12-09 2019-12-09 8-[address] [facility] 00:00:00 00:00:00 PER DAY Medical Center Sex Ass[birth year] At [birth year] [facility] 00:00:00 00:00:00 [facility] Smoking Status Start Date Stop Date Source Tobacco smoking consumption [facility] Current Every Day Smoker [place] Medications Ordered Filled Start Stop Current Ordering Indication Dosage Frequency Signature Comments Components Source Medication Medication Date Date Medication? Clinician (SIG) Name Name esomeprazol Yes 20mg QD Take [address] [facility] (NexIUM) 1-25 by mouth [facility] 20 MG 13:34: daily. Medical capsule 11 [place] dicyclomine Yes 10mg Take [address] (BENTYL) 10 1-25 by mouth 2 Rosa Elena kes MG capsule 13:34: (two) Medica l 11 times Center daily before meals. glipiZIDE Yes 2.5mg QD Take 2.[address] (GLUCOTROL 1-25 mg by [facility] XL) 2.5 MG 13:34: mouth Medica l 24 hr 11 daily. Center tablet lipase/prot Yes Take by [facility] ease/amylas 1-25 mouth. [facility]ukes e (CREON 13:34: Medical ORAL) 11 [place] esomeprazol Yes 20mg QD Take [address] [facility] (NexIUM) 1-25 by mouth [facility] 20 MG 13:34: daily. Medical capsule 11 Center dicyclomine Yes 10mg Take [address] (BENTYL) 10 1-25 by mouth 2 Rosa Elena kes MG capsule 13:34: (two) Medica l 11 times Center daily before meals. glipiZIDE Yes 2.5mg QD Take 2.[address] (GLUCOTROL 1-25 mg by [facility] XL) 2.5 MG 13:34: mouth Medica l 24 hr 11 daily. Center tablet lipase/prot 2022-0 Yes Take by [facility] ease/amylas 1-25 mouth. [facility]ukes e (CREON 13:34: Medical ORAL) 11 [place] esomeprazol 2022-0 Yes 20mg QD Take [address] [facility] (NexIUM) 1-25 by mouth [facility] 20 MG 13:34: daily. Medical capsule 11 [place] dicyclomine 2022-0 Yes 10mg Take [address] (BENTYL) 10 1-25 by mouth 2 Rosa Elena kes MG capsule 13:34: (two) Medica l 11 times Center daily before meals. glipiZIDE 2022-0 Yes 2.5mg QD Take 2.[address] (GLUCOTROL 1-25 mg by [facility] XL) 2.5 MG 13:34: mouth Medica l 24 hr 11 daily. [place] tablet lipase/prot 0 Yes Take by [facility] ease/amylas 1-25 mouth. [facility]ukes e (CREON 13:34: Medical ORAL) 11 [place] esomeprazol 0 Yes 20mg QD Take [address] [facility] (NexIUM) 1-25 by mouth [facility] 20 MG 13:34: daily. Medical capsule 11 [place] dicyclomine 0 Yes 10mg Take [address] (BENTYL) 10 1-25 by mouth 2 Rosa Elena kes MG capsule 13:34: (two) Medica l 11 times Center daily before meals. glipiZIDE 2022-0 Yes 2.5mg QD Take 2.[address] (GLUCOTROL 1-25 mg by [facility] XL) 2.5 MG 13:34: mouth Medica l 24 hr 11 daily. [place] tablet lipase/prot 0 Yes Take by [facility] ease/amylas 1-25 mouth. [facility]ukes e (CREON 13:34: Medical ORAL) 11 [place] esomeprazol 2022-0 Yes 20mg QD Take [address] [facility] (NexIUM) 1-25 by mouth [facility] 20 MG 13:34: daily. Medical capsule 11 [place] dicyclomine 2022-0 Yes 10mg Take [address] (BENTYL) 10 1-25 by mouth 2 Rosa Elena kes MG capsule 13:34: (two) Medica l 11 times Center daily before meals. glipiZIDE 3-0 Yes 2.5mg QD Take 2.[address] (GLUCOTROL 1-25 mg by [facility] XL) 2.5 MG 13:34: mouth Medica l 24 hr 11 daily. [place] tablet lipase/prot Yes Take by [facility] ease/amylas 1-25 mouth. [facility] e (CREON 13:34: Medical ORAL) 11 [place] gadobenate 2021-02- No [id number] .2mL/kg 0.2 mL/kg, [facility] dimeglumine 03-29 Intravenou i ty of (MULTIHANCE 16:45: 16:40 s, ONCE, 1 [place] -20 mL) 00 :00 dose, On Medical injection Fri Branch 0.2 mL/kg 01/26/22 at 1045, Routine dicyclomine 2021-02 Yes 10mg Take 10 mg [facility] (BENTYL) 10 2-01 by mouth. Col lege MG capsule 09:14: of 30 Medicin e dicyclomine 2021-02 Yes 10mg Take 10 mg Dem[facility] (BENTYL) 10 2-01 by mouth. Col lege MG capsule 09:14: of 30 Medicin e Insulin 2021-02 Yes [id number] Inject up [facility] Lispro, 1 03-19 to 10 [facility] Unit Dial, 00:00: units with o f (HUMALOG 00 meals Medicin KWIKPEN) three e 100 UNIT/ML times SOPN daily Insulin 2021-02 Yes Inject 15 [facility] Detemir 1-30 units once Colleg e (LEVEMIR 00:00: daily of FLEXTOUCH) 00 Medicin 100 UNIT/ML e SOPN Continuous 2021-02 Yes [id number] Use for 14 [facility] Blood Gluc 1-30 days College Sensor 00:00: of (FREESTYLE 00 Medicin MALLORY 2 e SENSOR) MISC Continuous 2021-02 Yes [id number] Use to B [facility] Blood Gluc 1-30 read Mallory Col lege Window Trimmer 00:00: sensor of (FREESTYLE 00 Medicin MALLORY 2 e READER) PARRIS Insulin 2021-02 Yes [id number] Inject up B [facility] Lispro, 1 30 to 10 College Unit Dial, 00:00: units with o f (HUMALOG 00 meals Medicin KWIKPEN) three e 100 UNIT/ML times SOPN daily Insulin 2022-1 Yes Inject 15 [facility] Detemir 1-30 units once Colleg e (LEVEMIR 00:00: daily of FLEXTOUCH) 00 Medicin 100 UNIT/ML e SOPN Continuous 2021-02 Yes [id number] Use for 14 [facility] Blood Gluc 1-30 days College Sensor 00:00: of (FREESTYLE 00 Medicin MALLORY 2 e SENSOR) MISC Continuous 2021-02 Yes [id number] Use to B [facility] Blood Gluc 30 read Mallory Col lege Window Trimmer 00:00: sensor of (FREESTYLE 00 Medicin MALLORY 2 e READER) PARRIS insulin 2021-[address] [facility] syringes, 1-16 [facility] disposable, 00:00: Medica l 1 mL Syrg 00 [place] pantoprazol 2021-02 Yes TAKE 1 [facility] e 1-16 TABLET BY [facility] (PROTONIX) 00:00: MOUTH of 40 MG 00 EVERY DAY Medicin tablet e ondansetron 2021-02 Yes TAKE 1 [facility] (ZOFRAN) 4 1-16 TABLET Y Colle ge MG tablet 00:00: MOUTH of 00 EVERY 12 Medicin HOURS e NEEDED pantoprazol 2021-02 Yes TAKE 1 [facility] e 1-16 TABLET BY [facility] (PROTONIX) 00:00: MOUTH of 40 MG 00 EVERY DAY Medicin tablet e ondansetron 2021-02 Yes TAKE 1 [facility] (ZOFRAN) 4 1-16 TABLET Y Colle ge MG tablet 00:00: MOUTH of 00 EVERY 12 Medicin HOURS e NEEDED insulin 2021-[address] [facility] syringes, 1-16 [facility] disposable, 00:00: Medica l 1 mL Syrg 00 Center insulin 2021-[address] [facility] syringes, 1-16 [facility] disposable, 00:00: Medica l 1 mL Syrg 00 Center insulin 2021-[address] [facility] syringes, 1-16 [facility] disposable, 00:00: Medica l 1 mL Syrg 00 Center insulin 2021-[address] [facility] syringes, 1-16 [facility] disposable, 00:00: Medica l 1 mL Syrg 00 Center insulin 2021-[address] [facility] syringes, 1-16 [facility] disposable, 00:00: Medica l 1 mL Syrg 00 Center insulin 2021-[address] [facility] syringes, 1-16 [facility] disposable, 00:00: Medica l 1 mL Syrg 00 Center insulin 2021-[address] [facility] syringes, 1-16 [facility] disposable, 00:00: Medica l 1 mL Syrg 00 Center insulin 2021-[address] [facility] syringes, 1-16 [facility] disposable, 00:00: Medica l 1 mL Syrg 00 Center insulin 2021-[address] [facility] syringes, 1-16 [facility] disposable, 00:00: Medica l 1 mL Syrg 00 [place] esomeprazol 2021-02 Yes 20mg QD Take [address] [facility] (NexIUM) 1-14 by mouth [facility] 20 MG 09:44: daily. Medical capsule 54 [place] dicyclomine 2021-02 Yes 10mg Take [address] (BENTYL) 10 1-14 by mouth 2 Rosa Elena kes MG capsule 09:44: (two) Medica l 54 times Center daily before meals. esomeprazol 2021-02 Yes 20mg QD Take [address] [facility] (NexIUM) 1-14 by mouth [facility] 20 MG 09:44: daily. Medical capsule 54 [place] dicyclomine 2021-02 Yes 10mg Take [address] (BENTYL) 10 1-14 by mouth 2 Rosa Elena kes MG capsule 09:44: (two) Medica l 54 times Center daily before meals. esomeprazol 2021-02 Yes 20mg QD Take [address] [facility] (NexIUM) 1-14 by mouth [facility] 20 MG 09:44: daily. Medical capsule 54 [place] dicyclomine 2021-02 Yes 10mg Take [address] (BENTYL) 10 1-14 by mouth 2 Rosa Elena kes MG capsule 09:44: (two) Medica l 54 times Center daily before meals. esomeprazol 2021-02 Yes 20mg QD Take [address] [facility] (NexIUM) 1-14 by mouth [facility] 20 MG 09:44: daily. Medical capsule 54 [place] dicyclomine 2021-02 Yes 10mg Take [address] (BENTYL) 10 1-14 by mouth 2 Rosa Elena kes MG capsule 09:44: (two) Medica l 54 times Center daily before meals. esomeprazol 2021-02 Yes 20mg QD Take [address] [facility] (NexIUM) 1-14 by mouth [facility] 20 MG 09:44: daily. Medical capsule 54 Center dicyclomine 2021-02 Yes 10mg Take [address] (BENTYL) 10 1-14 by mouth 2 Rosa Elena kes MG capsule 09:44: (two) Medica l 54 times Center daily before meals. esomeprazol 2021-02 Yes 20mg QD Take [address] [facility] (NexIUM) 1-14 by mouth [facility] 20 MG 09:44: daily. Medical capsule 54 Center dicyclomine 2021-02 Yes 10mg Take 10 mg [...] subcutaneo (3 mL) InPn usly injection nightly. Blood 2021-02- No Use as [facility] Glucose 03-02 instructed Colle ge Monitoring 00:00: 05:59 . of Suppl 00 :00 Medicin (FIFTY50 e GLUCOSE METER 2.0) w/Device KIT Blood 2021-02- No Use as [facility] Glucose 03-02 instructed Colle ge Monitoring 00:00: 05:59 . of Suppl 00 :00 Medicin (FIFTY50 e GLUCOSE METER 2.0) w/Device KIT blood-gluco 2021-02- No Use as [facility] meter 03-02 instructed Luke s kit 00:00: 23:59 . Medical 00 :00 Center blood-gluco 2021-02- No Use as [facility] meter 03-02 instructed Luke s kit 00:00: 23:59 . Medical 00 :00 [place] blood-gluco 2021-02- No Use as [facility] meter 1-13 12-31 instructed Luke s kit 00:00: 23:59 . Medical 00 :00 [place] blood-gluco 2021-02- No Use as [facility] se meter 1-13 12-31 instructed Luke s kit 00:00: 23:59 . Medical 00 :00 [place] blood-gluco 2021-02- No Use as [facility] se meter 1-13 12-31 instructed Luke s kit 00:00: 23:59 . Medical 00 :00 [place] blood-gluco 2021-02- No Use as [facility] se meter 1-13 12-31 instructed Luke s kit 00:00: 23:59 . Medical 00 :00 [place] blood-gluco 2021-02- No Use as [facility] meter 1-13 12-31 instructed Luke s kit 00:00: 23:59 . Medical 00 :00 [place] blood-gluco 2021-02- No Use as [facility] se meter 1-13 12-31 instructed Luke s kit 00:00: 23:59 . Medical 00 :00 [place] blood-gluco 2021-02- No Use as [facility] se meter 1-13 12-31 instructed Luke s kit 00:00: 23:59 . Medical 00 :00 [place] blood-gluco 2021-02- No Use as [facility] se meter 1-13 12-31 instructed Luke s kit 00:00: 23:59 . Medical 00 :00 [place] blood-gluco 2021-02- No Use as [facility] se meter 1-13 12-31 instructed Luke s kit 00:00: 23:59 . Medical 00 :00 [place] Insulin 2021-02- No 4 u TID AC [place] samra Lispro, 03-02 plus If BS Col lege Unit Dial, 00:00: 00:00 > 150 take of 100 UNIT/ML 00 :00 1 unit. > Med icin SOPN 200 - 2 e units. > 250 - 4 units. > 300 - 6 units. > 350 - 8 units. > 400 take 10 units, and call your PCP. nystatin 2021-02- No [id number] Q.25D Take [address] (MYCOSTATIN 1-13 11-18 (500,000 Connie es ) 100,000 00:00: 23:59 Units Medica l unit/mL 00 :00 total) by Center suspension mouth 4 (four) times daily for 5 days. nystatin 2021-02- No [id number] Q.25D Take [address] (MYCOSTATIN 1-13 11-18 (500,000 Connie es ) 100,000 00:00: 23:59 Units Medica l unit/mL 00 :00 total) by Center suspension mouth 4 (four) times daily for 5 days. nystatin 2021-02- No [id number] Q.25D Take [address] (MYCOSTATIN 1-13 11-18 (500,000 Connie es ) 100,000 00:00: 23:59 Units Medica l unit/mL 00 :00 total) by Center suspension mouth 4 (four) times daily for 5 days. nystatin 2021-02- No [id number] Q.25D Take [address] (MYCOSTATIN 1-13 11-18 (500,000 Connie es ) 100,000 00:00: 23:59 Units Medica l unit/mL 00 :00 total) by Center suspension mouth 4 (four) times daily for 5 days. nystatin 2021-02- No [id number] Q.25D Take [address] (MYCOSTATIN 1-13 11-18 (500,000 Connie es ) 100,000 00:00: 23:59 Units Medica l unit/mL 00 :00 total) by Center suspension mouth 4 (four) times daily for 5 days. nystatin 2021-02- No [id number] Q.25D Take [address] (MYCOSTATIN 1-13 11-18 (500,000 Connie es ) 100,000 00:00: 23:59 Units Medica l unit/mL 00 :00 total) by Center suspension mouth 4 (four) times daily for 5 days. nystatin 2021-02- No [id number] Q.25D Take [address] (MYCOSTATIN 1-13 11-18 (500,000 Connie es ) 100,000 00:00: 23:59 Units Medica l unit/mL 00 :00 total) by Center suspension mouth 4 (four) times daily for 5 days. nystatin 2021-02- No [id number] Q.25D Take [address] (MYCOSTATIN 1-13 11-18 (500,000 Connie es ) 100,000 00:00: 23:59 Units Medica l unit/mL 00 :00 total) by Center suspension mouth 4 (four) times daily for 5 days. nystatin 2021-02- No [id number] Q.25D Take [address] (MYCOSTATIN 1-13 11-18 (500,000 Connie es ) 100,000 00:00: 23:59 Units Medica l unit/mL 00 :00 total) by Center suspension mouth 4 (four) times daily for 5 days. nystatin 2021-02- No [id number] Q.25D Take [address] (MYCOSTATIN 1-13 11-18 (500,000 Connie es ) 100,000 00:00: 23:59 Units Medica l unit/mL 00 :00 total) by Center suspension mouth 4 (four) times daily for 5 days. nystatin 2021-02- No [id number] Q.25D Take [address] (MYCOSTATIN [...] louise 30 MG 00 Center capsule amoxicillin 2019- Yes TK [address] [...] 00:00: DAYS Medical capsule 00 Center clarithromy 2019- Yes TK [address] natalie 0-06 BID FOR 14 [facility] (BIAXIN) 00:00: DAYS Medical 500 MG 00 Center tablet lansoprazol 2019- Yes TK ONE C [facility] 0-06 PO BID FOR [facility] (PREVACID) 00:00: 14 DAYS Medi louise 30 MG 00 Center capsule amoxicillin 2019-02 Yes TK [address] [facility] (AMOXIL) 0-06 BID FOR 14 [facility] 500 MG 00:00: DAYS Medical capsule 00 Center clarithromy 2019- Yes TK [address] natalie 0-06 BID FOR 14 [facility] (BIAXIN) 00:00: DAYS Medical 500 MG 00 Center tablet lansoprazol 2019- Yes TK ONE C [facility] 0-06 PO BID FOR [facility] (PREVACID) 00:00: 14 DAYS Medi louise 30 MG 00 Center capsule amoxicillin 2019-02 Yes TK [address] [facility] (AMOXIL) 0-06 BID FOR 14 [facility] 500 MG 00:00: DAYS Medical capsule 00 Center amoxicillin 2019- Yes TK [address] [...] Medi louise 30 MG 00 Center capsule clarithromy 2019-02 Yes TK [address] natalie 0-06 BID FOR 14 [facility] (BIAXIN) 00:00: DAYS Medical 500 MG 00 Center tablet amoxicillin 2019- Yes TK [address] [facility] (AMOXIL) 0-06 BID FOR 14 [facility] 500 MG 00:00: DAYS Medical capsule 00 Center clarithromy 2019- Yes TK [address] [facility] 0-06 BID FOR 14 [facility] (BIAXIN) 00:00: DAYS Medical 500 MG 00 Center tablet lansoprazol 2019- Yes TK ONE C [facility] 0-06 PO BID FOR [facility] (PREVACID) 00:00: 14 DAYS Medi louise 30 MG 00 Center capsule lansoprazol 2019- Yes TK ONE C [facility] 0-06 PO BID FOR [facility] (PREVACID) 00:00: 14 DAYS Medi louise 30 MG 00 Center capsule amoxicillin 2019- Yes TK [address] [facility] (AMOXIL) 0-06 BID FOR 14 [facility] 500 MG 00:00: DAYS Medical capsule 00 Center clarithromy 2019- Yes TK [address] [...] kes mg tablet 00:00: DAYS PRN Medi luoise [place] predniSONE 2019-02 Yes TK [address] [facility] (DELTASONE) 0-01 QD PRF ABD Rosa Elena kes 20 MG 00:00: PAIN Medical tablet 00 [place] traMADoL 2019-02 Yes TK [address] [facility] (ULTRAM) 50 0-01 BID FOR 12 Rosa Elena kes mg tablet 00:00: DAYS PRN Medi [place]ise [place] predniSONE 2019-02 Yes TK [address] [facility] [address] [facility] (DELTASONE) 0-01 QD PRF ABD Rosa Elena kes 20 MG 00:00: PAIN Medical tablet 00 [place] traMADoL 2019-02 Yes TK [address] [facility] (ULTRAM) 50 0-01 BID FOR 12 Rosa Elena kes mg tablet 00:00: DAYS PRN Medi [place] 00 [place] predniSONE 2019-02 Yes TK [address] [facility] (DELTASONE) 0-01 QD PRF ABD Rosa Elena kes 20 MG 00:00: PAIN Medical tablet 00 [place] traMADoL 2019-02 Yes TK [address] [facility] (ULTRAM) 50 0-01 BID FOR 12 Rosa Elena kes mg tablet 00:00: DAYS PRN Medi [place] 00 [place] predniSONE 2019-02 Yes TK [address] [facility] [address] [facility] (DELTASONE) 0-01 QD PRF ABD Rosa Elena kes 20 MG 00:00: PAIN Medical tablet 00 [place] traMADoL 2019-02 Yes TK [address] [facility] (ULTRAM) 50 0-01 BID FOR 12 Rosa Elena kes mg tablet 00:00: DAYS PRN Medi [place] 00 [place] predniSONE 2020 Yes TK [address] [facility] (DELTASONE) 0-01 QD PRF ABD Rosa Elena kes 20 MG 00:00: PAIN Medical tablet 00 [place] traMADoL 2019-02 Yes TK [address] [facility] (ULTRAM) 50 0-01 BID FOR 12 Rosa Elena kes mg tablet 00:00: DAYS PRN Medi [place] 00 [place] predniSONE 2020 Yes TK [address] [facility] [address] [facility] (DELTASONE) 0-01 QD PRF ABD Rosa Elena kes 20 MG 00:00: PAIN Medical tablet 00 [place] traMADoL 2019-02 Yes TK [address] [facility] (ULTRAM) 50 0-01 BID FOR 12 Rosa Elena kes mg tablet 00:00: DAYS PRN Medi lou[place] 00 [place] predniSONE 2019-02 Yes TK [address] [facility] (DELTASONE) 0-01 QD PRF ABD Rosa Elena kes 20 MG 00:00: PAIN Medical tablet 00 [place] traMADoL 2019-02 Yes TK [address] [facility] (ULTRAM) 50 0-01 BID FOR 12 Rosa Elena kes mg tablet 00:00: DAYS PRN Medi [place] 00 [place] predniSONE 2019-02 Yes TK [address] [facility] (DELTASONE) 0-01 QD PRF ABD Rosa Elena kes 20 MG 00:00: PAIN Medical tablet 00 [place] traMADoL 2019-02 Yes TK [address] [facility] (ULTRAM) 50 0-01 BID FOR 12 Rosa Elena kes mg tablet 00:00: DAYS PRN Medi [place] 00 [place] predniSONE 2020 Yes TK [address] [facility] [address] [facility] (DELTASONE) 0-01 QD PRF ABD Rosa Elena kes 20 MG 00:00: PAIN Medical tablet 00 [place] traMADoL 2019-02 Yes TK [address] [facility] (ULTRAM) 50 0-01 BID FOR 12 Rosa Elena kes mg tablet 00:00: DAYS PRN Medi [place] 00 [place] predniSONE 2020 Yes TK [address] [facility] (DELTASONE) 0-01 QD PRF ABD Rosa Elena kes 20 MG 00:00: PAIN Medical tablet 00 [place] traMADoL 2019-02 Yes TK [address] [facility] (ULTRAM) 50 0-01 BID FOR 12 Rosa Elena kes mg tablet 00:00: DAYS PRN Medi [place] 00 [place] predniSONE 2020 Yes TK [address] [facility] (DELTASONE) 0-01 QD PRF ABD Rosa Elena kes 20 MG 00:00: PAIN Medical tablet 00 Center traMADoL 2020-1 Yes TK [address] [facility] [...] [address] [facility] 11-14 D 1/2 HOUR [facility] (PROTONIX) 00:00: BEFORE Medic al 40 MG 00 BREAKFAST Center tablet OR FIRST MEAL pantoprazol 2020-0 Yes TK [address] [facility] 11-14 D 1/2 HOUR [facility] (PROTONIX) 00:00: BEFORE Medic al 40 MG 00 BREAKFAST Center tablet OR FIRST MEAL pantoprazol 2020-0 Yes TK 1 T [facility] 11-14 D 1/2 [facility] ([facility]: BEFORE Medic al 40 MG 00 BREAKFAST Center tablet OR FIRST MEAL PredniSONE PredniSONE 2020-0 2020- No Janina 1 tablet [facility] 318 03- [facility] 00:00: 00:00 - [facility] 00 :00 [facility] Omeprazole Omeprazole No QD Omeprazole Magnesium Magnesium [...] 5 MG t_as_ne HCl 5 MG eded} Ondansetron Ondansetron No 1{table QD Ondansetro HCl 4 MG HCl 4 MG t} n HCl 4 MG glipiZIDE 5 glipiZIDE 5 No BID glipiZIDE MG MG 5 MG HumaLOG 100 HumaLOG 100 No TID HumaLOG UNIT/ML UNIT/ML 100 UNIT/ML Protonix 40 Protonix 40 No 1{table QD Protonix MG MG t} 40 MG Omeprazole Omeprazole No BID Omeprazole Magnesium Magnesium Magnesium 20 MG 20 MG 20 MG oxyCODONE oxyCODONE No 1{table QID oxyCODONE HCl 5 MG HCl 5 MG t_as_ne HCl 5 MG eded} Levemir 100 Levemir 100 No Levemir UNIT/ML UNIT/ML 100 UNIT/ML Ondansetron Ondansetron No 1{table QD Ondansetro HCl 4 MG HCl 4 MG t} n HCl 4 MG glipiZIDE 5 glipiZIDE 5 No BID glipiZIDE MG MG 5 MG HumaLOG 100 HumaLOG 100 No TID HumaLOG UNIT/ML UNIT/ML 100 UNIT/ML Protonix 40 Protonix 40 No 1{table QD Protonix MG MG t} 40 MG Omeprazole Omeprazole No BID Omeprazole Magnesium Magnesium Magnesium 20 MG 20 MG 20 MG oxyCODONE oxyCODONE No 1{table QID oxyCODONE HCl 5 MG HCl 5 MG t_as_ne HCl 5 MG eded} Levemir 100 Levemir 100 No Levemir UNIT/ML UNIT/ML 100 UNIT/ML Ondansetron Ondansetron No 1{table QD Ondansetro HCl 4 MG HCl 4 MG t} n HCl 4 MG glipiZIDE 5 glipiZIDE 5 No BID glipiZIDE MG MG 5 MG HumaLOG 100 HumaLOG 100 No TID HumaLOG UNIT/ML UNIT/ML 100 UNIT/ML Protonix 40 Protonix 40 No 1{table QD Protonix MG MG t} 40 MG Omeprazole Omeprazole No BID Omeprazole Magnesium Magnesium Magnesium 20 MG 20 MG 20 MG oxyCODONE oxyCODONE No 1{table QID oxyCODONE HCl 5 MG HCl 5 MG t_as_ne HCl 5 MG eded} Levemir 100 Levemir 100 No Levemir UNIT/ML UNIT/ML 100 UNIT/ML Creon Creon No Creon [place] 36,000 36,000 36,000 da unit-114,00 unit-114,00 unit-114,0 [facility] 0 0 00 al unit-180,00 unit-180,00 unit-180,0 Health 0 unit 0 unit 00 unit Outreac capsule,del capsule,del capsule,de h ayed ayed layed Program release release release TAKE 2 TAKE 2 TAKE 2 CAPSULES BY CAPSULES BY CAPSULES MOUTH THREE MOUTH THREE BY MOUTH TIMES DAILY TIMES DAILY THREE WITH MEALS WITH MEALS TIMES AND 1 AND 1 DAILY WITH CAPSULE CAPSULE MEALS AND WITH SNACKS WITH SNACKS 1 CAPSULE WITH SNACKS dicyclomine dicyclomine No 1 QID dicyclomin [place] 20 mg 20 mg e 20 mg da tablet Take tablet Take tablet [facility] 1 tablet 4 1 tablet 4 Take 1 a l times a day times a day tablet 4 Health by oral by oral times a Outrea c route as route as day by h needed. needed. oral route Pro gram as needed. FreeStyle FreeStyle No FreeStyle [place] Mallory 2 Mallory 2 Mallory 2 da [facility] USE [facility] USE [facility] USE [facility] TO READ TO READ TO READ al MALLORY MALLORY MALLORY Health SENSOR SENSOR SENSOR Outreac h Program FreeStyle FreeStyle No FreeStyle [place] Mallory 2 Mallory 2 Mallory 2 da Sensor kit Sensor kit Sensor kit [facility] USE EVERY USE EVERY USE EVERY al 14 DAYS 14 DAYS 14 DAYS Health Outreac h Program furosemide furosemide No 1 Q1D furosemide [place] 40 mg 40 mg 40 mg da tablet Take tablet Take tablet [facility] 1 tablet 1 tablet Take 1 al every day every day tablet Hea lth by oral by oral every day Outr eac route for route for by oral h 30 days. 30 days. route for Pr ogram 30 days. glipizide glipizide No glipizide [place] ER 2.5 mg ER 2.5 mg ER 2.5 mg da tablet, tablet, tablet, [facility] p extended extended extended al release 24 release 24 release 24 Health hr hr hr Outreac h Program omeprazole omeprazole No 1capsul Q1D omeprazole [place] 40 mg 40 mg e(s) 40 mg da capsule,del capsule,del capsule,de [facility] ayed ayed layed al release release release Health Take 1 Take 1 Take 1 Outreac capsule capsule capsule h every day every day every day Program by oral by oral by oral route for route for route for 30 days. 30 days. 30 days. OneTouch OneTouch No OneTouch [place] Verio Verio Verio da Reflect Reflect Reflect [facility] Meter USE Meter USE Meter USE al DIRECTED DIRECTED H ealth DIRECTED Outreac h Program pantoprazol pantoprazol No 2 Q1D pantoprazo [place] e 20 mg e 20 mg le 20 mg da tablet,saul tablet,saul tablet,del [facility] yed release yed release ayed a l Take 2 Take 2 release Health tablets tablets Take 2 Outreac every day every day tablets h by oral by oral every day Prog jasmyn route. route. by oral route. spironolact spironolact No 1 Q1D spironolac [place] one 100 mg one 100 mg tone 100 da tablet Take tablet Take mg tablet [facility] 1 tablet 1 tablet Take 1 al every day every day tablet Hea lth by oral by oral every day Outr eac route for route for by oral h 30 days. 30 days. route for Pr ogram 30 days. Immunizations Ordered Filled Immunization Date Status Comments Sourc e Immunization Name Name SARS-COV-2 COVID-19 2020-05-25 Completed Unive rsity of MODERNA 12+ YRS 00:00:00 [facility] VACCINE Branch SARS-COV-2 COVID-19 2020-04-27 Completed Unive rsity of MODERNA 12+ YRS 00:00:00 [facility] VACCINE [place] Vital Signs Vital Name Observation Time Observation Value Comments Source HEIGHT 2022-03-14 13:35:00 172.7 cm WEIGHT 2022-03-14 13:35:00 59.875 kg BP Diastolic 2022-08-02 00:00:00 66 mm[Hg] [place] [facility] Height 2022-08-02 00:00:00 66 [in_i] [place] [facility] BMI (Body Mass 2022-08-02 00:00:00 19.8 kg/m2 [place]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) [facility] BP Systolic 2022-08-02 00:00:00 101 mm[Hg] [place] [facility] Body Weight 2022-08-02 00:00:00 122.8 [lb_av] [place] [facility] HEIGHT 2022-03-14 13:35:00 172.7 cm WEIGHT 2022-03-14 13:35:00 59.875 kg height 2022-01-24 16:00:00 66 [in_i] [facility] weight 2022-01-24 16:00:00 123 [lb_av] [facility] temperature 2022-01-24 16:00:00 97.2 [degF] [facility] bmi 2022-01-24 16:00:00 19.85 kg/m2 [facility] oximetry 2022-01-24 16:00:00 100 % [facility] respiratory rate 2022-01-24 16:00:00 16 /min Comm on [facility] blood pressure 2022-01-24 16:00:00 125 mm[Hg] [facility] - systolic [facility] blood pressure 2022-01-24 16:00:00 53 mm[Hg] [facility] - diastolic [facility] Systolic blood 2022-01-18 15:14:00 115 mm[Hg] [facility] pressure Medicine Diastolic blood 2022-01-18 15:14:00 70 mm[Hg] [facility] Medicine Body height 2022-01-18 15:14:00 170.2 cm [facility] Body weight 2022-01-18 15:14:00 54.159 kg [facility] BMI 2022-01-18 15:14:00 18.70 kg/m2 [facility] Systolic blood 2022-01-17 19:40:00 108 mm[Hg] [facility] pressure Medicine Diastolic blood 2022-01-17 19:40:00 46 mm[Hg] [facility] pressure Medicine Heart rate 2022-01-17 19:40:00 68 /min [facility] Body temperature 2022-01-17 19:40:00 37 Bella [facility] Respiratory rate 2022-01-17 19:40:00 16 /min [facility] Body height 2022-01-17 19:40:00 170.2 cm [facility] Body weight 2022-01-17 19:40:00 54.341 kg [facility] BMI 2022-01-17 19:40:00 18.76 kg/m2 [facility] WEIGHT 2021-12-29 05:00:00 54.1 kg HEIGHT 2021-12-29 00:07:00 170.2 cm WEIGHT 2021-12-29 00:07:00 53.3 kg WEIGHT 2021-12-29 05:00:00 54.1 kg HEIGHT 2021-12-29 00:07:00 170.2 cm WEIGHT 2021-12-29 00:07:00 53.3 kg WEIGHT 2021-12-29 05:00:00 54.1 kg HEIGHT 2021-12-29 00:07:00 170.2 cm WEIGHT 2021-12-29 00:07:00 53.3 kg height 2021-06-13 09:00:00 66 [in_i] [facility] weight 2021-06-13 09:00:00 119 [lb_av] [facility] temperature 2021-06-13 09:00:00 97.2 [degF] [facility] bmi 2021-06-13 09:00:00 19.21 kg/m2 [facility] oximetry 2021-06-13 09:00:00 100 % [facility] respiratory rate 2021-06-13 09:00:00 18 /min [facility] blood pressure 2021-06-13 09:00:00 116 mm[Hg] [facility] blood pressure 2021-06-13 09:00:00 58 mm[Hg] [facility] - diastolic [facility] HEIGHT 2019-12-09 13:28:00 170.2 cm WEIGHT 2019-12-09 13:28:00 54.658 kg HEIGHT 2019-12-09 13:28:00 170.2 cm WEIGHT 2019-12-09 13:28:00 54.658 kg Body height 2022-03-14 13:35:00 172.7 cm [facility] Body weight 2022-03-14 13:35:00 59.875 kg [facility] BMI 2022-03-14 13:35:00 20.07 kg/m2 [facility] Systolic blood 2021-12-31 08:31:00 82 mm[Hg] [facility] Diastolic blood 2021-12-31 08:31:00 51 mm[Hg] [facility] Heart rate 2021-12-31 08:31:00 74 /min [facility] Body temperature 2021-12-31 08:31:00 36.56 Bella [facility] Respiratory rate 2021-12-31 08:31:00 17 /min [facility] Oxygen saturation in 2021-12-31 08:31:00 94 /min [facility] Arterial blood by Medical Ce al[facility] Pulse oximetry Body height 2021-12-29 21:22:00 170 cm [facility] Body weight 2021-12-29 21:22:00 56.9 kg [facility] BMI 2021-12-29 21:22:00 19.69 kg/m2 [facility] Procedures Procedure Date / Time Performing Clinician Source Performed US, abdomen, complete 2022-08-02 00:00:00 [facility] ESOPHAGOGASTRODUODENOSCOP 2022-04-04 10:00:00 Zunilda Luis [facility] Y, WITH ENDOSCOPIC US Medical Ce alice ULTRASOUND, UPPER GI 2022-04-04 10:00:00 Zunilda Luis [facility] TRACT, ENDOSCOPIC, WITH [facility] FINE NEEDLE ASPIRATION IGG 4 2022-01-18 10:04:41 [facility] AMB REF TO GENERAL 2022-01-18 09:49:16 [facility] llege of SURGERY [facility] PANCREATIC ELASTASE - 2022-01-18 09:39:41 [facility] COMPREHENSIVE METABOLIC 2022-01-17 20:31:00 Mary Ellen Epps [facility] C-PEPTIDE 2022-01-17 20:31:00 Mary Ellen Epps [facility] MICROALBUMIN/CREAT URINE 2022-01-17 20:31:00 Mary Ellen Epps [facility] COMPREHENSIVE METABOLIC 2022-01-17 14:31:00 [facility] C-PEPTIDE 2022-01-17 14:31:00 [facility] MICROALBUMIN/CREAT URINE 2022-01-17 14:31:00 [facility] GERALD 67 ANTIBODY 2022-01-17 14:31:00 [facility] IA-2 ANTIBODY 2022-01-17 14:31:00 [facility] INSULIN ANTIBODY 2022-01-17 14:31:00 [facility] GAD65, IA-2, AND INSULIN 2022-01-17 14:18:48 [facility] ([facility] SCANNED ORDER 2022-01-17 13:26:26 [facility] HEMOGLOBIN AND HEMATOCRIT 2021-12-31 10:32:00 Terrence Funez [facility] POCT-GLUCOSE METER 2021-12-31 06:48:00 Corey Funez [facility] COMPREHENSIVE METABOLIC 2021-12-31 03:56:00 John Funez [facility] CBC W/PLT COUNT & AUTO 2021-12-31 03:56:00 Corey Funez [facility] CBC W/PLT COUNT & AUTO 2021-12-31 03:56:00 Corey Funez [facility] POCT-GLUCOSE METER 2021-12-30 23:06:00 Corey Funez [facility] POCT-GLUCOSE METER 2021-12-30 18:41:00 Corey Funez [facility] POCT-GLUCOSE METER 2021-12-30 16:40:00 Corey Funez [facility] POCT-GLUCOSE METER 2021-12-30 11:33:00 Corey Funez [facility] BASIC METABOLIC PANEL 2021-12-30 09:13:00 Tito Lombardi [facility] HEPATIC FUNCTION PANEL 2021-12-30 09:13:00 Tito Lombardi [facility] CBC W/PLT COUNT & AUTO 2021-12-30 09:13:00 Tito Lombardi [facility] MAGNESIUM 2021-12-30 09:13:00 Corey Funez [facility] CBC W/PLT COUNT & AUTO 2021-12-30 09:13:00 [facility] PO[facility]SE [facility]ER 2021-12-30 07:01:00 Oscar, [facility] POCT-GLUCOSE METER 2021-12-29 23:52:00 Oscar, [facility] REPORT OF PROCEDURE - 2021-12-29 21:12:32 [facility] REPORT OF PROCEDURE - 2021-12-29 20:55:47 Toby [facility] [place] ERCP 2021-12-29 17:16:00 [facility] TISSUE EXAM 2021-12-29 16:49:00 [facility] ERCP, WITH SPHINCTEROTOMY 2021-12-29 16:00:00 BrianZunilda riggs I [facility] ULTRASOUND, ENDOSCOPIC, 2021-12-29 16:00:00 [facility] WITH FINE NEEDLE [facility] ASPIRATION ERCP, WITH BALLOON SWEEP 2021-12-29 16:00:00 [facility] OF BILE DUCTS [facility] PROCEDURE W/ C-ARM 2021-12-29 16:00:00 [facility] POCT-GLUCOSE METER 2021-12-29 11:11:00 Oscar, [facility] SARS-COV2/RT-PCR ([facility] & 2021-12-29 09:58:[address] [facility] REF LABS) [facility] KETONE, BLOOD 2021-12-29 08:01:00 Tito Lombardi [facility] BASIC METABOLIC PANEL 2021-12-29 06:58:00 Tito Lombardi [facility] BLOOD GAS, VENOUS 2021-12-29 06:58:00 Tito Lombardi [facility] POCT-GLUCOSE METER 2021-12-29 04:55:[address] [facility] ABORH, MANUAL 2021-12-29 01:31:00 Mary Nobles [facility] BASIC METABOLIC PANEL 2021-12-29 00:54:00 Tito Lombardi [facility] HEPATIC FUNCTION PANEL 2021-12-29 00:54:[address] [facility] LACTIC ACID, VENOUS 2021-12-29 00:54:00 Tito Lombardi [facility] CBC W/PLT COUNT & AUTO 2021-12-29 00:54:00 Tito Lombardi [facility] PT/APTT 2021-12-29 00:54:[address] [facility] KETONE, BLOOD 2021-12-29 00:54:[address] [facility] BLOOD GAS, VENOUS 2021-12-29 00:54:00 Tito Lombardi [facility] HEMOGLOBIN A1C 2021-12-29 00:54:00 Tito Lombardi [facility] TYPE AND SCREEN, 2021-12-29 00:54:00 Tito Lombardi [facility] AUTOMATED [facility] CBC W/PLT COUNT & AUTO 2021-12-29 00:54:00 Tito Lombardi [facility] POCT-GLUCOSE METER 2021-12-29 00:09:[address] [facility] Plan of Care Planned Activity Planned Date Details Comments Source Future Scheduled 2022-10-[address] [facility] Test 00:00:00 (Season Ended) [code = Medic al Center Influenza Vaccine (Season Ended)] Future Scheduled 2022-10-[address] [facility] Test 00:00:00 (Season Ended) [code = Medic ma Center INFLUENZA VACCINE (Season Ended)] Diagnostic Test 2022-08-02 CMP, serum or plasma Issac rodrigueza Pending 00:00:00 [code = CMP, serum or [facility] plasma] [facility] Diagnostic Test 2022-08-02 CBC w/ auto diff [code [place] Pending 00:00:00 = CBC w/ auto diff] [facility] Out[facility] Diagnostic Test 2022-08-02 afp (alpha-fetoprotein) Brianda joseph Pending 00:00:00 tumor marker, serum or [facility] plasma [code = afp Outreach Program (alpha-fetoprotein) tumor marker, serum or plasma] Diagnostic Test 2022-08-02 vitamin D, 25-hydroxy, [place] Pending 00:00:00 total, serum [code = [facility] vitamin D, 25-hydroxy, Outre ach Program total, serum] Diagnostic Test 2022-08-02 PT/INR [code = PT/INR] Stacey prince Pending 00:00:00 [facility] Test 2022-08-02 hepatitis A virus Ab, Nicholas roldan Pending 00:00:00 qualitative, [facility] immunoassay, serum Outreach Program [code = hepatitis A virus Ab, qualitative, immunoassay, serum] Diagnostic Test 2022-08-02 hepatitis B surface Ab, Brianda joseph Pending 00:00:00 qualitative, serum [facility] [code = hepatitis B Outreach Program surface Ab, qualitative, serum] Future Scheduled 2022-02-[address] [facility] Test 00:00:00 (12+) [code = Medical Center DEPRESSION SCREENING (12+)] Future Scheduled 2022-02-[address] [facility] Test 00:00:00 (12+) [code = Medical Center DEPRESSION SCREENING (12+)] Future Scheduled 2022-02-[address] [facility] Test 00:00:00 (12+) [code = Medical Center DEPRESSION SCREENING (12+)] Future Scheduled 2022-02-[address] [facility] Test 00:00:00 (12+) [code = Medical Center DEPRESSION SCREENING (12+)] Future Scheduled 2022-02-[address] [facility] Test 00:00:00 (12+) [code = Medical Center DEPRESSION SCREENING (12+)] Future Scheduled 2022-01-18 Screening for malignant [facility] Test 15:28:26 neoplasm of colon of Medicin e (procedure) [code = 218904588] Future Scheduled 2022-01-18 Pneumococcal Combined [facility] Test 15:28:26 (1 - PCV) [code = of Medicin e Pneumococcal Combined (1 - PCV)] Future Scheduled 2022-01-18 TETANUS SHOT (ADULT) [facility] Test 15:28:26 [code = TETANUS SHOT of Medi cine (ADULT)] Future Scheduled 2022-01-18 Diabetic foot [facility] Col [facility]ge Test 15:28:26 examination of Medicine (regime/therapy) [code = 856432896] Future Scheduled 2022-01-18 ANNUAL DIABETIC [facility] C ollege Test 15:28:26 RETINOPATHY SCREENING of Med icine [code = ANNUAL DIABETIC RETINOPATHY SCREENING] Future Scheduled 2022-01-18 Human immunodeficiency [facility] Test 15:28:26 virus screening of Medicine (procedure) [code = 973611323] Future Scheduled 2022-01-18 ZOSTER VACCINE (1 of 2) [facility] Test 15:28:26 [code = ZOSTER VACCINE of Me dicine (1 of 2)] Future Scheduled 2022-01-18 COVID-19 Vaccine (3 - [facility] Test 15:28:26 Booster for Moderna of Medic ine series) [code = COVID-19 Vaccine (3 - Booster for Moderna series)] Future Scheduled 2022-01-18 FLU VACCINE > 6 MONTHS [facility] Test 15:28:26 [code = FLU VACCINE > 6 of M edicine MONTHS] Future Scheduled 2022-01-18 Hemoglobin A1c [facility] Test 15:28:26 measurement (procedure) of M edicine [code = 44517842] Future Scheduled 2022-01-18 IGG 4 [code = 07358] Ordered: [facility] Test 10:04:41 01/18/2022 of Medicine Future Scheduled 2022-01-18 Screening for malignant [facility] Test 09:47:39 neoplasm of colon of Medicin e (procedure) [code = 450426200] Future Scheduled 2022-01-18 Pneumococcal Combined [facility] Test 09:47:39 (1 - PCV) [code = of Medicin e Pneumococcal Combined (1 - PCV)] Future Scheduled 2022-01-18 TETANUS SHOT (ADULT) [facility] Test 09:47:39 [code = TETANUS SHOT of Medi cine (ADULT)] Future Scheduled 2022-01-18 Diabetic foot [facility] Test 09:47:39 examination of Medicine (regime/therapy) [code = 095177679] Future Scheduled 2022-01-18 ANNUAL DIABETIC [facility] C ollege Test 09:47:39 RETINOPATHY SCREENING of Med icine [code = ANNUAL DIABETIC RETINOPATHY SCREENING] Future Scheduled 2022-01-18 Human immunodeficiency [facility] Test 09:47:39 virus screening of Medicine (procedure) [code = 871637800] Future Scheduled 2022-01-18 ZOSTER VACCINE (1 of 2) [facility] Test 09:47:39 [code = ZOSTER VACCINE of Me dicine (1 of 2)] Future Scheduled 2022-01-18 COVID-19 Vaccine (3 - [facility] Test 09:47:39 Booster for Moderna of Medic ine series) [code = COVID-19 Vaccine (3 - Booster for Moderna series)] Future Scheduled 2022-01-18 FLU VACCINE > 6 MONTHS [facility] Test 09:47:39 [code = FLU VACCINE > 6 of edicine MONTHS] Future Scheduled 2022-01-18 Hemoglobin A1c [facility] Test 09:47:39 measurement (procedure) of M edicine [code = 76875745] Future Scheduled 2022-01-18 PANCREATIC ELASTASE - Ordered: [facility] Test 09:39:41 FECAL [code = 03646-3] 01/18/2022 of Me dicine Future Scheduled 2022-01-17 GERALD 67 ANTIBODY [code = [facility] Test 14:31:00 NOCPT] of Medicine Future Scheduled 2022-01-17 IA-2 ANTIBODY [code = [facility] Test 14:31:00 NOCPT] of Medicine Future Scheduled 2022-01-17 INSULIN ANTIBODY [code [facility] Test 14:31:00 = 28525] of Medicine Future Scheduled 2022-01-17 GAD65, IA-2, AND Ordered: [facility] Test 14:18:48 INSULIN AUTOANTIBODY 01/17/2022 of Medi cine [code = NOCPT] Future Scheduled 2021-10-19 INFLUENZA VACCINE (#1) C [...] Medical Center DEPRESSION SCREENING (12+)] Future Scheduled 2020-10-25 COVID-19 VACCINE (3 [facility] Booster for Moderna [facility] series) [code = COVID-19 VACCINE (3 - Booster for Moderna series)] Future Scheduled 2020-10-25 COVID-19 VACCINE (3 - [facility]00 Booster for Moderna [facility] series) [code = COVID-19 VACCINE (3 - Booster for Moderna series)] Future Scheduled 2020-10-25 COVID-19 VACCINE (3 - [facility] 00:[facility]:00 Booster for Moderna [facility] series) [code = COVID-19 VACCINE (3 - Booster for Moderna series)] Future Scheduled 2020-07-20 COVID-19 VACCINE (3 - [facility] 00:00:00 Booster for Moderna [facility] series) [code = COVID-19 VACCINE (3 - Booster for Moderna series)] Future Scheduled 2020-07-20 COVID-19 VACCINE (3 - [facility] 00[facility]00:00 Booster for Moderna [facility] series) [code = COVID-19 VACCINE (3 - Booster for Moderna series)] Future Scheduled 2012 SHINGLES VACCINES (1 of [...] [facility] Test 00:00:00 [code = 51623561] Medical Ce nter Future Scheduled 1997 Lipid panel (procedure) [facility] Test 00:00:00 [code = 60319168] Medical Ce nter Future Scheduled 1997 Lipid panel (procedure) [facility] Test 00:00:00 [code = 43818292] Medical Ce nter Future Scheduled 1997 Lipid panel (procedure) [facility] Test 00:00:00 [code = 98850848] Medical Ce nter Future Scheduled 1997 Lipid panel (procedure) [facility] Test 00:00:00 [code = 16048365] Medical Ce nter Future Scheduled 1997 Lipid panel (procedure) [facility] Test 00:00:00 [code = 36008409] Medical Ce nter Future Scheduled 1997 Lipid panel (procedure) [facility] Test 00:00:00 [code = 46657350] Medical Ce nter Future Scheduled 1997 Lipid panel (procedure) [facility] Test 00:00:00 [code = 08789277] Medical Ce nter Future Scheduled 1997 Lipid panel (procedure) [facility] Test 00:00:00 [code = 81301351] Medical Ce nter Future Scheduled 1997 Lipid panel (procedure) [facility] Test 00:00:00 [code = 46898263] Medical Ce nter Future Scheduled 1997 Lipid panel (procedure) [facility] Test 00:00:00 [code = 20624616] Medical Ce nter Future Scheduled 1997 Lipid panel (procedure) [facility] Test 00:00:00 [code = 17479439] Medical Ce nter Future Scheduled 1981 DTAP/TDAP/TD [...] Counseling and Screening (12+)] Future Scheduled 1968 Pneumococcal Vaccine: [facility] 00:[facility]:00 0-64 Years (1 - PCV) Medical Center [code = Pneumococcal Vaccine: 0-64 Years (1 - PCV)] Future Scheduled 1968 PNEUMOCOCCAL [...] [facility] Test 00:00:00 [code = CT Colonography [facility] (combo)] Future Scheduled 1962 Screening for malignant [facility] Test 00:00:00 neoplasm of colon Medical Ce nter (procedure) [code = 977063665] Future Scheduled 1962 Screening for malignant [facility] Test 00:00:00 neoplasm of colon Medical Ce nter (procedure) [code = 340805600] Future Scheduled 1962 Screening for malignant [facility] Test 00:00:00 neoplasm of colon Medical Ce nter (procedure) [code = 186659738] Future Scheduled 1960 Screening for malignant [facility] 00:00:00 neoplasm of colon Medical Ce nter (procedure) [code = 629915225] Future Scheduled 1962 Sigmoidoscopy [code = [facility]oscopy] Medical Ashae r Future Scheduled 1962 CT Colonography (combo) [facility] 00:00:00 [code = CT [facility] Future Scheduled 1962 Screening for malignant [facility] 00:00:00 neoplasm of colon Medical Ce nter (procedure) [code = 605710926] Future Scheduled 1962 Screening for malignant [facility] 00:00:00 neoplasm of colon Medical Ce nter (procedure) [code = 837511994] Future Scheduled 1962 Screening for malignant [facility] 00:00:00 neoplasm of colon Medical Ce nter (procedure) [code = 281439474] Future Scheduled 1962 Screening for malignant [facility] 00:00:00 neoplasm of colon Medical Ce nter (procedure) [code = 696234053] Future Scheduled 1962 Sigmoidoscopy [facility]code = [facility] S[facility]oscopy] Medical Ashae r Future Scheduled 1962 CT Colonography (combo) [facility] 00:00:00 [code = CT [facility])] Future Scheduled 1962 Screening for malignant [facility] 00:00:00 neoplasm of colon Medical Ce nter (procedure) [code = 470897654] Future Scheduled 1962 Screening for malignant [facility] 00:00:00 neoplasm of colon Medical Ce nter (procedure) [code = 331725294] Future Scheduled 1962 Screening for malignant [facility] 00:00:00 neoplasm of colon Medical Ce nter (procedure) [code = 012147517] Future Scheduled 1962 Screening for malignant [facility] 00:00:00 neoplasm of colon Medical Ce nter (procedure) [code = 622513701] Future Scheduled 1962 Sigmoidoscopy [code = [facility] 00:[facility] S[facility]oidoscopy] Medical Ashae r Future Scheduled 1962 CT Colonography (combo) [facility] 00:00:00 [code = CT [facility])] Future Scheduled 1962 Screening for malignant [facility] 00:00:00 neoplasm of colon Medical Ce nter (procedure) [code = 568067117] Future Scheduled 1962 Screening for malignant [facility] 00:00:00 neoplasm of colon Medical Ce nter (procedure) [code = 188681791] Future Scheduled 1962 Screening for malignant [facility] 00:00:00 neoplasm of colon Medical Ce nter (procedure) [code = 095369875] Future Scheduled 1962 Screening for malignant [facility] 00:00:00 neoplasm of colon Medical Ce nter (procedure) [code = 519322046] Future Scheduled 1962 Sigmoidoscopy [facility]code [facility]] [facility] Cent[facility] Future Scheduled 1962 CT Colonography (combo) [facility] 00:00:00 [code = CT [facility]ography [facility] (combo)] Future Scheduled 1962 CT Colonography (combo) [facility] 00:00:00 [code = CT Colonography [facility] (combo)] Future Scheduled 1962 Screening for malignant [facility] 00:00:00 neoplasm of colon Medical Ce nter (procedure) [code = 658524432] Future Scheduled 1962 Screening for malignant [facility] 00:00:00 neoplasm of colon Medical Ce nter (procedure) [code = 816856829] Future Scheduled 1962 Screening for malignant [facility] 00:00:00 neoplasm of colon Medical Ce nter (procedure) [code = 622466867] Future Scheduled 1962 Screening for malignant [facility] 00:00:00 neoplasm of colon Medical Ce nter (procedure) [code = 813393255] Future Scheduled 1962 Screening for malignant [facility] 00:00:00 neoplasm of colon Medical Ce nter (procedure) [code = 478192350] Future Scheduled 1962 Sigmoidoscopy [facility]code = [facility]oscopy] Medical Cente r Future Scheduled 1962 Screening for malignant [facility] 00:00:00 neoplasm of colon Medical Ce nter (procedure) [code = 521911605] Future Scheduled 1962 Screening for malignant [facility] 00:00:00 neoplasm of colon Medical Ce nter (procedure) [code = 248775049] Future Scheduled 1962 Screening for malignant [facility] 00:00:00 neoplasm of colon Medical Ce nter (procedure) [code = 289052569] Future Scheduled 1962 CT Colonography (combo) [facility] 00:00:00 [code = [facility] Future Scheduled 1962 Screening for malignant [facility] 00:00:00 neoplasm of colon Medical Ce nter (procedure) [code = 711419306] Future Scheduled 1962 Screening for malignant [facility] 00:00:00 neoplasm of colon Medical Ce nter (procedure) [code = 115549725] Future Scheduled 1962 Screening for malignant [facility] 00:00:00 neoplasm of colon Medical Ce nter (procedure) [code = 435190091] Future Scheduled 1962 Screening for malignant [facility] 00:00:00 neoplasm of colon Medical Ce nter (procedure) [code = 343715260] Future Scheduled 1962 Sigmoidoscopy [code = [facility] S[facility]oscopy] Medical Cente r Future Scheduled 1962 Sigmoidoscopy [code [facility] Sigmoidoscopy] Medical Cente r Future Scheduled 1962 CT Colonography (combo) [facility] 00:00:00 [code = CT [facility])] Future Scheduled 1962 Screening for malignant [facility] 00:00:00 neoplasm of colon Medical Ce nter (procedure) [code = 215153495] Future Scheduled 1962 Screening for malignant [facility] 00:00:00 neoplasm of colon Medical Ce nter (procedure) [code = 464780206] Future Scheduled 1962 Screening for malignant [facility] 00:00:00 neoplasm of colon Medical Ce nter (procedure) [code = 079125818] Future Scheduled 1962 Screening for malignant [facility] 00:00:00 neoplasm of colon Medical Ce nter (procedure) [code = 699268155] Future Scheduled 1962 Sigmoidoscopy [code [facility] S[facility]oscopy] Medical Ashae r Future Scheduled 1962 CT Colonography (combo) [facility] 00:00:00 [code = CT Colonography [facility] (combo)] Future Scheduled 1962 Screening for malignant [facility] 00:00:00 neoplasm of colon Medical Ce nter (procedure) [code = 505572078] Future Scheduled 1962 Screening for malignant [facility] 00:00:00 neoplasm of colon Medical Ce nter (procedure) [code = 037390428] Future Scheduled 1962 Screening for malignant [facility] 00:00:00 neoplasm of colon Medical Ce nter (procedure) [code = 620697107] Future Scheduled 1962 Screening for malignant [facility] 00:00:00 neoplasm of colon Medical Ce nter (procedure) [code = 855987566] Future Scheduled 1962 Sigmoidoscopy [code = [facility] 00:[facility] Sigmoidoscopy] Medical Ashae r Future Scheduled 1962 CT Colonography (combo) [facility] 00:00:00 [code = CT Colonography [facility] (combo)] Future Scheduled 1962 Screening for malignant [facility] 00:00:00 neoplasm of colon Medical Ce nter (procedure) [code = 834447490] Future Scheduled 1962 Screening for malignant [facility] 00:00:00 neoplasm of colon Medical Ce nter (procedure) [code = 163003601] Future Scheduled 1962 Screening for malignant [facility] 00:00:00 neoplasm of colon Medical Ce nter (procedure) [code = 562495543] Future Scheduled 1962 Screening for malignant [facility] 00:00:00 neoplasm of colon Medical Ce nter (procedure) [code = 677035214] Future Scheduled 1962 Sigmoidoscopy [code = [facility] 00:[facility] Sigmoidoscopy] Medical Ashae r Future Scheduled 1962 CT Colonography (combo) [facility] 00:00:00 [code = CT Colonography [facility] (combo)] Future Scheduled 1962 Screening for malignant [facility] 00:00:00 neoplasm of colon Medical Ce nter (procedure) [code = 962642753] Future Scheduled 1962 Screening for malignant [facility] 00:00:00 neoplasm of colon Medical Ce nter (procedure) [code = 857388900] Future Scheduled 1962 Screening for malignant [facility] 00:00:00 neoplasm of colon Medical Ce nter (procedure) [code = 230439395] Future Scheduled 1962 Screening for malignant [facility] 00:00:00 neoplasm of colon Medical Ce nter (procedure) [code = 579318089] Future Scheduled 1962 Sigmoidoscopy [code = [facility] 00:[facility] S[facility]oidoscopy] Medical Henry r Future Scheduled 1962 CT Colonography (combo) [facility] 00:00:00 [code = CT Colonography [facility] (combo)] Future Scheduled 1962 Screening for malignant [facility] 00:00:00 neoplasm of colon Medical Ce nter (procedure) [code = 304107586] Future Scheduled 1962 Screening for malignant [facility] 00:00:00 neoplasm of colon Medical Ce nter (procedure) [code = 344727486] Future Scheduled 1962 Screening for malignant [facility] 00:00:00 neoplasm of colon Medical Ce nter (procedure) [code = 074604976] Future Scheduled 1962 Screening for malignant [facility] 00:00:00 neoplasm of colon Medical Ce nter (procedure) [code = 594011935] Future Scheduled 1962 Sigmoidoscopy [code [facility] S[facility]oscopy] Medical Henry r Encounters Start End Encounter Admission Attending Care Care Encounter Source Date/Time Date/Time Type Type Clinicians Facility Department ID 2022-07-25 [facility] [id number] Common 11:19:00 Janina 24816 [facility] 2022-04-23 Outpatient Harvey, [facility] [id number] Common 14:00:00 Janina [id number] [facility] 2022-02-28 Outpatient EL TOBY [facility] Surgery [id number] SLE 12:28:58 ZUNILDA 2022-01-22 [facility] [id number] Common 10:06:00 Janina [id number] [facility] 2021-03-15 Outpatient Harvey, [facility] [id number] Common 11:51:14 Janina 90627 [facility] 2021-03-15 Outpatient Harvey [facility] [id number] Common 11:14:35 Janina 34365 [facility] 2022-08-02 2022-08-02 Outpatient Ferguson_Ro [facility] [id number] [place] 00:00:00 00:00:00 bin [id number] [facility] 2022-08-02 2022-08-02 Outpatient Ferguson_Ro [facility] [id number] [place] 00:00:00 00:00:00 bin [id number] [facility] 2022-08-02 2022-08-02 Gato Colunga [facility] [place] - [id number] [place] 00:00:00 00:00:00 Zaki Khan MD: 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 [address] , Ph. 2022-07-24 2022-07-24 Outpatient Ferguson_Ro [facility] [id number] [place] 00:00:00 00:00:00 bin [id number] [facility] 2022-04-04 2022-04-04 Surgery [facility] [id number] [facility] 10:00:00 10:30:00 [facility] 2022-04-04 2022-04-04 [facility] [id number] 10:00:00 10:00:00 Encounter [facility] 2022-04-04 2022-04-04 Outpatient ALEXANDRU LUIS [facility] [id number] [facility] 08:50:21 08:50:21 ZUNILDAEdith Parsons e of Medicin e 2022-03-22 2022-03-22 (TEL) STLMLC STLMLC [id number] Co mmon 00:00:00 00:00:00 [facility] 2022-03-14 2022-03-14 Outpatient EL SLE SLE [id number] SLEH 00:00:00 00:00:00 2022-03-14 2022-03-14 Travel [facility] [id number] [facility] 00:00:00 [facility] 2022-03-14 2022-03-14 Travel [facility] [id number] [facility] 00:[facility]00 00:00:00 [facility] 2022-02-15 2022-02-15 (TEL) STLC STLMLC [id number] Co mmon 00:00:00 00:00:00 [facility] 2022-01-26 2022-01-26 Outpatient R RADIOLOGY [facility] [id number] Univers 09:32:53 23:59:00 ity of [facility] 2022-01-26 2022-01-26 Hospital Radiology [facility] [id number] [facility] 09:32:53 23:59:00 Encounter [place] 350.1.13.10 ity [facility] [id number] [facility] [id number] [facility] [address] 2022-01-24 2022-01-24 OFFICE STLMLC STLMLC [id number] Co mmon 00:00:00 00:00:00 VISIT [facility] LEVEL 4 [facility] 2022-01-19 2022-01-19 (TEL) STLMLC STLMLC [id number] Co mmon 00:00:00 00:00:00 [facility] 2022-01-18 2022-01-18 Office ALEXANDRU LUIS [id number] [facility] 08:12:10 09:47:52 Visit ZUNILDA AMBULATOR 350.1.13.21 College Y 0.2.7.2.686 of [id number] [facility] 325 e 2022-01-17 2022-01-17 Office MARY ELLEN EPPS BC [id number] [facility] 13:26:26 14:28:12 Visit AMBULATOR 350.1.13.21 College Y 0.2.7.2.686 of [id number] [facility] 310 e 2021-12-28 2021-12-31 [facility] Ann Marie Aragon [facility] [id number] [facility] 23:49:00 12:18:00 Encounter Tito Lombardi, [facility] 2021-12-28 2021-12-31 Inpatient ER [facility] Gastro [id number] [facility] 23:49:00 12:18:00 [facility] 2021-12-28 2021-12-31 [facility] Ann Marie Aragon [facility] [id number] [facility] 23:49:00 12:18:00 Encounter Tito Lombardi, [facility] 2021-12-29 2021-12-[address] [facility] [id number] [facility] 16:10:00 18:17:00 Event Luis M Bañuelos [facility] 2021-12-29 2021-12-[address] [facility] [id number] [facility] 16:10:00 18:17:00 Event AnLuis M sumner [facility] 2021-12-29 2021-12-[address] [facility] [id number] 13:26:00 14:56:00 [facility] 2021-12-29 2021-12-29 Surgery Toby, [facility] [id number] 13:26:00 14:56:00 [facility] 2021-12-29 2021-12-29 Travel [facility] [id number] [facility] 00:00:00 00:00:00 [facility] 2021-12-29 2021-12-29 Travel [facility] [id number] [facility] 00:00:00 00:00:00 [facility] 2021-06-23 2021-06-23 (TEL) STLMLC STLMLC [id number] Co mmon 00:00:00 00:00:00 [facility] 2021-06-13 2021-06-13 OFFICE STLMLC STLMLC [id number] Co mmon 00:00:00 00:00:[address] 2021-06-13 2021-06-13 (TEL) STLMLC STLMLC [id number] Co mmon 00:00:00 00:00:00 [facility] 2020-03-16 2020-03-16 Outpatient JUANITA GALLEGOS SLE [id number] SLEH 00:00:00 00:00:00 PRASUN 2019-12-18 2019-12-18 Outpatient STLMLC STLMLC [id number] Common 00:00:00 00:00:00 [facility] 2019-12-09 2019-12-09 Outpatient JUANITA GALLEGOS SLE [id number] SLEH 00:00:00 00:00:00 PRASUN 2019-11-24 2019-11-24 Outpatient STLMLC STLMLC [id number] Common 00:00:00 00:00:00 [facility] 2019-11-19 2019-11-19 Outpatient STLMLC STLMLC [id number] Common 00:00:00 00:00:00 [facility] 2019-05-06 2019-05-06 [facility] [id number] Common 15:20:00 15:20:[address] [facility] 2018-08-19 2018-08-19 Outpatient [facility] [id number] Common 09:15:00 09:15:[address] [facility] 2018-02-20 2018-02-20 [facility] [id number] Common 08:30:00 08:30:00 t [facility] [address] [facility] 2017-09-12 2017-09-12 [facility] [id number] Common 08:45:00 08:45:00 t [facility] [address] [facility] 2017-08-23 2017-08-23 [facility] [id number] Common 08:15:00 08:15:00 t [facility] [address] [facility] 2017-08-22 2017-08-22 [facility] [id number] Common 15:15:00 15:15:00 t [facility] [address] [facility] Results Test Description Test Time Test Comments Results Result Comments Source C-PEPTIDE 2022-01-18 15:14:47 Test Item Value Reference Range Interpretation Comme nts C-PEPTIDE (test code = 1985-9) See_Comment H This Method has been standardized ag ainst the WHO International R eference Reagent for C-peptide o f human insulin for immunoassay , IRP code 84/510, establi shed 1985, from the [place] [facility] for Biological Jony dards and Control ([facility]). Unless Otherwise Indicated, All Testing Performed At: [facility], [address] [place] [address] 4 Facing Machine Operator: Edvin Richardson M.D. CLIA Number [id number] Cap Accreditation N o. [id number] [Automated mess age] The system which generated this result transmitted ref erence range: 1.1 - 4.4 NG/ML. e reference range was not used to interpret this result as karen l/abnormal. Lab Interpretation (test code Abnormal = 73662-0) [facility] [id number] 12:46:38 Test Item Value Reference Range Interpretation Comments GLUCOSE (test code = See_Comment H [Autom ated message] 2345-7) The system [employer] generated this result transmitted ref erence range: 70 - 99 MG/DL. The reference r manjit was not used to interpret this result as normal/abnor mal. BLOOD UREA NITROGEN See_Comment [Automa usman message] (test code = 3091-6) The s tem which generated this result transmitted ref erence range: 6 - 20 M G/DL. The reference r manjit was not used to interpret this result as normal/abnor mal. CREATININE (test code = See_Comment L [Au tomated message] 2160-0) The system [employer] generated this result transmitted ref erence range: 0.80 - 1 .40 MG/DL. The refe rence range was not u sed to interpret this result as normal/abnor mal. EGFR (test code = See_Comment [Automate d message] 28993-7) The system [employer] generated this result transmitted ref erence range: >60 ML/MIN/1.73. Th e reference range was not used to int erpret this result as normal/abnormal . BUN/CREAT RATIO (test See_Comment [Auto mated message] code = 3097-3) The system [employer] [facility] generated this result transmitted ref erence range: 6 - 28 R ATIO. The reference r manjit was not used to interpret this result as normal/abnor mal. SODIUM (test code = See_Comment [Automa usman message] 2951-2) The system [employer] generated this result transmitted ref erence range: 133 - 14 6 MEQ/L. The refe rence range was not u sed to interpret this result as normal/abnor mal. POTASSIUM (test code = See_Comment [Aut omated message] 8053-3) The system [employer] generated this result transmitted ref erence range: 3.5 - 5. 4 MEQ/L. The refe rence range was not u sed to interpret this result as normal/abnor mal. CHLORIDE (test code = See_Comment H [Auto mated message] 8135-0) The system [employer] generated this result transmitted ref erence range: 95 - 107 MEQ/L. The reference r manjit was not used to interpret this result as normal/abnor mal. CO2 (test code = See_Comment [Automated message] 1963-8) The system [facility] generated this result transmitted ref erence range: 19 - 31 MEQ/L. The reference r manjit was not used to interpret this result as normal/abnor mal. CALCIUM (test code = See_Comment [Autom ated message] 58184-0) The system [facility] generated this result transmitted ref erence range: 8.5 - 10 .5 MG/DL. The refe rence range was not u sed to interpret this result as normal/abnor mal. PROTEIN TOTAL (test See_Comment [Automa usman message] code = 2885-2) The system [facility] generated this result transmitted ref erence range: 6.1 - 8. 3 G/DL. The reference r manjit was not used to interpret this result as normal/abnor mal. ALBUMIN (test code = See_Comment L [Autom ated message] 95050-4) The system [facility] generated this result transmitted ref erence range: 3.5 - 5. 2 G/DL. The reference r manjit was not used to interpret this result as normal/abnor mal. GLOBULINS, SERUM, TOTAL See_Comment [Au tomated message] (test code = 75170-0) The sy stem which generated this result transmitted ref erence range: 1.9 - 3. 7 G/DL. The reference r manjit was not used to interpret this result as normal/abnor mal. A/G RATIO (test code = See_Comment [Aut omated message] 1759-0) The system [facility] generated this result transmitted ref erence range: 1.0 - 2. 6 RATIO. The refe rence range was not u sed to interpret this result as normal/abnor mal. BILIRUBIN TOTAL (test See_Comment [Auto mated message] code = 1975-2) The system [facility] generated this result transmitted ref erence range: <=1.2 MG /DL. The reference r manjit was not used to interpret this result as normal/abnor mal. ALKALINE PHOSPHATASE 196 U/L 40-123 H (test code = 6768-6) AST (SGOT) (test code = 36 U/L -50 1920-8) ALT (SGPT) (test code = 19 U/L 5-50 Unl ess Otherwise 1744-2) Indicated, All Testing Performed At: [facility], [address] [place] [address] Laborator y Director: Edvin Richardson M.D. CLIA Number [id number] Cap Accreditation N o. Lab Interpretation Abnormal (test code = 21861-2) [facility] UR[facility] [id number] 11:08:47 Test Item Value Reference Range Interpretation Comments CREATININE URINE (test NOT ESTAB MG/DL code = 2161-8) MICROALBUMIN URINE NOT ESTAB MG/DL (test code = 32078-1) CALC MICROALB/CREAT 5 MG/G See_Comment Note: RAND (test code = Albumin/Cr eatinine ratio 40889-3) reference inter keith reflects ADA an d NKF guidelines. Unl ess Otherwise Indic ated, All Testing Perform ed At: [facility], [address] [place] [address] Laboratory Dire ctor: Edvin garcias M.D. CLIA Number [id number] Cap Accreditati on No. [Autom ated message] The sy stem which generated this result transmit usman reference range : <=30. The reference r manjit was not used to int erpret this result as normal/abnormal . [facility] [id number] 10:24:23 Test Item Value Reference Range Interpretation Comments Case Report (test Surgical Pathology code = 104) Report Case: [id number] Authorizing Provider: Zunilda Luis Collected: 12/29/2021 04:49 PM Ordering Location: [address] Received: 01/01/2022 08:03 AM Cardiovascular Pathologist: Gaby Nation MD Specimen: Pancreas, unicate process mass bx by FNB DIAGNOSIS (test code w0oprKVyJUWod7uqXHDpjZEd = 3220) ZzEwMzNcZnRuYmpcdWMxIHtc cnRmMVxlcGljOTYwMlxhbnNp CTZzlCMkE7IfjqdxDDlaKX4o JE2znAmdtKOftNUxBJIuAhZx j1poy958gPYcr5jjUWJKcaam dHz5qWmfB58mv9H0QcbeL30t tHYvBHS3ODXoVZLisXEuNDEw MZX3RIOcyNWiC5ynCHGdPE8z qygnFZyeNRrfYNIjsIA4KPQb uVAyM5BuYUWnROpzSBIdufu5 GhTyIh8oqKNirGerMYrgYLIv RMFkLOdzDVSyMuNyZBCEW7SI QVMsIEZJTkUtTkVFRExFIEJJ U7BWZLcbrFcgUDvkeK4uUY1Y enYvuROwgVDjb0GlSslbzi86 rjY2aSAjfXPuSK3eXWDalwst ddCmTN0kyiYmbVgmLMNhgqOz Z3k8aIZxzUdtVXLuMn8tUBKk IFHzX7Yrl3HjtHXwuTizWD2l qODovrIpNR9teKApZLKcyo26 RSI8TaNbp6L6UDM2AGOvVLKp x8mkPSFdjIBtZrAhEpVvPuQb ZmwjkAPjCCBqTqLmi8kjf751 iPOhg5ntZLVyDgP7gGUhBLDx eYLgK570FAVoUEjhl7fst5Wa CHZtwDKgq4Z1SFYVughwqJu5 jVhuI23fh7R4OpltO1nfETUj XLCvC2OyUV6lTDAyLdt6JZF0 XPS3VSBwEJXhX7HjEK3pJWDa vOPjXFj5l0ppiInyTKLyNKF5 v1zxSVjflkUkDF9fei6esRt9 n1ronnQrRFLkMVJabKRHUXZx A1BetVssOc6erTp1yNdoTceb FJN1Sjc1BM6oyu86ydp1wXpw WDGezovnNwN9MQavDZUayzpk SHa5NZxaJXGbxFY7ULXdxNJi S2SkXVJiRQ9vhnl0ADF5SSph DUAhLkH5OVHtcCZmIXPazEpk QUepx170OYR5MwSoRS1pQ5Kq g8R5dR7yqBEhAZCsbQVdCpHs MGQclm1tfLKlQQduj2TsGSG4 tgR9sOGnfXEqIVSvLbP2FRag SS5xbw46BNUgPIO7tt9klPXu kBcabpAgnYOsHUifQ6ImILIz k694HVYxM6GzGJEfk2Q0jkHg HwUjMJJwjML3qcL6QGFxVQ1y bvmij2pbQEizXQlfIWNafbN1 jtY2SWIgxXOhE4PslM1wCIQi BO4eaojjg1doVFV0SDxpFWIb TAA2UbYdPKQop4Dazws6LzOp j1FxsYYvWEtfR86sf208ZHBi mrUtP1qgvJElhmkglCQurxda PDkbgqI2XNJxMIphvmgxYGZr RPojN3pnLrJnBBUzjXoaSEga i0ByBRMmXHNcBrBmvWUiMHSn Dvq4THEanHSrAGAlIyKxJ4bv laleWdVHMKEnh7xoO3knwLXO zMPfZ3YvRMfsfdQiFKkmHXxr FhHeYUp2WO05NiEiKVMwjk66 COMMENT (test code = a7jsqFQdVLHzeMP5AzCkRQIz 4969) k4luq4KfnEQleEVvQUejjEQf peKnwr06oDF4rK45FK0lFUFu VwY8SVZhbeP9Dww0CLDkWMDt kOSyG814p9nin9vczpFcnLR7 ySgmNRVmnvbhUoR1JSbeLWPt atkxZIy3MPcyQQXbwSE5BDVz lPVzF7AeUNHfRG8hrwm1IGA9 SOhbYYGxMpI0MXLavAFtVODl qHhySMrhq105ORE4XrQqESSj huCpuFhvcE5wHfWgIEXNxQDv KzcflAE6BS2glBYuy0LvHbAy waKlqrIkJO90OUVxpdDfx8Tj yJmiCAxll2vzph6wjDwwNUWF uMwdhOKcnIFqm6LzGMvwaBum usRbctQdCGRfhT0uftTbCK2t cGFyfQ== CPT Code(s) (test j4dzuZIjNYLudSL0FwRgDDPj code = 3357) a4mjw3RcgXZtdZJhITjqoYQl dyQcay61dXX9mR52CJ9oEOMu XoN2REHbwsS0Nxv4FPIcGKFo oVDvE075v0ulm3gelmQrqPA7 uWzcUJWeyqlsIpM9ATtfVWRb vfueLJn3MYwqFOWgiMQ0GGAp jVFyP5XmQUUlGL7dtui6JCU5 NGfuXDYjDpL5NUEtjVNvTCIf yGtpEDrtl615FVV7SeLgPZAj kiIpeDovrM6mTbNwTBD7NQEi Y0wiYUK3 CLINICAL HISTORY n5dmjWDgYRYgoMW4EzTaKRHw (test code = 3356) e9mkh3YomKDxmZVxKIkvaAQn peLfhu13uXN6iK78JE7fPZFk OaM4ZXXlxtQ8Ybc2KCMlQRKl fNPwP712t3jwt5vrfmPhgGN7 eYenZHJzvcrpIuA7JFwmHBTt pxpuTOh3IZxdUIJyrXT5XVGd xFUqH5MmGOGrAG9yzxy2NUG9 MIpiIERkOvN0TRZojPKoIEAr vGmyHEohv848AIG9FnGxDJMu bcGduRzqhY1eWeBlPVKWqT4k BXWkZ9hioAk8cGlat5ntOJL2 sePpweW0ZOYase3qLRRjLB0b o9BclYBjdJ== GROSS DESCRIPTION n7axfHMsMGRpeMBYWJNpV7ns (test code = jiOdBPInwPGoQ6BlivnzQSzp [id number]) SP1lDX7knOcomHYffEWoTY4Y XGRlZmYxXHBhcGVydzEyMjQw RYSuqLIdbZU8FEZqAZ0oupid RVbcVTsfIGLxtuI9VWTnpDYu J3PbJJKaLU5uhrroPEQ5XSsz rV9klkBNNtntEb2wlUTvcNea ZjFcZmNoYXJzZXQwXGZuaWwg KECtPDp1hZ7LOdrjJ35cd9M7 Hsr2VPMoIFGmQ0ZiRQ7pNYOk cIWgK96NFzvuYQM9ECQPDckn GYPlTX1Wc6naTRKpgXKkOMN9 XNklxELwKYSxDQIzSQa3OXKj IFwdaNUyJW5cjNimCrmugUvj f0VwtBGeWOfcZPQsPEQrGLbp CREaMQ3BGwNnKEE7KZH3JYUo OUu5NQq5RV1JFbCeWMDpMGo5 TqTtNOIvQFe1RCjnAK9YAVNp BqTnNyqlHkT6OOIyIIIxMSVo MiBcXGYgQXJpYWwgXFxmbCBc TM8zgLuezLQvnsLKRqPYQW2b boUuvk5tfLCbSG0FJSOvwGCT DKP2LP1jZULDHfaebBQhYDIl vIlpDGgnnO2kRZ8ADVv4seRq UCKzKVepljMcIFQpM3AhvrBm BBumNRLlhc0zgJjpBBwgFhCu VFCwq0b9uTS1sDKekHX0rXJb dEqrUiQhDJ9xdGFnMI0bNWqg TZthcpQss8QvFV06jADomeHz ucGgJHU1GxCuMHveKQBzAN6e cmVhcyIgaXMgYSAxLjUgeCAx ByFjlEJyGpZcF54qQYehjhVr DTYnWJ1kGO63aWCsuFttFCsf KNbyh81igJC0qKDbmVDqT06w QSJgVKAfyMjpIMI4tTVbTLEc v71zBCO7Ll6byKJiOLXnoyZ1 o9RmGWnrLJXiQKXhJkScrPOd ZI3RZHGfwbQFSeArKKlzLSPq K0NmpQ5vZH3WFzlsLHYsAZCT M8ZxT54GLrxffTKidgejkAlf LvImyKBcGhZdzXukbV36NSDz sGNeUAO4MZ0qGNQypabwLGPg QTDiRTG0MAxixR14nSTgIIEk ZPJaeFWppZ0INGLrCUY2TGof vJ37iEXvFC3DMDPuODF0FPPb xTRrZPS4MV6avI2UrA== SPECIAL STUDIES (test r0gkiUJtGHNnv3njPJJytFHl code = 3376) ZzEwMzNcZnRuYmpcdWMxIHtc ekVaWSofb2AtU9WhLeEnHWwe bnNpXGRlZmxhbmcxMDMzXGZ0 cpHwZBQhOYktARRiZJnnYd5x uPXakJqhOhCzEJXuq6yeqqZV vasfvSz6b5ucERXuCfK3qHAo VPiuP3qmppPjaKXwW4LslUAi bYj3j8maXpJaWuZ7sIAaUStg S7qjwdDgpUVoNLVuEDt3uN40 AKHinC9bpDEeKMtzqgRsPrI3 VJoeGPYyCsN6NVWcyHWyZENu B5zhOTAiUTnqGIFhNNysaDPw UJA0xVbpz5U4yJBaiCCzqHva JuPoNnUfLrWZd5DyWHi3nSmv D5HuZUEoZxU5mDUdSYWnUDyo PHNpJJVanzJ1eIjtbnCjf27n eHQyXGYwXGZzMjBcbGkwXHJp DSQIr2VrtBsoVPX4gVx6aQvj XniaTMS2Xzw5VV1nbv23qxw3 tExwWIDjlxnrGrY2MIkvDSVk jzmbMDu0WCccSXUtjNB7MVEb gIYzE5RuZSLhYL4bdxc4JFZ5 FYoxGZBpNwM2GLLqnAOeTWBr bLqnBWdvb512MJI5GwFlHW4t O5Cwu8Z5mS3nbLBxIYQrtNOf VnMqQMPmay6nhMEfWWgbq0Vs VHO5fqN3rTFngIUpSYLzKY48 Oorgg5WnZiolm1JzO33bdNE2 PFneq1kmOX6bSmF5hqBaMZve l7vyuF6oHeI4ZXslGZ1tQG2x NXZbtX6ueggjGEGfQkBstehy YRXadPjovgMgDe8moNxdRHV7 XHmcO6qynN6qWrO8ROfkT7tg pG7xAGc0PXgfiBO0HSWryU6m KH0zwhrvs2ynOKcnMCvqSWKl qvN6anL0IQVpxUIiD7VogE3i AXAnTM5szvnuf1prEUU8GWab UJIxVPV6CwOcZSVyy7Zvlxf7 IgDot8QcmKRcFUuvU13iw465 KOTudwYbU1gyzXShxqanjVQg prqfIHblceY9DFSeSBInXUzb XGYxXGZzMjJcbGFuZzEwMzNc aGljaFxmMVxkYmNoXGYxXGxv Z7inIhOdI9RtNSDvRaKhZYlj FUwfqZKmrEIkrYD0fK6fJF2h GVJolVWbO5WfEYZvtdAdyZXo APD9xCIajSZnIY6xEIuauTQd c3set8MiQ8hakPoxdLE5VH9n ZDDzBLUtJTyfl4OplX4fHtda bGFpblxmMVxmczIyXGxhbmcx ZQDfJOllH8nqQuCiMYHduUrv VFkju3BzYDYzORNePqzbnpYx FAx7niPwFXFutxupWSCyeXkk wW9sQtBgWpJyTondRU6aDZAo R2ifzVHqEYRuQDWyE9wqPfAr eD6giTtsRLyeBgXrSyAtWfBX p460vn5nPZDwiVUngsKGhWYq dU7nRNjkMKvsLQdnrXZsKUez c0yzDYIgy5d3kHOvJKEoeiXk r4wcQOzkpkTgZQZxuHFftMHz HQVfc88dFJrwmXyiuVvsUFFc n4BggTrxo2HhEkOfUBmaj5Gd Z13drDZpgJUzrWenFYYsfsDa ZKPib06ou3osIHXaLpF4nSKh iVW8nVDzkJZzs4KgsUsuKYHh n4edQRIqte7rexcuiRAxv2Dz jM7kdcpvHObawCPvouQvSPRo n3y0kBIoNGIlNHQfINjxoNl0 UWEzp406ll0vgpL0oMEwPXV8 YWlsYWJsZSBhcmUgZXZhbHVh dGVkXHBsYWluXGYxXGZzMjJc bGFuZzEwMzNcaGljaFxmMVxk PeBbSBKiJQcaC0zdCtDtH0Mo PSXpCoWnjYEuK9aqaPHyQABy YWluXGYxXGZzMjJcbGFuZzEw MzNcaGljaFxmMVxkYmNoXGYx CUjfM5fuRgQnG8OeMODbVcOf IFxwbGFpblxmMVxmczIyXGxh ybbbPZOkLKdpY0rtWhJvIODi fEpnRFgno6LoJYJlWGAsEevp irAhXAr2mbAbKZMuzogzmAWu blxmMVxmczIyXGxhbmcxMDMz WFuvU1pbXrZgZDXhnVcbSMgv s8QwSZQoHRSaKtffhvQnILdz eDEww0xoe5KlO4srrCqyhTY5 XOGlY1bbsBFvcPX4IJS0gT9r XTfisdEkYMRjq8NmVJZhJEFn UkD1rH8pEDM0PdNDlUjkABAg YWluXGYxXGZzMjJcbGFuZzEw MzNcaGljaFxmMVxkYmNoXGYx GKvtJ6zzRiYyA1UgUWCzIhIq gVtzUJauSZx4IitfbCGuvvqz MVxmczIyXGxhbmcxMDMzXGhp T6knDsVmEPSgsHmqNLfkr2Eq XGYxXGNmMlxmczIyIHMgTWVk sEGmqLXMZV97WTQeIUKxyGmh sC0thKDRZIRhwoU8c6W5OGhp AUDzAYa6WCaofzFwJUGxpL6z XHSxIZ1qVKp1vtQnOOUkz7Uo LL1fIRMiyOInOFS9EZVqb5Yz P5Xay8OnOSMyEOAngw0ymyAw FdBFoSLaNCYupm71USNxNB0e A6umSRSpUIPsfuMflVBaj0Pf HNNyhPB4hAPaFH1VMqIDl29x IGFuZCBEcnVnIEFkbWluaXN0 kqV8fK7eGvEYyTDlMrWIMLxi drTrWAJkki1eyiVaOCJuORXp j4NppDDfjTNcbpRqE1Ulr3Zo FBExdg54OVzzpHXthi36MG1r X6Wma2VxvL7aILkvSAFnj8Ff oLKocVTmYIEpb3ZpL1tkqsyl EMkyeUGhsR6xJEHdDKn7GZQi p6KxPSHfj2WyIhWyayBhACGk DJJcCHMdqO24VSS5nElecIyw opYkTN3qAQKghoXoDOSpLUIo aU4jASpzdsOnHREfneL6z2V3 OJjtLVJwrkLlGrnvYSL8yiJh wvS0aWCbM2jtkqanBHtyMBZj z4YlpF6zfBTFxCDwr4IknGSi tYGSuBGvIG1wlrJeTO4jCVJ6 ODggKENMSUEtODgpIGFzIHF1 ZAfaJimuJSD5nlKbSZLwh7La BAqgK3hdU04miZxdlRs6eZRy zQrdmDMrkIQeDJUwbcH8t0W9 CDTja5LhfdphHPKlFZtyMHGc XGZzMjJcbGFuZzEwMzNcaGlj yLpoAmsaKuIcEHWkIFzjO5xy UgFfJgTpHcgtHKO5xA== [id number] 10:24:23 Test Item Value Reference Range Interpretation Comments Case Report (test Surgical Pathology code = 104) Report Case: [id number] Authorizing Provider: Zunilda Luis Collected: 12/29/2021 04:49 PM Ordering Location: [address] Received: 01/01/2022 08:03 AM Cardiovascular Pathologist: Gaby Nation MD Specimen: Pancreas, unicate process mass bx by FNB DIAGNOSIS (test code n3voaUOxXYQcy9ghGYWjrRRu = 3220) ZzEwMzNcZnRuYmpcdWMxIHtc cnRmMVxlcGljOTYwMlxhbnNp GXTfjFIgG5ZseldoTVkyYB4h YV1bmPbanGVomUSiURUhDfZb p0wmu722vPVlq7klSVZJnfco uAb2kOsfF53br1O2RfhjY84q cFOuPKX6OMYmUBUcuYHeTVIp FDZ3DMZmjZHbD2uqMBKmUZ3y bqndSEejWEexRTZvmFG7YKVf cYOaQ3XxKBTcQQveRTKfdcn1 UkVlAw5mmPRbdDcwDAieRVUd VUPrTMbbQVQdHcOvLXPVW2PE QVMsIEZJTkUtTkVFRExFIEJJ T3YLPPhwtIjvHMkajM8xWH4Z nqJqtECyeNMnr7VhQfutif68 ayE1pSVjtWHhYH1tQSVhcatg ndYtTL3uvcEiiOscMKNmmdAk A2g7qYNkgTspTXTqFt3oMPAp JCCpS8Enn9IqaXOglYmaIG7f rJVozcMwBH4afLBhHAHmmj31 PWW3RuTbr3X1LSR0HZReFHWw r2nfPPAejAKjGyNbBvTxMsBt AiqwjKQtNHJvCbQyz8lke698 qQYul7oeHXJwLaD1lFDzZCTw eKEoC979FVUnFMdxm9rbt2Ja NGFtpTOqi8N0OEDIqsmacXm7 aPmjI28tn9Z8VektM6skVLPm CCPbY9TnAE4jMXPuOvy2DFB0 ZGT9NUOeKCGpE5EpES2kKMDc fNCgPAu1n7oisIrkGRDyNBW4 r1gtHWimxnJwLA1fig5kcAi1 b4lsnxNpTHHtFUHqjPHYBJIa S8OstIhkZd8kwWq5yKggSqei XJX2San3QG9lfh02abr6fCcd GBRtdbkgHvD7JMcoWNGnckrf ZSa2URnhLDSbzVG5ZXMrmCFf B2PaIWMlHT7rrzd3DYP3NYoc LEItLdQ6FMWvoPJoGUNhrMzd WVmof765DUK2ZwVlHM4bP7Yd a1W6lR4vzLJjVWYweRSbQpUo HVDdww2psCSxHOkcn4MtYPG1 vsC6sFRrxWZsRJQeGzC9EDud DY6evq42ETUjZEN8hf4seRMi bOhuxkQhaKTbJAqdH5DqONNn u812QTEjF7OsXMEil4E5gjUq LxTkPEXvoVI1bvN1MYPbMY0s prbgr3jjGXbdEAokTRHxaeL8 jvT2GRUebDZzO7KwjN4rOJYj SM5ajgwla1dhJIR7JXozHZTk UEV2EcQyLIBmj9Tgklf1CbPv r3VypHDqNXqyQ01tb509JLZc ipKeB3rhaEAhtwpssXUaxmjp LLqknpO6QGYnSCnnpcycBXTw HZpjM8leRdDgIWPefRfmRGsv l4NjMPTgKUFiJrJwgRWnSIXk Eqd1VWUcoEMxKPVdUrHtK6fn eyccIlHZDIJpq5eaX3ztmWHB tNJdF7HuPVwfvdNwJTbcXDex PzGnSRn1KM50YrCgUTLtmz41 COMMENT (test code = l0ildBQcWRKduLA7GwKjGRNh 0499) o2acb2YkhCLrpYFqREvtzLZz cuWcxr74kXV7aD32CJ2kYLPd MlN8KJPpkvV4Cvb4JJYgDFEw oIXrO714n7wre3nurwAurUD5 xXylTXOiknvtPrV3GUczPQGe ctaxYBg9NRxaYZXxdEC2VWWw vVWuL6NkOMTzUN6eike7HMW4 CPmbYFNuNxB7LEHriTGtZZUs rTaqAOrhf051DUS8FlHzMPMz niMdoZoxnE7bEkAnOJLBaWTf ZeofxWY4YV9vaKNal9JkIiTm ayMhaeUyYQ81ZLVsezTyl4Lu fYwfPWxas7lsco6acRksIHMX sOrqyTThfPHqa7AxPWjumGdt ygHxirHgJKGslI9puhSaAS8e cGFyfQ== CPT Code(s) (test g2acsQIrTSQewGZ6RbKgPWIa code = 3357) h4tlx3YbxGSlnAQcGUbwgEXo nhKcev02wSF0nY60GM5vSREe NnY0DBKtkkS6Exc6QKRkVTMo vUNwM796v1bqh3vkhiFodIE2 wSgsULVwbygtUyN6LUyjKZAk ojmvEIn9NKezXIPspHB4HIKi jRCxZ0LpSDOlNN7anpl5KEB3 FQnyYCZeXiA0RMEwoMSmXOVr iYkbGXccp388FBL6RmMwNLLi yzXvjXdhdV2vGwFxSIX2EBMa K5qiLIL5 CLINICAL HISTORY c2wpoHDgJALzdQE8ExMxTLRu (test code = 3356) i1mem4UzyBZpoIPrPTyrvNNh jeJrzt60rXA8oG54HZ8vXSYn PbX2XKPgsyN9Bef3IGIkKBIl uUUxJ885c2ywz6jxfmPdtVE4 tSjrMUXsrbpkXhO3VBueUKMc dopvUWe2KLcjDZTooKI6PUHz kBAsY7YqBHVvKA0cjbi3DDM7 ENrsGPWwGmG9YWVdrQOjTNWc zZujEWgwt579WXY3StKlNLMt wgWmyQphfN8rPoSiJCLGeJ7n OWZqY0uqeJh6fKnmw4ahHRK9 plStfqD0QJIxli3zZMRbMK1j h8QauPFknJ== GROSS DESCRIPTION i5vdmWMgEJVhjEJNOHSdS5bi (test code = wzVsVYKecHIlE6TlzkqvAHgy [id number]) XQ6nMR5whLdwrILmhBEoZT8P XGRlZmYxXHBhcGVydzEyMjQw AKQupGLkfWH8WXHfXA6cayav WRhaYExcVSXtlqY6IXXyqNSz W8GxLHQzYD8ayiihFEP8GVzg dE5dprTEMxgjTm8zyMWlwLyx ZjFcZmNoYXJzZXQwXGZuaWwg CDYoMJw8hF4QUmsuY06ph7G5 Ghb1HPFkYNPmX6OuGD4wPRFh hHWzI58OYrrtRBG7QXNVYnzh OFFvAF3Wp1tqSEWijLXfLTN1 OBypfJRcBSEkJQDqVZr1XRNx WYmxyLPuWO4ccMwmWybypTik i8FtbKTdUTihYKQbBPSpOXpf NMIcHU7ZBzLsMUC9IQD3WSNi AVd8FOd4OW3JTaLzVBZcONc3 OoLvSDJuAOo0SNltLK1OJNZx GdCaUxxgThN0WRRbARAyMTEq MiBcXGYgQXJpYWwgXFxmbCBc BO7huIiyqSWqowWBBsAQDM8y wsJwdw8niMScXM2YXXVrzXXA MUK5YY5nIFDTFzajnFDuXNLw gPkvUGbodW9sFO3QVYq6yjUl ROMgHNnesoDyJNTjJ8HhzcFd MKpcRLXoln6pvDlwBVgvRaKx FOEhc3k0tTY3sADksYJ2dSEy jXryHiAhZR7daTJfIU0gGLky QFrvdwWse8CeMM33bESvxgGk hrUaOOE0BfFjTBolSOIjBF9h cmVhcyIgaXMgYSAxLjUgeCAx LlJxoFTuWoDkK41hTOuocbUq TPDpRL8iHD73iWQpwOecNHms VKnsx22eiFG4tAEqrEXyP28h BBSuWNNxmQfjYMZ4pWUpDKFb f35oBDN9Tv7zqUUuQBBmccU8 v0IvMGcvSBHxGFKpYuDegLHa OH6YGVTlofXJFfZtBBytKOTm C9CjdI2pUK0BXasdBRTeSEJL B5EeZ52RMarfsHNtnitfmMum UvJmzOHoEfZgtCjwwJ82OYBg dAMyIWQ8WB4hYTXqdcanSQZh MTIhYZQ4SCisiL58jPJeZEBa BXLybUQdeV8RQHBeADC2TPaz uC38cWNaZQ2JDJOeCDF0NSGt dJDeRWO0RF7ljJ8TpX== SPECIAL STUDIES (test d7rejMWrDHSgk4ntHYZwgDPt code = 3376) ZzEwMzNcZnRuYmpcdWMxIHtc psAaRZtvf3ZlM0OdDeFyBWdo bnNpXGRlZmxhbmcxMDMzXGZ0 gdZyVUZdTVebWPAsZFsqCp3j gQTuqEatPbTpFLIvf5coqgTG wdqcpCq5i2waTHCyLoZ3xZFl RRmyO8runiNsaTItV5DkmCYv fNa0y5dkWuJgWhC1kQStQZmq J1wmzmCdcCRhFFYlMMm8qU49 PUZcxP5vtALdIQrcizUdOxR4 JVonFHPqWpV4TXSkpXIpHITi O7esEVElCHgpXKXlLBlksOPq BXW8jZvwp9N3tJYufCOkcBhe UlXfJsOrDmZUa4RrWOg4uSrr U5SxEIFsTkG5eJNxKVDuMDzj PBXwTAYbxwZ4aZkqrsYni00q eHQyXGYwXGZzMjBcbGkwXHJp VYQSk4SdtSyiERI5yKr8yHqo EvjyCIA6Uau4VS8glb62vrj7 hUjdWQBnsczmRsP8OVkcJNYa qforSCs4MFrfZAPoxVH7MXVj zOUuI7PxPGOmMV3paef3DSO2 MCzvGYKjQvP2VNXrfZHuHAQg kCqpQChok712JDL6XwKtPU2g S9Dnq2F0kZ1vzZOuUQOjhDRw TuIpIJPnkq0yeFEhUNvxm7Yb WWN3jsZ7hNWikBFvKLJyWS77 Pyqtx2XvFesuc1UsQ14sxAY8 EGjkh1hdLC0fGrO7vyZuKZna r3andL4mPtE6JXrdYA0kQK3i NICvkL8mektxVTAePrTmkvcm JURfrYumptZqCw4txBwcWXO3 FDtgW0cypM7hHwZ8UKobS2fv aR3aNDz1WPgwuYU9KIDmxD1n QU0cznyrf1fuXMujJEnsMGDt lwN1dpD0MZFhyQHoO9HzaN2d MAVzVP9chfczl9icCJH7ACqd DSYnRAP4JxBeIWYxa9Crdtu9 ExDlu2ZahELgRXqyM25dq615 QQMbbjYqB1pdpBGtxdsssLFx yihmCLwgcbE2GRZoWIKoTNnp XGYxXGZzMjJcbGFuZzEwMzNc aGljaFxmMVxkYmNoXGYxXGxv Q9etBhCsZ1SbHRXcBlYxMAae RXrviSAnaSEybEE7vB4zZO5g PIGfwDPnH3TnOQKhmcPvsSVo PWC9rLAquOYlCI0xBFbceCDa v2stc3JeX4izrXaiyTM4DJ1y HPAnQFHkNFfas7NxqY5bLqat bGFpblxmMVxmczIyXGxhbmcx CATfETcxB7chDkQuZYJbdJty HDetd8NsENXvZZQkXwzgkvWz ZVp2gsLkVQCryhwyDFRyvFvt eD9bHnFnKsAkZfwpIY3gQJIs P2kpwGPfUKQiFSKwQ6iyVvXp uZ6rbBfrSXdfNwQpRqIaVvUQ h977jx8kDFBpiNYlvrCRsOVz oW9zOGnyNIwpOArbcJYeTCof t4ruAUWne4h3yXXcIJUgijJj a8dzXGnwdlKuZXKwnWAdyDFi UWBok03vQNtijWqhyIacFIRo a1YgiLpfm4NtWeHuTZhkg7As X55xqQIojPOkeFchNQUttqGj MJPxo72fs4fsJPTaVeL3fECm gOG7vPCfpMHmh9AtjFadLOFf q7mhSXScfk0kuddwgPMup0Rw hG7uygrzIPipuIFyjhDiJOEd o1h1hMDoHMVgTPScAZlehCf5 UOUfl177cz7fbcF0vLZqZNT8 YWlsYWJsZSBhcmUgZXZhbHVh dGVkXHBsYWluXGYxXGZzMjJc bGFuZzEwMzNcaGljaFxmMVxk AqCpHERbEIvoI2ojIqZzF4Gb WBUgIiVghFUyA8fupTOdGVIq YWluXGYxXGZzMjJcbGFuZzEw MzNcaGljaFxmMVxkYmNoXGYx BSaqK4llOdLyX3NzVFPlKgBo IFxwbGFpblxmMVxmczIyXGxh xbhaKYWcZZpgE2ytOmVwTUNh yJciZSghr6UpOSSbEQHpAnhi lhXgHWl0rcSaXASahzbfoFYv blxmMVxmczIyXGxhbmcxMDMz LBvcV9apQfPdLGUmvVurUQzc g4RtDYVxXQBkVtkesgXdMFoo jYZky5fkm7DnR9jirJhzgVO7 EUMqB2dvyAGbjDA1WPF9uD0w DKqsiaMoTOKmd1CqSAIkRENh WfM6tS3fLMQ3BjBIrQwmCEBo YWluXGYxXGZzMjJcbGFuZzEw MzNcaGljaFxmMVxkYmNoXGYx URutJ9llVqCaW6UuCIXgWxUg bHriKXbdILl0YmtrbHIjgkoo MVxmczIyXGxhbmcxMDMzXGhp X9toLxWjBNCnvWnwKLlfy1Lc XGYxXGNmMlxmczIyIHMgTWVk dFWmaWGIBX67RYIgKTOdiJxn oX1hbCQWGCEgqsG2t5Y4JVxr GMEnLXq8PJreimFsUXGzmE1n OMRhMJ8wHXh0moSvJGNkv8Uh WW1mLMEckAVpTVM3SZIte0Re R7Irg9GtKANmSYRrum0gygMa YlYEmHUqPRDqvq06QHVjXZ8q Q1gkFTXtHQNwgbPxnPOat4Vg TLTfbBA3pBKuOY3BHwWAv51l IGFuZCBEcnVnIEFkbWluaXN0 hqR3cJ8nTuFMgCJvHpOTNAmj tpYkGJHejh0pdpMdNEGdGYVd r3YvwJEueXOfgmPcD8Fee9Cf TKEtfi68DCubkDPgtn33SD6r L6Ttg1YlvB6lNObsPEOxl8Pq zYYlqJHrXISqj4MnY6igfitq TRkvkICbjW5fWEGdPPd6QPHk f0EbYUKxs3BaDeYweyEjPXAa DXUdUMLifV94HSY6mZfbrIcf utEzYZ1mOHXajoUuOFAqBNEd fF8wIXewzrSqXJDvloK9e0N6 UFtiZBKlgeWkVigpMGB5yiMz iuO7fQYsY8wfgshqUVygMPSw f1KjuN5tqLIJvHTjb2PxzAZb aPERbIBjBJ1tnvWnSA0wDZD6 ODggKENMSUEtODgpIGFzIHF1 NUelXttoMZZ9xuXpLZBbg3Dn DBbzB5veJ69myClvqFy7cSHl qVqpqQLhcQHhSCXhrqU7q7P7 KOBul9GuvngeDIDdJAuvUWRh XGZzMjJcbGFuZzEwMzNcaGlj oEhaNdbfIbXeVQOfBQtiI2aa XzTmXcMgBseqTHY1gF== [id number] 10:24:23 Test Item Value Reference Range Interpretation Comments Case Report (test Surgical Pathology code = 104) Report Case: [id number] Authorizing Provider: Zunilda Luis Collected: 12/29/2021 04:49 PM Ordering Location: [address] Received: 01/01/2022 08:03 AM Cardiovascular Pathologist: Gaby Nation MD Specimen: Pancreas, unicate process mass bx by FNB DIAGNOSIS (test code v4nndBUcERTbf9wdPMEirNFl = 3220) ZzEwMzNcZnRuYmpcdWMxIHtc cnRmMVxlcGljOTYwMlxhbnNp YVAifYChE8EjlogvUGhzNO6a LJ1daPwwgSJfcZMhKNKmCoTn l1gxo306yTJef4flQMDLmwmz lOn5zQorO93lp9J1LsxiV68k vORhNSL1IKDcBFFvhTEfXPRu HEK5LGKfbOBwQ0tzENKiUE1g dgghDJoyPAziGJRqaXT2OFWv nKEkV1IsFGRjGKdzECJfmtr3 WqCtGl4zoGUtuObaGVviHGBr TZUlCPdoTKGgTeEbIQGYZ8AL QVMsIEZJTkUtTkVFRExFIEJJ N2XEWGywfRibBDbovR4jMO5H vzVzuWOjbBFgn2MaZyavkf00 saT4iWLahKGcCQ6aRZNbaigo xnVbIE8jbvDpyWbtEPZwczJk Y9w8lFXtkIbcZAHvHc2bGGKd DXTuM2Vtl4PaaMMwmYtvQM5l xHFdsnSiBC9ezLTbFUWeyg09 MYE4GuVym6F9NVC6IHRvATBi m2grECBzvXNpGfGpMbBtTaKd ThvxcNKuRRRtVrTfl2kpb190 wEOpp2tsPHTgDjS1aVVeTJAp dDXhZ558ERFbQVfxt6ktb8Eg AUQzwQCap0C8ZZPZaeadnRa9 wQjzN64bf0S3KhisU5owPDYr ZOXzR7FzTB7mKFEpZco1EFQ9 DII4PEBoGIReV9YyLC4sZYKa gEPhHUi0g7gtoOpfISTeBMA0 h8ijEUtnhmPfAD6etl6svTh5 g5ujsnPyYGEhQPZnmRABEZBx H4NwqNdmHm7xfBu8qLdmWqqi MCB6Kjn1JU7pix38qwn5uCyb UBItpzwyWfK1FYqlMNYvkwkz JRn5QVeeQGCnsFY8GRZduTXw U5KgJJPzDY0kkwx2XRW0OZln ULJlOrM1OYWhxBXdUQWdqTum LEiav684BQG8PfXvDV9tX1Km w7Z8sN1czIIgWDYeeFObXtRv WFEprq6rqBHoPGbse7NfMHR2 ueU7xRYicGVsKKAiNoI8QBvo TU5hmi85YFWqKGA0dy2akOZc qQgrvnJumXFmYJwaV7RtAOIb z147AVCjG0DuXYFnc6N2trAe VeReMTEifAL1zuM3YJQpCO7u yjnju0usLJthPEclGBJuguB2 tzQ7JCVeoGDwY6UdtT6jXYQo QD3zprvjl2eeJIC5WYliKBGz CIH0PxCkGKSso2Jcmss5GiEr p4ZicEJcYXcnX71wm749HCJc ktMaW9lzyDUtxpftaYNfxxho WYsiujX0PZIvBWalzpxuIFEa WSanO2puBqTkGAAfiZufIOdr w8MtYAKiEZVkTjJkhJWvSAQs Qpx8BHAzeXWpJKQjRcBpC0uf fbzqFbJFEUMik5eyV1kkcDUS hTWdP6LqPCgfajYyHMckPPzy AvPrREn7HV59XvGoFEQxne66 COMMENT (test code = d5xxwBGnOXFtjPO4RmHaIKRv 9459) b6yfs5ZjgWXunTTpAPmkiFCz nbSpcl57qJX2tG95AI8kFUSf JwF4CREqauG5Vbz3BJDdDNBe eADfU003f1yqo0tknjVjvJI1 cGodJVJglojrSgX5KDnoXPXx rrusYQa2DQbbVUXhrYA7KGMn eGFpQ1FtMENuTJ2nnnr2ONO4 TFglOVDgQnN9VQKeeNYyTBUm nHooVWjnl251ZLE0BgXzLILn rbXqeXloeK6aMeBwCFFFgUJi EodikKZ7CJ0eySLal6YjIeXs wvVqefXeLR35LPBcxgGjg6Li iSmjOJxjo0gtcx4zuTotLWMA qVjpzLIejEWzf5VbXXghxShj ljFkmwOrKLQikX0smuIpWV3i cGFyfQ== CPT Code(s) (test j0iqoAWcSJKfbCD9WuDuYJLy code = 3357) l3qvn8WgpUSylFZrRHizkIPy ulHmkm48xEY8sT20YC1sYXVl IcX4MLWoopM3Ovj2RFEtPEMp hCIyF408u6jyn6prqxZawPW2 wQojYYBrcbhsPyY0WLzpFDXd usouRZi8QNcyYOQzlGR3TNQy zMDyF3KlFFPpHL9legs9LMF6 QIplBKClWhT8IJXfhSViZREs iXvoOIpky907CQH8JpShEZGu byFwuZjrcG9lKsUjIBO6KGRz N1vvIFX5 CLINICAL HISTORY b6mnxACsGHRphTL9KjAfZBAl (test code = 3356) e6fdu7VzjDZrwFLdXQgvcJMv vrDawn95qZB6rO34LQ6xQTTe AoR8PNTxutV8Eng0YWOtVHAb zBFmM806b7fuc4xfepTaeXW5 uTbyOHOxhmkwHuW3TIwzALEd qdkpGPq3TXtbKSHhfKV2FPEs dYMdC7EsRYPrMN5xwrd6NEV3 NCujBXYxGfW7GYEauYHrMPBk hCizLMfut115XZI9WfWpTROl jzVnaQtrjA6uIoOqISTXmL6l SORrF9kqfAw8zWfdd2euWEW7 lgErxrU9BYKrxe2tVVLrGI7e b6ShwENapZ== GROSS DESCRIPTION x3ivxMGlUHRkjFCFEQNoJ3xx (test code = yvOyXRSepLQvH6BkzpjgVHdo [id number]) JH8zZZ3ykAtzpUUslHWlBY5C XGRlZmYxXHBhcGVydzEyMjQw DGWbnOHrhFX7POEaPU3bxvca YLuiSLkcZEZyryE1IEFsdGSh A6RoIPMzPI5pxfxfXUB4OAno pB8xsbYUReepCy3yuFQokBbw ZjFcZmNoYXJzZXQwXGZuaWwg XLAdCSl3zF7JCtvnB73kj2J5 Jdp8TOYiMBZbE1EyBF3pXZWd oHCaN02SLudgLFT4OJGKXgmo EFNaKC2Ir9acNWJlfOGyDTB3 XWkwqGGgGPPfOCVaTIg6GTVy IIltpTHsBP3nnPtbVdqtmOio a2VaeMHmNFyvYPJoSNYsWYra FYNvLD4ACaIkUDO6FHY0PJIq JSw9AEy5PQ0MZhOnXNHxKJh2 BdEhOBTpJDz6KGntNM7NTULw UuBoWxlgPuJ0ZJBoPRFmYUZw MiBcXGYgQXJpYWwgXFxmbCBc UC4ydOkuiKRnipNVIrSFHS0h waAncf8inPWlON5INQGnvFYU CXE1DY9qMMTSXmfkqUPqOCGg pPduUUwuvC8pTA3EUZw2znUh BXNtKSstkbOtRPFgZ4HxdzXr KLmsOPLagx9jyOuyOWukOrMf MTJdr7s8nLI4cYCgfNZ3bMCh gPviVlKbNM6idIQiIY3uJNgd YVrxorEwu4BtIC57bFVmxiKz qeHfEAD3BuStJKgkFJTsNR7f cmVhcyIgaXMgYSAxLjUgeCAx AmXnpVWuBeCeX21mMKwvwzXf DLFlDI6qQT36aFZnhJusHBdg WBlnt42kjWX6cRTswLDgI94k WQUjHTQxtTvsBTN0fJLxBTGw r79rVGJ3Hm7cuCBiMJEkqcX6 i5SaBKarDPRlMUExJxHteOIb HF0YJHMfqtCUVeTvNJhbRPRq F3IhzE0xTA8DDzakRQXhBSYN F7ZtJ50JGrsqiVDsigskdJek GoMqaSCtOmMteXawuH40SFMz sTFyDVB7VU1iDEAldffyAVXv VJVnHSS6PXqdnE73xWIqZPSr OUCwyVQhnB8NIOCeIFG8JUma jS12qZOhYZ6CEACsOEA9WNYo yHDjYTQ7SB6khT9NoB== SPECIAL STUDIES (test n4eevJAcFKCfo6nbAYEbbWIq code = 3376) ZzEwMzNcZnRuYmpcdWMxIHtc rlJcTMpep6SpF0NbQaUwWJry bnNpXGRlZmxhbmcxMDMzXGZ0 nuWxVGXyBSywKGWaFMmsIh8q qYOhkQdbQyUpDDMlv9dkfbDS pzfxlIf1k1lgTQRnLlR4bACc OUqfJ0hnfkOeaZAjX7WznLLx lNn7r8avEeMxVmU4cMRkJRro V1hzmmZqdRMlRTPhPLn8zZ02 NCLnsG4pjBWnCAtvckNmNgV2 LYfaTLObHpB4GSDmxPXyNUYo W1kbOAXtJIjcPSQeHCayzAOj GON2nEtqg7R6gVZpsXBosQqi WtXbTjAjIjEVm1SnNFn6eQdm N7DiSLDrXyG9mSFgWYWpVDim DMXfIAMpeyA2jDdqpuHyq28w eHQyXGYwXGZzMjBcbGkwXHJp HZCJu3TktYonMQS7oFz9eNlp TwjaWAE2Msq8ZT4fdy58fel0 eAjtGHIvtkjdPiO5EFfoXSEb ortnMDd8PPppYUIxsMM2IEGi uQEkK1NsQNNpLD1rdzp8YTH0 IYniJGFfBjJ2XXVxsBZwXJDp uTmcKOrpb456WVG5UkEyRA9s I1Hkt1A5rF9miRKrGIRqfNDd KrTaLUEpxh0ihRFbQXtpz2Vu CVK1goB6aIMxtMDhJCIvTU18 Njcfq0TgHwvof4WwC83lwXC5 NCipm8sxWF0kSlE2bhTkRIyk c8npsB2kUtE6GPaySC0uWF3y VWCsuF7agaqsIFEpYyKhtwun VPXxdOppikZeEe0llSgxDUK2 FWafX0cjdK0gWiQ2KLmjW5ag kR9eDBx1UNswjYJ9HFBzmX5z UD3hdarfp6rhGEusHNyjMBCk zjT7moI6QSQlnKLrB8DliN8k FDSkSJ9ezvywi6jmOWF5DOng WMYuPGB5PeAaJEWrk8Emsia3 VnXgy9QttKPsUKsuF57qx151 ZBZztrScB3kahCGsywqbuLAv scntCIjjexJ3AQQsSUJxAVic XGYxXGZzMjJcbGFuZzEwMzNc aGljaFxmMVxkYmNoXGYxXGxv Y3ycJxDeB4DzCWPsDcPgBEoz CHdyeUOjaOEttBO5gR1hSB3i MRMhcZGmA4YkWSXaydHkzCZq IWO5nPIsqXTmYV1cKSdudGMo b8lmz1CuW3cxkRymaPC4HZ9r TODeMMEiQCmnt2QgeK0qKenb bGFpblxmMVxmczIyXGxhbmcx FRQnOOqtE1hzMhIiOARpuIyg BHdta4NaHGVkDGGsGspwsbAp QJb1fiRiFDPanngdLKTylZmo wL2iSzNxVaZgTwhhLW1nFXLb Q0eccVVqDQTiYLAtI1ihBlNd pY4ngFaeMRdlGxAbTtKzTlPZ q867uj5wXFHtzSHeqpWSnFGd eQ2bCRddJNteZPsznHDwDJfi n0iuSLDef6e8sESjTZUpwhEr w8nqYJfssaThCGMacTWxiROz JKSrb63fYOfbgOvixTtxVZLx t2VjfHyqn4EtGgJjACajd6Dc R29fkEFtyTVdoTynXEItdpJl WQNgd45wl7bbCWYkRsI4aRMy fGE4mQNlgVSnp5LwnOhwUBZs o0pnVMEcyf7ltfibrVZgo0Wi kT8xymsvPGmjcXFhecCpCEEl g5i7wPQwVVYxXQNhCBuvhMr9 AWKge540xa7ocmR4cQTuLNH8 YWlsYWJsZSBhcmUgZXZhbHVh dGVkXHBsYWluXGYxXGZzMjJc bGFuZzEwMzNcaGljaFxmMVxk RtVkTRQcIOinQ8qhUaYfB1Ov VZIaFhLvwPCoT9tiyESgYLOt YWluXGYxXGZzMjJcbGFuZzEw MzNcaGljaFxmMVxkYmNoXGYx KTniA3rvBgWsO9YbENDxJqKh IFxwbGFpblxmMVxmczIyXGxh aerzVYMpTCoiZ6mgPbKbEDYj eCuaVRhdn3WoGMTyVNLjBjur tnNcGPm0csThPIRohxltyNZs blxmMVxmczIyXGxhbmcxMDMz QTpxY2pxZyYeYHSxxUjgNEit o7PlGBCaGTAmWlgyekQhVKuv gPGpk0pdt3ElR8xyrNfsqYY9 HEHxF0pqwSElbUK0RHR1rF7o SKcbvyMlEXYjp9ZvEWAbBQBs PjW8aZ3fEMM6UtYEgQiaXAJw YWluXGYxXGZzMjJcbGFuZzEw MzNcaGljaFxmMVxkYmNoXGYx QEpzY2rwPnRhW6WzVSMcTnLs bQvyCInuNKn3SloaeXTtrhjm MVxmczIyXGxhbmcxMDMzXGhp C6zcLeTdWVYfkGvuMXdus8Og XGYxXGNmMlxmczIyIHMgTWVk vQTvlZPDCE84OBCgRFMqtXso lQ3paGPNOJUuoaD8k3B2CGrd ZYEkFHm9ZGxfnxDgGAPztW8h TFCgPH9hFMj7ktQzGDAzy8Xw PW4eMRIhiPWkSUW4ADPtu1Am Z9Ywp1CuRAGuGNOimx1sgmLu IuELdTYoIZKahi12RYXlWP4f A8klHGHcNPWtcnDbrDOlf3Ln KAZuiTD2jITeVZ5KLsHEo39w IGFuZCBEcnVnIEFkbWluaXN0 tpX2pH5pCqSYjRKfDkAZZUoj eeLmJDAohi7pllJzBYYkOPAf b0OzpQSzrHNjbiVzV4Tua9Pt JQVoib71VTrcrOUgog05UJ9o D0Gsi0BnpH3eAMmzKJRej3Yv qAIefCYiEQWwp6DwN4gtzmxp ECvmwWHnyZ6lLFOtQMj2KPHw w7HgGDAzj5MkQyMnjrQqZNFm DCReUMCbuO80JRE5tStkxAub lyGpWS2oLQBicoApAGVvVJBl pA0rJSkroxPrAKPfeqZ7o9Z3 HYakNWTyhuQoFnxaSLX0yzYz jqH5rRFjV6ohextfBQlsNWKr n5IxgY4pvIUPoQWhg1LvqUCd bTEEpNGeZW7vteTaHO6mYVC4 ODggKENMSUEtODgpIGFzIHF1 NIgjNrhqZFL7aoYeVCKxj5Hu RXnxC0lsG48hvDqgdVz7xDDt mSpnuPEjoAGdUGOjjcU8t4D2 FFIsk4LdmhljMKLbGSjhMSDf XGZzMjJcbGFuZzEwMzNcaGlj yXeiHcytWxTbZNFwANzhB9fl CvWnLhGvHykyHER8gE== [id number] 10:24:23 Test Item Value Reference Range Interpretation Comments Case Report (test Surgical Pathology code = 104) Report Case: [id number] Authorizing Provider: Zunilda Luis Collected: 12/29/2021 04:49 PM Ordering Location: [address] Received: 01/01/2022 08:03 AM Cardiovascular Pathologist: Gaby Nation MD Specimen: Pancreas, unicate process mass bx by FNB DIAGNOSIS (test code k4bdrVNcHBIdr3ceIVWaqTTw = 3220) ZzEwMzNcZnRuYmpcdWMxIHtc cnRmMVxlcGljOTYwMlxhbnNp BZVbrKLwQ1WcwwapFTxxVR7e WI3erPeyyEZzdUPwZPAhVoUo o7nur523kWDyw9ytETUHypkq zEy4cAyaI08it2P0DhyoT73e bXVgZJY5GMTcKEWldBOrMYAm UMD4OLJctCXpU7kbXAWyHZ9a axroOOkoLZrmEPYniMK3RUJx hMKkZ4CqQQAhXIgdFUJdtmu4 DzExBu2puJGpzQxsLSduDLPi RRGvPBsaZHRbGnDeERRGB2MB QVMsIEZJTkUtTkVFRExFIEJJ G9CWXZesoYefIRnluP1hOP9B qfQbqSDvlFWpr1PwZsdxxb03 qiE5zXIfaTTzZU4iNXWqgjjt ucJkVF4orrAwwNmmFSGfgpLr I4h1iLJbrWucFAYyTm4xWTTk BMVwM8Ntd1IwyTLqhGuaRH5l cGKbufQkZI8ijWCkPUJkoq84 ZXI8DqPlg3L7VTQ1GYVrSYUv o2lrFJVdvFVjPeOnSbCfMeWc DeucxVGgCVIgDkSqs1kvh163 vOBkk8vlJZKvRuR2gSRtZZSb uNErA100MPIbZVknl7srh4Rz CMVdzWZpe0B2LCDPkpeosGv3 qBpeN42mo3L2YjzfK0obBQYj LUAxF0OpWG4yFINkMsk1MXS9 DEC4PPAqOABnN6AyKR1xRKIk vOGfDWu7n2whlNwhILPmSSX4 o3enJKxvfnPnQY8icc7ptWy3 v4zmgzHeAFAaVBBikSKGLYUm A1MnxLfdJx8dsVh7bEvuEead FRT5Uut2EV4duq70fus5mIyi ZMApxmkjKsO0TQsmSZHuqxba GUx4GAscCVZayXB0YWVtbJKq R1EpRTRcOO1dstx1HUL0LVvb GSVgHhP7IVMvqFPbJKNgbBks XFgvg612DET2HkWuOD5aZ1Ny g7I1fZ8ngRJrCPDsmDAtSnSr CYRkaj2gsJVwPVsur3KiKCD0 amT5tKQttHXwOLBgPvH4YXyq RN3cqg62APGrGQJ5hf4caDCk lEwiutCuvPLpEOlpR9MoXOLf s014PZJtS3UlOKElq7N8xfQl MyQiEBWaeRC7swB0SGWxHF2j mcvjh8izIMmuODfiFPVnteY9 vwQ0VBOwnPLgB3PeeB9vASZi JY2hwsehc8diZVA2VLisUTPj WPL7YoHgVEXzp6Tybjr2FmOx j7KwwMKgJWsmD92ns875KUWu tlFeA2kxuXHvasztvMSubouo RZhlgeK1OMLaBLfnizgwSBGn ONooR0zuAyFiAVRfeDfrFJvc r7OmVUCoFUThNwKmcCUzLFYg Zyb5AUJghXCcCURdPiKqK1jq ktdsUvXWTRLsr9cyX4zjmMJC yBRjN5RsVRedqqPxODzwXVkt UhChWBh3EZ71KrGnYPOacq64 COMMENT (test code = v0creFXnEOLftJT6DmWoRNFk 6649) i8rkb8SkdLXqqOBqJLkozCEm cnIxvc65dGC4nO91HR7sTWTt JaX9QBMdrtS9Eyy4XRTyVSTg hTZjR763t1xxk0uyzkVmdDE3 cFgcXTUreapjTvI2WKkbEHZu cuqkYZv3HBnlLUXnnXA8LLKg pXRtO0EzICZePP7zmkn4EYC0 SJzhDYXoGyV4HETcrMFmKRTw pKicJOnkp200DKB4CdNjOBGs qeJgnAqqxI4bPqSmCWUDjKTa IstxfEN4CY2qzYTig0JwKjPf loNccvOsAX56BSCgkpIae0Zg cStjQIbfk4ulpe4bzDmnOVKY yRzssEGzjFVmv1XzAIjtwRhw pjOthaGvCIXluJ0mxyEsRR4w cGFyfQ== CPT Code(s) (test b2kbmRYhERYgeEM0ZbUzKFPo code = 3357) q1fnp3PnmBGacOZfCPyrbLUb yhHefa36eJA6oW17YO9qXYTc YaQ9QPFxocT8Chx9EXNyXICm rEDaJ709l1slt9qlmcVtdVV8 jVekZXJnmxflTdR3TSlaLXXb pqviDNd2YFhzSLHfhPB5VYGo sGKjF7CfDGSsMR2ofkc9YXX0 MVrzTZLkVdA5QCQkgQGsVAPq vCqcYIvpz569IWD7XnOyTMKg shNscEkixJ4tSfGmXXB9DYIm D2jpGMU0 CLINICAL HISTORY t8zcyYVdXZKkoIZ1LdHwGOQx (test code = 3356) a4ibp3BvhGPsePIbDRkjzNKt hsNlng69bYT4oL95XH6rLYJm SmO8VUKackM6Jmq5WLKrHGVz sKZkV486g2she6mcqzBewOS3 yQaeIFThqefoNwV3LRybAUMe fbsrWCx9ATjpROSgjCD9TGPs xTDyS7NoJLMgPO1ough9BMT2 UGujWNGgCrY1UAPpiWWwAZOp tWpkKUqaw052ZLY7UqKwOTTs mpXgmSvtxY1zSyQgERLCsD8p CBFdU2mdeIy3wTavv4icBCT2 grBtzuF1EYOkvd9fROCxPF5w r7PtuVYufU== GROSS DESCRIPTION y7askYIyUUKhwKZKTTDoA1hc (test code = heIoNGZhmUHuZ1VgqxtqCBdt [id number]) BJ2cIV4ghYskpDTllGTxWP8G XGRlZmYxXHBhcGVydzEyMjQw JVBkhRVjlXB7RYHmTW7hkfsq LDicARlcZBBxzeJ0BKXhiFRj P7QjIFOgUM4ucxbvKYJ8WPdo qX6pcqQJKllqXs9wmQJnjGpm ZjFcZmNoYXJzZXQwXGZuaWwg KFBpWHi9iS0IIjssS01ve1J3 Kxx3ISClBOMwK0LyDC8xOKSg uCOpG90QEpmaGOG3ZQVTZptn QHJiFS0Ar0jjPOLnjDKfKNO6 YUzyiRSdTTGoGKJkIWf0DPTg DErvhPNsDU1hvNjeLbpwhUul c9OcyKMaHEtyGVOsKQTzNUmh KCItIS8YIyTjXAW2MHR0HTWk DId5NFw0DO7DNoOeTSPuQVz4 HkFvNMJtVXi7LXckHG5EUJPe VzFcLcjvVdE7LAGhVUNuYZHe MiBcXGYgQXJpYWwgXFxmbCBc OE4nbEomjRWqwjPUHaGDQT0u suUqnd1ogZFbQT8ZYBDrcOEQ RHU5JC4qSODHUlwgwFDiCQIs eYvvKSthwX9jHV1XFOw3wdXw IFJyNZverfIySPFnP8RfzvXz YHasXBDflw7gtIxyHSffXjJh IYAvl0a5oRR3dRWnkSY8nICi dUkuWaGyLH9ypTDwBB2kKRnr YLaumqObl4AxXC94wJCvcjSh ouDjNVN1YhTrMPtrSSYtUI2c cmVhcyIgaXMgYSAxLjUgeCAx XcNggJZqWxToN00wXQjutaKn AROvAM3zPU85pGXldPpiMTih FDsxb25qfFZ6wEZizTWjI54l GAUoFFNadNbxZBT6kJLvBNPo d75eTCY1Gw4uoDYuQPEryeK7 r0RyBIzhIPXyBYTbNpGkbFBl YK9LCDPgklTNAiTiKBsxYOPq J3CunB1mRJ0KImmyVRAtEJQO K5GlV44FLlblyWVciwnesFnx HtImqITlBfErlXvhhE86XAXm lDPeODF3BR7fUYPrioauUPXm XYWdAZZ9TUyvrC14zQSyRAAk UPFabWDmbL0EJQCwWZK3IBza wO35sWSlPQ1TOTPcTPK9YSYa xDJbJCV5SR1hhB3NjF== SPECIAL STUDIES (test z6yyxLIwUKAyc3icVROgfVFh code = 3376) ZzEwMzNcZnRuYmpcdWMxIHtc waDwVFzts3QjJ1AxCiWyCDvw bnNpXGRlZmxhbmcxMDMzXGZ0 tgVyJDRiSIroXGRcPEirAd4n hFFmtOefAnViXSCyy9ctrnSX zybdwVw5h7fuPOZvFzQ8iNXw XBpeH9glamSyfCKjG3JquGTo qFh6l0vzSiFyCcF2kTZbXTsn G8lfonVhwQGdEXMiITt6kU20 VYUeeK8dqYGqXAtcuaXjVkI8 BImqJAPlDaH4KTPayRSnHAAg S3kbUYVtFKwcVXLtJFngfKQf FYO5oNazn5O6dNXzrXLxqBjl WbJuSnIlMvKVt1PwDXb7dAdg M7YcGJRxUuK4gINsDHPjACsl QOCuBMKkmwS0oZzrxxBxq39m eHQyXGYwXGZzMjBcbGkwXHJp ALQDo5OdxXaxCHV2nYf8fJgf VnehPCT6Ywh6FD8oso83ybo2 wUpjZBVkkgznZyA6CVqzHYFm kjwwJWx8AVusYLTdoUA7NERo xGEhO6IlTZDgFY9uyhm3MMH6 CDiuVDHfOzK3BCUkyWXuNOTe gLozHRytu106KUQ4AuWnSN4f O5Csk9N2kK6shGRuMBYjhNYe EfCcBPBnhf7mcXRfTHnpm6Xy LTP8pwC4bWHgeBPvRUMeOS28 Kpvxx0BfJgqpg9AkZ72ixLM8 LBepz4vmPF6xAlJ2zgSzZOrr b3eicO4zSfQ2HLwxHX3bZT9g MAFteU7ouzxkYFGeQiIgtsjc ZPCdiCdzytVnKy8xpSseBSO0 RAeiW1ltxL5gAvE6WIsdR0ru qH1zKWy5WSppgUW4TWIrzS1k IN7oaboxo4npFXifGVmgGLPy wyT7icZ0PPBjjUByH6ZogA5y AXLpBU9fwvjtx0utXLQ9ARfb DQSdAES0QiBpAFPqx1Otzfs8 QdEvn8OorQYrUHpyK44wp940 MRLswaQeY5auwPOfzvhjwGQu mztvKDhrgxL5TOBfUXDsQPph XGYxXGZzMjJcbGFuZzEwMzNc aGljaFxmMVxkYmNoXGYxXGxv D5vuOqJyX2CrSOAyZbPsKRbs CZaosVGxjOXspKP5gB3cZN4c YRPsoHPrG8WiMGUihtKslXXd QEZ4wUHdySAvEO3uUKheqJAo t1rko6XkL4drwQubxWP0RB4x IDXrPIRjGWxqa5QepD5kRtlu bGFpblxmMVxmczIyXGxhbmcx QDMhPGsfO6chTeVuHLBugLbn HTzib2HfPYVkCQZpPkfulnBa QMe4rqFnLNYjjapwXQHbzJyx uX6xOxVbOyZbZsrjVV1yUGVd E2mszYJqEFDqRZSpW6zuCzUp aA1pwQmkOFsiPsMbFgErBhOS i890jz7dRHEniLZodeRItSPw jA5qELriOEciFPmotEWaSDky w2qhYEWrg7o1jBGgYMJjqcHn g5tnYYtswtNyAARalXEpoSQz QASfx04oWEszqPykeZgdSAQs o8GavFlql1DePcDiGCbmn9Zf I49olXGhrPNhlYtpNEJfpjPs QMAim18gh6mdTHEnYlH2bPHd xDQ7wHMakYXir1MwiPygHGFf y6iwYDWldy8ragcqjQOld9Pd wO4qrgdwXNemxSMffzDdFNZj r9f7jTHmSOSgMCHhOEybiUw9 PDLig871ou3ucyJ3fGKdDDB5 YWlsYWJsZSBhcmUgZXZhbHVh dGVkXHBsYWluXGYxXGZzMjJc bGFuZzEwMzNcaGljaFxmMVxk PrIaZDIoIAwaW4liEqEpF7Ji ORIzFoDtwWGxE1sqaETwDJGt YWluXGYxXGZzMjJcbGFuZzEw MzNcaGljaFxmMVxkYmNoXGYx PNmbV7ncQrRrV3RnDHNjHzFp IFxwbGFpblxmMVxmczIyXGxh hutvMJAmRPwnR5jeIsWpSUOr hVmfVDlvk2PiJAMaEBYdSctx qhMyQMo7qyIxYYZlcxygvWWj blxmMVxmczIyXGxhbmcxMDMz USfoN9npYyZpWKDkhVtiNHqw c8XiOIMaQDNxQuitazXsWUxf cSQcg4mks4BjR6evwQauyMN5 FXXtE7mjxSCkaUC7KMY6bH5z XHwrytTzKESzt3SbUQOtUNZb TuD5jC4cJFT8AaRBrAcoEVLl YWluXGYxXGZzMjJcbGFuZzEw MzNcaGljaFxmMVxkYmNoXGYx XHyaS8hlQwUpO5UcCLPyZjGt tBxbCJpcRGm5MhbdzTPkxlpu MVxmczIyXGxhbmcxMDMzXGhp D3hxMiZxJFSjbPgnIBsld1Gc XGYxXGNmMlxmczIyIHMgTWVk lGEifMNSAM63OZMaAAQywWcm xT5xxSCBMHSxaqI9m5F0AZtj DGMgVLr2GMgkeuQaZLKpqB8o WZFdOF6dIBf3vsBmVTGco1Hu JN8nPIHyuBAaTKZ4RSZah1Du T0Umx0MgKRRwTLJddu2jolUa IfBYuWNcQPRxdp60PMVrQB3y R4kmGXGeFEUkcrYrlAXeu3Ew ZPFzpKX6jONkUX0VJzMIm70h IGFuZCBEcnVnIEFkbWluaXN0 noH8uN1jYrCZxVHnPlNVPAtk ipVsKZEljq8rqzFfZUNsJRCr d0WtcDIwvFMgqrIxM3Msc2Qn TKVlfm96NAuwaTZtla98VN0e B4Dja8JwyM8sEOilWESwp1Ln lSPpdYAxOBRrn9TkR7fzlbyk JMuktWSiaJ4qSNPgRVx5WMWa p5DfPPRkh5SfJoDfvsIxTVZk PYIaOBGgfJ42ZPO0pGkqzHve vsToAY0oODTervIcHPUpUCKd mB2vGGmbkwIzWXOufjV6l2D8 WZnnJHLcwvElOzheBMX5mhGl ecX7zEPaI2smdehnUZvjXVVt f7KreI5xnKRXmOMpz2OwwLEe lASWsOYvUS7xpfVgJB3kRZK4 ODggKENMSUEtODgpIGFzIHF1 CCdmYiydUZP0ekMqMMWrq7Sr DNzoN9iwK54zsOqmaYh5rGFe nQecrDUqjLRnMCJbisR0k2B3 IXUki1CmfafuCGBtPXiiUBWd XGZzMjJcbGFuZzEwMzNcaGlj lFozClebFkLtQZXvQYrqB8rf MdPxSpAaYztfTOM1oA== [id number] 10:24:23 Test Item Value Reference Range Interpretation Comments Case Report (test Surgical Pathology code = 104) Report Case: [id number] Authorizing Provider: Zunilda Luis Collected: 12/29/2021 04:49 PM Ordering Location: [address] Received: 01/01/2022 08:03 AM Cardiovascular Pathologist: Gaby Nation MD Specimen: Pancreas, unicate process mass bx by FNB DIAGNOSIS (test code v6lolUGoNTEfz2ooPSLhbVLb = 3220) ZzEwMzNcZnRuYmpcdWMxIHtc cnRmMVxlcGljOTYwMlxhbnNp ZGGmwFTxM9OnimhwPPidES8g YI3ttLpneZOiqMNcQEYwDgQx g6uuu130xPYpl8zdCUPQkehq jLu8nAvvB87qv0N4OwiwP88j iPDnCPZ6FHTlQZXdoFWcVUKh JEW6YISjpCMmC4eoJAExOX1j zqmoEBfzJWjhMKAjuQK0ZRHm gMHmP2IoVIQcUTauSIPfkyv8 DlMeQz2dyMVeqZdnNIijBCMq JKYzVGckRPOxYfHcVYDSN2DE QVMsIEZJTkUtTkVFRExFIEJJ U5GNTTdwbQohOWoklJ8dIN5L jeOamTZvrENiy9CqQsdkvc02 ucL6aLXxpIBeZP2vRJTkupgv ciIfGE9bzgRjgTikEGZzcbOe M8r0rFZryApkVULsUm2uGGVd YWKjK2Dph6WrpXUloPmcOZ0o zYYyegAzKK4auYVaRRFucv06 MYF4YtYvh1E8YRE8QJUwSQHg s8ioRMPoqAHpHwEzYyPyKkSl RkjwaFWcVVStPiUxa0ouw737 dFCbg5xrMWYdKlT8qEQwEEXk zSNrO748BTNvMSxqr6mpb1Lv KSDmoBGhl9E1ORULeubfvMq0 oIgsZ25xh7H6TwpmJ8maNSSj PMPgJ4HpQB0yPLFmTwz4SLB0 BFD0HRCxBWYiR8ByHN8qQGAh tTPpVFe7t7pkgHxrMXNnKYB7 p5smKCslisIqSL3jxq7zcRe0 t8lyvySvZJXuISOhnIEITISc D1DyaYnpKg8brMk3xZvoSvst ZXA0Vfb1IR0vwo71rea8jLnr PSDdramgOpT5BJihDAIifjrj EPf4AXrmLIDduIO7AHDvuTGn R5IrJFEeCI7jpav9DDD0BFvp MWBwQpE3NRVlyONqNSDpjAhc NNaby249BBU6PpKwRK3oL2Ka b7U2qM4ozEZvRZEsjNGsJzHx JAVrvp2btQGgPIbvz3BiBIN1 paT9aEHnxPVgXKLjPxV7DKfz FJ9xgg48ZNBkRXH1pz2ffLJs aDicwdQnkDOnBJnmZ8QaYKPr v587APUmP0ZkCPDwm5B0guXw AeIyBHNugKQ6zbX2EMTgAK5j fkunw2eyWBcvZBijDMDietG6 adK8QWUkqTYeT5UbeJ8bQBAn XO3fxurdf9tuPLL5KNikNAIq OJN4MzIcEIXof0Epwmn3FoGr n3DboJIwGXvhK31pq791OEDg rdOuF4kikHNtjrztjVRgjvfp NJwgbbD8YLQeBKjbwabsFVUe VYljJ8duUcToNVFmxRuvKDlk k0DfQSLvHUEjVfDotDCuQDWp Sdf0YZCzoPJmYZCtQdXnZ0ne nfktAiTAANRty5rdK7plmOTY fXWoM3TmADgrquJsJMugZEsm UqTbCDu9HZ65PoFvHPZsfj34 COMMENT (test code = v6zypGQyZPQxfOA2PiGjYEFb 2609) s5axt8NbcCIdsFKyFLcfoCPf hwTcxq41hYL0cC62XK0xRPAm QgF7MPOaetV2Lbv6JGRoKJIq tFNrV495g5vbx8sppzQtfRZ8 aMcnXKWmcgpnYxA4YWogUXAi scndKJt0DKjwCURheFT8BJBu wBYlI3VcBLTnOW3xdez0RBH6 KOnlOCRrNmD4HEFfhMYqDOFr pXvlZLsjo725EFD2GbRfGLWj xkJxwHqbiE7gRnXcAPUXqGNp EgoncPU7UT2ojMKpp0KnNsEg fcOwpgKaGW25OCZvywOip0Aw cBccBZnlw9rxor2qkGsuSDJC iGgctEQgxDYsc5PtJRpkkMnq wrKhwzGpASKvfI4zeiZrKB9t cGFyfQ== CPT Code(s) (test t8ihdVHkUTLxaJG8QnWiCXIq code = 3357) f5nko6KetGGfhGQsRNdeiDOk yhBaub94oNM2dD25NR7xZPVr LsZ7ZNQrraE8Wsx0DZKtVYWi zPWiV430q6bcm3qiisZtdYA4 aUabTUHqgamcQaS2LAfpCDPd iklvJNz2LOmhLJVtiGY2ELLt zHLmX8CaTDCxTT6fbix9IBB4 RLzrKGEgGqE7OQIceILsCYEs vXeyWRadv616HRU9NbQwARVe liQcyHxlnA6tRsOdYQT0JCMe X7yuWKQ0 CLINICAL HISTORY k1tdsNUsCBYliRO3VyPkKVNp (test code = 3356) o9dzs2UefRMqlNYuADagwVLg atVivp69fQT9uI26CH2cIWRb NdU6KKZedoC2Feh6AUPpRNAp kGWbN374y9zdv5peyyEtuXP6 uSaeDONxaiufPyZ6QHyoNSVf wfxoDCw1FXfrFFTozBE2ZYWt aPFyZ1JjSUGtIT2ubwc5VZB3 IRzlWPFwPnV0XHTlrPObUKLk yYdtTJezz080PGF5PeGgBWCd izVvqTerxT5yDlUoLHVOyE2y ADWrL5rdoKr0xQgwg6biGPJ9 pjBijnW3YJSlgp7eFABoXQ5u z2HybGBgwD== GROSS DESCRIPTION q7iyhMOvKTPdvSCXCXNsL3ek (test code = uhJzLWXlbFRtR3LktjilGCry [id number]) LB7cMO8cgNtvsSAnbKVvGJ6E XGRlZmYxXHBhcGVydzEyMjQw FLUwmDCueDT8UCHwEW3wdzwa HZysNAnkLXKqccP9TZDbjTKm G4NsMWQxLV5uufbsXXI8OUhd dY5vneLMFphwOx7cjDKwkZxu ZjFcZmNoYXJzZXQwXGZuaWwg OETpGTl4gJ1YPghhG21ov5U2 Iez0MXPzVYNtW1JsMS5hCJGa zBNfM50CSbjlQQD1UZRMHtfc OPFiFS2Jx3ysYZJmzPEyLCC9 RFfujXDcOGVsZWIyZDq0JPSa GInslCDkPE7geTfgZkeldVcu l9GbbFEsXFjgARFxQPPbDJkm UEZuUC8MKvXkQOO0GWI5CEBc KLu2YAw7CV8GIxTeYDAlUVm9 ImKdNBWbCFl7TBiiRT2TSOLr ArSqHwslIwY9EPGsNDVbRRCf MiBcXGYgQXJpYWwgXFxmbCBc YX4fyHmnzLSmkuOZNvMWRC3d ccFrdw6rhWOpIT7JGIJvmSSB FUB6AW6gWAQGPydoePGoGKLh tDphXOkgfM2xBF7KMFm4boZg UUKpHRbpenDdDTOxG6TrbiOa NPnwAHVgvi6fuGifVXiwKdLj WDNtu9v4nAN3dYRxoRR0xPBq dBxqUvKvHR3lbQFrGW1uUVxp KYazbaUsg8SrMG20pKDebqHm qsHoYLU6HiEkLSlzTRJqLS4u cmVhcyIgaXMgYSAxLjUgeCAx QvOluYLgHfBaR09nUIniasYt MLAnSI1aSO08kVMlbNhfQOiq MTtxj16kxFA9yHQwgEQyU88f BLFlRQVpuXmiLEQ3zHGqUHVn x00vFRL3Uh0dbGEpLAXoddC3 r2ErPWspFIQeLRMlJiJhiZRx TB3DAMWrcfPAAkWmIYxoFGWm A4AryP1iCB2CUuayBOIeTDVU J0HuM07QLcloaRNgqduzsOnd BdVddDIvKuJqlMzurG63VVDu kCNdEFG3UZ5gOSVusoehHVGz YFCbTAV3XVyfsK33iCZxIPYh ICLxgKYuhV6ZQVLbPBB3DFzk cC05qARbHZ8BHZRjVAL0DOIx rEAtGPJ3HW9xnG8BiZ== SPECIAL STUDIES (test o9aanMNkYKXaw2ugYFAjfJGy code = 3376) ZzEwMzNcZnRuYmpcdWMxIHtc tfNdTJdjm1HuT9UyFuTxQNql bnNpXGRlZmxhbmcxMDMzXGZ0 qrZvMEMuHPsaBUBpWOnxVj5y hZOdlSmsSeGtYLMil8znmyLO ajgdmCs4y5wrBPEtCxC8zZVa FHctE0rygmYumFAlP2AurQUc uYy0d2xlUwCdQiM5aKAvCQns S9priiJedKNdJDLvSTh8uW74 CNYpkF2phGIyMOuklvAxOhV3 RYqmSRLiMfO0TTTlrFLeZOHi P2ciHGZaQOukRMToWCjotTSh BWQ2xNhyd4T8gYRcfDOdiCou KiHmJlAjIvHSu1SfFXp4sTxt U6OhUCLwYcB4aFIsGODyRFrb BDMcAMButaQ5qOtlsnKie98t eHQyXGYwXGZzMjBcbGkwXHJp SRGLn3DedAnwVSP1qDo0qTwl XcrhKCJ6Bev0BG4rtq38tod6 rUsqEKExnbuhJoV6BBpnCYYb njxfBGq1CYuyDMMcxEW9GQRv jHFtA7QjBGYcPO7cypp2ULP0 HKzjWLYbSjI9IDWzeTKaGHZr jTidGUlga203YXI9QpBqRL6y I0Fbm8K5nW5hiMRoYJAinXDb JmXcBQYapr4jwHLxVUsle7Ux WJF7hgV4vEMdqOQrRMZtOC97 Vzfye6DrTnsof8QmJ15tnUA1 XHpks0ikHC7sToW9gnNsTEuu p7szyP0iXkD4RLtaNT7mUT8c NCNytK9cawiyAGFeKzAejmqg UJNnoHofjxRhAy0ieMevECB6 QJfmU9zqlU5ySeM5UKikP7oq zF5wRMu4LCqfvDR6LAGwrG5g PM2gvrqtj3ocOEvyGXosRBMn piA2dfH3GJAjlRZiC6NlsP1c DPTjJW4yiwdym5mrQEH0KQfh HOTgIBY6BfJxJLJjl1Boipp8 CfWcs2GfiNYnTZdtG33lt442 TIMyyeFaV0belFSbddmakGYd xpefQKdaomJ7GYVkKKDnOTso XGYxXGZzMjJcbGFuZzEwMzNc aGljaFxmMVxkYmNoXGYxXGxv L6hlIyZgQ7TnREXmSoPrDAmx HJjyyPMusCGtmWN6gV5nZT3a IIXakCEpJ4DxDNSpinPjxTBd BRG7uNVvsFKnIS1rLXjjkNIx p8kju2PuD5wjqItgoRH0VD2u KZGnSYYdZDecm7QfgX6nCxlk bGFpblxmMVxmczIyXGxhbmcx XDSiPFoiP0glEbXzLICbqBun DFybl9UmWUGcBHIhIvqdupJy DAg3ohBtSZCvjolxBFGghLac rQ9iXeZzOlJwSlogEF1dVAKk E1ldlPJmAMHyCHUdR1emXfUg kD5gwBagRXllQoDmYxBaRhHB u936zg8sDYRdySUcemQRgZAb vA6zUCgcBSvgKDysqYCdLVfx u3weDFZdi3k1xLOjSXDobeBk v8duJRwwyoWdAZKneDHnvOWc PALbk06iQIacoRqvyBuzQBMr i6CuqClkq5FiWuOeDFhmm2Dn D38vqLCriQIpyPdzFAJhbvHp HAJit05us3eyWKBnGdG7fUFr kHN5xIQmvYPfn3RgwArhFORe c6piHDIklp9dznoowERmu2Je sI8hdfueFQmvcVYmjkWsCDIf t9b2uJTiQFPyKAEnPPmmlNk5 WYAvs589kp3ctiL3mNRqTAF9 YWlsYWJsZSBhcmUgZXZhbHVh dGVkXHBsYWluXGYxXGZzMjJc bGFuZzEwMzNcaGljaFxmMVxk IlFsFACeTVgoG8gnYlAkY5Uy RXEcZdXxwDUsN8aafMEmCGVw YWluXGYxXGZzMjJcbGFuZzEw MzNcaGljaFxmMVxkYmNoXGYx CHcqI4pyEeUdI3SkFDNrBwJe IFxwbGFpblxmMVxmczIyXGxh wfacKABjIFhsU6swSlHrVFXv qFcoATemu0WrRHPzKNXkWppz tcMwQNa0uuMrDOYfjvusbSJf blxmMVxmczIyXGxhbmcxMDMz LVzxK7xrIjZiYITzuAkpSFdb c5UjUZXyOHLnMvkyiyZqJJlb eMYda8hhn4FlQ2zrvNjaqQO2 REQiA8lruTIgiGX4MNS3lD7h VDdudoIuZSItk5HcXPCmZACz ScF6nL5gZSV2RrXCaIolXJMd YWluXGYxXGZzMjJcbGFuZzEw MzNcaGljaFxmMVxkYmNoXGYx OMplC5tcLrUmV2KdZVRoHiEj tPgfNJclQLm7VopcoFKxijlv MVxmczIyXGxhbmcxMDMzXGhp Z1ctYgMzRNAndVytDPgrd4Pz XGYxXGNmMlxmczIyIHMgTWVk uCDjqNAUUI66HTYbXZEhgUod mZ1giOSYUARfauN1r7G3CDlu KFMwFOo1RWsizhRqSJOxgP6n LWEcJM0gRNt0udAcCNUyj3Kc XY4qQZYbqMHqNGY0PCJnm3Sd C5Ujr0XwZTGwIGTkxl3njeYg CmUXbFYbYCRiye53UZAqAV0w Y8byYHYcKMJwusGwjWWvw1Eh QHQnzUH6uOJvSW4MPqMHb93s IGFuZCBEcnVnIEFkbWluaXN0 fxK9dD7cLeSOyOLqZzOYWGsa fuGjPMCgjj0vnmKnUVZjXOEj d9BqgYCcxETgslFgL9Cqc2Qe ZSVfgv99EKwqbUErbk05CH7c X7Zda4BycX6rWTnbXCDcw0Qv tKSabYSxUEUul2LaW8utduzc EOkotMZupY1gJZLfRQe2NQSj b2XpCQLyr1VnHoEktrQsJHMk MSLbFZQdrH34LFT0gJjzqSby jiFdKU4vHHWuyvMrFDTtUOWr lI6gFWipbiAwIOOzrzI2c5F9 PYclDAZglsZrJtwsKWD3kdBs xnC1lXIaC5ssmkcwBJxjJEHj h4RirU9jaPGPcCPfy4LazGYp bJEMyLAqWG8ohmTsGY4mCAB0 ODggKENMSUEtODgpIGFzIHF1 AOooCfnfHYT2inFuCMUzu1Ht PImpP4noT89xbFbkwVa8mGAq sDrqbQCgxGYpRAQwedX0j1L0 EASae9EtbbaiVANxAVpxUBWu XGZzMjJcbGFuZzEwMzNcaGlj fMloRssuIrCfZPCgBKkjD0gq TkOpEwYaIersUDR0jK== [id number] 10:24:23 Test Item Value Reference Range Interpretation Comments Case Report (test Surgical Pathology code = 104) Report Case: [id number] Authorizing Provider: Zunilda Luis Collected: 12/29/2021 04:49 PM Ordering Location: [address] Received: 01/01/2022 08:03 AM Cardiovascular Pathologist: Gaby Nation MD Specimen: Pancreas, unicate process mass bx by FNB DIAGNOSIS (test code e6cleCDpRULwk7roARLsmAVd = 3220) ZzEwMzNcZnRuYmpcdWMxIHtc cnRmMVxlcGljOTYwMlxhbnNp ESUnmJHyE6FtzyfiMFrdEZ2d NN8vlVtblPJylYZvXDXuJvPg l9xbn973jAFom5okNSTRowzr dKt1hRuuW30bd4N0CyajU14u bSTyGUA8TWYnFWYkjRXuTXOm CJI8MDPtvTXqM4qdRXQtJS6h ouwiJIuvMLiwOJCztJM3YYGt kQZuG3LyIPCnUPotVDEcufm8 OlRvGb8mfABxgSwgPTewEJFj CXEiSHkcTTVmWsFaGYZQS5VW QVMsIEZJTkUtTkVFRExFIEJJ Y1WPZRyarYwvGHqahF7mCZ1O cnVeiBUqsKZsq2OpRvcrhi84 uoO6dCWcqERwCU1pXBFuuqgv zlPsOT4ltzRqpMdhMPBtkuTd S7s1gVWtvOayOIJqIy6jSUWx NHRrK4Bjb7MwpCDmiVrpUM9y zQKnjzCsAX4yvACfMCGxjn01 TUL1CsIjs5S5ZVY8MGLdELRl z1txTUQvpDBvIySbUrRrOiTs WaifgOWfNWLjHnDjp3jqw584 pEBxh8rwIFRrOrP0lMWeXPQo qGYhF419BOYsRNnsu0lij2Ya NJRyuMNku0X0QSNJqipxtQh5 sEkgG31rp0G8YdntS6ehBJFz RSYrP7MyUY9vWOOdCum3EGN1 FQL7RDZsECJwR4BdKI3zLDKt zGXjMIb4m0eytRpjOMRlUCT3 j4zoDQiainDvQB8iww0qrSo9 g0jitbSlIXRoGZPorACNCPZl U4ZohVpeLq9jbEr2hXngOgyt CPW3Mhw9KN6izq30jmx3fIdy XQZvfwglYpC8ACqgNDAzojbk KEn8GBrtIDKpbJE4MQInmVKn E6SgUOXpGA5bgwn1BKX0GNeh WJBzNpC7MLTgkJBrNKRjfFoa SGovw012ZUZ8DjGxAW1mN4Ze p4B9fZ1dbGRgNYXmnRWvNiGz ZCGjcm7wcBLvQOicu6YgYUH2 fbO3xRYjtAUtBUCnLtE9QYlk VV6pti16ELCyOQR0md4kyTIp nCwahdOgmRZrAUcoE1OmNUJd x288FWXfT7BcVRRqc3I0dpZt YqSaMNVdyWN1qmN8MYZpLQ2o zkyya0erKGhnDHzcCPZbbdE7 qvB1JBSqzOGsA0RdiY1jKKOt IJ9btdjul0xoHWX5DHehLBSg VKE5VwOkNERub2Zsaph4EaCp h0MvdCAdGAlhS18qo088CAHv qfIlM3tdgDFotxiejUSgtcfr ZNsjgnT1IZFxKZbqdegqFHYa ZTmdH2ndMoJwCFSioKyfAVdf r6HdDNHrPQFuTmWvvOJqNYPh Zlb9BHPruXWwSUWrAfGhG1cn sfivCpQJBGMbh4emL1vtvEGP bGJuG9ZoMKgaknPqEGjkEFnv RmZbOWi1PL15NgTfYULjnm38 COMMENT (test code = c7jynBYnELUgiOM5WgCtQQEr 3359) u3cyt8QqsDLxdMYcPXvtqXRd wzFowu55bQN1kF24UT1xUMWn YbO3EKFqarK9Vqg3ZTJpDDLj kIKhP514w2ibx5yppwAbcWF9 zMkoGSOqxxumPrB5VKytPRHz hyieJDo0YUadATYuiPP0GCUg jUHuJ2OsNDJtSZ4zkbb0DEU9 YNpoVXAkVfC4CHPgrXLwNPBu lQoyCEbeo484TJL8KoCrBNCi hlWgdYappR2xUkHzJLPGcJQt HmimiME7XQ7ijTYeh7QrPhYx dpNjogGsUD16BOTbshFoz9Mu hPsqBCazg7xqob2kpVaaMBFG hTjfrICyfLWdg0GaQQcmsGws kwYitmSfOUKemT3aiyQzUX2d cGFyfQ== CPT Code(s) (test s9qbjPHkWGVbpZU6HbWfIINu code = 3357) f1sfx5LwiWIgqSHpTWmboDZe qoHlsz00kMD4fF92MR0sEHDg DgW5YBFrytQ0Mha4ZQJyBYYf zZQzU353m1rrb7lkttVxwFB3 iJibAXMrnbtcPmH3MApnVAZj uicsEMj9LOsqVYJgfWM3AAIz gHPaH5XqWTTaRP8sthp3ZRK1 REwbJEXzAmP8TKCmbZUmXTPs vRddULdzo732TWL4OsOpYMDy syMdsQmqkN7aXhZcDKR9LUJj O0dyRXO4 CLINICAL HISTORY d8kzgGDdVVCtyST4HqAkEWEd (test code = 3356) h1ycb5YfpEPsjGMqHIdgfUMx esKyth52sCX9pO30PO5tROTp WpE2LWUbonK4Ozg9ZSFfQPYf tJNwJ490m2vxo9zulvBhwOR8 yDqlHMUixlccKvU5ZTyxZHBf qstqCCj3WNdoFJIynLF2CRAw jMDqJ7SnONHqBU4rrkc0FVV7 WDknJRUcXrE4YCEynYPvCLKr uZdxXTquk600FJH1TuIbYSLe ttKnbZedqL8rQjXyUEGFcS2v DFVsI1uquOl9hRqyr7hwJZQ3 jrSutzF3RXOcev2mCLQtTC2y m6EcgFOqyK== GROSS DESCRIPTION y3sroLKaNCLgoCIEKPOvQ4cz (test code = ckUvWAHqfWRiH6IzmorhCMxl [id number]) PO5jOV9sdFyuiAGgnAEtTG6C XGRlZmYxXHBhcGVydzEyMjQw VUYdcHThxBW5MHDmAW5ehvkm YQojHObgJLArqdW9AEDixDDp A9GkJAEwIK3vtdlmHVJ8MFpe rZ4inoOKSsvmQd4mmHGcgKlt ZjFcZmNoYXJzZXQwXGZuaWwg SRVxPIa1oB5QVvgdA35tf5A4 Pvi9CMMzNSYxC1WjEN3jICBc xVAkP13QUtqjMTI8CYKWLlns ZCOlRK4Vy5xlUAKwtXXaKWU4 LQorvTGoODQbYKTuOFz2SBDy XGcxuLXoJX3zuYldTpenqMzn u8KxxCNlPWaaDSAyVDVqQBjg JIBsEI4QReFbHGI1GZR6WCDa MHw5UCf8RJ9PChXsPPHkNWu6 DpQaXIFlVVp3NSrfNN2NCBGk HrJvHmjoOrG6YUVpBARxOJPb MiBcXGYgQXJpYWwgXFxmbCBc EF9vnFifiWExwvJWPgJPDG1h qwJrwa9jjOClCK8HGWUokRJG ALQ0HW8tWJUQKkiofKCnJITc kQsyJBvzuK2eOR1AWTu7niHh QDYvOJsvlrLaGLKgI9GbbwNa GXohXPVxwo2mwOtfFKdxQhBl UGJyb7g0yAW1jPPnoXS5pKTa qAvsWeKcDY2otEJjAJ2gISct MJrrhoOwc6IxMH57kTRbpaRk nnMaYDA3IpChFLcbKNIqNV0p cmVhcyIgaXMgYSAxLjUgeCAx AtRdiGDfIfRdO86tMRwheoMx GZFlUE1oPS59bCNooXekAHfg EHwln02vvOR9vSNmbJHlB69e OUYuZVJdvNzfTED9iQFqSPKu g18xWWT9Gi1rxOKpINJmowZ2 o8ZgUDmdETEtTGMeNyXrfSAt ZD3YQXUqbxZITiBbCJeeWFQx D6ZdzD2zOO2GVmaeHXHaTFHO U9JgC83SCtqseUFtxikvsYvv ReYhlXLtHwSfaUefsO67ACWv cZBuJVE4YS9qJQQjyghhDMDs XRVzFYH6FEsofN53tGEnLYTa QUKapXKwcZ7PPDDsXWK8NOka wQ07uUHlQD4PSKMsAOO8OZHk fMAzTYT1FA5irP1EbA== SPECIAL STUDIES (test h2bfzHLdFOJan9boOXFecPRs code = 3376) ZzEwMzNcZnRuYmpcdWMxIHtc jsQoSBwtq0PtB2NdCsDqEZbr bnNpXGRlZmxhbmcxMDMzXGZ0 qhOwKENjNBgrPZGzCAxhWw5w fRQppNmnQaOcMCZea7xmhwRT anmjkMj4e0ifXBViXgE5wHUs APseN1mstmGuuVHuE8JpcEIf aQp8x0mqJzMjDmC1iCKyRGbs B4kkwfNdyVUgFUQuLCu2kQ77 BVQotD8wwAMgWWzwcyPoUmE2 CLcmDJCeKaA2HFRhxYToHGNt T0fcLQPpXKefCRGmMVqtkXFw DQM3bEfsj2Z8xXOdsGHtdXgq PwTeUeCqNcXGu2IiFAa2wAjd R0FkMKApJiM9dIFqASRcELuz SIGpMVTubcG5aKahrmAxs59u eHQyXGYwXGZzMjBcbGkwXHJp JKHDl6ChoTozRHY8tYi4zOxv PncnGAO4Bcu5LG5fta47pde8 nVdaCALonewhAsD0HTwqAZYz xiugWOl3ZAkoGQTgfQB1VCFv dBNjS6SpCTWmTJ0eeut6ZHP2 PIhsQGPoMyM7KUHdxHKrKCHu gZkyWCkyk655KHW9DnGqXD5g Y4Nwm9F2iZ6xdTEjLPFayMLi SqRdENPzbi2wxLAnWZhcc4Hi PQU0ovZ5iYHuxBIyJCCtGK47 Wkgvi2OlZxdsn6DyW62gzET9 EQnmm1moJK8mNqG4rhAnMVwt k6xrlM9kYxZ5AWkwLC7aXJ9e MCPhsS8vvskaFEKvKoKlkemj PQSnqMwakzXcFt4rvSboFIW6 CQlzN7bzbB8pCeL6TIajR5co yX9qVXs2VDmbhXJ6XREebE7o NX3xlnozx8tvNNxlARxiEJPh qjH4qhJ7LTQsnZAqF6ZklC9u AJFwUD9ofaprb1atQMS5OKwi XTZbNJU3EvDvGBAtg4Ijpph4 ApGox7DavIOySIfiL41xy678 DXBhrkPkZ9akjJJvzqxrlCSk ihgdCFtsamW8AQWpKIHmWJnl XGYxXGZzMjJcbGFuZzEwMzNc aGljaFxmMVxkYmNoXGYxXGxv F9tbNcHwP4JrKCDzLzKmQEij SXpgnUXnfPTymHK5lL5eRW8v KGXaqIIcF9ZfOSHsvtRdnRDo VAJ8bEArqTKqJI0hKTxikETt q4eap5JxY6tiqKqqkNK5AZ4u ZXMsEVEjBDrwd7PqhZ5rApsq bGFpblxmMVxmczIyXGxhbmcx TUIoBCwcN2kaFjUjDAQreGkp SSgws5TrPZZwIBXkJymzzcZn QUf1hhUqATSrxbkzUHNlmAse aA5xZdJzYeCbQhypTT6oDCUu A4fvsNUfKORsHRUrW7syNzLu pL6hvWmrKGiyIfEwMpMzTgPC c451vk9kANOdpMYbwgFPiRBa nU6vOXsnWTomCAfdfVDvQQwm l5hkEWEpe9u3jXMoTWTjibMh n2avNDobshAkPLIbaVVvwCPc DDAra70gMQulhJukvTzpFQMj l0RpbJtfv2CyAxIlSFhpj2Yh H65kvMZfzITkkXfwTKPvnzBn ECKob72kc4wcVTFzXwJ3oPYg rCF1cLYktYYrk8AczHjnXXXj v8fyKUCxkr4usutleTQiq5Ve cP6xeqkkDZmyfUSoyaZpEZBc n9l5aOWhQQCsNMUnPZwhrEi7 FBWjr169nt6axiY7kECjWLF1 YWlsYWJsZSBhcmUgZXZhbHVh dGVkXHBsYWluXGYxXGZzMjJc bGFuZzEwMzNcaGljaFxmMVxk EuUxMRHaJJaqM8dtFwGbW3Lw ZTFmByCyuIKyJ1wloCJiORMj YWluXGYxXGZzMjJcbGFuZzEw MzNcaGljaFxmMVxkYmNoXGYx SKapI6paOcIwR6BgBXLgLmOi IFxwbGFpblxmMVxmczIyXGxh slohBTVjYKbdS5mpNoVmOOGd hXnsPOjar3ExQWHlICCiEqgl xkEpQGj4emGcBBDwhpvsmRFk blxmMVxmczIyXGxhbmcxMDMz NHyzK2qdSwWmKTJevFbqYNsm t5FhRCFbVKWiNiraqaHwKFyf sANao0wxe4SiL9tudMiifST4 RNRvD3znxGYcsFU3XNE4lV8d VIrbunYqSQTls6CxEHNwDKMp JcW8uU1rLFE7QvMGiWiiPFPa YWluXGYxXGZzMjJcbGFuZzEw MzNcaGljaFxmMVxkYmNoXGYx HOwmZ6rqXeQkX9EjOJBjBsEe xOcoZHrqYPv1GitqzHIzvwht MVxmczIyXGxhbmcxMDMzXGhp N4yiCgDgRXKztRuiDJckv2Vq XGYxXGNmMlxmczIyIHMgTWVk iKXanINTNI07GRUiZWTjdVmn tI3mtHBXZBPjmrJ7m0C7TLxs NAEfOAb9UEquurBrRCQvnE5q ASFeUL5lHBx5zsDeJQQlh7Dj LM7aUZPqeOUuKEW6WKNht1Ch M0Bhr3UtCFPnPWQwny1owdPs PaYHuSRpBQJqrr73IAXrHK8s Z2txVLYiDFMiwmIehTBid2Cb KXZmhWJ2dJYaVN0DVxHLm27x IGFuZCBEcnVnIEFkbWluaXN0 ltF5uK6rThZCiGDqZiHACZto ugVlLIQmga0ebwYkWUAyFMEv z2LfoBSqbDRlxwVzM9Rzn7Ba RIUukv44GDtfwCPebb01KF2u Y3Wpl7HngS6wPQsaXOVuu4Dn bPLerEAcWZLlv5OuV1jovgqm VSkbxWGllG5kVFQbYOm5PDZt a4SmIMKhi0OvLsFfglLuUEZh FMSdTNFqrG16IWH6gTlrbNcw zyRbDS3dRYLmvxMbRAChAYXk pW1rCFyvqfWjJRBdizI3d4D0 GClzDWYyxaNqNbebKZQ8ceZc khO1vGGxL4ptxhdrVFieOQUu d4GoqU0qfRPDpHKre9MnkBKx iWNMwFZeHN5aatQeXO2eJRE8 ODggKENMSUEtODgpIGFzIHF1 IRawGiiqWVH0zuHfQXYau7Qs QKuaD2orO76auHqxiYv9fJLh wIlijRZpuDXrQVRpnnG2r5X1 UCRle7OjeomlDBBcBQtnZEKv XGZzMjJcbGFuZzEwMzNcaGlj pZqkGmegPcDyFMKeZVipF0vg FeEaGyJuIrsjPMS6kG== [id number] 10:24:23 Test Item Value Reference Range Interpretation Comments Case Report (test Surgical Pathology code = 104) Report Case: [id number] Authorizing Provider: Zunilda Luis Collected: 12/29/2021 04:49 PM Ordering Location: [address] Received: 01/01/2022 08:03 AM Cardiovascular Pathologist: Gaby Nation MD Specimen: Pancreas, unicate process mass bx by FNB DIAGNOSIS (test code e4xvqGMjAMGmy9ywQUGpeDIz = 3220) ZzEwMzNcZnRuYmpcdWMxIHtc cnRmMVxlcGljOTYwMlxhbnNp ERXefSJtB4EahdwiLHmxOQ0q XO0ioLrdaLFkuKUfUGIvHxIi r2iue442qGQai6rwWNJBlzsa fPo5hZkkO30yu1W3UkniY06b lSMjKDD0GYSxECZeoTQhYLNz JFH7ALTizNEoM1tfMNOcAI9l luoqWGpwHYolXULpbPH6EBSe fFMzO3CoZXXzHJjfAOUvvbu5 IdVfRx3qbCKqfGsiNGucIEKw AMZaSNklNUDoZjSxJKWVR2AA QVMsIEZJTkUtTkVFRExFIEJJ G3PYZMatwFfuTUzzwQ6yYK2J vaDxpVBznKPrn0EpSvulxs60 qgH0sGMcjHUcPF9aDOTpglkj fyXwWL8dboGehWuhFHWejwXv U6q8zCXphXssMGOgRo4uMJSs MEDeD1Ozo4ExdYIaiXioNJ5n jERyuaPlWI1phZJoONJrhc39 EJY7LzZka1X3YIZ4LSHzWIJi j3hbHKNmjTZyVbMkBfEmCxId HxgwpBKtQCKaXcIrv0yly390 vPGkd8ctOFEbFjC9nUOjBFQh wUQeP689TXNjSDfwc5zst2Kx NPClyVMrx6Q1PUFDrvfwtAd4 fCxeE79fe2X3AmckW0dlDNOg UPXsL8LpVG4sDZRpLrb9KMU9 QDB8URQsATHnS1FeCC1qTPYf hSGcQMt8b0bwiQmlZSIsMYQ8 r6giTBspyqBiKQ8xtq8xtDt9 n1hbutRzBIZdEXYxxXNWHAIh B0GgsHolUf4jxFs3dNxoYymy OFP3Wtm8WH5pku55laf5sQkj OSMwmzkgRwQ2DLudSWLyusea XCy0BQctHWVxxUO6MPSttATg G8MyRJNbAJ8abxl6KQY2OBgf FFHhXqU5TEWssGIuQRVhqZka TDiav572TVM4OaWzFQ9vL2Sl x6M4nE7gaJTcINChfKYtNeGn IHLnge6vwSSbMHwix3NsMJR6 ezT1aZLsiFHlHYNoSeI2LLfs BJ0eit14UYHrJPT0na2bmZQv bIzmyhAgbYMmBGceD6UeYCPt g913XXMrU6EvBAHui4E4ubNq HiOtSDIkwPG7zbF9KJVaDV4m ouokb8fjHUzxMMjcSHFfpmG8 ejO4ZTIldHIvJ2ClmH8pBASi HN4gwmbvv5qlDVO1ZZhaTZAl SNK9OwWqFUYxy3Guiqx7UtBm x4CmmDFwAGqkW38ju901XFRi egGqR9sebWNrdnonsGUolrgm DHibpqJ4EEWqUCruducmHQNp NBtxD5nsPuTxEGAsbHqsSBtn w5TsCZVxVZOmLjYvaCIpCEWm Mpy5VAEdoYCwHRTjIiPrL8ci mypeMpBEIJXfy6jsK0tqvZMV tKCfN4IxPKpvudUmPMpsFRow FeFmPJu4NE05VjPjLFXpxh74 COMMENT (test code = s6sdnPTjNMRuxQQ5EvGkYXAl 3359) a4rms9UjfCGzlLLwUWhodYVz utQnwn67bSV9sO43HS1zSTCu FhD5XFMsouY4Vnt1CSOsZKOg tXDgO569o7uyo1kcqyHwhTH6 xYknLSUjjaytQfE6HSzmGDYt viyhRKa4PJcoDPUgrKM7UBRq aIFxK3FbZAKhII9ndha4ZGF3 DSxnDGCkSoA5XNUilJGmAVCr fCorZWajw998XYH4EoYsSYRq zcOvdNvoqV2zTfGiIURIuFVc JmqkzOG3RE7mzVZae8ZlEaNt jaRowmAxLW04BPGokwNux2Mm kNmqXSpei4izli9exIblITBN fIpbcICqpMVtg9FoHOzhcMpa xfDvniUnBDMqpM3amuWcDE7w cGFyfQ== CPT Code(s) (test t8cheZIrBAWycJD6CrFjKTGv code = 3357) k2aub6PnoCXquLGvWVzttEHp wvHntw67qYJ5eL79AC4yUDLn JgO1XVVzazV8Sro3KMHaTUWz sAUvG218w9rlv0skzqNsfAC7 aAgvFNJbcsvqXcD1ENdwTWZz rnutUYb7SQckKDHiwXA5KFAa nEToG3RbNUTpOE3knps3COK6 XPehPTNdWjX5FTXipDAqUGVg jWrbASnml619THU0RsExLHTn qzDauFnxaU1nEjPfYYZ0MVFw L6vtQRK8 CLINICAL HISTORY u0exhXUjDRJrzWN6UkWjPDAf (test code = 3356) z9wia7OtrUXsyKXpZTncuBNv ijWiuu57lWN2xO21YV5hFKFa EjU8SNTfkpJ7Ajn7BQFkKOGl lGSiQ370p4elx8jfitCzmVW3 uXulEJIoijjmMqH3WZpmATYi vhmdUPx6PTrfLBPouKM2ZGKz hPYfU8GhYGYwUO5xytm4ONX7 GMxeZYYzMaG1QPHxtDMlQLSr qCvwZQlda696OSC9TmFpCJXr hrZfqWoleZ1xDdEgSPXAxF4r DAAeN0eovWs9zFsub0dcLHO1 ocTkrwW4TWCulb7pJBRxPS2n m2FhgMBjiA== GROSS DESCRIPTION f4nutCXbHXEpoAEZOSMjM0at (test code = cqGtDVLgiAGgA3WvinsaHCyt 8166209358) MW5qNM8imWdjnJHliUSuJY2X XGRlZmYxXHBhcGVydzEyMjQw ZLMjaBBbeKS3PHDgZW1etjmp LTecLSdyUWXlmyW7CTWouMMx Q0UzIQUqXI0jpiniBXX0YHnz jG7tavIAOclfOl1jqEEnqBsl ZjFcZmNoYXJzZXQwXGZuaWwg CSZnIGy7sG4VGyluR39mw1M7 Ndi2IORpZYSwA4VjYW3nFTDn mBQbV85QVknsLQD6BBOJKalk CHIgKE7Iv9ehKFEbpCGyMTB7 DBvruVXzPCJvMNNdOZq2VNSg CIuahAGmJC6kjDsgIpdyfNik x0YauVVmZXmnYRJuNQGqALbt TXXiDK5ZFpFkAKF5ZXL3FHZo BGg1NBe8IO1UYnBcYUFpXOv9 JrCyEGGtWTv2QVnaNB0WPFUs OdZjPcxhAjW6DNEqXIWzNPRx MiBcXGYgQXJpYWwgXFxmbCBc XI1qsVtpqAVahwKNUyCEGW5i bpGruu6xkELxUJ4LGHLwdKQF YHU2QE8fMEEYTflqqWUiCKYq rCriWKlweP2kAO5OHZx3wjCk AJExINajtlCaHFXmR3HizkFu HRzoDVDsxt7ctAzpZFvnHxZl GQUxj3q4oPI6bYFwsYZ9hZSd lUbhUgMcSZ5znXQeLG4rIJel MGigmiPsx9PnZV67eXVnujCv ujIkZLM4JmWvATfoWERwKO6r cmVhcyIgaXMgYSAxLjUgeCAx VjMysHKmQqGyG00lANkhdkRv UJMePC7hXH12sWEomBoaMMwm IQltl20dgDI2pKMvwAUyU62w IXSrUDLnwErsTJX8jWDlRLKz j16kXKN7Jw1qkNVcVKOrcaB6 q8VtRPqaKTGaQSGfRiBmgGQm AA9WPSErhoNBInObXZrwCXKx B4OwqM0pRB3ADfsnMFZmSAGZ Q8QzW44RUxcpxPPgwaercMra AkUwmXUgAlYarUjnrD07IUXz uQHkUBZ3CV6tGNCxklyfFKHi FEUuJQE2OOeehX89fWViEIYw AHIbhUHgzJ9JMUYtSJE9YYly vV70wLNfSG3IHZBeTPD1TPIe tKOsBYN6FO7toP6FzE== SPECIAL STUDIES (test v7mjxPRhUIMxu6gtTOFjuEPk code = 3376) ZzEwMzNcZnRuYmpcdWMxIHtc wpLtYEtjk1AdC0WvOhGjLLia bnNpXGRlZmxhbmcxMDMzXGZ0 saRdILThMHgbOJDfCEimMz2u xCNpjUnbIdJeWKPkm1egvjWX faabsTw0n6siQNOnLaM1qHPk OVtqR7ztgyOrlZVsG0AttKQk oLw0j0foYlTiQbJ7jJSuQNmz I0vpjaDknMEqKFRcJAn6eG65 TCDbxW4fnZCaPEhrlwUfWiU4 BCugQGQqWtZ2CEGwoGIzAKTi E5xfHNZdDPqlFCKvHQgqhAOx KVG4sVtfa0R4vEBpbXFtfHcj GbGnRuWaBxYWv0EhPOb0gIon S3UcFZLgRyQ5dMSgSLOsSFmm UWXiSQSvjdC8iQkcvaHhn80l eHQyXGYwXGZzMjBcbGkwXHJp FNMZl6XnuMotNPC5nIo4aHnp FckaWPZ9Spv8LJ7wxe10svo5 nDpxWKSypfllLuS1VOrhXFNf uqjeSNd4OFzkOQZpvOJ7ACQc yFQyY5TaMCOnAL5npag6YUP7 JCfqOJSgUlS7VTFmiFDzCDQn fSjxSRawn195QOZ5CtQiJD3k P1Tgg4T9zP0vjJUsDVNicKMj QlJqWMScid0wkALzYSbyb9Ts HKG5djH9wOJmnBNlSGAsPH98 Zxfad1KcFntkx3WqG01cxOG8 YBegj4muMI7tNaJ6bvGoWPoj b2oroZ3mNoM5WOpdQC8oFX9d HTRsgO7twnkfTESpSsGsokim YMQvxMqcymXaDb2yrIkwSQS1 ZRvpG8qmdR2iYdO8NQoxL4lq uO7gXQo3PDkgdIS6ECZvhB6z XG4injbxb8gqIPvuOMypDENk jcX6yzM7FAFwuOGfS5EmmW2q QTUgGW7lpkity9phKER5PLat VIBrQRC5CzEcKWUke1Mwohk1 VcUom5KvsJCxYFxfV41gx130 HXDxufSxV9dzrNIhgvxgkOFi owbqYKeamuW9MDEzINUzPMth XGYxXGZzMjJcbGFuZzEwMzNc aGljaFxmMVxkYmNoXGYxXGxv Y3aiRsOvR0BkDBWtKaVpTHsr MLxeqMSgjAEkrND7sJ0tIG1d SXDhwLRcZ5TeEEZobtIqnSUw ZVK8wYCbsHFbZR0dMCsqfCNt k1cxj6WjP5vdmHsdcOR5LI6z FCUpFZDrSNxcy2BtvX4pHvlt bGFpblxmMVxmczIyXGxhbmcx WVGzQVhaO7xmQlRxWJRfhSzj SMltd6QeOYWkQKQhKaijkhIs XZb7edFeLUSvjfmiQAVqrRau bW8kOcDmRaLvLaxgEU9uHSIx P4zmvNAjDYPnHQQkA4atFjZf kT9dzFpgFPvuXgNfOrGeIkBK e274bc7gIQRfgXBhgfUNiECg kJ2nKXehRGphNBpwkMTtUXpi z8vyOPFnc2m8pEWkGMRxmrHv j8ydTOdxphPxYZMluWKvjYDe JJFlo46gPCewaCumzXmhBGLl h7AglXsac3FcMdQaYZkwm8Aw Y59ufQIhnAJdoWemMNBosiTx BECkb95ox8xrERKgMcE6tSCi gNC4aCBcmCYyz1YioRhySPLe n4tgGESqpw3eurtcmEPpt4Sn oI4zfdwvZMhxdPLjwlOjDZJr c5k4zXBvHQXvXKQpYBvbgHh9 VCIdp483il8vitD5bMWiYFK4 YWlsYWJsZSBhcmUgZXZhbHVh dGVkXHBsYWluXGYxXGZzMjJc bGFuZzEwMzNcaGljaFxmMVxk WzEvWSMoGEvxQ3ghHzVbU6Kf VSNtHoQzjQQmO1ojoLBwVLGf YWluXGYxXGZzMjJcbGFuZzEw MzNcaGljaFxmMVxkYmNoXGYx WDisB3iaUcJtY1HoYVUfLzVz IFxwbGFpblxmMVxmczIyXGxh hcsaJMTvQHgyF9dxTbNwXKBq uEfxRQjge2PzYTDtKVAxMvzx ccOaHFa1ruSpQADcmquifQHd blxmMVxmczIyXGxhbmcxMDMz OYzfD2igMsPzCRTdzHzsPNiz k4KuKYMxCDXdJqmerqYjEMjv sFFxx4dug1IfY3qspQdtgEW1 RBTzY4nbuFTqyNH0TIE4yC9x HMzetmPaNPIvk9AeNIPbDCHo DcZ8xN3qDVI8YzBSwFruSNPk YWluXGYxXGZzMjJcbGFuZzEw MzNcaGljaFxmMVxkYmNoXGYx NLqjO2ueLvMoW8RtNVCtBtJd iAaeAWuxSHc1EwnduVHwwznz MVxmczIyXGxhbmcxMDMzXGhp V8xcWjTbQCHizRpoDIvnv4Sp XGYxXGNmMlxmczIyIHMgTWVk yCUrpKWECD79HXFuQXHzhLel mE7hmNNGREEuxbV4h7Q8VLos VQAjOJd1AYryxlUgTNTztZ8k SWNsAY4iONw6baPkFACoz8Lx RK9zGZSjkVHvNRW3AROzu0Qd C9Pxa1NpAVFpKWWltq1mrrTf CdGCaXJqGWPwou55HLDuTS8h K4pxUJRxUIQvvjVcxFOja1Fi BDZcaRV2bPJlHY2TUpVPp70v IGFuZCBEcnVnIEFkbWluaXN0 cyD2cZ9xCgSRwUOgMcWZMXwv jrDpKERfyf6lyzIcGIBtCAYq p1AnrDOyaRKfxvSfR3Vyv9Wt ODCsog35OQneaQWejx84MM4n L9Vjy7EbwN2gGFqnCSHio7St bKEiiYXiBPKww9KvA3yaixht JDjgtZLupP9dLOBiURz3TFHi k9ZtZSUug0KuJlDuauXwWBJc PBAdRLVryP94LAT7jGeutDjw vrBxUL1rAMIoyrQcVYNxBNCk kR5qHNmikhWmLOFnacW8s6R1 GHtnXCBbodZsXohmSEW5usPp wwP2rLXoM4rmtrwjLWvbNLBz u9VotV4rbCFUjGSzx1JpjYQa jJKCaZReDV3atpOrRP9ySVT4 ODggKENMSUEtODgpIGFzIHF1 FQxiVglbAUM6cyTgJGFdg9Og XFijM7laG85giNqfoDx5rWLs xExgrFRieTOkMTOinlF3b3Q9 FPRqw5JocdipIJQhLFfbAAGy XGZzMjJcbGFuZzEwMzNcaGlj vNnlEokcThTzXAWaLOrbR6nq PtNuDpWhLncbWZY7bB== [id number] 10:24:23 Test Item Value Reference Range Interpretation Comments Case Report (test Surgical Pathology code = 104) Report Case: [id number] Authorizing Provider: Zunilda Luis Collected: 12/29/2021 04:49 PM Ordering Location: [address] Received: 01/01/2022 08:03 AM Cardiovascular Pathologist: Gaby Nation MD Specimen: Pancreas, unicate process mass bx by FNB DIAGNOSIS (test code r2nciBMcLMRwt5ebVNSxpQQw = 3220) ZzEwMzNcZnRuYmpcdWMxIHtc cnRmMVxlcGljOTYwMlxhbnNp LCDmkTFbD9YngrxyUQyeBV8f HU2jzLoigUOaeAVtMORlZiQe l6ajn964aOCtd2riABKNbagg cTy3bJpaI27zo5Y9TowsG26f iIPsBJK1BKNdRSOpyFIkJTYb KWQ0OUQxhXGaP4faVVXgLT8z przrJQwmFXdbARAlwNB6EDXo zQLxN5WmXUOfSGriJVFtpzd9 YyFbZa6mcVXlrDhkWQruNWUg GUJsGUxgOCYsFlLhUEEVM8MF QVMsIEZJTkUtTkVFRExFIEJJ I1KMMHpjsKyhSKyplM1mBU4V icPqfNOoqYSrd5HfGxfebn79 hbI0iHPnvPEjLK4cCMCfbqnc cqLfMZ6idiLmrEljHBJmydLn H9p9bHNqxSdqQOScGe8tWLNa MVUpI6Lir4UxeLRhzKnfLF9d cLAhynVnPN3cbIZiEUKlpx34 VWW2PyPxe9E5FNJ3JGBiYBFr s2mmRDWauZEvTzSlFzHtJhQh FqwlxFOvXJUoSzUmw1woa492 iSGkr2tyQKIeMdF9eEQgUKGj qYAfR938KDXaQBpus5bto3Sd SBWfnXOjv2U4VEOYfwhziUj2 xQncG33in5Q1JwqjW3hrOOMd RMFtJ4DxFJ2mPNLbYtf7QHN8 DMF6KZYiGGDaB2MxYS9gPWHi sWSjQFt9t8dudZrqPSGvBHQ5 j5ltYJxvyaTnBJ8tuw7teWt8 y8abcpJpDDIkBRVibBGLZVPz J4ZtbZnnQp9eaOt2jTjlPwxq NCI6Smp9VT6vte98dtm0mMoz LLIghytzMzA5LHsdRIPgkepy FYt0UOdaBJZriER6QGUptZGd N2GaYRFrNX6ybmp0RRF6SBbs HCNnRzK1VFBaqGVpEJZhoPgz PIyuq401DDX0DbHlQD9hM2Jd i9J2zN5ikRRmPMHqdYMtPeDz JNPdfd6odBTyHReuc7JqDFK6 bcQ1hBAfjXIwZDTtWhQ3NVsv NC4nsn58UKRbBTV1ox3cmVOz tMmlfgEpkJVyDPctL0TuWSQe u322RUCqP9FkIXCto2B4zjXe AbZiUPSweNB2pwF4OQOqLB3h espoc5cnFHknTSceAHBmufU1 obS3HPOicZHjX6RgnE1mPVVw ST2jefqyd9qmFTQ8BOluJKLd SKV6OdBiJVOcn4Vypmg2AaIi l1AuvTJeISlxT18ze971IISx pnTcG1wncURnuhnvqBCstdtd YOqzsfK8TZHsVJrhmfnjGGNc IVwrG5taGaWjKEEdtSycRGrr y9WoJTOeNPSkTuVodGOdMEKv Yjv2RPDxhOMhRXEzUeMbL4fd lfbrSsSWRVGxx9fxW9afxWDS dCDcC8CcETveqrMyGQdoYXbp MiGmWTj9LJ24NnJbCUOnyo82 COMMENT (test code = s2ubzHLfLNCyuTO2IuSbIBYn 3359) s3tkz9UoaIDukYPmFDvdcZHw mdBggf60cGY5nB54MX4xTLZn MpC2KUAuzjK5Fzk5NTLeIYJe wXEhA677o7fox0rbcbMjxNT5 aTyvQTKxlyzaGiQ3BGrcNUKq prvlHUh0LAjdPPRhiPV0CQQp eBIpK5LoGAEbLE2dwea6ELO1 BPvoUMTmSzS4EZUyaDYjUVAv eWnlYEnbp389KID2VdLhSHDf kpQzyLizqO6sIpDkBCNBeJFz JvrusYF8PA9ejEJeh1ShIwRp qyEjqlHvEV40HJImctIwc5Gy tQzyWEviz2qbkk5gpFrgXMPU jTygnPAvqTLlw5UoMJxlrMin moIxmeXbTHRkhN2xqfWcSN3z cGFyfQ== CPT Code(s) (test y1awfTNrPBEviSV4UsBwXJQa code = 3357) t6qsi9VytCJbgHKoBJvqnAMk oyEytz31nXN8sN32VG0pXNDp SeW0GQWomxM6Fmj5QWAgLXLu zKUeC127i5ovh6awtaZodMX6 qNgpQTQthggdOpR7AFdjJXXy agqrZFr1PBygYGBanOB8KCOw mEJdH0QoDNUxQG3mqdj0WTY4 XIisFENvGaX6UZKaxMZwLEVi rYysRPmdj769NQJ8AhEnNYRq pkCztHmnoF4nIhVrXUM7ZLIe S7rgCMV3 CLINICAL HISTORY v3qadXWwCVEevNF5OdLuEFCd (test code = 3356) w1mwu4PfeAKlaZSjBLokgHSt zmUzld36vLN2xD32WO2oNQOi WqR6OWUntjF3Gnq4WVBgCUWh eHPhL548w7lni0elubFgbUI9 fBeuQULwbwyoAtH6CRorUMTs gjfyQVo0BSqlNKSpmLT2EZAr eBKiA7KwFIFeBH2pkgl2BSG0 PSoiIYCgVdK9WNHbmIOfJBFy nFnmPEknh528AMH1MzTxHPCq xrTcdLrkiO6tEdXfWASQuR7t IZKgC7xviQw9aPlmc3bxEBU9 fpQdhqQ9TTWofz8zDTEfND2k o0VqtKBisC== GROSS DESCRIPTION j9dmrIBgEUVgvTFLNBAlC9tj (test code = ufQsVQLvcXUmW6YswrbzMPfq [id number]) FS2hLY1ohPisnEFobMChAB1T XGRlZmYxXHBhcGVydzEyMjQw KINzqZFgoZH1NGZcKS1aelrt JVbgBWaoDJOgopZ3FBEcyAGr J1UeACVbQI5dtzunVQW3RHiu aO2mdbQOIufeWw4kxHCpqGat ZjFcZmNoYXJzZXQwXGZuaWwg CMCmEDj9jS2APjybF07bn0S0 Squ3TJJmWRBiB3FdTO8yEJWn pSPhL03JWqbvCMA8AMMNWwwm IZYkNM2Sf2izNUKxsKHjZCG1 PDgexLUjZAGcYMDvTHv9AGYc ALlsvRGaPB3guVhoQitrgFas f3EvwNZtAZfmCIHtWGNtQFba GRHuZZ6KLuLgKSP3NKB5XGWv ODh0FVu9VP4KVgHuVBEcATm3 YpKfFTDfRTi9VMrsTF9BXBAa AsPwXcabAsR3JQQnDVHfUXLu MiBcXGYgQXJpYWwgXFxmbCBc CI5moQzprBAozdSPYvAALV2o enPwrj4ydRUwRA8DWOCljULV FTK3XP1jCFWVYzzmeMWoWMAi vYflLTgweR9cVX2VHFl1baDt AWIaCAyeymMyITShR0IjwmGm VFapYKDhik2tzAjkWPfeUeKx TZBrq2p0gTR5jFRkbLN8xHVn eJhhBiMlHQ9fqSPxSE0qGWgp BJpqesRlq4KlQI98zEQrbaCc hkJuGXI7RbIrZNazJSXxDD4e cmVhcyIgaXMgYSAxLjUgeCAx BlSesDEtZfFcL08lKIgqslYd DFPaGK7gVQ83wAKwcSacKBtk VEazn79mwMR7jHRwiYByA75d LKGdLSDihBpyQQI3sZJaWPWf l61gBJW6Yp0zbAIyMGVbrlK3 e1YbYSexNSIwLLEfImTasUYs FE9SOUMcvaCREfYuLYcyTRKv R7IgwJ4zQT1YXprzCWPeOTKU Q8KuX59HAvxexPVcdqgbqWsm SgUeaTVsMqTzvLovwR89ITOh aCThBQL8RH1jDBUgbtfnJWPs PZDzCIF3HBfpxW21fRNmEWBo SZOwyVWwoU7RWDCiHQE6TAvh aA91bWCtRV0MPMPdSGT4HFCo rLWgRAN4KJ3kdK5KkJ== SPECIAL STUDIES (test t2immUQhDHTgc7puZKQqvTKq code = 3376) ZzEwMzNcZnRuYmpcdWMxIHtc weEkLRiqm7IuN4AeDvExMAtu bnNpXGRlZmxhbmcxMDMzXGZ0 xoVrJJBtLLczDHNyWHitVk6v hLYneIkkNiZdHTOmx2cdlxIB wovqhGl1f5soNABzSaX5sJCx AGsuA6iyhrQrdVJaR5IduAHx fXl6q9orYnOpUyI1cXXoIYbv M5gblhCijYPfXLYrRRn6tO20 HPPtoH3zsIEnKKayjeYsObG2 JKipEJZdXuQ0UEQgzSIvTPIh F7ujLDQtUXecJTIyACvdzZWj RNI8bMsnj6A7tJUvjBTffAup AvUhLkBwXyAYa9VxKFh9nGkv O2WcHTFtIhZ7qUNvRVFpDIpp KRUhHJKxmuU3dZrknfTyu65j eHQyXGYwXGZzMjBcbGkwXHJp XLIQl0PmqIzeRLK6oEp2mWif BmikTTG0Akw3CU6jnw39pnu5 kMauTTRbrpkoOgF5IXqxPDOp qkleVUb8JYglQQJrhRQ9MYXi lMXkN3HjYEAcIP7fgfh9KBW5 FNgqIGAyFxS8PMFmlFAvKOAm jOnmZUhnr503VQZ3GsOmLP7u E8Ugt6W5bK3tzOTmXWQuqLSc DjWqTYOfgr8klXWdWBzor2Bo ADH8ydC3jWQasOOxZNCuKS57 Qvbof0TeQxdmh0GbJ78tiYE3 NEwsa6umHY2kWqQ8hqLxLKyx w3dsvV6nFnG0YGsvFE7wES1l BJOibJ9tvnnbEQMfBjDloxhy UTIarRaqzkPyDt2jtCgfITB1 NPwqL6zxvD6rUwV3VSsxS3qy bV3mXWe0WWezkIN1TGDloV7v TV5vpnmvd7vgHSoeAGjiTIWb vvT0zeI5DNWkgSCwB3EutW8c PJMoVR6esownj8gdANV9SBfl BSBrOFH8NpZgNRXie0Iyrsy8 YiLbw8WniWCeHOmuB20gz697 DIEcvmSoE6arqVQxoxsioUDg zmmbEKkbebN1LSXkHLZuSKkm XGYxXGZzMjJcbGFuZzEwMzNc aGljaFxmMVxkYmNoXGYxXGxv P0exXkEvN1YaDJFnHlAmFPjn LMbwtBIzdJGvnCZ8cF7vNS9z FRTtzJIbT4ApOIUwjxIlqBVy JZM8wJUzxQFnMO1uCNzorJVw b1auj9TbY0kxbKgnzII2CT2o KSDdQOIaQZvdm2VodO9bAlhr bGFpblxmMVxmczIyXGxhbmcx CCOiGUomM7puVxWsVWTggLgw LCgrk2SiXYFvQDGnBjomunDv BJy3tpNcYFWpxjaiNAGfnCsv aX6qFrXdHrNsVjdbQM3eVGOq I1fzeRBgZUVsRIGgV4ulQySl wI9soAgwZLhgYzAgUgQxTaAG o557ky3xTOWixIKubfHMcIWq yQ3tZLscLPwqJIbovEFmIZst k6irPKYis2j9dHGqTUJqtyHa f3vpAXuytgWiUMDilFRhfAOx IVKio38oIVqrwAevwIsdEPHn f6FqrMxfy9RmKjYfNRdjx2Kt G01roMCwqXBhrDpbKKOwqhHx PCIse27rf0yqUBJoBiG2yYIz gEJ0ySZxpAOys3YvvNucECYg c4hjKHLont6ijydlaOYyp2Bo jL7fthlnCAufeUNaniHpARCd v6z2zSSjYZZjIELpMKykgHh4 AOEfq107tb0fthQ5xSZePRD1 YWlsYWJsZSBhcmUgZXZhbHVh dGVkXHBsYWluXGYxXGZzMjJc bGFuZzEwMzNcaGljaFxmMVxk UaNnNRTuILdlC3vbDgEoM6Rd JGGjTgNhkUNgB1mezSZfEBDd YWluXGYxXGZzMjJcbGFuZzEw MzNcaGljaFxmMVxkYmNoXGYx EEnrD8btByHbW3EzPYNeEpPp IFxwbGFpblxmMVxmczIyXGxh jiayBUTwEJotD1fqVnZjNGZe iHqbXRtdr4UiKWFjVFFoCvvt wnAvNCe1zfWxADWrmqgzuRXq blxmMVxmczIyXGxhbmcxMDMz XObxB4xsCrDiOMLvvBxtICid s8NoKFPqHQSpDldkroTgHTfm oBLqi1qjo7MzR2pieNvolOJ4 CVEpY9ekiTRnfCD9XTW7pE7y JItohiJiTJFao7IzDAQtZOPf OdM2fR6iBWH8ZoRMxVsfLFFk YWluXGYxXGZzMjJcbGFuZzEw MzNcaGljaFxmMVxkYmNoXGYx GTvpP0lnQiFsG0XySINiFvSl iZsoNQmeJZj1XhwpzNInwqio MVxmczIyXGxhbmcxMDMzXGhp F1tdBuWcOTJknPrsMMlii8Wq XGYxXGNmMlxmczIyIHMgTWVk lELzyLOJJH79OHWoFGZvuWxx yQ1chXYAPWBinqQ8d5Z3YEjh MLBlMDz3BLjbkoDmSLThqF1m JSMyQG5zIYu0apEgSQEba9Gm SQ3pMGDjtRFiNUU8LMIng4Ac P1Ndw3QqLGWeNDHcli2rziBq ArQCxNGsLOWmnx25ZDXpIO4u R9fiXYNfNMIzxsMscUZjr1Kz DBOgmFS6rOXeGV5WWsATu97j IGFuZCBEcnVnIEFkbWluaXN0 fbU6mL4gJoFSpUGqSjREFQrv rvFrCWJhvv0acpMbMTEsUUSz q6QqhJSacMThvnDuB1Qbz8Tq SXRsrc22XQnnkRTmsm99LY8q B8Xuk2JzfV7eBUbsPVDjz7Ka fBAfkSItJSTzm0JvH8arxfhm GDfjaRWnsP1hSYYhCWd3IIZh g5QaGIKvm8YqBaZpsgBjENBa JFOlZVEbbF74CLQ1gCuknRtm ipUzGL5cONKbzaWaSDXfUZVh yG1cGHxypqGvFDGgxoU4o0Y7 QOvoDRDbniVkItglIFJ0mhVh ftN9hQWyB6wuhqptFNcwZKJn y8SvzS9xtLUDuFHul9ExrCXh uDSUeTXpIW0hbhNmVG6qCUP9 ODggKENMSUEtODgpIGFzIHF1 SYxcHzzkFYB2jjBlTDXbf7Oe DGngE5mzU46kxHjgcKh7yCGl yFrckCHwaPFgHVLoqvX3w0Q6 QNTep5BnizzeYCDlHVyyCYIo XGZzMjJcbGFuZzEwMzNcaGlj aNxbTthxEpCpGXVvNObjK1pw DtFwOxTvPwgkWVY4dX== [id number] 10:24:23 Test Item Value Reference Range Interpretation Comments Case Report (test Surgical Pathology code = 104) Report Case: [id number] Authorizing Provider: Zunilda Luis Collected: 12/29/2021 04:49 PM Ordering Location: [address] Received: 01/01/2022 08:03 AM Cardiovascular Pathologist: Gaby Nation MD Specimen: Pancreas, unicate process mass bx by FNB DIAGNOSIS (test code f4rnzPOwRMTig5elICVmdQCf = 3220) ZzEwMzNcZnRuYmpcdWMxIHtc cnRmMVxlcGljOTYwMlxhbnNp CDPowWUhI2WuqtufTFfrSF9w QZ4kdLgmwTWsgVIkDHIuGkFk i4dem718bKMzo6ifZWNRdkbe nFd3nXiwU65ly2Y9NbrjT70q hNYrVYF5EWGcEGJasCFoKWAf SMC4BFXcoLCvR8ozHKZvES5b crjoQQvmBDvaZODapVQ9EJAp kEFkI2WlDLOvTRxjFAPdkng4 XvDnCa8ppRKwfHypAErkYSHj EJKxSXupZHOmDxKfXXEHM6BN QVMsIEZJTkUtTkVFRExFIEJJ U0DQCFshmKdjBTynpV6xXW0E zqCqrENncNVdq1ApApvczs86 kwC4fNUifMLuNQ2vKFIdsrov agNxAF3nivTavNteEAMebmWg W0c9fXXleVjvEIRkDk4kVGLh XMPnC9Fff6EndKRtdVlpXR3j uRUopwJiCA9cuGFbKRCdlb46 KXA7WmNic2D0PCP9TXRcGLUw x1txOMZxpAPyBhWnQeRcEgXr GtpotEXpGUOoNiRam1cao381 tEOpw9kpFFWxQxR4lFJfVCVw qARqB777IKIsFLzwk5ple2Hr KYQqkGAup5X0KEFHhrvasHr0 tLgpG93yy8X3ZqhkJ3dpCFHv SZVuV7IkPL9uUCTwSfp2CVJ9 YPD2CLFvHUSfK0BqOS9zSFZs wHLiKLh6c1nwjNfzUALmHYH1 m4oaHMfwemHfHO3gfw5euSs2 x6dlheMxVKWeCJPwaLFEAGFn J8BjoUyyJh7ioAu3eGynJftc JON8Vxz9HR4epn31nyd8tKmh BPEwiievLzA9TTkcPVJfqzqr PDc6MLpbQITdsZC2NOKceELf A3ZcJPBlUW6vrce3HUF6KLnu AZJjWfG6ZXIazHMaUVJafMfa IJckq033WCF9OkBzJZ0sQ5Tf p9U2mE2sgOVfRCIpdQMrHsCr XKJfui7erOFxOLvfw4VbEWU8 suR7gABbjMXzXZBnVgS6ICqz IE5xeg84OGRgFJA5pc7beTTq tBhukaZcfFTkZPbwO9UoMNPa m940AHAxM5QlEYKft2Y2yyVd XvEiTYEnfSE7seN9RFUiPG0y xbdvf6idTLbrJIugQBKzprV8 tiI5QIHqjKMaS2VxmR1oYXKs KB8atmatv2dtEXX4BYggNHUe JXN6GcBmCXPcw2Ukaff6TqXa a5DioCUoFEnuZ43nv209KIRy wiMcJ0jxtNLewtzjgRKassfp EGtogaP3ESRoDAvjmjvxUSUz VVxgY7ibVePaKCDnaIsrHWue f6WsNPMqHUSzQhNhhPUpXVMf Pgo7KNBhrTXxEMYxGcThJ6rh gqpzBhBCZBCwf2hkX7nwwTCE wCZrH0StAVkjbmErYRemMLjy QwCgRGm6WM33QwHkNKKjoc36 COMMENT (test code = q1skoUXnPBMcyVD4JvTbYNNj 3359) i8dhg5QmpNYfwBMrRJnzqHNz ppCauy91mAU1hP84MU0cQCKk YkX0KZJiowE8Dkt3PCAnLNNx bRRaH085x2snu1vzjoXtdZM0 xUyoDXHnphmiAoE5IOrpHZMj wxlhSSw3NXtpZPTzeWV1TGKv kIDkY9RbFGVjKO8vmme4TVV6 XHdmRPVpFmH7JUXqvFRfFNEe uAszVRxew184DMG8BqJeZACh rdThnDutbH5cVqTaKMUYlWZu TzgujPB4JE4zqUOzn4DtDtFq hwFmwnEvQY01URVwxwJbz7Tl wDiwVKghj4btaj4ywUijTYXV tVnosKClhKSso1JlGKtptAfu wqEdxbGdNDHxyI9fkrWjTJ3f cGFyfQ== CPT Code(s) (test a1soiYPpSNVqyHV0XhFdYLCc code = 3357) n9lxf9EdaKCutNZwFQvobDJe zlJvrj76yUK9iE21DX0lSDMj CjM1UHWcncC5Bxt9IIIpCGUb bLYiE834f5hxk1zrpiShgEG9 vJzaOFQemxyeOnN8NTccCYSt zookPAa8CBsjEHIjjAR0HOAa nVQpJ0AbELHqRW0sxip0FFK1 UFymUBXcCaR7KJApjHKgFZOh gGoqEUljv416BCU1EqQkRASj pnIfnEckdT3kHdGsEVI3QFLc T5hqTRU4 CLINICAL HISTORY b2bgbDLpVCCrvDX1OrMsLFLr (test code = 3356) c5jws1YdoRSelYEpPOatyUVm snCmpz47oBJ6wK93BR3vFQNt IgT4FIHazlR7Lnd3DTWdVFVa pHFaS907t5oow5peguGkdNH7 dMkjRZMxojokMyW4PTcaYRVj xgxkAJg7COqpLMLwzSL9IXTu xYOxM7OpQLIbDD4zrsi0ACG3 IAlmWIHzEeW1NJYnlKQnTNIy tUxrISufh763QYG8JkAqVWTy rkNuoOpoaZ6lQlOsBERLdB6b GZMlF8dsfBo7pEtko7nxMMO0 yqAibvU5QISvbj4iBRIxIF5u o8WdeNTngR== GROSS DESCRIPTION f5ajcZAyUPFwuNTNWEAeI0ys (test code = zmVeCUNijFDdL5ZahrxzYYwa [id number]) LQ9tKU2cxKmosMIqaDMrFW0W XGRlZmYxXHBhcGVydzEyMjQw XABqoTWxiAE7PSWxRY9zthet YJwpXCwdRHMyqzH0DOCndUCf P6RgDTKcBO9qvnwhCAN3JVvi aY5wfaHOFeqvJk4mrRHdcEmb ZjFcZmNoYXJzZXQwXGZuaWwg ZEOpXEe8gV7XLfclL74kf0O8 Eza3ESBqMDGkV5RnTB0iKRBd bATyI63BEjewGOZ4QPHIUqkz FBOfRP4Ch8zxLJGqmYKdSLL9 VLiwjYUaRIAiQDFnIWp5BRTo WDbguRZaLW3liJmwIxmxfNjn p0ErvTAuUHipAGPuYBKwOJwt VXNkVP5YMnRzULN7IQS0DLQl LFf0AQw4ZK4XWlYbHJZjQPd4 IuVfDYZnDYo3KSomEY1SHDIe DzCuWwevHaD0DUEgDTIcPRTv MiBcXGYgQXJpYWwgXFxmbCBc WP1flCrzgNLjtyNIRmESFD4d zrSfba6crRSwSH9MTPBtoRGE VDH9FB1pTWTLIbakiEGtULDs mWjwYNosbK8bRE6EIZx2mfXm VGKiZWmnxfPuARDpL9IhuiIm PLalIQWonl0roYviBIltQaBe AMQim6g3jMB5tWYlmRE0lFYo qCrxVtOkDR5ouPYzLJ2lETwc TEystnLto1XhGJ35cSPnwzZk peEsILG6LdYhIXdtJLEiQV4k cmVhcyIgaXMgYSAxLjUgeCAx NpOjpNInEoPhT01qOWefcjCi PGTfUP2eAH46fMLixFifGNuw ZIusu03rqPJ7dRSfrTJrI96o IFCjMKRoeFzyCNQ0pPRoWUXy a73yVTK8Yt5whFJgBRYcdyQ9 l8AzKKqcOGWqYZWoYxExkXLy IS5YMCYyvfUBFcTfVXwnKSEq L7WsnR8bIS8GYxseMVCsDKJE T5SyF49NJrhxvCWmfbtwySqo OyRopGEwHtVovSynhX11ZGIt eDRtSNB0OI9dMPWuehkaQDAp QAKpSVE9XQwuoK16xVYpTILm VSOepWChuE3SGZPdPSU0WRvf wB66fZUxKA4ICOApLGJ7QJJf gVAyDOA6MK1hvM9XvS== SPECIAL STUDIES (test o1ebpNPpVVSkh2hoMIEdwGJp code = 3376) ZzEwMzNcZnRuYmpcdWMxIHtc moQzTRkkx5YpR4BiQcJeZQax bnNpXGRlZmxhbmcxMDMzXGZ0 tmVdDXLlPFssHCZvODbrXh4c qVHxoQtpMjXzAXKfe0zirrFP ligkyYg3u6ikGQIuCvB1gFWk LYtwN8tdppRlzINjA0PchVSr wNj0s3cpQgEtFzH2dZHnPGwj L7njceAjpWZwSJXyLYn9oP15 OVPsxQ4rhRShHOltuoOlSeG4 LScyZPRrImK7HLOtcNVhMSPo M2ksNFLuEKnfPSUyJOwzoULj KKD4tHznr8Z3oQConJZiwIhe FmIyLePtMlQWx1GoFMs7nCgs P0KhOFYmIgV6eGLnITRlOGup JKVlNVBrftY2kDbvckNfo85l eHQyXGYwXGZzMjBcbGkwXHJp WZJTg0CwwSrwCTE0kVc0oCym FrntJZV5Vfy0FE9uka63bzc5 cGnnDUWfixppNkI5WCvvFNKr murrHBn0HMvjGHArdHO7WQWx pAZcO3DzUAYrDP8slax7XEG3 ONfhZFFxEfN3GTZsvVZuZWQs sUegTCsdv007AHB3TfGgNH8v B4Yug4P6xK3fuHIpZLLyySIi LsSgHJFpsf1hzCKgXAtgj9Ix EZL5imE2uQRfaALyJPEsOC36 Oghcl5LjAsnod0EkJ02bvZM1 WRjet3brYD9sLgB4ahAsHGcd p2ycnU8gDiU6NEmcNZ3hPZ9u QLGcwU1hjdwkSQMgGeMzzvjj UOJdmYlubpCiBz1ucEsqDWZ1 NNlvC7bqcU3pQaA1GHuzU8eb oJ5tPEm1WUvynTE9BKCkdL2u XX1clcmqd6tlYHglBJwnAXDo yxG9hgE8FKJcwYHdY2FzvM9j UZGwNW2zimrhk8jfWPM1ICro SXWbIEC6GqYzFOTpe4Piltn1 CaKuk7VgtVOoOEiwS35nf118 YLLyjsQuH7ndfPIcwhrurXKf mkenAQrhuaY1GLNhQMTxYZqg XGYxXGZzMjJcbGFuZzEwMzNc aGljaFxmMVxkYmNoXGYxXGxv J6bbEqQrV5PbLSIrPcWsVAeg AXkcwHIkqDRnsDE9eC6yYX0s NXMqqTYpN8YuMAKzbvEcoRNl HYY0mBRvvAXmOU2nJDnxfMVh j8gjy0BuT9tllAhjdVG5TS1p UIHbERYdCFzgn7IccT0nNust bGFpblxmMVxmczIyXGxhbmcx MLAeSMlyO5xyJtZfHUGgpFbq SYprg1BbSFOhNSSjSzlbvqYg BBe8giQbZZMbtgyiFORroVwr xM5vBrGvJjHbCrcxMQ5uFNVj H1uqlLCzKJFpKWDkH1dsNvNq yL0jbMgxFVojNeLqZaBzHyOX d619tc6vVASizGEszkQLsEMs oH5rAHlkTEahYPcxjSVjOOgs w9msKKMjx7n5zQIaBGKgcuIl s5udVSemsrQgHZMoeOWrlCTj JYOns07qDBlacQcyvEemKBSb u8GvhJzik0ErIbYdBQzjb3Fo E99ecNLsyUBnuBpqJUFxnpVs KPBun13qq0krLTNmUvT4dPDs nYH3yRDbtBQqb0PnnAzeYIOi v2sgYKBnxq8uvdrweRQlp3Ys fW3orgagSUsydFPbpgEpSAMc l9m3tXXbTAOoKIWbZRjscHk9 JQIag274lo5jmkP9lRHgVTU1 YWlsYWJsZSBhcmUgZXZhbHVh dGVkXHBsYWluXGYxXGZzMjJc bGFuZzEwMzNcaGljaFxmMVxk HiHbCUArDEkaP9fzTaEgB2Ce PCYoHsVfuNQpT0mxvTClMFLq YWluXGYxXGZzMjJcbGFuZzEw MzNcaGljaFxmMVxkYmNoXGYx WZzlN7uuQfDuV6SiZFXaIvDu IFxwbGFpblxmMVxmczIyXGxh jphqXNPbRGngL5nyPpGmMLQn cVcfXGxew7XvVZKyZXFwEtho zjZwSVi9fpQrYBKhffpjxFTs blxmMVxmczIyXGxhbmcxMDMz VHsvU0ieUzZpULUfgCriTVta x2FoEPFkEXCcOzwswdWoTGfx rIBbm9wor0UoZ9aoeVktpGT3 TKPsD8utgUCkiPG7JFP6zZ4a CVdpywWnSQLuw8NgYDVySGDf AoF2mJ5eXLY2OqYZbHjnBLOz YWluXGYxXGZzMjJcbGFuZzEw MzNcaGljaFxmMVxkYmNoXGYx NDktQ9vfSlJmI1QfHZTnCvJa uLacPFkuVDy0RswxbOOekryq MVxmczIyXGxhbmcxMDMzXGhp L4taTuLbLDGhrYxiLSgor9Pg XGYxXGNmMlxmczIyIHMgTWVk mJBmyXFZQE07ZNIyHMVpzTej kK6uvKSESOOarpQ0y6Y4WKtu HSOkYWn4PLlcuwLsWIZpuS1f VPTjWR4vEFk8wuPvMQRxm7Qq OO6cZSErtYLjWHY5DQXcv3Lh I3Svl7OtWTWcDCHywz9ilkZz HsVUtOZlBZTocv03ISIlYX1u O5ksFGHsPEQbzzLioOKvb7Dj BZMvjDI3rPVrHJ5IXhRQx08o IGFuZCBEcnVnIEFkbWluaXN0 jtR7aB0uFoVCeBPmAbUVMBsu lnOjGFPhso3mpeZlRILvGEMg a4EfuQKkcVErmpBpX4Yxn9Xx UJUkzj50WPljhPQyvq76BH8j J6Okj4CceP0fZPucNRVjn4Xt dRZifGSaTTUph4UdC0pqoydi NHjkkMSryW0rIFBiUWq1XZZd m0OiSUMvt0QqWbVyjuAeSQGa YACeNAPuuI12DTS4aNkcaYqp lzRzLM3kEMOmrjNuSUKiPBIm sD0sWZjatiEnZJTkezG5i5Q3 JSmwWIRilrRzNpfzGLS7jwZs mrD2iICtR9zcktdmXZqsVFEa a7MmeI3lwKVKpURoj5ClhEDy iEXUhTQrMH3shtEuMH7kPEK9 ODggKENMSUEtODgpIGFzIHF1 PHedOmioLVM2nkSwSHVmj6Qd JQdyO2yzT88ckYlbvOq5sMQv kDvboLPzmLYfZQBdlsN0b2D0 VLTzc7SbxnseHVZgDOtzATBt XGZzMjJcbGFuZzEwMzNcaGlj xClmZiywCsNiNWRxAJcyE2zu LtEaZxFqQnmbBCD8rN== [id number] 10:24:23 Test Item Value Reference Range Interpretation Comments Case Report (test Surgical Pathology code = 104) Report Case: [id number] Authorizing Provider: Zunilda Luis Collected: 12/29/2021 04:49 PM Ordering Location: [address] Received: 01/01/2022 08:03 AM Cardiovascular Pathologist: Gaby Nation MD Specimen: Pancreas, unicate process mass bx by FNB DIAGNOSIS (test code u5mfeXCbQOCml2kbYJGdcRRa = 3220) ZzEwMzNcZnRuYmpcdWMxIHtc cnRmMVxlcGljOTYwMlxhbnNp HGAfxGMvV3QrexupAYbyZN7w EV1pgPersCTqcFRjAHSwPjLw j4cdw491yPPzj7jaATRFpnlq kAz7fGgxD45tt9Y4FonsE05g jBMmIBY3TQPaXNQzyHGtVAXk QBA4KDHwoRYgB4soHFRkAO6v toirKXxpBWowNMThvLC5ZEDk jWRuZ4YyNLYeQQcoPDNrjih3 NeZjGm5kpJOqlJkyFTvjWAYq YJUjTOcxMOGxRrTyGAJOI3TS QVMsIEZJTkUtTkVFRExFIEJJ X7AKSVlmsQndYLtelR2rDU7I yeComWYefLUnc9RfZiminu54 dsO1sDFhvEXmXF9aZWGiozye bdFwFA7yjjFtqJdrMXMirwYc I2m3wJFloGioRWJfBd4qZKOd YFWrN5Wxy1DnqCYumIkuGO0d ySDwptMnDJ2phJQpHEMolj62 SKH2GlXsw2B0QHU6IHGnNLXx w3xuIRVbiOAvSiYmEoUaPeKe CttzoDRbFJGhTwLyb3wgw729 xOBsi7idTDIyDvL7fXIbZKAf tOJhS426YELtLXdup3ded2Am NLLriTNed2H0IGPBrgknhPl0 iOikM15vq3F6MvxkR6piWIEc KCIjU7XjWB3cINGyOke8SAU9 ZVZ6CGTlTBSrI0PmTB9jBVAb xPAmBPs5a3nynOplDZWnMJW5 d5dwCHlcblGwUC5rlj7zuDc7 a4grmnBvSIEpTSHcpDTUOKOl F3UquXkjGy9ayYg3xAvxShrz RRZ9Csx3QS8hxf43aah9kMyh OSPamlecGeH8TAvhBRLcxgfl LGl3EKhvIZQqzJK4VAFomWIv H7TsHIMfBJ2qmzs7KOW7XSxd FQMeCdJ0VDDruAOrIVRdmMhc KHfqp762FBX4BsXaCI8nJ9Fs v2G6fK1joLIdTJNgwZQbIcKb PEHvgn6ruXIvBQbce5PiSGY3 zwG9wUVgoJDlLKMwUaT1PSwf CK6jaj03VUNhZTF8dz5mrGQf lJniuiEdaRRuDDuoV8JgGWVu x198QWVxF2AvEAHvm9N1vjAw IdEpWJJihVP7tcI5YIRzZI9u tglet0sqNGtgJJwqPTIqzvZ4 lbO4KHUouFBdR4EefJ1bDWTu FL7qagosu2odISQ0CRpjIFNm FUR9WfSyNSTtz1Iqnzb5RwJh i9RchWLfNCmuH68ri767FACg imTfD5quxVTznvuwmBJareiz IJxjqdQ2FOWsGKtwwbddNKGl XWjvX6pvJxRmPHGdjVxmRQck t8TjVUVhSXAcQwLfkHZbOPFo Xjt5CXTboFGsEUMfOxUjV9rj wcxjNcLLAQWll4psZ0bwiQKR bFFsW3XhLXtaswEkBUtpGUbv CsJtAQi8LI01ZaQsAXVgjl80 COMMENT (test code = c0qcoPMkUPOfdIT6QcRbINOd 3359) g5unx3TsdSUamSVsOGjboLNx kfMzqh01mXD7gW02NO9pXFHn YmX1TNCjwsY2Gtg1DJMfNGDd nOMkK649a1xvu2dkdoKiwYI5 gUvxQLZxgkedDxW7BZqxXLPn vozeAEr6MOvjINSzjYF3ZKLx nDUgY6FgIJNdJD5kfiz7EJY1 JJrhQRGeBiT9PPVnsCMzMOXr eNabVAgos600FKN2EeMqCXJo vhRqbGzunV0iOjOgPLZVeQWc XysrqAU4DB8foECyi9FaUrNg ywKpepQfZA78PCGtapMst9Vn dJngKJpmk4kona7rbHfgHQXH yBrdtVOiqJKwe0GcNQevnTmu fnOmalRfEWVjpN8gyiCaZJ5o cGFyfQ== CPT Code(s) (test n9qitEPoUCRfcHB9GgElVWVx code = 3357) l8zdb7LpsUSeoZFaNJkmdAUc pbFqii89wCL6pU37TT6xRCZm JaP6KSDxtsS9Ntf5MCGnEOAx zKUlM807v1dfx8ycuoKbjRQ8 kWdrNQWkgiomEoL5NFeuSYFt vrtsLGt6IMtqJNHfrZE2SGUi vHBpU8CxOJNaGR7rvkz5ESE9 PIzhDYBwYaQ8ZNKcsFIdSILh cOvbIKtib303LLU9PtZuHJDj haVevTesdL7zEdVoALK6TACo D3fcJVI7 CLINICAL HISTORY b4uvaZVgYSOfcEQ6ZqOtVGLt (test code = 3356) y8uju0MtoOBxgNOtITbvpRRu hqKbgl73iQU3cZ32HA1iAQEx DbV7XILropL3Orm7QWHbGOBe bDDlG442z2ltu0wzhhVisLU0 sSiyHWJxoeepFmY7GVelXWZz dgsbIWs0MQyyZTYnmWF7ZRFr eKIvT6IlNUIlZL5bovy5DTH4 MWvhVHFqNsG6DZMyjTGnRVEr xOuwPVfdd925WQY6MbJuLEXs fwCibVytdM7xRjIeQUEAvV9x DFLwJ9eswLu7nLaqv0khOYW7 dnVvgqM4CFQqoi8xTNTaSA6u a7FxgSCgeU== GROSS DESCRIPTION g8xtlJXlOVTryIRMBKAhL3ng (test code = emUkKBFfmXVnC9RfbegeTBmx 7555207605) YV5hXE3wlQpjrPNtqUCkNV6L XGRlZmYxXHBhcGVydzEyMjQw XDPhwEBpuVG4GOFiLH9syaqb NBdxNEciYCXxuyY6JZKftTRl I3VsASZvXD5waroxVVG6EOac pO3vflSQHjlmHb0xhLMmfMkj ZjFcZmNoYXJzZXQwXGZuaWwg QQHhEOq6vN1VLiubE81ig6A3 Vba0FIDtZFGsM9VtTQ6tYRCf mZJmI97JMofgQCD2TKODPmhn EUFcZF2Bq5vfHEBgjWJpZIU3 CNyigJNsQYClUOBoBMr6GZWq TCmbiIDrUV7dvKvwHbzqaLpg k7QqvYFwTUpaUDKhSBZlPIdn ATPvXL3FGmIeMOG3GNT7XBGq PFo2QLo6AJ6ZNkTiIAMjNLs6 FiOhTVBbCLw2RCbwUF5SYFYn SdKxRrqiSzB2LGTsTEOgWMVk MiBcXGYgQXJpYWwgXFxmbCBc NP9fbYwnjWJjjwAKQiCUAD9t mwHekc3wpVQkXW8GMYOhwYFQ RPZ0LM5pQIXRRxlmwNCzBABz fYsiKUguyM6lSZ4ANAy7qpSq UZCuIKzqwxQmIFJsZ7CwpaWf CQnnDIDgxw5rtXwnKKppPlGl UORqi4t7wHS4xDPxoSB1eNYe nMirVcGuWM5oqFSvYP6zMEnp WIdhhsOdu0UhAZ77bIOgokPs zzSmYXG0ObIvMWxkGAByQT8a cmVhcyIgaXMgYSAxLjUgeCAx RhIskWIsEcPiE60nCXvtfeFi EEVnPB5yWA37qDYjqNrfEGyr DSyjn41ffCC9pHHiwRJrZ03k HZUeJXRrrZqlYKY7kCMvTQEe v04aHIP0Sz0fwZFyVJHtguG2 v7WeUVvpAGMcFFAhCnUloOKd MJ1IBBBulyHNPkWzHOzvHONs U2HstO5eCR6RLcpyCXInBMEB G5HpZ47LLrusgLDingrziCfy QcVliBJjMcIamPmjzB40UPJu dGYeZDW8AV8xZFGziapuUUAq AUFgZBV7NUgyqM41dCGbRZFf HTSalSUqyN3ZMJLwOIX0NGjj dT15pVNnJA3PYQKaSRY2EWWr vXBfTIO7ND3vwE8YgN== SPECIAL STUDIES (test s2qbmYKwXNUbo4kmNXXuxCMw code = 3376) ZzEwMzNcZnRuYmpcdWMxIHtc smQtTSxmx2DcI2HkLsIbVNbb bnNpXGRlZmxhbmcxMDMzXGZ0 gxMvXKXnMHblHWLwYBekYw9r bSQouTfzWtJfHXKur9epaoAA mwwjjUp7t1pvBBDsAqA1rYTj EVrmB4zuqiFmiYZcY6JrbFJj gWw9i1nqNlKfKtV7vNUmTFpq U0vdtcRwnMXrJMUsXXt1nY13 UJJueY6ikVQyVOjlxlLcNaF6 UZpwEUPcFjC5NMAywXYbSICp K6kqMLGsCWgaBYZlIYstdYKp FLB9vFbom3W4pOTglFGzmHqi HsPyCeRbSsPYq8YzNVu9qScs K5NgRLEfByF3wKPvMOHgYSjh EZAyOQTmzhY0lCxaqoRyx52r eHQyXGYwXGZzMjBcbGkwXHJp AOOVf6CxtRyzMBS1bMf2cJfr YxjxWGE9Kjw9PT4xru23ruz9 uCdeYYBtazkfMqJ1BNzlKLYg tiqcTPk0IWyjRZPrlDA6FKWl pFGsO9AaXNDdWW9fxjv3GDK7 AHthTZNxDwZ2VDNrfXJeMFRx sBysNWhnk783UMQ6AyPaVT6k A2Dsx5K6fD6ktBOeXQAmtIFv YsOdKNLgvw3jtXRaVJpqc6Vq CZI2hcR8fAXsmHBzXNHqWY39 Esxbn5DqKuixy6AiZ63biJG3 AElgd3ntSL6rTcV9nbOjOBvy h0ertK8jKrJ8RRpfSI1hCO3k AUEdoR1vmqffLEOlRkZlsbrj HFTmuTkyyaSzNt3dcVtdZCZ3 GNurY5kpjZ0eZgY3BOxiR7bt iC1hQOr1KXfyhCT4WJTweM8i KR9eaefdj0xbCEccEKprDSOj teG7umA8SHIcaOFsZ6ItaL7n EMRmUY3gdpnkf0kqTMK8GDjd LWSvZNG1EaBvPZBxb2Nmsof0 NlWdo2VkiIRpIOrqX54tq682 ZXMpdoLpP3zdsXVglrefuJDe mzurNSdtxoT5ADCiEEMnMWuh XGYxXGZzMjJcbGFuZzEwMzNc aGljaFxmMVxkYmNoXGYxXGxv S7neCwOwA5FwAKPiKxEoMYwt HLbonCEvfPXmwFS5sX1kAO9q CSDefOObP6NaSLKbucQfrZOz WOE2rNOsxIXrSM1dFImosLPp h5fdp1HkZ2vmoPaljCS3BA0u UZFzEJZlJMiud5LycX8nZmsp bGFpblxmMVxmczIyXGxhbmcx BTEcGJjfA8jvMxIqCFIpqMox TMttb0TaITEvFNSmSjqmjbUo LCg7boOxUFQidcbmJSDgoFxu dU1iGtNuWjQzVolzXK8eZQRk W8zovTNhWYHpXFTcC6qnWzKo pS3spRhqGCbzIbLrOhJxRmKH d381sx3pHUMeqBJfdvGZuNNa sL5gFAgzKDhqVDjwoRGaILpk a2wfYUDkk0m2eMFbXGAqyfQd g5dmCFrrfxKsWYXtkFBbvPWg ZYNov13hXSyepPpvjQyeJZEf w0PavEoui9CoOvZcKJzik7Op Z45yyHZdjUSvbImoHMLmplFl JTKnu56nq4wzGQXvOxY0qBAt qGQ8sOHhbKMir7XplPniHJNt w2elPMJwfi4prvabiNChx4Bo rO4ikrlmCAghoTYkmzWyBUOl e2v2sJUbWSFhUXXaVNcmaWz8 ISKcn918jv5kmtU4yDRhEJS4 YWlsYWJsZSBhcmUgZXZhbHVh dGVkXHBsYWluXGYxXGZzMjJc bGFuZzEwMzNcaGljaFxmMVxk OvQkHZOaTOloL1jrTgUdU4Pt WYFaRlIjcMPgY5qrpJQzGRQe YWluXGYxXGZzMjJcbGFuZzEw MzNcaGljaFxmMVxkYmNoXGYx ONbkE6exNkBiW3VcWLPcTrEi IFxwbGFpblxmMVxmczIyXGxh asvlJLEcAKyeG8zfSzEbAEHv tAqxCGgbw9XvMPDfRQImKoyk lpCcAJf5anZiRQJdrnfiqCGl blxmMVxmczIyXGxhbmcxMDMz BWwhM8coXfTjMCIvrEveWUcc w3RjHOMyQZJbMqriuzEsPFoa rATgb5hzt7IqA8deuGboqNW7 SRQwW8gnsKQxiOD5ERR6vL9f APaolvLuCIQmy5LzCECaZPHy UfY2hK6mVWN3XjEUkHrvFDOa YWluXGYxXGZzMjJcbGFuZzEw MzNcaGljaFxmMVxkYmNoXGYx OPdxS8uwHbZuV5GsABZzPdCq pUvaIOqjMCf2VzglqIZnfztu MVxmczIyXGxhbmcxMDMzXGhp P4raZoGfSSDgzMosCIwau1Uq XGYxXGNmMlxmczIyIHMgTWVk zHAciRHUUZ66KIVaFDXfiMpn jK8juILCOJEdsbW7j8O5LAtz NIDwTZa4QJfyiqDaZCVrcT3z QKTpRT9kSBv5clZwZVOnt6Gi XS1mKKFbxFKuSPH1AHYsk5Iy Q5Ljj7XdVOAyPRDrtp4skkOs YkBZgZJvVQCxgh83HQMmTR5b M0iiLUZpQSAxzlIdeQDwj9Nx SEDcsQB9gZDzTR0XWaYNj29v IGFuZCBEcnVnIEFkbWluaXN0 zlH4nR7pDhRHqAUaUdGBGHja auAePKAaah7bsnIdEKCqDVWf s8QkwSTmlLJosiVcX7Gmz6Mg IBXpee71JMuitCOoyr22YW3a D9Zvf4MfqE3rJEmxYFWva1Md oRVyyQPfMLOmz8NfC2vbnarl NZapqVWnyC5oOYVgWSz4FVFo b4KaMCFzp4SjRqDgikVpNVCt QFTuYIAsrZ64CLX9xDfxdDgf wnIgFE0aGHDxyeKiUGJyPIQx nI1mRZgyuaOzQXGdhwS2w4A7 ZKsbGVXghfVwVwqsAUX6stFr sqL3tDNdA7tgavavJGdoOETo j1YvnC8koXFHjFFka7LbaJUv dHXOrBPhME4nveNqSD3pXYJ1 ODggKENMSUEtODgpIGFzIHF1 WOwaGcvoYDD5jzXjMAVis1Sv SXvrB5lyN78ovBwxaGu0dMNd mAtvrHFbbTJdNSNudaR5i1Y5 IWAhd0WxqfgrMROgHWhcOVXg XGZzMjJcbGFuZzEwMzNcaGlj kNkcPqpfHiJhVKDiMRzlJ3jk ZjTsGfHpFgvyKDN4mF== [facility] [id number] 10:24:23 Test Item Value Reference Range Interpretation Comments Case Report (test Surgical Pathology code = 104) Report Case: [id number] Authorizing Provider: Zunilda Luis Collected: 12/29/2021 04:49 PM Ordering Location: [address] Received: 01/01/2022 08:03 AM Cardiovascular Pathologist: Gaby Nation MD Specimen: Pancreas, unicate process mass bx by FNB DIAGNOSIS (test code a7jyxPOvPBHbx2fjTWCgkWTf = 3220) ZzEwMzNcZnRuYmpcdWMxIHtc cnRmMVxlcGljOTYwMlxhbnNp OLUsgHCkV6QhkhsyAYqxVU9g XI6moNskgRTsaENfANMoQdEf q4ban014bIDli4uzUONKzcsk kIv3nTwgA64qx0R7ZnwpH39a lXMlEGF9ZHBdIQIstKUbCWLd OPY7IBTukKIsN9axBKLkFM1k mnwzPDfcBDywVOFweDR7ZRJz oMXuG2OmVAReBPdoDAJgvgf4 LoMtDl2zcBUgdZaxHUppQAXe NMYaTDviSOEqInOnPFKOK3JL QVMsIEZJTkUtTkVFRExFIEJJ Y8FWCInlpIdjVSuspL5gWH6E sjXjkKUbgNLis2XkLpspbq73 oqB9hKDgkHMpQK3zIGEdyozw boHqZM5oddIigClgSBCucoPx H5v9qIGhaGvwRPQyLz2dNJCi DZXnF5Rqa0GxgBQxtTkbRT6u bMRhyaBuHB7vpTUiPILnov15 KJF7IvMnu7M6YBJ9ZTZdMNRi s0llCADiwLVnQfKvGsDuRfCl GakkwOKuAWFiCkXuz7xxx821 aWDrn0ckULQoNhW9oERlKVAk oCPxS076IQTwOMmiw1rwo9Bh YCCciXQqf7S2TRIDhrtneWg5 oSapY81iz5V0LehfW8wbNWGg ZMMpV2ZtPG2bILLsHxc6QUU1 RRP2GAGpRDXvL3JhGY5wZHVa wZPlVSz1g4vdiZqdRBLpORO2 e1nkBBdpirBuVQ0wbg5clRw2 n9fxmcCwPPSmJYDyeMSFXCPm D5FpzLudAz0ppAa3nSojLndu DHW3Svp4ND8dcj73xil4mYle SRJsikqkZfB8SPyyLGFnnkso UOn9VTclNOFmjND0SFBteBKn V5MwNRXhIP7ncpg3NKU3RVpi PIHoJcY6QMYebHCgZFXukWyw BBrmf956MVZ1FyCgGZ4qD0Oo b3Z5pC6rqXMhQMZxmZDoGlHz DPWnag2cpACyFNadx0VgDYS4 oyS0gLTpgTGfNUPtKtU3VKnq YZ4ckv07ELAqRIU3id3zdLBz eNnseeOkaAUpQHgoN5PoNQCi n354BCLzM9KbVSRun7R4zsLh NkCeZQEemEJ9ouF2PGAyUM6i hymjn7qrPXkmNZctTKZykuI5 ynW0ZCWseSAcF7DhjI5gJOBw GX4xaxbxu6veWOQ8ZUzpPDVx PME9DpYeQDMup2Cyfki7EsUu e7FflGUbSMmxW41hp571UYQf vuAeI9qvrPIlgylpoKUnujhq KYeiwrB7QAOlRDjjqbvaZBXl CNnxW8tiSnFpIGXyxBteNRwv o3FsIBWpLHFjOkWnlLTwQAHa Ahq4MADcxDKtEJYyRaDsG9oi xmxfMuONZCGpo4pjN2rqkPJW rYGpE4VvGXtlhtReXLabPPaa LxMmVNw1QX93GaVuNCVxaz10 COMMENT (test code = b5neoCTtXXOttSN5KfMdWBOy 3359) o3jym9KkdOPwzFEuIXosdXYx ohLqqj55tIA1hW79SA7kMTEu QpK3MKKacvS6Glb2CEExAXJg vGVwJ952a4zzq5sxzfPxbDP6 vQvuWMCoozbxRiJ8NGlgGTOf ybziDIb0GNbrMLUiqXE1YUUh xOGqP9IrOAUhPB1opkk7RJS9 GWsjAGMjUcJ0QKPtwWMiQHBh bPzsVVypz084EAE2NhRwCTMq lqHgnFotwQ4hRgCpNRHDqQCi KnsrsLB9KX2tnOZwu5RnVuHs eqFgowMzSV87JDBejeIjb8Ud qJsqIIfue7seic2xqDngVKNO xGlooGUosZMef5EqTBcpdIia zeXvahOnZAMvuW4pbtInAO8m cGFyfQ== CPT Code(s) (test w9mwbBLqPITvkJJ1LjOgJRYq code = 3357) l3zaz7JkvVLcbMUmKWgraRQb hbXxkc59cUA8yG00TY0uTDGe ShS8RUTemdW9Wdh4BQMyTPNf cTKaA823c4gtv8jwgyRhrPM2 rItmWOZstectEqT2WEqoYMHa jrteGIq5FMhcNKIppXX6MPWp vWGhV3HvSNIdKK4yyig5GRB0 SZimXRUrKoV1FCAyqJVbFQTz dVxoKDspb762JOE8NsGiTEBi ylYtpMkclC6vQaUlRLJ5XBPa J9zyUSU1 CLINICAL HISTORY l8urbAOpSFXpmJE7UsNaDNZj (test code = 3356) u9yoz1FyqVBrtFRhSUspuOHl vmFvwy53hVP4zS56YZ4pWLGo GdS0FRPlpjY2Knj6YJJhDMHe uWEsW796y5zly3ghvePucXB0 pMcqRBOzvxzaRtD4MPasBCRa axtzWHe5XLgoFWVghQT8IXCv sCEjO6GeXFWjAP1xqaf2BHL2 HBjqXZIpMqF2CVExmPAwRMYp cPhqDSkyr836GUS3TrFhOWQt jhPqqQqtoG0tElOmKCJKmX0o GYYhF0tanOg5vBlya5oyCQG3 nsGudyT7OITpmc0qMELqDJ2h t7NtfYHfsA== GROSS DESCRIPTION g1kumMAoARYmeYFBTOXpL4kl (test code = vxFvIDYytZFiM7TctgnsPMmd [id number]) EB8uEP8kjUtpxUMblMZpVF3T XGRlZmYxXHBhcGVydzEyMjQw OORujDIxlFU8GHToDF0nkkff LYltJXwhPLInzrL1KIYkcSWs E4MoTNXnXO1qsxbcRLV0ZWxp vO0mzqTFXkxrHj9xxRKniOqu ZjFcZmNoYXJzZXQwXGZuaWwg NVRbSLx3wY3FAuqgO85et3N7 Yrx4GLCqLMOeL9HkKU1zSDQv gTSsL22VHytsEYW3JIYAWuxr XPRpZW6Ue5nwBARvcKPuALL1 GHqadYCmWVZfXONhDRw6LSBe PMjtqDVdGZ3laVimVjkpwLoi e0WmnKMjNPmiLDZmJROvUBgy JOCaWR2QPxHiXFC6KDH2MGUx KYd6VXu9TK5MOxOuGWPyVXv0 GeBpJXVhPIt9IQcsEV1IJPEa UvHxOhvfUgX1SZNwBLDgZVZl MiBcXGYgQXJpYWwgXFxmbCBc IK5mcWrezBKcbkBNOzVGAI7d oeWwmh7coZEcQS7YDWMloNAD HEW5OZ2eQZUVPliccAOuFJSz jUxvXTdjoT9tFS9UCBo8ofTb DUImGVtsniYgRZPrO9XzueNn JBudBQMsot8ruFshWLfwJuLn NRGia1f6gVU3fCMsrEX5aZMx yLqnVsJhKM1qcDXaDX7vWPvf NMblgnRti5QhRS47yQVzniQg ckCmLLW5NfGtLBoyZCIrUP0s cmVhcyIgaXMgYSAxLjUgeCAx YpObhNWtIgEqF24oSAjoduBp DTUxHQ0kVG29vIZdxVzgQPyv WBggx01ltIG6mMHxhCEoB73t BRNjJRYlhDaiBUP1sIPiEKCo q85kVRX7Dw1mxQPmKTUuvgS1 z5RaQOpmGSPnBSGjEtMolXKf SF8XDXAfmePCHxAbHUpzGMFb V4MdlM6aRQ1XOodnWQRgUJKT A0YgG47ZIabnqMIqtnkpoPkp EkNkhNEaDoNiwUbrgD93FXDg lXPiPCW9NH8xOTFndgtzIZKx JWHwTMY4TVsmdF24oEAlSVGu CDIitIZzdE6CLRVrLOV2QMjs pS49aXDwGV3AWTOoSSK1WRPz eIGhGUI7JY5gtU2XjL== SPECIAL STUDIES (test f8pvlHBfUEDcn9quQNIebDOn code = 3376) ZzEwMzNcZnRuYmpcdWMxIHtc iaHiRPsog0TtT5TnOmSlVFfh bnNpXGRlZmxhbmcxMDMzXGZ0 veFiCPUjPRqnPIGrCGktMz9s oJYqiPrqXqLaIHCdy7wqdfDG hyyhyMg0w2thSAOsRmF0zOQp KLgtQ7fmnfBrqBFrA9NvzJLe pYd6e0tgAgKwPqX3eUKbHNnb U9sjabSnrCMgOCJkHQb3kT94 PKQhdQ2epRVfJYfuxrLuKqS5 VVfeBHAyBgW4OWNutGFdZOWs K6tuREPwWKgqZTPrFFbezISp ISL7kOaai4I1wSGvpEGryZss VnUdHmDrFsONw4IqPTy9kGaq G6PfAYVxYbW5hUBzOQVgDQdc QPZvDAWdoqY1gCvgfrFmr51s eHQyXGYwXGZzMjBcbGkwXHJp GNBFb7XdiCfmINJ8xTa9xCac JxppGQL4Qye9PH1klb14rgh3 gLwrJIWostjgXbZ1RRxsQPMn zxeaNLl9STvuBJSneAU0FSUy uNMdW2DgMBGfIZ8fnil5EME8 WAgvWUAcIpM9TRWdeGKvBPJx iWhnSUjqu995XVM9RxRsVY3y B5Zhl8B6jS7sbQNvAKOjxMNn MfVvVSJjbm2tgFJhKDfcm1Lf EDY8vdT1pYUiiQSxAOVmXV67 Zbsvi0DwNahol5HpK43pqTX9 VGgee6ioTW5zOyE9kwAvYNwb k5gmbW5tNrN7NTvtOC5eNV4a MGForI2gazimMYTnHqDeckjp EPFplJrdnlHzIp5vkFgcKNQ2 IPbwS3yxcW6zRuN7YCavR1zv kE5aTVc4YXzgtZD5BIEagV0v PM4srfyhf9gnUUpfQEyyMRJy pyH6klI7ONDqrGXjG1BorQ0t JAKrKA2onpgzb4vmYDK4PGez VQEsZFC9QcHvNDKeo0Vaobv1 NxQzi8YvjBUvLIfpX39ew666 AUCrbhSiA1ubyIMzvbdeeRNq nzpiKRgsigE3CHKgDSGdEOcz XGYxXGZzMjJcbGFuZzEwMzNc aGljaFxmMVxkYmNoXGYxXGxv X1gkUbRgY2YfHHJdHpYsRFem NFakwVJozMNlzGC0uP5uEJ1z JBJlxQFoQ8ZlEXRfmzBpbAXm IBS2oWZxcZXdSH8bVZjllMOp v8umo6WjU1eojUrheFY3UD8z QVVfHMDkISbfc1MsiE6xUzes bGFpblxmMVxmczIyXGxhbmcx YCGbHRhmI0mrDuJfOLAwjWtw KPgee3QdUHIaMIQwHgqbnlLs HIq1ecNyDXSlsbafWITfoGir hJ2hRqObLgIkNfiuNG5xUVEb R1drkJMbDYEvLRBmO6wpVpZb rQ7rtUmgHHagCuEeRbVqItXE m315an5tZBJivSDumtISkBRy zI3cNXlzJRebBGergELuWPvp b5oxYLEly6n5rQLcTAKrfaFg d3suMBgbozJxFJAxuHCqzMSw HJNzv58uJFdhiJpgwQgyNSWk w5GgmUolg1RqClAiHEsci3Om Z07idLGclBPvaLklODTyboBr SQKxb87ku4jhFIElChR2dCDd bEB3pGTzaUZqn2QnsYkbKYFd e8hdTOKwwa6bglihwSTfy6Bi fE6qcuhxFPjofDPvyeTkWKUm l2j5zCPnPPNbSKLnOSgnnFs0 SROor272dj4xapG6cTBxEWR9 YWlsYWJsZSBhcmUgZXZhbHVh dGVkXHBsYWluXGYxXGZzMjJc bGFuZzEwMzNcaGljaFxmMVxk SfVuAXZiPFuxP0qxVtYvT2Wk STDhWjOxpOAeA4cmdZGcFJNq YWluXGYxXGZzMjJcbGFuZzEw MzNcaGljaFxmMVxkYmNoXGYx PKfdB3usVxTyK2YtCXPfCmVk IFxwbGFpblxmMVxmczIyXGxh rxdoXUZaPGbaF4mvEdBnUNFh mOxkPQgof0BgSBPnAHSaKima ucHeXEy4ytCoYCAtujwapPOd blxmMVxmczIyXGxhbmcxMDMz FYyvC8ssIrNhENVopFbjPTmo h1JdBGZkCNCdQwzscfEfYVvj vFXuy2ffg3CiW8wwePvlfRP0 BZXwZ2pokYNrlQJ8CYY0jS9w OYqgirDuOWMoj2NyCAVwFFVs TqL0bE1wLKY4MtTEfNzkFWAy YWluXGYxXGZzMjJcbGFuZzEw MzNcaGljaFxmMVxkYmNoXGYx IImjM5knHhAgQ5CgMBOrWkEt gJkrYAwrUNw9JckpcHJxbxon MVxmczIyXGxhbmcxMDMzXGhp Y4ipMgLnLDWpoBxlQUabc8Kq XGYxXGNmMlxmczIyIHMgTWVk uVYbhDDPTZ21BKMgHMEbaRud fN8gkKQIPYQdsdO5o4Q4VHzc MKLkZAv4MWommrSvZFWlkI5m KAWqQZ1rAPv3ldXqBFVgy8Bf FY9zAYTegFVcJAK3NLPmv8Ww N1Juu4JvUICgOXXygx5ileIj SrADcRCfXPNchl31KYPvIC3i Q5gpWROtPQUijyUdcBXsi2Qm TYCxlVN2mCUfDH4MBdCRs68u IGFuZCBEcnVnIEFkbWluaXN0 deD6fT4gHpUTaWYgPqTRYXqw svScSEYhyc6ywiJzZSDkBNEr f5NgqXQmuEYkceGhM4Btg8Nz DGVnkf41UFplgGDdem70AK6b L8Ydj1NqlZ2qYHmsXXOhj5Ai zOYpkAIeRFHnr9UiS5zlypbm CRgdjVJqhI6vQWBbMCc4UUCb f5PgDECiv0YzSjZkwyNcNUHj TJZoFCOttS77ZBW4cCpdkAod hxEiJA7kTLBezeUcDTCmNMQo xP7uLNtapgEyZAQbemG2q9C5 GLdyRPKvjeAfGrtzQYF0rxRd deK6gOFdU3blvyyxXMwpJHWp x9DraT1nfZNZsJUxd8QvwMWq vQOIiDXfTX9hydLvEI0mNMT9 ODggKENMSUEtODgpIGFzIHF1 HKmxMtabCVM5pyCrMUVir4Ih JMpjD4ewC43wwZpczKo8fUAm yVmnnLRlkDOqAJWehtW2v9W0 XUKxs8HtztvjISClCKacWHEu XGZzMjJcbGFuZzEwMzNcaGlj eJvhXxsrIlXwSLFrMByyO9ml VpLkThQzPmzfCHL9aC== [facility] [id number] 10:24:23Surgical Pathology Report Case: [id number] Authorizing Provider: Zunilda Luis Collected: 204:49 PM Ordering Location: [address] Received: 01/01/2022 08:03 AM Cardiovascular Pathologist: Gaby Nation MD Specimen: Pancreas, unicate process mass bx by FNB PANCREAS, FINE-NEEDLE BIOPSY:-Fragments of fibrous tissue and benign pancreatic parenchyma-No evidence of malignancy as sampled Signing Pathologist Direct Phone Line: [phone] signed by Gaby Nation MD on 01/02/2022 at 10:24 AMThe biopsy may not be pharmaceutical service representative of the lesion.Clinical correlation is recommended.09788Galzchrojaatexiuvla, uncinate process massA. Pancreas.Received in formalin labeled with the patient's name, medical record number and "pancreas" is a 1.5 x 1.0 x 0.1 cm aggregate of multiple moore soft tissue cores admixed with blood submitted in toto in A1-A2. SHAY Teran PA ([facility])cmThe interpretation of this case included the use of immunohistochemistry or special stains.Control Slides Examined: In-house known positive controls were evaluated along with the test tissue. These control slides run alongside of the patients sample show appropriate staining. Internal positive and negative controls when available are evaluated Immunohistochemistry technical testing was performed at [facility], Pathology Laboratory where it was developed and [...] perform high complexity clinical laboratory testing.HEMOGLOBIN AND [id number] 11:17:18 Test Item Value Reference Range Interpretation Comments HEMOGLOBIN (BEAKER) (test code = 7.5 GM/DL 13.7-17.5 L 410) HEMATOCRIT (BEAKER) (test code = 24.6 % 40.1-51.0 L 411) Accounting/Finance Tutor ID - [id number] [id number] 07:01:20 Test Item Value Reference Range Interpretation Comments POC-Glucose Meter (test 118 mg/dL 70-110 H : TE STED AT [facility] code = 1538) [address] [facility], [address]70 30: Accounting/Finance Tutor/Techni gus ID = [id number] for Aure Wall Lab Interpretation (test Abnormal code = 68640-1) [facility] [id number] 07:01:20 Test Item Value Reference Range Interpretation Comments POC-Glucose Meter (test 118 mg/dL 70-110 H : TE STED AT [facility] code = 1538) [address] [facility], 770 30: Accounting/Finance Tutor/Techni gus ID = [id number] for Wall, Aure Lab Interpretation (test Abnormal code = 38693-7) [facility] [id number] 07:01:20 Test Item Value Reference Range Interpretation Comments POC-Glucose Meter (test 118 mg/dL 70-110 H : TE STED AT [facility] code = 1538) [address] [place] [address], 770 [address]: Accounting/Finance Tutor/Techni gus ID = [id number] for Wall, Aure Lab Interpretation (test Abnormal code = 67043-1) [facility]-Glucose [id number] 07:01:20 Test Item Value Reference Range Interpretation Comments POC-Glucose Meter (test 118 mg/dL 70-110 H : TE STED AT [facility] code = 1538) [address] [place] [address], 770 30: Accounting/Finance Tutor/Techni gus ID = [id number] for Wall, Aure Lab Interpretation (test Abnormal code = 45274-5) [facility]-Glucose [id number] 07:01:20 Test Item Value Reference Range Interpretation Comments POC-Glucose Meter (test 118 mg/dL 70-110 H : TE STED AT [facility] code = 1538) [address] [place] [address], [address]70 [address]: Accounting/Finance Tutor/Techni gus ID = [id number] for Wall, Aure Lab Interpretation (test Abnormal code = 04548-2) [facility]-Glucose [id number] 07:01:20 Test Item Value Reference Range Interpretation Comments POC-Glucose Meter (test 118 mg/dL 70-110 H : TE STED AT [facility] code = 1538) [address] [place] [address], [address]70 [address]: Accounting/Finance Tutor/Techni gus ID = [id number] for Wall, Aure Lab Interpretation (test Abnormal code = 84242-6) [facility]-Glucose [id number] 07:01:20 Test Item Value Reference Range Interpretation Comments POC-Glucose Meter (test 118 mg/dL 70-110 H : TE STED AT [facility] code = 1538) [address] [place] [address], [address]70 [address]: Accounting/Finance Tutor/Techni gus ID = [id number] for Wall, Aure Lab Interpretation (test Abnormal code = 61589-7) [facility]-Glucose [id number] 07:01:20 Test Item Value Reference Range Interpretation Comments POC-Glucose Meter (test 118 mg/dL 70-110 H : TE STED AT [facility] code = 1538) [address] [facility], [address] 30: Accounting/Finance Tutor/Techni gus ID = [id number] for Wall, Aure Lab Interpretation (test Abnormal code = 21483-8) [facility]-Glucose [id number] 07:01:20 Test Item Value Reference Range Interpretation Comments POC-Glucose Meter (test 118 mg/dL 70-110 H : TE STED AT [facility] code = 1538) [address] [place] [address], [address]: Accounting/Finance Tutor/Techni gus ID = [id number] for Wall, Aure Lab Interpretation (test Abnormal code = 07596-8) [facility]-Glucose [id number] 07:01:20 Test Item Value Reference Range Interpretation Comments POC-Glucose Meter (test 118 mg/dL 70-110 H : TE STED AT [facility] code = 1538) [address] [place] [address], [address]: Accounting/Finance Tutor/Techni gus ID = [id number] for Wall, Aure Lab Interpretation (test Abnormal code = 40501-6) [facility]-Glucose [id number] 07:01:20 Test Item Value Reference Range Interpretation Comments POC-Glucose Meter (test 118 mg/dL 70-110 H : TE STED AT [facility] code = 1538) [address] [place] [address], [address]70 [address]: Accounting/Finance Tutor/Techni gus ID = [id number] for Wall, Aure Lab Interpretation (test Abnormal code = 49513-2) [facility]-GLUCOSE [id number] 07:01:20 Test Item Value Reference Range Interpretation Comments POC-GLUCOSE METER 118 mg/dL 70-110 H : TESTED A T [facility] 6720 (BEAKER) (test code = [facility], 1538) [address]: Accounting/Finance Tutor/Techni gus ID = [id number] for He jt, Aure COMPREHENSIVE METABOLIC [id number] 05:15:44 Test Item Value Reference Range Interpretation [...] not appl icable for dialysis patien ts Accounting/Finance Tutor ID - PIAYA LCBC W/PLT COUNT & AUTO [id number] 04:34:31 Test Item Value Reference Range Interpretation [...] PERCENT (BEAKER) (test code = 2801) POCT-GLUCOSE [id number] 23:18:11 Test Item Value Reference Range Interpretation Comments POC-GLUCOSE METER 197 mg/dL 70-110 H : TESTED A T [facility] 6720 (BEAKER) (test code = TALI Lanier [facility], 1538) [address]: Accounting/Finance Tutor/Techni gus ID = [id number] for Aure Galicia POCT-GLUCOSE [id number] 18:53:07 Test Item Value Reference Range Interpretation Comments POC-GLUCOSE METER 242 mg/dL 70-110 H : Notified RN/MD: TESTED (BEAKER) (test code AT [place] [address] [address]NER = 1538) [facility], [address] 30: Accounting/Finance Tutor/Techni gus ID = [id number] for Jennifer loyola (contract), Chad reinaika POCT-GLUCOSE [id number] 16:53:02 Test Item Value Reference Range Interpretation Comments POC-GLUCOSE METER 330 mg/dL 70-110 H : Notified RN/MD: TESTED (BEAKER) (test code AT [place] [address] [address] = 1538) [facility], 770 30: Accounting/Finance Tutor/Techni gus ID = [id number] for Jennifer loyola (contract), Sha ntika POCT-GLUCOSE [id number] 11:46:10 Test Item Value Reference Range Interpretation Comments POC-GLUCOSE METER 262 mg/dL 70-110 H : Notified RN/MD: TESTED (BEAKER) (test code AT [place] [address] [address] = 1538) [facility], 770 30: Accounting/Finance Tutor/Techni gus ID = [id number] for Jennifer loyola (contract), Sha ntika BASIC METABOLIC [id number] 09:40:28 Test Item Value Reference Range Interpretation [...] eGF R is based on the CKD-EPI 1 equation that d oes not use a race coefficientEsti mated GFR is not as accur ate as Creatinine Lisa skyler in predicting glom erular filtration rate . Estimated GFR is not appl icable for dialysis patien ts Accounting/Finance Tutor ID - SULAIMANHEPATIC FUNCTION [id number] 09:40:28 Test Item Value Reference Range Interpretation [...] (test code = 28 U/L 6-55 347) Accounting/Finance Tutor ID - [id number] 09:39:46 Test Item Value Reference Range Interpretation Comments MAGNESIUM (BEAKER) (test code = 1.5 mg/dL 1.6-2.6 L 627) Accounting/Finance Tutor ID - MITCHCBC W/PLT COUNT & AUTO [id number] 09:31:23 Test Item Value Reference Range Interpretation [...] PERCENT (BEAKER) (test code = 2801) POCT-GLUCOSE [id number] 07:18:40 Test Item Value Reference Range Interpretation Comments POC-GLUCOSE METER 271 mg/dL 70-110 H : Notified RN/MD: TESTED (BEAKER) (test code AT [facility] [address] = 1538) [facility], 770 30: Accounting/Finance Tutor/Techni gus ID = [id number] for Jennifer loyola (contract)Chad POCT-GLUCOSE [id number] 00:04:16 Test Item Value Reference Range Interpretation Comments POC-GLUCOSE METER 225 mg/dL 70-110 H : TESTED A T [facility] 6720 (BEAKER) (test code = TALI Lanier [facility], 1538) [address]: Accounting/Finance Tutor/Techni gus ID = [id number] for Fabio Vale [place], [id number] 17:16:00Reason for exam:->biliary and pancreatic ductal dilatationSHAHZAD [facility] KRAFT : 1960 Sex: MAn imaging unit was utilized for this procedure. No radiologist interpretation was requested. Refer to the EMR for findings. Refer to PACS for any patient radiation dose information.SARS-CoV2/RT-PCR (Asymptomatic ONLY)2021-12-29 11:27:33 Test Item Value Reference Interpretation Comments Range SARS-COV2/RT-PCR Negative Negative The SARS-Co V-2 (test code = target nucleic 99124-0) acids are not detected in thi s [...] SARS-CoV-2 in a nasopharyngeal swab specimen collec usman from individual s suspected of COVID-19 by [...] revoked sooner. Fact Sheet for Healthcare Providers: https://www.[employer]ves[employer]/Documents/Xp ert%20Xpress%20SAR S%20CoV-2/Fact%20S heets/302-3802%20S ARS-COV-2%20HEALTH CARE%20PROVIDERS%2 0FACT%20SHEET.pdf Fact Sheet for Healthcare Patients: https://www.[employer]ves[employer]/Documents/Xp ert%20Xpress%20SAR S%20CoV-2/Fact%20S heets/302-3801%20S ARS-COV-2%20PATIEN T%20FACT%20SHEET.p df Lab Interpretation Normal (test code = 98847-9) [facility]2021-12-29 11:27:33 Test Item Value Reference Interpretation Comments Range SARS-COV2/RT-PCR Negative Negative The SARS-Co V-2 (test code = target nucleic 91734-2) acids are not detected in thi s [...] SARS-CoV-2 in a nasopharyngeal swab specimen collec usman from individual s suspected of COVID-19 by [...] revoked sooner. Fact Sheet for Healthcare Providers: https://www.[employer]ves[employer]/Documents/Xp ert%20Xpress%20SAR S%20CoV-2/Fact%20S heets/302-3802%20S ARS-COV-2%20HEALTH CARE%20PROVIDERS%2 0FACT%20SHEET.pdf Fact Sheet for Healthcare Patients: https://wwwKrowdPad/Documents/Xp ert%20Xpress%20SAR S%20CoV-2/Fact%20S heets/302-3801%20S ARS-COV-2%20PATIEN T%20FACT%20SHEET.p df Lab Interpretation Normal (test code = 45471-2) [facility]2021-12-29 11:27:33 Test Item Value Reference Interpretation Comments Range SARS-COV2/RT-PCR Negative Negative The SARS-Co V-2 (test code = target nucleic 15147-0) acids are not detected in thi s [...] SARS-CoV-2 in a nasopharyngeal swab specimen colle usman from individual s suspected of COVID-19 by [...] revoked sooner. Fact Sheet for Healthcare Providers: https://www.Aveso/Documents/Xp ert%20Xpress%20SAR S%20CoV-2/Fact%20S heets/302-3802%20S ARS-COV-2%20HEALTH CARE%20PROVIDERS%2 0FACT%20SHEET.pdf Fact Sheet for Healthcare Patients: https://www.Aveso/Documents/Xp ert%20Xpress%20SAR S%20CoV-2/Fact%20S heets/302-3801%20S ARS-COV-2%20PATIEN T%20FACT%20SHEET.p df Lab Interpretation Normal (test code = 52513-8) [facility]2021-12-29 11:27:33 Test Item Value Reference Interpretation Comments Range SARS-COV2/RT-PCR Negative Negative The SARS-Co V-2 (test code = target nucleic 98978-3) acids are not detected in thi s [...] SARS-CoV-2 in a nasopharyngeal swab specimen collec usman from individual s suspected of COVID-19 by [...] revoked sooner. Fact Sheet for Healthcare Providers: https://www.Aveso/Documents/Xp ert%20Xpress%20SAR S%20CoV-2/Fact%20S heets/302-3802%20S ARS-COV-2%20HEALTH CARE%20PROVIDERS%2 0FACT%20SHEET.pdf Fact Sheet for Healthcare Patients: https://www.Aveso/Documents/Xp ert%20Xpress%20SAR S%20CoV-2/Fact%20S heets/302-3801%20S ARS-COV-2%20PATIEN T%20FACT%20SHEET.p df Lab Interpretation Normal (test code = 06190-4) [facility]2021-12-29 11:27:33 Test Item Value Reference Interpretation Comments Range SARS-COV2/RT-PCR Negative Negative The SARS-Co V-2 (test code = target nucleic 67419-4) acids are not detected in thi s [...] SARS-CoV-2 in a nasopharyngeal swab specimen collec usman from individual s suspected of COVID-19 by [...] revoked sooner. Fact Sheet for Healthcare Providers: https://www.Aveso/Documents/Xp ert%20Xpress%20SAR S%20CoV-2/Fact%20S heets/302-3802%20S ARS-COV-2%20HEALTH CARE%20PROVIDERS%2 0FACT%20SHEET.pdf Fact Sheet for Healthcare Patients: https://www.Aveso/Documents/Xp ert%20Xpress%20SAR S%20CoV-2/Fact%20S heets/302-3801%20S ARS-COV-2%20PATIEN T%20FACT%20SHEET.p df Lab Interpretation Normal (test code = 59494-3) [facility]2021-12-29 11:27:33 Test Item Value Reference Interpretation Comments Range SARS-COV2/RT-PCR Negative Negative The SARS-Co V-2 (test code = target nucleic 33747-0) acids are not detected in thi s specimen. Nega tive results do not preclude SARS-C oV-2 infection [...] SARS-CoV-2 in a nasopharyngeal swab specimen colle usman from individual s suspected of COVID-19 by [...] revoked sooner. Fact Sheet for Healthcare Providers: https://www.Aveso/Documents/Xp ert%20Xpress%20SAR S%20CoV-2/Fact%20S heets/302-3802%20S ARS-COV-2%20HEALTH CARE%20PROVIDERS%2 0FACT%20SHEET.pdf Fact Sheet for Healthcare Patients: https://www.Aveso/Documents/Xp ert%20Xpress%20SAR S%20CoV-2/Fact%20S heets/302-3801%20S ARS-COV-2%20PATIEN T%20FACT%20SHEET.p df Lab Interpretation Normal (test code = 06719-5) [facility]2021-12-29 11:27:33 Test Item Value Reference Interpretation Comments Range SARS-COV2/RT-PCR Negative Negative The SARS-Co V-2 (test code = target nucleic 89579-9) acids are not detected in thi s [...] SARS-CoV-2 in a nasopharyngeal swab specimen collec usman from individual s suspected of COVID-19 by [...] revoked sooner. Fact Sheet for Healthcare Providers: https://www.Aveso/Documents/Xp ert%20Xpress%20SAR S%20CoV-2/Fact%20S heets/302-3802%20S ARS-COV-2%20HEALTH CARE%20PROVIDERS%2 0FACT%20SHEET.pdf Fact Sheet for Healthcare Patients: https://www.Aveso/Documents/Xp ert%20Xpress%20SAR S%20CoV-2/Fact%20S heets/302-3801%20S ARS-COV-2%20PATIEN T%20FACT%20SHEET.p df Lab Interpretation Normal (test code = 56750-0) [facility]2021-12-29 11:27:33 Test Item Value Reference Interpretation Comments Range SARS-COV2/RT-PCR Negative Negative The SARS-Co V-2 (test code = target nucleic 14253-6) acids are not detected in thi s [...] SARS-CoV-2 in a nasopharyngeal swab specimen collec usman from individual s suspected of COVID-19 by [...] revoked sooner. Fact Sheet for Healthcare Providers: https://www.Aveso/Documents/Xp ert%20Xpress%20SAR S%20CoV-2/Fact%20S heets/302-3802%20S ARS-COV-2%20HEALTH CARE%20PROVIDERS%2 0FACT%20SHEET.pdf Fact Sheet for Healthcare Patients: https://www.Aveso/Documents/Xp ert%20Xpress%20SAR S%20CoV-2/Fact%20S heets/302-3801%20S ARS-COV-2%20PATIEN T%20FACT%20SHEET.p df Lab Interpretation Normal (test code = 38459-5) [facility]21[facility]29 11:27:33 Test Item Value Reference Interpretation Comments Range SARS-COV2/RT-PCR Negative Negative The SARS-Co V-2 (test code = target nucleic 33644-5) acids are not detected in thi s [...] SARS-CoV-2 in a nasopharyngeal swab specimen collec usman from individual s suspected of COVID-19 by [...] revoked sooner. Fact Sheet for Healthcare Providers: https://www.Aveso/Documents/Xp ert%20Xpress%20SAR S%20CoV-2/Fact%20S heets/3023802%20S ARS-COV-2%20HEALTH CARE%20PROVIDERS%2 0FACT%20SHEET.pdf Fact Sheet for Healthcare Patients: https://www.Aveso/Documents/Xp ert%20Xpress%20SAR S%20CoV-2/Fact%20S heets/302-3801%20S ARS-COV-2%20PATIEN T%20FACT%20SHEET.p df Lab Interpretation Normal (test code = 88827-9) [facility]2021-12-29 11:27:33 Test Item Value Reference Interpretation Comments Range SARS-COV2/RT-PCR Negative Negative The SARS-Co V-2 (test code = target nucleic 41200-0) acids are not detected in thi s [...] SARS-CoV-2 in a nasopharyngeal swab specimen colle usman from individual s suspected of COVID-19 by [...] revoked sooner. Fact Sheet for Healthcare Providers: https://www.Aveso/Documents/Xp ert%20Xpress%20SAR S%20CoV-2/Fact%20S heets/302-3802%20S ARS-COV-2%20HEALTH CARE%20PROVIDERS%2 0FACT%20SHEET.pdf Fact Sheet for Healthcare Patients: https://www.Aveso/Documents/Xp ert%20Xpress%20SAR S%20CoV-2/Fact%20S heets/302-3801%20S ARS-COV-2%20PATIEN T%20FACT%20SHEET.p df Lab Interpretation Normal (test code = 29360-6) [facility]2021-12-29 11:27:33 Test Item Value Reference Interpretation Comments Range SARS-COV2/RT-PCR Negative Negative The SARS-Co V-2 (test code = target nucleic 48662-9) acids are not detected in thi s [...] SARS-CoV-2 in a nasopharyngeal swab specimen collec usman from individual s suspected of COVID-19 by [...] revoked sooner. Fact Sheet for Healthcare Providers: https://www.Aveso/Documents/Xp ert%20Xpress%20SAR S%20CoV-2/Fact%20S heets/302-3802%20S ARS-COV-2%20HEALTH CARE%20PROVIDERS%2 0FACT%20SHEET.pdf Fact Sheet for Healthcare Patients: https://www.Aveso/Documents/Xp ert%20Xpress%20SAR S%20CoV-2/Fact%20S heets/302-3801%20S ARS-COV-2%20PATIEN T%20FACT%20SHEET.p df Lab Interpretation Normal (test code = 24397-4) [facility])2021-12-29 11:27:33 Test Item Value Reference Range Interpretation Comments SARS-COV2/RT-PCR Negative Negative The SARS-Co V-2 target (test code = nucleic acids a re not 6133516) detected in thi s specimen. Negative result [...] revoked sooner. Fact Sheet for Healthcare Providers: https://www.Omniture.co m/Documents/Xpert%20Xpress%20SARS%20CoV-2/Fact%20Sheets/558-0682%05UXED-NXO-9%20 HEALTHCARE%20PROVIDERS%20FACT%20SHEET.pdf Fact Sheet for Healthcare Patients: https://www.LoopUp/Documents/Xpert%20Xp ress%20SARS%20CoV-2/Fact%20Sheets/302-6491%36TUQA-JEE-5%20PATIENT%20FACT%20SHEET .pdfPOCT-GLUCOSE [id number] 11:23:38 Test Item Value Reference Range Interpretation Comments POC-GLUCOSE METER 180 mg/dL 70-110 H : TESTED A T [facility] 8443 (BEAKER) (test code = T[place], 1538) [address]: Accounting/Finance Tutor/Techni gus ID = [id number] for OR BRIELLE AGUILAR HEMOGLOBIN [id number] 10:59:31 Test Item Value Reference Range Interpretation [...] 5.7- 6.4% indicates increased risk for diabetes (prediabetes)."Accounting/Finance Tutor ID - ADMOperator ID - ADMKETONE, [id number] 08:46:23 Test Item Value Reference Range Interpretation Comments KETONES, BLOOD (BEAKER) (test code 1.9 mmol/L <0.4 H = 1103) BASIC METABOLIC [id number] 08:32:05 Test Item Value Reference Range Interpretation [...] not appl icable for dialysis patien ts Accounting/Finance Tutor ID - CHIN LBLOOD GAS, [id number] 08:28:41 Test Item Value Reference Range Interpretation [...] (BEAKER) (test code = 1819) 21.0 POCT-GLUCOSE [id number] 05:06:43 Test Item Value Reference Range Interpretation Comments POC-GLUCOSE METER 184 mg/dL 70-110 H : TESTED A T [facility] 6720 (BEAKER) (test code = TALI Yolande [facility], 1538) [address]: Accounting/Finance Tutor/Techni gus ID = [id number] for ANGEL ESPINAL KETONE, [id number] 03:38:18 Test Item Value Reference Range Interpretation Comments KETONES, BLOOD (BEAKER) (test code 3.3 mmol/L <0.4 H = 1103) LACTIC ACID, [id number] 02:33:59 Test Item Value Reference Range Interpretation Comments LACTATE BLOOD VENOUS (2) (BEAKER) 1.31 mmol/L 0.50-2.20 (test code = 2872) Accounting/Finance Tutor ID - BSHEPATIC FUNCTION [id number] 02:32:23 Test Item Value Reference Range Interpretation Comments TOTAL PROTEIN (BEAKER) 6.8 gm/dL 6.0-8.3 Speci men markedly (test code = 770) hemolyzed ALBUMIN (BEAKER) (test 3.1 g/dL 3.5-5.0 L Speci men markedly code = 1145) hemolyzed BILIRUBIN TOTAL 1.9 mg/dL 0.2-1.2 H Specimen sofia cunningham (BEAKER) (test code = hemoly zed 377) BILIRUBIN DIRECT 0.7 mg/dL 0.1-0.5 H Specimen stacey knowles (BEAKER) (test code = hemoly zed 706) ALKALINE PHOSPHATASE 184 U/L 40-150 H (BEAKER) (test code = 346) AST (SGOT) (BEAKER) 83 U/L 5-34 H Specimen markedly (test code = 353) hemolyzed ALT (SGPT) (BEAKER) 27 U/L 6-55 Specimen markedly (test code = 347) hemolyzed Accounting/Finance Tutor ID - BSBASIC METABOLIC [id number] 02:32:22 Test Item Value Reference Range Interpretation [...] not appl icable for dialysis patien ts Accounting/Finance Tutor ID - [id number] 01:55:53 Test Item Value Reference Range Interpretation [...] mechanical heart valves.CBC W/PLT COUNT & AUTO [id number] 01:34:47 Test Item Value Reference Range Interpretation [...] (BEAKER) (test code = 2801) BLOOD GAS, [id number] 01:32:44 Test Item Value Reference Range Interpretation [...] (BEAKER) (test code = 1819) 21.0 POCT-GLUCOSE [id number] 00:21:33 Test Item Value Reference Range Interpretation Comments POC-GLUCOSE METER 139 mg/dL 70-110 H : TESTED A T [facility] 6720 (BEAKER) (test code = TALI [place], 1538) [address]: Accounting/Finance Tutor/Techni gus ID = [id number] for Lula Gay ANTI-NUCLEAR ANTIBODY (JAIME)2019-12-10 10:07:00 Test Item Value Reference Range Interpretation Comments ANTI-NUCLEAR ANTIBODY (JAIME) (BEAKER) Negative Negative (test code = 418) Test performed by IFA method.Test performed by IFA method.ALPHA FETOPROTEIN (AFP), TUMOR [id number] 20:44:00 Test Item Value Reference Range Interpretation Comments ALPHA-FETOPROTEIN (BEAKER) (test code < ng/mL <10.0 = 1094) Accounting/Finance Tutor ID - BSHEPATITIS A ANTIBODY, [id number] 20:42:00 Test Item Value Reference Range Interpretation Comments HEPATITIS A IGM ANTIBODY (BEAKER) Nonreactive Nonreactive (test code = 498) Accounting/Finance Tutor ID - BSHEPATITIS B CORE ANTIBODY, [id number] 20:42:00 Test Item Value Reference Range Interpretation Comments HEPATITIS B CORE TOTAL ANTIBODY Nonreactive Nonreactive (BEAKER) (test code = 497) Accounting/Finance Tutor ID - BSHEPATITIS A ANTIBODY, [id number] 20:42:00 Test Item Value Reference Range Interpretation Comments HEPATITIS A IGG ANTIBODY (BEAKER) Nonreactive Nonreactive (test code = 2797) Accounting/Finance Tutor ID - BSHEPATITIS B SURFACE [id number] 17:52:00 Test Item Value Reference Range Interpretation Comments HEPATITIS B SURFACE ANTIBODY 8.8 mIU/mL <8.0 H (BEAKER) (test code = 647) Accounting/Finance Tutor ID - BSHEPATITIS B SURFACE [id number] 17:47:00 Test Item Value Reference Range Interpretation Comments HEPATITIS B SURFACE ANTIGEN (2) Nonreactive Nonreactive (BEAKER) (test code = 2585) Specimen is considered negative for HBsAg.HEPATITIS C [id number] 17:47:00 Test Item Value Reference Range Interpretation Comments HEPATITIS C ANTIBODY (BEAKER) Nonreactive Nonreactive (test code = 367) Accounting/Finance Tutor ID - BSIRON, TIBC, % SAT. (WITHOUT FERRITIN)2019-12-09 17:19:00 Test Item Value Reference Range Interpretation Comments IRON (BEAKER) (test code = 547) 131.0 ug/dL 40.0-160.0 TOTAL IRON BINDING CAPACITY 440 ug/dL 250-450 (BEAKER) (test code = 769) IRON % SATURATION (2) (BEAKER) 30 % 20-55 (test code = 2590) Accounting/Finance Tutor ID - [id number] 16:55:00 Test Item Value Reference Range Interpretation Comments ALPHA-1 ANTITRYPSIN (BEAKER) 150.60 mg/dL 90.00-200.00 (test code = 502) Accounting/Finance Tutor ID - [id number] 16:47:00 Test Item Value Reference Range Interpretation Comments FERRITIN (BEAKER) (test code = 187.10 ng/mL 5.00-275.00 361) Accounting/Finance Tutor ID - BSCOMPREHENSIVE METABOLIC [id number] 16:36:00 Test Item Value Reference Range Interpretation [...] 347) EGFR (BEAKER) (test 95 mL/min/1.73 ESTIMA USMAN GFR IS code = 1092) sq m NOT ACCURATE CREATININE CLEARANCE IN PREDICTING GLOMERULAR FILTRATION RATE . ESTIMATED GFR I S NOT APPLICABLE FOR DIALYSIS PATIEN TS. Accounting/Finance Tutor ID - BSBILIRUBIN, [id number] 16:36:00 Test Item Value Reference Range Interpretation Comments BILIRUBIN DIRECT (BEAKER) (test 0.4 mg/dL 0.1-0.5 code = 706) Accounting/Finance Tutor ID - BSPROTHROMBIN [id number] 16:16:00 Test Item Value Reference Range Interpretation [...] mechanical heart valves.CBC W/PLT COUNT & AUTO [id number] 16:15:00 Test Item Value Reference Range Interpretation [...] % 0-1 PERCENT (BEAKER) (test code = 4416)
[2022-08-07 20:19] LABS: Protime INR 2.54
[2022-08-07 20:20] LABS: Absolute Lymphocytes (CBC) 1.3 K/uL (0.7-4.9); Hematocrit 29.2 % (39.6-49.0); Lymphocytes % 9.2 % (15.3-44.8); MCV 104.8 fL (80-100); MPV 11.1 fL (7.6-11.3); RBC Red Blood Cell Count 2.78 M/uL (4.33-5.43)
[2022-08-07] MEDS ORDERED: PANTOPRAZOLE 40 MG INJ ONE (20:29)
[2022-08-07] MEDS ORDERED: THIAMINE 200 MG/2 ML INJ ONE (20:29)
[2022-08-07] MEDS ORDERED: WATER FOR INJ,STERILE 10 ML ONE (20:29)
[2022-08-07] MEDS ORDERED: VITAMIN K (ADULT) 10 MG/ML ONE (20:29)
[2022-08-07] MEDS ORDERED: CEFTRIAXONE 1000 MG/VIAL ONE (20:29)
[2022-08-07] MEDS ORDERED: MULTIVITAMINS 10 ML VIAL (INJ) IV ONE (20:30)
[2022-08-07] MEDS ORDERED: NA CHLORIDE 0.9% 1,000 ML ONE (20:30)
[2022-08-07] MEDS ORDERED: FOLIC ACID 5 MG/ML VIAL ONE (20:31)
--- NOTE | 2022-08-07 20:31 | ER ---
Nurse's Notes [facility] Name: Adi Bennett Age: 62 yrs Sex: Male : 1960 Arrival Date: 08/07/2022 Time: 19:37 Bed 4 Private MD: Diagnosis: Abnormal coagulation profile;Altered mental status, unspecified;Alcoholic cirrhosis of liver with ascites;Anemia, unspecified;Elevated white blood cell count;Encephalopathy, unspecified-hepatic;Acute kidney failure, unspecified;Hypokalemia;Severe sepsis with septic shock;Hepatic failure, unspecified without coma Presentation: 08/07 19:39 Chief complaint: EMS states: AMS starting this morning. PT unable to follow commands or lg3 answer any questions at this time. PT presents with lisa distended abdomen and jaundiced in color. Coronavirus screen: unable to obtain. Ebola Screen: No symptoms or risks identified at this time. Initial Sepsis Screen: Does the patient meet any 2 criteria? RR > 20 per min. Altered Mental Status. HR > 90 bpm. Yes Does the patient have a suspected source of infection? No. Patient's initial sepsis screen is negative. Risk Assessment: Do you want to hurt yourself or someone else? Unable to obtain. Onset of symptoms was August 07, 2022. 19:39 Method Of Arrival: EMS: [facility] 19:39 Acuity: RODERICK 3 lg3 Triage Assessment: 19:42 General: Appears in no apparent distress. comfortable, unkempt, Behavior is flat, lg3 uncooperative. Pain: Denies pain. EENT: Sclera/Cornea yellow in color. Neuro: Level of Consciousness is awake, confused, Oriented to none Facial symmetry appears normal, Pupils are PERRLA. Cardiovascular: No deficits noted. Capillary refill < 3 seconds Clubbing of nail beds is absent JVD is absent Patient's skin is warm and dry. Respiratory: No deficits noted. Airway is patent Respiratory effort is even, unlabored, Respiratory pattern is regular, symmetrical. GI: Abdomen is round distended, noted to have ascites, discolored. : No signs and/or symptoms were reported regarding the genitourinary system. Derm: Skin is intact, is thin, Skin is dry, Skin is jaundiced, Skin temperature is cool. Musculoskeletal: No deficits noted. Circulation, motion, and sensation intact. Range of motion: intact in all extremities. Historical: - Allergies: 19:42 Morphine (Vomiting); lg3 19:42 Phenergan; lg3 - Home Meds: 19:42 Omeprazole Oral [Active]; furosemide 40 mg/4 mL Oral solution daily [Active]; lg3 spironolactone 100 mg Oral tablet daily [Active]; - PMHx: 19:42 diabetes mellitus; ibs; Liver Issues; Pancreatitis; lg3 - PSHx: 19:42 Unable to Obtain; lg3 - Immunization history:: Adult Immunizations unknown. - Social history:: Smoking status: unknown. - Family history:: not pertinent. Screenin:[address] [facility] ED Fall Risk Assessment (Adult) History of falling in the last 3 months, lg3 including since admission No falls in past 3 months (0 pts) Confusion or Disorientation Yes (5 pts) Intoxicated or Sedated No (0 pts) Impaired Gait Yes (1 pt) Mobility Assist Device Used Yes (1 pt) Altered Elimination Yes (1 pt) Score/Fall Risk Level 3 or more points = High Risk Oriented to surroundings, Maintained a safe environment, Offered frequent toileting (1:1 observation). Abuse screen: Denies threats or abuse. Denies injuries from another. Nutritional screening: No deficits noted. Tuberculosis screening: No symptoms or risk factors identified. Assessment: 19:48 General: see triage assessment. lg3 21:18 General: Behavior is agitated, combative, fussy, uncooperative. lg3 22:34 General: Appears in no apparent distress. comfortable, Behavior is calm. Pain:. Neuro: lg3 Floyd Agitation-Sedation Scale (RASS): -2 Light sedation. Cardiovascular: No deficits noted. Respiratory: No deficits noted. Airway is patent Respiratory effort is even, unlabored, Respiratory pattern is regular, symmetrical. GI: Abdomen is round non-distended, noted to have ascites. : Siu in place to gravity drainage Urine is cloudy. EENT: Nares NG in place to left nare. Derm: Skin is intact, is thin, Skin is dry, Skin is jaundiced. Musculoskeletal: Circulation, motion, and sensation intact. Range of motion: intact in all extremities. Vital Signs: 19:39 BP 95 / 76; Pulse 104; Resp 23; Pulse Ox 98% on R/A; Weight 58.97 kg (R); Height 5 ft. lg3 9 in. (R); 20:30 BP 113 / 61; Pulse 108; Resp 21; Pulse Ox 100% on R/A; lg3 22:34 BP 131 / 72; Pulse 111; Resp 22; Pulse Ox 100% on R/A; lg3 19:39 Body Mass Index 19.20 (58.97 kg, 175.26 cm) lg3 [place] Coma Score: 19:47 Eye Response: spontaneous(4). Motor Response: localizes pain(5). Verbal Response: angel confused(4). Total: 13. ED Course: 19:38 Patient arrived in ED. lg3 19:38 Talya Lancaster, ADEEL is Primary Nurse. lg3 19:41 Mohan Arnold MD is Attending Physician. [facility] 19:42 Triage completed. lg3 19:42 Arm band placed on right wrist. lg3 19:48 Patient has correct armband on for positive identification. Placed in gown. Bed in low lg3 position. Call light in reach. Side rails up X2. Client placed on continuous cardiac and pulse oximetry monitoring. NIBP monitoring applied. diabetes clinical manager on. Door closed. Noise minimized. Warm blanket given. Family accompanied patient. 19:48 Maintain EMS IV. Dressing intact. Good blood return noted. Site clean \T\ dry. Gauge \T\ lg 3 site: 20 LAC. 19:55 Patient transferred, IV remains in place. No redness/swelling at site. lg3 20:00 Inserted saline lock: 20 gauge in right antecubital area, using aseptic technique. rv Blood collected. 20:36 Initial contacted to [facility]. Dr Arnold initiated the call and spoke with Amy. [facility] 20:39 Siu cath inserted, using sterile technique, 16 Fr., by ED staff, balloon inflated, to lg3 gravity drainage, urine specimen collected. 20:40 Notified ED physician of a critical lab result(s). lactate 8.2. kl 21:16 XRAY Chest (1 view) In Process Unspecified. EDSD 21:16 [facility] called for Doc to Doc with Dr Arnold. [facility] 21:27 Physician approval by William Breaux. [facility] 21:27 Hospital approval [address] [place] [address] bed 18 by Amy Ervin RN. [facility] 21:33 Inserted saline lock: 22 gauge in left wrist, using aseptic technique. rv 21:40 CT Traumagram (Head C Spine CAP wo con) In Process Unspecified. EDMS 21:47 [facility] contacted. ah1 22:00 NGT: inserted 16 Fr. via left nare. verified placement of air over stomach, verified lg3 return of gastric contents, to intermittent suction. Returned gastric contents. Patient tolerated well. 22:19 Abdomen 1 View (KUB) XRAY In Process Unspecified. EDMS 22:36 No provider procedures requiring assistance completed. lg3 Administered Medications: 19:56 CANCELLED (Duplicate Order): NS 0.9% IV 1000 ml IV at 125 ml/hr continuous angel 20:36 Drug: Rocephin IV 1 grams Route: IV; Rate: per protocol; Site: left antecubital; rv 22:32 Follow up: Response: No adverse reaction; IV Status: Completed infusion; IV Intake: lg3 100ml 20:36 Drug: Banana Bag - (NS 0.9% IV 1000 ml, foLIC Acid IVPB 1 mg, Thiamine IV 100 mg, rv Multivitamin IV 1 amp) Route: IV; Rate: 125 ml/hr; Site: left antecubital; 22:31 Follow up: IV Status: Infusion continued upon transfer; IV Intake: 100ml lg3 20:37 Drug: NS 0.9% IV 500 ml Route: IV; Rate: bolus; Site: right antecubital; rv 22:31 Follow up: IV Status: Completed infusion; IV Intake: 500ml lg3 20:37 Drug: Pantoprazole IVP 40 mg Route: IVP; Site: right antecubital; rv 22:32 Follow up: Response: No adverse reaction lg3 20:37 Drug: Phytonadione Sub-Q 10 mg Route: Sub-Q; Site: abdomen; rv 22:32 Follow up: Response: No adverse reaction lg3 21:18 Drug: Ativan IVP 1 mg Route: IVP; Site: right forearm; lg3 22:30 Follow up: Response: No adverse reaction; Marked relief of symptoms; Anxiety decreased; lg3 RASS: Light sedation (-2) 22:26 Not Given (Physician Discretion): NS 0.9% IV 1000 ml IV at 1 bolus Per protocol; 1000 lg3 mL bolus 22:30 Not Given (Other Intervention Used): Viscous Lidocaine Mucous Membrane Liquid (4 %) 5 lg3 ml Mucous Membrane once 22:33 Drug: Lactulose PO 30 grams {Note: administered via NG tube.} Volume: 45 ml; Route: PO; lg3 22:33 Follow up: Response: No adverse reaction lg3 22:33 Drug: Lactulose PO 30 grams {Note: administered via NG tube.} Volume: 45 ml; Route: PO; lg3 22:33 Follow up: Response: No adverse reaction lg3 Medication: 22:38 VIS not applicable for this client. lg3 Intake: 22:31 IV: 500ml; Total: 500ml. lg3 22:31 IV: 100ml; Total: 600ml. lg3 22:32 IV: 100ml; Total: 700ml. lg3 Outcome: 19:55 Transferred by ground EMS to [facility], Transfer form completed. lg3 19:55 Condition: stable 19:55 Discharge instructions given to railroad car cleaning supervisor, Instructed on the need for transfer, Demonstrated understanding of instructions. 20:30 ER care complete, transfer ordered by MD. ortiz 22:39 Patient left the ED. lg3 Signatures: Dispatcher [employer] EDMS Cami Humphrey RN Mohan Farrell MD MD cha Vicente, Ronaldo, RN RN rv Gibson, Lacie, RN RN lg3 Sohan Barone [facility] Corrections: (The following items were deleted from the chart) 22:39 19:55 Siu cath inserted, using sterile technique, 16 Fr., by ED staff, balloon lg3 inflated, to gravity drainage, urine specimen collected. lg3
--- NOTE | 2022-08-07 20:31 | EDPHYS ---
Physician Documentation [facility] Name: Adi Bennett Age: 62 yrs Sex: Male : 1960 Arrival Date: 08/07/2022 Time: 19:37 Bed 4 Private MD: ED Physician Mohan Arnold HPI: 08/07 19:47 This 62 yrs old Male presents to ER via EMS with complaints of CIRRHOSIS, AMS angel . 19:47 The patient presents with abdominal pain in the upper abdomen, in the lower abdomen, angel abdominal distention in the upper abdomen, in the lower abdomen. Onset: The symptoms/episode began/occurred 3 day(s) ago. CIRRHOSIS, AMS AND JAUNDICE. The patient presents with confusion, decreased mental status, disorientation, to person, to place, to time, trouble concentrating. Onset: The symptoms/episode began/occurred 3 day(s) ago. Possible causes: low blood sugar, CIRRHOSIS. Associated signs and symptoms: Pertinent positives: confusion. Current symptoms: In the emergency department the patient's symptoms have resolved. Severity of pain: At its worst the pain was mild moderate in the emergency department the pain is unchanged. Historical: - Allergies: 19:42 Morphine (Vomiting); lg3 19:42 Phenergan; lg3 - Home Meds: 19:42 Omeprazole Oral [Active]; furosemide 40 mg/4 mL Oral solution daily [Active]; lg3 spironolactone 100 mg Oral tablet daily [Active]; - PMHx: 19:42 diabetes mellitus; ibs; Liver Issues; Pancreatitis; lg3 - PSHx: 19:42 Unable to Obtain; lg3 - Immunization history:: Adult Immunizations unknown. - Social history:: Smoking status: unknown. - Family history:: not pertinent. ROS: 19:47 Eyes: angel 19:47 Unable to obtain ROS due to patient being uncooperative, ENCEPHALOPATHIC PATIENT. Exam: 19:47 Eyes: Sclera: icterus. angel 19:47 Neck: Exam negative for bruits, crepitus, lymphadenopathy. 19:47 ECG was reviewed by the Attending Physician. 19:47 Skin: Appearance: Color: jaundiced, Temperature: normal temperature, Moisture: normal moisture, petechiae, not noted, lesion(s), telangiectasia noted. 19:56 Head/face: Exam is negative for abrasion(s), panchal signs, contusion, ecchymosis. angel 19:56 Chest/axilla: Inspection: normal, no abrasion, no abscess, no assymetry, no cellulitis, no deformity, no ecchymosis, no evidence of flail chest, no paradoxical chest wall movement, no puncture, no rash. 19:56 Cardiovascular: Rate: tachycardic, actual rate is 101 bpm, Rhythm: regular, Pulses: Pulses are 4+ in bilateral radial, brachial, femoral, popliteal, posterior tibial and and dorsalis pedis arteries.. Heart sounds: normal, Edema: is not appreciated, JVD: is not appreciated. 19:56 Respiratory: the patient does not display signs of respiratory distress, Respirations: no acute changes, is not noted, Breath sounds: are clear throughout, Respiratory rate: 20 19:56 Abdomen/GI: Inspection: distension, Bowel sounds: normal, Palpation: nontender, Liver: no appreciated palpable abnormalities, Hernia: not appreciated. 19:56 Musculoskeletal/extremity: ROM: full active range of motion, full passive range of motion, Circulation is intact in all extremities. Sensation intact. Compartment Syndrome exam of affected extremity: is normal. DVT Exam: No signs of deep vein thrombosis. Vital Signs: 19:39 BP 95 / 76; Pulse 104; Resp 23; Pulse Ox 98% on R/A; Weight 58.97 kg (R); Height 5 ft. lg3 9 in. (R); 20:30 BP 113 / 61; Pulse 108; Resp 21; Pulse Ox 100% on R/A; lg3 22:34 BP 131 / 72; Pulse 111; Resp 22; Pulse Ox 100% on R/A; lg3 19:39 Body Mass Index 19.20 (58.97 kg, 175.26 cm) lg3 Eidson Coma Score: 19:47 Eye Response: spontaneous(4). Motor Response: localizes pain(5). Verbal Response: angel confused(4). Total: 13. MDM: 19:42 Patient medically screened. angel 19:53 Differential Diagnosis altered mental status, sepsis. Differential Diagnosis: angel electrolyte abnormality, alcohol intoxication, hypoglycemia, sepsis, volume depletion. Differential diagnosis: bowel obstruction, gastritis, non-specific abd pain, pancreatitis, Ureterolithiasis, urinary tract infection. Data reviewed: vital signs, nurses notes, lab test result(s), EKG, radiologic studies. Consideration of Admission/Observation Escalation of care including admission/observation considered. I considered the following discharge prescriptions or medication management in the emergency department Medications were administered in the Emergency Department. See MAR. Independent interpretation of the following test(s) in the Emergency Department EKG: See my EKG interpretation above. Test considered but Not performed: MRI: NO MRI BRAIN. Historians other than the Patient: Family Member: MOM, POOR HISTORIAN. Counseling: I had a detailed discussion with the patient and/or guardian regarding: the historical points, exam findings, and any diagnostic results supporting the discharge/admit diagnosis, lab results, the need to transfer to another facility, for higher level of care, [facility] does not immediately have the required specialist. 08/07 19:46 Order name: Basic Metabolic Panel; Complete Time: 20:[address] [facility] 08/07 19:46 Order name: CBC with Diff; Complete Time: 20:[address] [facility] 08/07 19:46 Order name: LFT's; Complete Time: 20:36 08/07 19:46 Order name: Magnesium; Complete Time: 20:36 08/07 19:46 Order name: NT PRO-BNP; Complete Time: 20:36 08/07 19:46 Order name: PT-INR; Complete Time: 20:20 08/07 19:46 Order name: Troponin HS; Complete Time: 20:[address] [facility] 08/07 19:46 Order name: Lipase; Complete Time: 20:[address] [facility] 08/07 19:46 Order name: AMMONIA; Complete Time: 20:[address] [facility] 08/07 19:56 Order name: Blood Culture Adult (2) 08/07 19:56 Order name: Lactate w/ 2H reflex if indic.; Complete Time: 20:41 08/07 19:46 Order name: XRAY Chest (1 view); Complete Time: 22:[address] [facility] 08/07 20:39 Order name: CT Traumagram (Head C Spine CAP wo con); Complete Time: 22:[address] [facility] 08/07 21:13 Order name: Abdomen 1 View (KUB) XRAY 08/07 19:46 Order name: EKG; Complete Time: 19:[address] [facility] 08/07 19:46 Order name: Cardiac monitoring; Complete Time: 19:[address] [facility] 08/07 19:46 Order name: EKG - Nurse/Tech; Complete Time: 19:[address] [facility] 08/07 19:46 Order name: IV Saline Lock; Complete Time: 19:[address] [facility] 08/07 19:46 Order name: Labs collected and sent; Complete Time: 19:[address] [facility] 08/07 19:46 Order name: O2 Per Protocol; Complete Time: 19:[address] [facility] 08/07 19:46 Order name: O2 Sat Monitoring; Complete Time: 19:[address] [facility] 08/07 20:39 Order name: Restraint:Violent/Self Destructive (Adult:18yo or >); Complete Time: 20:[address] [facility] 08/07 20:39 Order name: Siu; Complete Time: 20:[address] [facility] 08/07 20:46 Order name: IV Saline Lock - Large Bore; Complete Time: 21:[address] [facility] 08/07 21:13 Order name: Nasogastric Tube; Complete Time: 22:[address] [facility] EC:47 Rate is 101 beats/min. Rhythm is regular. QRS [place] is Normal. IA interval is normal. angel QRS interval is normal. QT interval is normal. No Q waves. T waves are Normal. ST Segment is depressed in leads II, III, aVF, V3, V4, V5, V6. Clinical impression: NSR w/ Non-specific ST/T Changes. Interpreted by me. Reviewed by me. Administered Medications: 19:56 CANCELLED (Duplicate Order): NS 0.9% IV 1000 ml IV at 125 ml/hr continuous angel 20:36 Drug: Rocephin IV 1 grams Route: IV; Rate: per protocol; Site: left antecubital; rv 22:32 Follow up: Response: No adverse reaction; IV Status: Completed infusion; IV Intake: lg3 100ml 20:36 Drug: Banana Bag - (NS 0.9% IV 1000 ml, foLIC Acid IVPB 1 mg, Thiamine IV 100 mg, rv Multivitamin IV 1 amp) Route: IV; Rate: 125 ml/hr; Site: left antecubital; 22:31 Follow up: IV Status: Infusion continued upon transfer; IV Intake: 100ml lg3 20:37 Drug: NS 0.9% IV 500 ml Route: IV; Rate: bolus; Site: right antecubital; rv 22:31 Follow up: IV Status: Completed infusion; IV Intake: 500ml lg3 20:37 Drug: Pantoprazole IVP 40 mg Route: IVP; Site: right antecubital; rv 22:32 Follow up: Response: No adverse reaction lg3 20:37 Drug: Phytonadione Sub-Q 10 mg Route: Sub-Q; Site: abdomen; rv 22:32 Follow up: Response: No adverse reaction lg3 21:18 Drug: Ativan IVP 1 mg Route: IVP; Site: right forearm; lg3 22:30 Follow up: Response: No adverse reaction; Marked relief of symptoms; Anxiety decreased; lg3 RASS: Light sedation (-2) 22:26 Not Given (Physician Discretion): NS 0.9% IV 1000 ml IV at 1 bolus Per protocol; 1000 lg3 mL bolus 22:30 Not Given (Other Intervention Used): Viscous Lidocaine Mucous Membrane Liquid (4 %) 5 lg3 ml Mucous Membrane once 22:33 Drug: Lactulose PO 30 grams {Note: administered via NG tube.} Volume: 45 ml; Route: PO; lg3 22:33 Follow up: Response: No adverse reaction lg3 22:33 Drug: Lactulose PO 30 grams {Note: administered via NG tube.} Volume: 45 ml; Route: PO; lg3 22:33 Follow up: Response: No adverse reaction lg3 Disposition Summary: 08/07/22 20:30 Transfer Ordered Transfer Location: [facility] angel Reason: Higher level of care angel Condition: Serious angel Problem: an acute exacerbation angel Symptoms: have worsened angel Accepting Physician: to [facility](08/07/22 22:39) lg3 Diagnosis - Abnormal coagulation profile angel - Altered mental status, unspecified angel - Alcoholic cirrhosis of liver with ascites angel - Anemia, unspecified angel - Elevated white blood cell count angel - Encephalopathy, unspecified - hepatic angel - Acute kidney failure, unspecified angel - Hypokalemia angel - Severe sepsis with septic shock angel - Hepatic failure, unspecified without coma angel Forms: - Medication Reconciliation Form angel - SBAR form angel Signatures: Dispatcher [employer] EDMS Mohan Arnold MD MD cha Attema, Lee, PAINTER PLATE-C PAINTER PLATE-Cla1 Demarcus Melendez RN RN rv Talya Lancaster RN RN lg3 Corrections: (The following items were deleted from the chart) 19:56 19:46 NS 0.9% IV 1000 ml IV at 125 ml/hr continuous ordered. angel angel 20:44 20:28 Head Brain Wo Cont+CT.RAD.BRZ ordered. EDMS EDMS 20:30 to [facility] 20:44 to [facility] : 20:46 to [facility] 22:39 21:03 to [facility] lg3
[2022-08-07] MEDS ORDERED: LACTULOSE 20 GM/30 ML UCUP ONE (20:32)
[2022-08-07 20:33] LABS: Albumin 1.6 g/dL (3.4-5.0); Bilirubin Direct 8.3 mg/dL (0-0.2); Bilirubin Indirect, Calculated 2.5 mg/dL (0.2-0.8); Bilirubin Total 10.8 mg/dL (0.2-1.0); Magnesium 1.9 mg/dL (1.6-2.4); Potassium 3.2 mEq/L (3.5-5.1); Protein, Total 6.9 g/dL (6.4-8.2); Troponin High Sensitivity 8.5 pg/mL (<58.9)
[2022-08-07] MEDS ORDERED: LORazepam 2 MG/ML VIAL ONE (21:19)
--- NOTE | 2022-08-07 21:55 | RAD REPORT ---
EXAM DESCRIPTION: CT - Head C Spine Cap Johan Henley - 08/07/2022 9:39 pm CLINICAL HISTORY: Dizziness, neck pain, chest and abdominal pain, jaundice TECHNIQUE: Computed axial tomography of head, neck, chest, abdomen and pelvis obtained. IV and oral contrast not requested. Coronal and sagittal reconstruction performed. All CT scans are performed using dose optimization technique as appropriate and may include automated exposure control or mA/KV adjustment according to patient size. COMPARISON: 2021 CT abdomen and chest FINDINGS: An intracranial bleed is not seen. The ventricles are normal in caliber. An extra-axial fluid collection is not noted. . Fluid within the sinuses/mastoids is not seen. A cervical fracture is not seen. No dislocation is noted. Mild posterior subluxation C4 on C5. Cortic al irregularity involves the vertebral endplates of C4 and C5 with sclerosis. Slight anterior subluxa tion C7 on T1 The evaluation of mediastinum, [place], vessels, solid organs and bowel are limited secondary to the lac k of contrast administration. Lungs are clear. No mediastinal or hilar lymphadenopathy. No pleural effusion. No pericardial effusion Cirrhotic liver. Abdominal varices. Spleen, pancreas, adrenals and kidneys grossly normal. Siu catheter within the bladder. Marked amount of ascites within the abdomen and pelvis No evidence of diverticulitis Cholelithiasis IMPRESSION: No acute intracranial abnormality is seen. Cortical irregularity involves the vertebral endplates of C4 and C5. This may be secondary to degener ative changes. Infection/inflammation can also have this appearance. MRI may be helpful for further e valuation Cirrhosis with marked amount of ascites
--- NOTE | 2022-08-07 21:56 | RAD REPORT ---
EXAM DESCRIPTION: Ambreen Single View08/07/2022 9:14 pm CLINICAL HISTORY: Chest pain COMPARISON: none FINDINGS: The lungs appear clear of acute infiltrate. The heart is normal size IMPRESSION: No acute abnormalities displayed
--- NOTE | 2022-08-07 22:35 | RAD REPORT ---
EXAM DESCRIPTION: RAD - Abdomen 1 View (KUB) - 08/07/2022 10:17 pm CLINICAL HISTORY: Abdomen pain FINDINGS: The bowel gas pattern is unremarkable. No significant abnormal calcification is displayed A NG tube has been placed into the distal stomach. Abdomen is hazy consistent with ascites
[2022-08-07 22:47] VITALS: O2SAT 100
[2022-08-07 22:49] VITALS: BP 131/72
== END 2022-08-07 22:39 | disposition short-term general hospital (02) ==
LOC: ER 19:37
DX: K70.31 Alcoholic cirrhosis of liver with ascites (principal); A41.9 Sepsis, unspecified organism; K72.90 Hepatic failure, unspecified without coma; R65.21 Severe sepsis with septic shock; N17.9 Acute kidney failure, unspecified; D64.9 Anemia, unspecified; E87.6 Hypokalemia; R79.1 Abnormal coagulation profile; D72.829 Elevated white blood cell count, unspecified; E11.9 Type 2 diabetes mellitus without complications; Z88.5 Allergy status to narcotic agent; Z88.8 Allergy status to other drugs, medicaments and biological substances
CPT/HCPCS: 87040 ×2; 85025; 80048; 36415; 82140; 83735; 85610; 80076; 83605; 84484; 83690; 83880; 70450; 71250; 72125; 74018; 71045; J3411; J3430; C9113; J7030; J0696